=== PATIENT | female | born 1990 | race Caucasian/White ===

== ENCOUNTER 2022-05-26 20:47 | Emergency (ER) | payer BC, SELFPAY ==
[2022-05-26 21:35] VITALS: BP 130/83; PULSE 80; RESP 24; TEMP 36.4; O2SAT 99
[2022-05-26 22:39] LABS: Appearance Urine Clear (Clear); Bilirubin Urine Negative (Negative); Blood Urine Negative (Negative); Color Urine Yellow (Yellow); Glucose Urine Negative (Negative); Ketones Urine 2+ (Negative); Leukocyte Esterase Urine Negative (Negative); Nitrite Urine Negative (Negative); Protein Urine Negative (Negative); Specific Gravity Urine >= 1.030 (1.000-1.030); Urobilinogen Urine 0.2 (0.2-1.0); pH Urine 6.5 (5.0-8.5)
--- OUTSIDE RECORDS SUMMARY | 2022-05-26 22:55 | XMS_ITS | Clinical Summary ---
:1990 Author Organization [facility] [place] [address] Care Team Providers Name Role Phone Darwin Leung DPM Unavailable Arlet Pratt DO Primary Care Provider Allergies Active Allergy Reactions Severity Noted Date Comments Cephalosporins Diarrhea Low 09/29/2020 Bloody diarrh ea Nsaids (Non-Steroidal Pancreatitis 08/21/2012 Anti-Inflammatory Drug) Unlisted Allergen (Include Detail In Pancreatitis High 10/2020 Comments) Medications Medication Sig Dispensed Refills Start End Status Date Date multivitamin (MVI) Take 1 tablet by 0 Active tablet mouth once daily. 1 acetaminophen Take 2 tablets by 0 Active (TYLENOL) 325 mg mouth every 4 4 tablet hours if needed. Max acetaminophen dose: 4000mg in 24 hrs. omeprazole Take 1 capsule by 90 capsule 1 Active (PRILOSEC) 20 mg mouth once daily. 8 Delayed-Release capsuleIndications: Gastroesophageal reflux disease without esophagitis Needle, Disp, 30 G As directed. Use 30 Each 3 Active (HARJINDER DISP NEEDLES as directed with 0 30GX1/2) 30 gauge x Victoza 1/2 ndleIndications: Controlled type 2 diabetes mellitus without complication, without long-term current use of insulin (HC) tolnaftate 1% powder Apply topically 1 Bottle 11 Active (TINACTIN) 1 % to affected 1 powderIndications: area(s) 2 times Tinea pedis of both daily. Shake into feet sock blood-glucose by Not Applicable 1 Device 0 Active meterIndications: route. Dispense 1 Type 2 diabetes, meter, test diet controlled (HC) strips, lancets covered by pt ins. NIDDM type II, controlled - Test 1 time/day norgestimate-ethinyl Take 1 Tablet by 3 Package 3 Active estradiol, 0.25-35 mouth once daily. 1 mg-mcg, (Sprintec) 0.25-35 mg-mcg tabletIndications: PCOS (polycystic ovarian syndrome) diphenhydrAMINE-acet Daily 0 Active aminophen 25-500 mg (TYLENOL PM) 25-500 mg tablet cyclobenzaprine TAKE ONE TO TWO 180 Tablet 0 Active (FLEXERIL) 5 mg TABLETS BY MOUTH 1 tabletIndications: AT BEDTIME Chronic midline low NEEDED FOR MUSCLE back pain with SPASM bilateral sciatica Contour Next Test TEST 1 TIME A DAY 0 Active Strips strip 1 Microlet Lancet TEST ONCE A DAY 0 Active 1 chlorthalidone Take 1 Tablet (25 90 Tablet 3 Active (HYGROTON) 25 mg mg) by mouth once 2 tabletIndications: daily. Hypertension albuterol HFA Inhale 1-2 Puffs 1 Each 1 Active (ProAir HFA) 90 by mouth every 4 2 mcg/actuation hours if needed inhalerIndications: for Shortness of Asthma, unspecified Breath 1st choice asthma severity, or Wheezing 1st unspecified whether choice. complicated, unspecified whether persistent famotidine (PEPCID) Take 1 Tablet (40 90 Tablet 3 Active 40 mg mg) by mouth at 2 tabletIndications: bedtime. Gastric reflux cetirizine (ZYRTEC) Take 1 Tablet (10 90 Tablet 3 Active 10 mg mg) by mouth once 2 tabletIndications: daily. Moderate persistent asthma without complication miconazole nitrate Apply topically 85 g 1 Active powder 2 % to affected 2 powderIndications: area(s) 2 times Tinea pedis, daily. unspecified laterality triamcinolone Apply topically 15 g 0 Active (ARISTOCORT) 0.5 % to affected 2 ointmentIndications: area(s) 2 times Skin lesion of left daily. Not use arm >14 days in a row escitalopram oxalate Take 1 Tablet (20 90 Tablet 3 Active (LEXAPRO) 20 mg mg) by mouth at 2 tabletIndications: bedtime. Depression, recurrent (HC) labetaloL (TRANDATE) Take 1 Tablet 180 Tablet 3 Active 100 mg (100 mg) by mouth 2 tabletIndications: in the morning HTN (hypertension) and 1 Tablet (100 mg) in the evening. montelukast TAKE ONE TABLET 90 Tablet 1 Ac tive (SINGULAIR) 10 mg BY MOUTH AT 2 tabletIndications: BEDTIME Moderate persistent asthma without complication SUMAtriptan TAKE 1/2 TO 1 10 Tablet 2 Acti ve (IMITREX) 50 mg TABLET BY MOUTH 2 tabletIndications: AT ONSET OF Menstrual migraine MIGRAINE. MAY without status REPEAT IN 2 HOURS migrainosus, not IF NEEDED. GIVE intractable AT MINIMUM 2 HOURS APART. MAX DOSE 100MG/24 HOURS acetaminophen-codein Take 1 Tablet by 10 Tablet 0 Active e (TYLENOL #3) mouth every 4 2 300-30 mg per hours if needed tabletIndications: for Pain. Max Cyst of left ovary acetaminophen dose: 4000mg in 24 hrs. potassium chloride TAKE ONE TABLET 30 Tablet 0 Active (KLOR-CON M20) 20 BY MOUTH EVERY 2 mEq Extended-Release DAY WITH A MEAL. tabletIndications: TAKE INSTEAD OF Low blood potassium, POWDER POTASSIUM Hypertension potassium chloride TAKE ONE TABLET 90 Tablet 3 05/03 Discontinued (KLOR-CON M20) 20 BY MOUTH EVERY 1 022 mEq Extended-Release DAY WITH A MEAL. tabletIndications: TAKE INSTEAD OF Low blood potassium, POWDER POTASSIUM Hypertension Active Problems Problem Noted Date Elevated white blood cell count 07/03/2021 Overview: Saw hematology November 2020. Thought due to chronic inflammation related to diabetes and morbid obesity. No further work up recommended per hematology Type 2 diabetes, diet controlled 08/31/2019 Closed fracture of tuft of distal phalanx of finger Hypertension 06/29/2018 Spleen enlarged 06/01/2018 Overview: On CT, Recommend US and labs. Had initia l labs but declined further labs or US. Encouraged to reconsider 06/01/2018 Oligomenorrhea on OCP 01/27/2017 Chronic abdominal pain 01/18/2017 L5-S1 right sided disk herniation 08/02/2014 History of pancreatitis 11/28/2013 Overview: Per Dr. Martinez, GI at [facility] vi sit from April 2012. Consult for recurrent acute pancreatitis and in it potential various etiologies which could include biliary sludge disease or sphincter oddi dysfunction. He was also concerne d about hypertriglyceridemia, especially induced by oral contraceptives He recommended checking a lipid profile and if it did not show hypertriglyceridemia consid ering ERCP. I reviewed those lipid resul ts and her triglycerides were normal. Therefore it sounds as though the control pills were not actually contributing. Records from [facility] [place] in chart, only 1 vi sit 05/08/14. Asked for further records but none available. 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 Lyon. 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 See consult from GI Dr. Martinez at the [place] from May 08, 2012 See details under pancreatitis in proble m list. MRSA (methicillin resistant Staphylococcus aureus) inf ection 07/03/2010 PCOS (polycystic ovarian syndrome) 05/13/2010 Overview: As of 07/2013: Previously on OCPs but the se had to be discontinued because patient was having recurrent pancreatitis after her gallbladder was removed. She saw a food mixer assembler who told her the control was interfering with the sphinc ter of Oddi. No further pancreatitis problems since stopping the control 1.5 years ago. Recommended trial Metformin. 11/2013: Patient stopped metformin after 2 days due to right upper quadrant pain which she contributed to her sphincter of Oddi dysfunction. It is unclear to me if patient was officially diagnosed with s phincter of Oddi dysfunction as the last consult note we have from GI is from Dr. Martinez on May 08, 2012 and he listed it as a possibility but not definitive diagnosis. We'll try to get further re cords if available. Also please see comm ents under pancreatitis as sounds like potential patient misunderstanding regarding control as cause of her symptoms as per Dr. Martinez's note he was concer marko could be causing hypertriglyceridemi a which could then be causing pancreatitis. Triglycerides were checked at that time and were normal so that was ruled out. Recommend trial progesterone only contr aception as if the combination oral cont raception was potentially contributing to her symptoms the progesterone only does not have this potential side effects listed. Other acne 12/14/2007 Overview: Sees Teresa Miranda reactive airway 12/14/2007 Overview: Only with cold air and toxins Morbid obesity 12/14/2007 Resolved Problems Problem Noted Date Resolved Date Morbid obesity 12/26/2011 10/30/2012 Acute pancreatitis 12/25/2011 10/30/2012 Chronic abdominal pain 12/25/2011 10/30/2012 Overview: Unclear etiology. Per clinical care coordinator, at times s eems correlated with menstrual cycle, concerning for endometriosis versus dysmenorrhea. Has seen Dr. Jose Cifuentes, Gastroenterology in the past. No CT findings co nsistent for IBD in the past or currentl y. Per Dr. Cifuentes's note from 03/2011, plan was for possible upper endoscopy if imaging negative. Appears from notes that EGD was scheduled, but never performed an d no subsequent follow-up visits noted. Multiple CT scans and pelvic ultrasound unrevealing other than one episode of pancreatitis following cholecystectomy for cholelithiasis in 2008. Acute abdominal pain 06/14/2009 08/31/2010 Encounters Date Type Specialty Care Team Description 05/13/2022 Travel 05/02/2022 Refill Arlet Pratt, Refi ll Request (Potassium Chloride) from Last 3 Months Immunizations Name Administration Dates Next Due COVID-19 vaccine (Moderna 07/30/2020, 07/03/2020 100mcg/0.5mL) PF, MDV Hepatitis B (Adult) 01/05/2021 Human Papilloma Virus Vaccine 01/06/2012, 10/04/2011, 200702/13/2008 Influenza, IIV3 (Age >=3 years) 04/28/2012, 05/13/2010 Influenza, IIV4 05/06/2020, 05/04/2019, 06/01/2018, 03/17/2017, 05/14/2016, 04/15/2015 Pneumococcal Poly,23-Valent 01/05/2021 (Pneumovax) Tdap 12/27/2020, 04/28/2012 Tuberculin (PPD) 09/23/2017, 09/09/2017 Family History Medical History Relation Name Comments Asthma Brother Cancer-breast Maternal Grandmother diagnosed a t age 36 Asthma Mother Other Other 1 no family histor y of pancreatitis Other Other 2 no family histor y of IBD Cancer-breast Paternal Grandmother post menopa use Asthma Sister Relation Name Status Comments Brother Maternal Grandmother Mother Other 1 Other 2 Paternal Grandmother Sister Social History Tobacco Use Types Packs/Day Years Used Date Never Smoker Smokeless Tobacco: Never Used Tobacco Cessation: Counseling Given: Yes Alcohol Use Standard Drinks/Week Comments Yes 0 (1 standard drink = 0.6 oz pure alcoho l) Alcohol Habits Answer Date Recorded How often do you have a drink containing alcohol? Monthly or less 05/04/2019 How many drinks containing alcohol do you have on a 1 or 2 05/04/2019 typical day when you are drinking? How often do you have six or more drinks on one Never 01/02/2020 occasion? Comment: Not asked Sex Assigned at Date Recorded Not on file COVID-19 Exposure Response Date Recorded In the last 10 days, have you been in contact No / Unsure 05/13/2022 10:28 AM HAZARDOUS MATERIAL TECHNICIAN with someone who was confirmed or suspected to have Coronavirus/COVID-19? Obstetrics History Para Term AB IAB SAB Ectopic Multiple Living Live Births 0 0 0 0 0 0 0 0 0 0 Last Filed Vital Signs Vital Sign Reading Time Taken Comments Blood Pressure 120/61 02/19/2022 9:25 PM CDT Pulse 77 02/19/2022 9:25 PM CDT Temperature 36.5 ??C (97.7 ??F) 02/19/2022 5:49 PM CDT Respiratory Rate 40 02/19/2022 5:49 PM CDT Oxygen Saturation 99% 02/19/2022 9:25 PM CDT Inhaled Oxygen Concentration - - Weight 151 kg (333 lb) 02/19/2022 5:49 PM CDT Height 167.6 cm (5' 6) 02/19/2022 5:49 PM CDT Body Mass Index 53.75 02/19/2022 5:49 PM CDT Plan of Treatment Upcoming Encounters Date Type Specialty Care Team Description 05/31/2022 Office Visit Arlet Pratt, DO [address], [place] [id number] (Wo rk) Health Maintenance Due Date Last Done Comments Hepatitis B series for Diabetes (2 02/02/2021 01/05/2021 of 3 - Risk 3-dose series) COVID-19 vaccine series (4 - 10/01/2021 08/06/2021, 021, Booster for Moderna series) 07/03/2020 Pap test for age 21-65 10/26/2021 10/26/2018, 08/24/2013 Pneumococcal series for age 19-64 01/05/2022 01/05/2021 (2 - PCV) Influenza for age 9-49 02/25/2022 05/06/2020, 05/04/2019, 06/01/2018, Additional history exists BMI (ht and wt on same day) for 07/02/2022 07/02/2021, 01/25, age 18+ 02/04/2020, Additional history exists Depression screening for age 12+ 10/29/2022 10/29/2021, 02/2022, 11/17/2020, Additional history exists Tetanus booster 12/27/2030 12/27/2020, 04/28/2012 HIV for age 15-65 Completed 01/02/2020, 03/07/2018 Hepatitis C screening for age Completed 01/02/2020 18-79 Tdap Completed 12/27/2020, 04/28/2012 Procedures Procedure Name Priority Date/Time Associated Comments Diagnosis HEMOGLOBIN A1C Routine 05/13/2022 10:38 AM Type 2 diabetes, Re sults for this HAZARDOUS MATERIAL TECHNICIAN diet controlled procedure ar e in (HC) the results section. COMP METABOLIC PANEL Routine 05/13/2022 10:38 AM Low blo od potassium Results for this HAZARDOUS MATERIAL TECHNICIAN Elevated liver procedure are in enzymes the results section. from Last 3 Months Results (ABNORMAL) HEMOGLOBIN A1C MONITORING (POCT) (05/13/2022 10:38 AM [facility]) [facility] Signature HEMOGLOBIN A1C 7.3 (H) <=6.4 % 05/13/2022 [place] MONITORING 11:[address] [facility] (POCT) LABORATORY Specimen Anatomical Collection Method / Collection Time Recei baldemar Time (Source) Location / Volume Laterality Blood BLOOD SPECIMEN / Venipuncture / 05/13/2022 10:38 05/13 Unknown Unknown AM HAZARDOUS MATERIAL TECHNICIAN 10:40 AM [facility] Narrative [facility] - 11:10 AM HAZARDOUS MATERIAL TECHNICIAN ? (<=6.9%) ? Indicates good control ? (7.0% to 7.9%) ? Indicates fa ir control ? (>=8.0%) ? Indicates poor control ?? NOTE: ??These thresholds are guideli julia and ?individual targets may va ry. Falsely low levels may be seen with: Recent Transfusion, Recent Significant B lood Loss, Hemolytic Diseases, or Falsely elevated levels may be seen with : Untreated Anemias, Splenectomy ? Arlet Pratt DO CHEMISTRY Performing Organization Address City/State/ZIP Code Phon e Number [facility] [address] [place] [address] (ABNORMAL) COMP METABOLIC PANEL (05/13/2022 10:38 AM [facility]) [facility] gist Method Time Signature SODIUM 138 135 - 145 05/13/2022 [place] mmol/L 11:[address] [facility] POTASSIUM 3.5 3.5 - 5.0 05/13/2022 [place] mmol/L 11:[address] [facility] CHLORIDE 101 98 - 110 05/13/2022 [place] mmol/L 11:[address] [facility] CO2,TOTAL 29 21 - 31 05/13/2022 [place] mmol/L 11:[address] [facility] ANION GAP 8 5 - 18 [facility] [facility] GLUCOSE 177 (H) 65 - 100 05/13/2022 [place] mg/dL 11:[address] [facility] CALCIUM 9.2 8.5 - 10.5 05/13/2022 [place] mg/dL 11:[address] [facility] BUN 11 8 - 25 05/13/2022 [place] mg/dL 11:[address] [facility] CREATININE 0.81 0.57 - 05/13/2022 [place] 1.11 mg/dL 11:[address] [facility] BUN/CREAT RATIO 14 10 - 20 05/13/2022 [place] 11:[address] [facility] ALBUMIN 3.9 3.5 - 5.2 05/13/2022 [place] g/dL 11:[address] [facility] PROTEIN,TOTAL 7.3 6.0 - 8.0 05/13/2022 [place] g/dL 11:[address] [facility] GLOBULIN 3.4 2.0 - 3.7 05/13/2022 [place] g/dL 11:[address] [facility] A/G RATIO 1.1 1.0 - 2.0 05/13/2022 [place] 11:[address] [facility] BILIRUBIN,TOTAL 0.3 0.2 - 1.2 05/13/2022 [place] mg/dL 11:[address] [facility] ALK PHOSPHATASE 55 50 - 136 05/13/2022 [place] IU/L 11:[address] [facility] ALT (SGPT) 43 8 - 45 05/13/2022 [place] IU/L 11:[address] [facility] AST (SGOT) 47 (H) 2 - 40 05/13/2022 [place] IU/L 11:[address] [facility] eGFR >90 >90 05/13/2022 [place] mL/min/1.7 11:[address] [facility] 3m2 LABORATORY Comment: As of 2021, eGFR is calcu lated by the CKD-EPI creatinine equation without race adjustment. eGFR can be inf luenced by muscle mass, exercise, and diet. The reported eGFR is an estimation only and is only applicable if the renal function is stable. Specimen Anatomical Collection Method / Collection Time Recei baldemar Time (Source) Location / Volume Laterality Blood BLOOD SPECIMEN / Venipuncture / 05/13/2022 10:38 05/13 Unknown Unknown AM HAZARDOUS MATERIAL TECHNICIAN 10:40 AM HAZARDOUS MATERIAL TECHNICIAN Arlet Pratt DO CHEMISTRY Performing Organization Address City/State/ZIP Code Phon e Number [facility] [address] [place] [phone] from Last 3 Months Additional Health Concerns Infection Onset Date Last Indicated MRSA 12/27/2011 01/12/2022 Insurance Payer Benefit Plan / Subscriber ID Effective Dates Phone Addre ss Type Group [employer] [place] [employer] [id number] 2018-Present [address] [address] [place] [address] [employer] OF [id number] 2014-Present [address] [place] [address] Yulia Carter Personal/Family Self 1990 [address] (Home) [place] [id number] Advance Directives Latest Code Status on File Code Status Date Activated Date Inactivated Comments Full Code 12/25/2011 9:05 PM 12/28/2011 8:14 PM Full Code 06/14/2009 2:40 PM 06/17/2009 2:07 PM Care Teams Protective Signal Repairer Helper Relationship Specialty Start Date End Date Arlet Pratt DO PCP - General Family Practice 05/06/[address] [place] [address] Darwin Leung DPM PODIATRY Podiatry 08/02/11
[2022-05-26 23:04] LABS: RBC Urine 0-2 (0-2); Squamous Epithelial Cell Urine Few (None-Few); WBC Urine 0-2 (0-5)
[2022-05-26 23:39] VITALS: BP 162/98; PULSE 73; RESP 18; O2SAT 97
[2022-05-26] MEDS: 0.9 % SODIUM CHLORIDE 1000 ml 1,000 ML IV (23:50)
[2022-05-26] MEDS: MORPHINE 4 MG/ML INJ IVP (23:51)
[2022-05-26] MEDS: KETOROLAC 30 MG/ML inj IVP (23:51)
[2022-05-27 00:02] LABS: Basophils Percent Auto 0.3 % (0.0-3.0); Eosinophils Percent Auto 2.7 % (0.0-7.0); Hematocrit 40.9 % (33.0-51.0); Hemoglobin* 13.4 gm/dL (12.0-16.0); Immature Granulocytes Pct Auto 0.5 %; Lymphocytes Percent Auto 28.1 % (20-44); Mean Corpuscular HGB Conc 33 gm/dL (32-36); Mean Corpuscular Hemoglobin 26 pg (26-34); Mean Corpuscular Volume 80 fL (80-100); Monocytes Percent Auto 5.8 % (0.0-11.0); Neutrophils Percent Auto 62.6 % (42.0-72.0); Platelet Count* 279 K/uL (140-440); RDW Coefficient of Variation % 13.7 % (11.5-15.5); Red Blood Count 5.11 m/uL (4.00-5.20); White Blood Count* 15.42 K/uL (4.50-11.00)
[2022-05-27 00:07] LABS: Slide Review Reflex No
[2022-05-27 00:13] LABS: HCG Qualitative* Negative (Negative)
[2022-05-27 00:15] LABS: Albumin* 4.4 g/dL (3.3-5.0)
[2022-05-27 00:16] LABS: Chloride* 99 mmol/L (96-114); Sodium* 138 mmol/L (135-149)
[2022-05-27 00:17] LABS: Potassium* 3.1 mmol/L (3.6-5.1)
[2022-05-27 00:18] LABS: Bilirubin Direct* 0.2 mg/dL (0.0-0.5); Bilirubin Total* 0.6 mg/dL (0.1-1.5)
[2022-05-27 00:19] LABS: Alanine Aminotransferase* 44 U/L (4-35); Alkaline Phosphatase* 62 U/L (40-150); Aspartate Amino Transferase* 52 U/L (12-35); Creatinine* 0.7 mg/dL (0.5-1.5); Estimated Glomerular Filt Rate 119 ml/min; Lipase* 106 U/L (23-300); Total Protein* 7.6 g/dL (6.0-8.3)
[2022-05-27 00:20] LABS: Blood Urea Nitrogen* 15 mg/dL (5-24); Calcium* 9.3 mg/dL (8.4-10.6); Carbon Dioxide* 31 mmol/L (20-32); Glucose* 130 mg/dL (60-115)
[2022-05-27 00:23] LABS: C Reactive Protein* 3.2 mg/dL (0.5-1.0)
--- NOTE | 2022-05-27 00:36 | ED.ABDPAIN ---
HPI - Abdominal Pain General Chief Complaint: Abdominal Pain Stated Complaint: Right Abdominal Pain,Dizzy,Nausea Time Seen by Provider: 05/26/22 21:54 History of Present Illness HPI narrative: 32-year-old woman here with her mom with concern of abdominal pain over the course of the day. Describes the pain like a knife in the right lower abdomen. She has had some nausea but not really vomiting other than once in her mouth. Has now developed a headache. Apparently does have a diagnosis of migraines normally would have taken sumatriptan for it. No dysuria frequency urgency. No hematuria. No personal family history of nephrolithiasis. 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 Extensive evaluations. Status post cholecystectomy with gallstones. No fever. No constipation no diarrhea. Later in questioning she believes she knows with this pain is consistent with prior diagnoses, and last time this occurred was over a year ago. Related Data Home Medications Medication Instructions Recorded Confirmed cetirizine 10 mg tablet 10 mg PO DAILY 05/27/22 05/27/22 chlorthalidone 25 mg tablet 25 mg PO DAILY 05/27/22 05/27/22 escitalopram oxalate 20 mg tablet 20 mg PO HS 05/27/22 05/27/22 famotidine 40 mg tablet 40 mg PO HS 05/27/22 05/27/22 labetalol 100 mg tablet 100 mg PO BID 05/27/22 05/27/22 montelukast 10 mg tablet 10 mg PO HS 05/27/22 05/27/22 potassium chloride 20 mEq 20 meq PO DAILY 05/27/22 05/27/22 tablet,extended release(part/cryst) sumatriptan succinate 50 mg tablet 50 mg PO Q2H 05/27/22 05/27/22 Allergies Allergy/AdvReac Type Severity Reaction Status Date / Time NSAIDS (Non-Steroidal Allergy Severe Pancreatiti Verified 05/26/22 23:35 Anti-Inflamma s Cephalosporins Allergy Intermediate Diarrhea Verified 05/26/22 23:35 Review of Systems Status of ROS Reports: 10 or more systems reviewed and unremarkable except as noted in History and below [facility] Medical History (Updated 05/27/22 @ 01:09 by Wild Capps MD) Chronic abdominal pain Closed fracture of tuft of distal phalanx of finger 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 History of pancreatitis Hypertension Lumbar disc herniation Lumbar radicular pain Morbid obesity MRSA (methicillin resistant Staphylococcus aureus) infection Oligomenorrhea PCOS (polycystic ovarian syndrome) Reactive airway disease Sphincter of Oddi dysfunction Type 2 diabetes, diet controlled Surgical History History of cholecystectomy History of tonsillectomy History of wisdom tooth extraction Social History Smoking Status: Never smoker How often do you have a drink containing alcohol: never AUDIT-C Alcohol total score: 0 Non-prescribed substance use: denies use Exam Narrative: Exam Narrative: Is pleasant. Gently dramatic. Taller stature Is breathing easily. Cranial nerves 2-12 intact. Oropharynx is moist. face is a little flushed. Neck is supple without lymphadenopathy. Lungs with diminished breath sounds do sound to be clear. Cardiovascular with regular rate and rhythm, distant. Abdomen is obese soft. She has been demonstrating pain in the right lower abdomen above the adnexal area. Mildly reproducible to palpation this area. There is no actual flank pain. She has no masses. Abdomen exam is limited by obesity. No peritoneal signs. Does not have pain in Mcgarry's or epigastric. Extremities with mild dependent edema. Generally well perfused. Const: Vital Signs, click to edit/add: Vital Signs - 24 hr 05/26/22 21:35 05/26/22 23:39 Temperature 97.6 F Pulse Rate [Right Pulse Oximeter] 80 73 Respiratory Rate 24 18 Blood Pressure [Le ft Upper Arm] 130/83 162/98 H Pulse Oximetry 99 97 Oxygen Delivery Me thod Room Air Room Air Documenting provider has reviewed patient's vital signs: yes Course Vital Signs Vital signs: Initial Vital Signs Temperature 97.6 F 05/26/22 21:35 Temperature Source Temporal Artery Scan 05/26/22 21:35 Pulse Rate 80 05/26/22 21:35 Pulse Rhythm 05/26/22 21:35 Respiratory Rate 24 05/26/22 21:35 Blood Pressure 130/83 05/26/22 21:35 Blood Pressure Mean 98 05/26/22 21:35 Blood Pressure Position Sitting 05/26/22 21:35 Pulse Oximetry 99 05/26/22 21:35 Oxygen Delivery Method 05/26/22 21:35 Vital Signs Temperature 97.6 F 05/26/22 21:35 Pulse Rate 80 05/26/22 21:35 Respiratory Rate 24 05/26/22 21:35 Blood Pressure 130/83 05/26/22 21:35 Pulse Oximetry 99 05/26/22 21:35 Oxygen Delivery Method 05/26/22 21:35 Temperature 97.6 F 05/26/22 21:35 Pulse Rate 73 05/26/22 23:39 Respiratory Rate 18 05/26/22 23:39 Blood Pressure 162/98 H 05/26/22 23:39 Pulse Oximetry 97 05/26/22 23:39 Oxygen Delivery Method 05/26/22 23:39 MDM - Abdominal Pain MDM Narrative Medical decision making narrative: She would like treatment for her headache. Think IV fluids would be indicated here along with ketorolac. She has been recommended not to have NSAID but I think that would be more of a recommendation to avoid oral NSAIDs. Sounds as though ketorolac may have worked in the past. Will also give low-dose morphine initially. Differential for abdominal pain does include appendicitis, ovarian torsion, ruptured ovarian cyst, cystitis, ectopic , ureteral stone spasm, mesenteric lymphadenopathy, referred gallbladder area pain/spasm, abdominal pain NOS IV placed. Received normal saline morphine ketorolac for headache as well as I presume this will help with her abdominal discomfort. Labs pending and I anticipate re-examination. Overall improved on re-evaluation. Try to clarify again this abdominal pain. She does note that this is indeed similar to prior location and quality of pain consistent with what is suspected to be spasms of sphincter of Oddi though had expressed concern that there was something unusual about this pain on initial evaluation. Reviewed labs from recent lab drawn clinic which shows only a comprehensive metabolic panel but consistent with findings here today. Only remarkable labs today white count elevated at a little over 15k. I would note the lipase is normal. Potassium just a little bit low at 3.1 CRP elevated at 3.2 urinalysis 2+ ketones. Medical Records Attestation: I reviewed the patient's medical records. Lab Data Attestation: I reviewed the patient's lab results. Labs: Lab Results 05/26/22 05/26/22 05/26/22 Range/Units 21:56 23:49 23:49 WBC 15.42 H (4.50-11.00) K/uL RBC 5.11 (4.00-5.20) m/uL Hgb 13.4 (12.0-16.0) gm/dL Hct 40.9 (33.0-51.0) % MCV 80 (80-100) fL MCH 26 (26-34) pg MCHC 33 (32-36) gm/dL RDW Coeff of Rgo[place] 13.7 (11.5-15.5) % Plt Count 279 (140-440) K/uL Neut % (Auto) 62.6 (42.0-72.0) % Lymph % (Auto) 28.1 (20-44) % [place] % (Auto) 5.8 (0.0-11.0) % Eos % (Auto) 2.7 (0.0-7.0) % Baso % (Auto) 0.3 (0.0-3.0) % Neut # (Auto) 9.70 H (1.7-7.0) K/uL Lymph # (Auto) 4.30 H (0.90-2.90) K/uL [place] # (Auto) 0.90 (0.00-0.90) K/UL Eos # (Auto) 0.40 (0.00-0.50) K/uL Baso # (Auto) 0.00 (0.00-0.30) K/uL Abs Immat Gran (auto) 0.10 (0.00-0.30) K/uL Imm/Tot Granulo (auto) 0.5 % Sodium 138 (135-149) mmol/L Potassium 3.1 L (3.6-5.1) mmol/L Chloride 99 (96-114) mmol/L Carbon Dioxide 31 (20-32) mmol/L BUN 15 (5-24) mg/dL Creatinine 0.7 (0.5-1.5) mg/dL Estimated GFR 119 ml/min Glucose 130 H (60-115) mg/dL Calcium 9.3 (8.4-10.6) mg/dL Total Bilirubin (0.1-1.5) mg/dL Direct Bilirubin (0.0-0.5) mg/dL AST (12-35) U/L ALT (4-35) U/L Alkaline Phosphatase (40-150) U/L C-Reactive Protein 3.2 H (0.5-1.0) mg/dL Total Protein (6.0-8.3) g/dL Albumin (3.3-5.0) g/dL Lipase 106 (23-300) U/L HCG, Qual (Negative) Urine Color Yellow (Yellow) Urine Appearance Clear (Clear) Urine pH 6.5 (5.0-8.5) Ur Specific [place] >= 1.030 (1.000-1.030) Urine Protein Negative (Negative) Urine Glucose (UA) Negative (Negative) Urine Ketones 2+ A (Negative) Urine Blood Negative (Negative) Urine Nitrite Negative (Negative) Urine Bilirubin Negative (Negative) Urine Urobilinogen 0.2 (0.2-1.0) Ur Leukocyte Esterase Negative (Negative) Urine RBC 0-2 (0-2) Urine WBC 0-2 (0-5) Ur Squamous Epith Cells Few (None-Few) Urine Bacteria None (None) SARS-CoV-2 (PCR) (Negative) Influenza Type A (PCR) (Negative) Influenza Type B (PCR) (Negative) 05/26/22 05/27/22 05/27/22 Range/Units 23:49 00:07 00:23 WBC (4.50-11.00) K/uL RBC (4.00-5.20) m/uL Hgb (12.0-16.0) gm/dL Hct (33.0-51.0) % MCV (80-100) fL MCH (26-34) pg MCHC (32-36) gm/dL RDW Coeff of Roger (11.5-15.5) % Plt Count (140-440) K/uL Neut % (Auto) (42.0-72.0) % Lymph % (Auto) (20-44) % [place] % (Auto) (0.0-11.0) % Eos % (Auto) (0.0-7.0) % Baso % (Auto) (0.0-3.0) % Neut # (Auto) (1.7-7.0) K/uL Lymph # (Auto) (0.90-2.90) K/uL [place] # (Auto) (0.00-0.90) K/UL Eos # (Auto) (0.00-0.50) K/uL Baso # (Auto) (0.00-0.30) K/uL Abs Immat Gran (auto) (0.00-0.30) K/uL Imm/Tot Granulo (auto) % Sodium (135-149) mmol/L Potassium (3.6-5.1) mmol/L Chloride (96-114) mmol/L Carbon Dioxide (20-32) mmol/L BUN (5-24) mg/dL Creatinine (0.5-1.5) mg/dL Estimated GFR ml/min Glucose (60-115) mg/dL Calcium (8.4-10.6) mg/dL Total Bilirubin 0.6 (0.1-1.5) mg/dL Direct Bilirubin 0.2 (0.0-0.5) mg/dL AST 52 H (12-35) U/L ALT 44 H (4-35) U/L Alkaline Phosphatase 62 (40-150) U/L C-Reactive Protein (0.5-1.0) mg/dL Total Protein 7.6 (6.0-8.3) g/dL Albumin 4.4 (3.3-5.0) g/dL Lipase (23-300) U/L HCG, Qual Negative (Negative) Urine Color (Yellow) Urine Appearance (Clear) Urine pH (5.0-8.5) Ur Specific [place] (1.000-1.030) Urine Protein (Negative) Urine Glucose (UA) (Negative) Urine Ketones (Negative) Urine Blood (Negative) Urine Nitrite (Negative) Urine Bilirubin (Negative) Urine Urobilinogen (0.2-1.0) Ur Leukocyte Esterase (Negative) Urine RBC (0-2) Urine WBC (0-5) Ur Squamous Epith Cells (None-Few) Urine Bacteria (None) SARS-CoV-2 (PCR) Negative SARS-CoV-2 (Negative) Influenza Type A (PCR) Negative PCR FLU A (Negative) Influenza Type B (PCR) Negative PCR FLU B (Negative) Discharge Plan Discharge Clinical Impression: Migraine, Abdominal pain Patient Disposition: Home w/ Parent or Adult Additional Instructions: Hydrate. Return for recurrent and intensifying pain, associated with fever, repeated vomiting. Since you have received Tramadol in the past for this, I can prescribe some here. Prescriptions: No Action cetirizine 10 mg tablet 10 mg PO DAILY Label Comments: TAKE ONE TABLET BY MOUTH EVERY DAY chlorthalidone 25 mg tablet 25 mg PO DAILY Label Comments: TAKE ONE TABLET BY MOUTH EVERY DAY escitalopram oxalate 20 mg tablet 20 mg PO HS Label Comments: TAKE ONE TABLET BY MOUTH AT BEDTIME famotidine 40 mg tablet 40 mg PO HS Label Comments: TAKE ONE TABLET BY MOUTH AT BEDTIME labetalol 100 mg tablet 100 mg PO BID Label Comments: TAKE ONE TABLET BY MOUTH TWICE A DAY (MORNING AND EVENING) montelukast 10 mg tablet 10 mg PO HS Label Comments: TAKE ONE TABLET BY MOUTH AT BEDTIME potassium chloride 20 mEq tablet,ER particles/crystals 20 meq PO DAILY Label Comments: TAKE ONE TABLET BY MOUTH EVERY DAY WITH A MEAL - TAKE INSTEAD OF POWDER POTASSIUM sumatriptan succinate 50 mg tablet 50 mg PO Q2H Label Comments: TAKE ONE HALF TO ONE TABLET BY MOUTH AT ONSET OF MIGRAINE. MAY REPEAT IN 2 HOURS IF NEEDED. GIVE AT MINIMUM 2 HOURS APART. MAX DOSE 100MG / Follow Up/Referrals: Arlet Pratt DO [Primary Care Provider] - Stand Alone [facility]
[2022-05-27 01:02] LABS: PCR FLU A Negative PCR FLU A (Negative); PCR FLU B Negative PCR FLU B (Negative)
[2022-05-27 01:11] LABS: SARS PCR* Negative SARS-CoV-2 (Negative)
== END 2022-05-27 01:33 | disposition home or self-care (01) ==
PROVIDERS: Emergency Provider Family Medicine; PCP Family Medicine
DX: R10.9 Unspecified abdominal pain (principal); G43.909 Migraine, unspecified, not intractable, without status migrainosus
CPT/HCPCS: 36415; 80048; 80076; 81001; 83690; 84703; 85025; 86140; 87631; 96374; 96375; 99284; J1885; J2270; J7030

== ENCOUNTER 2022-11-08 22:31 | Emergency (ER) | payer BC, SELFPAY ==
[2022-11-08 22:39] VITALS: BP 152/81; PULSE 102; RESP 24; TEMP 35.6; O2SAT 97; BMI 54.2
[2022-11-08 22:55] VITALS: O2SAT 96
[2022-11-08 22:59] LABS: Basophils Percent Auto 0.3 % (0.0-3.0); Eosinophils Percent Auto 2.7 % (0.0-7.0); Hematocrit 41.7 % (33.0-51.0); Hemoglobin* 13.8 gm/dL (12.0-16.0); Immature Granulocytes Pct Auto 1.2 %; Mean Corpuscular HGB Conc 33 gm/dL (32-36); Mean Corpuscular Hemoglobin 26 pg (26-34); Mean Corpuscular Volume 79 fL (80-100); Monocytes Percent Auto 5.7 % (0.0-11.0); Neutrophils Percent Auto 60.1 % (42.0-72.0); Platelet Count* 288 K/uL (140-440); Red Blood Count 5.26 m/uL (4.00-5.20); White Blood Count* 14.71 K/uL (4.50-11.00)
[2022-11-08] MEDS: ONDANSETRON 2 MG/ML inj 4 MG IVP (23:04)
[2022-11-08] MEDS: 0.9 % SODIUM CHLORIDE 1000 ml 1,000 ML IV (23:04)
[2022-11-08] MEDS: MORPHINE 4 MG/ML INJ IVP (23:06)
[2022-11-08 23:07] LABS: Slide Review Reflex No
[2022-11-08] MEDS: KETOROLAC 30 MG/ML inj IVP (23:07)
[2022-11-08 23:12] LABS: Albumin* 4.6 g/dL (3.3-5.0); Chloride* 93 mmol/L (96-114); Sodium* 136 mmol/L (135-149)
[2022-11-08 23:14] LABS: Creatinine* 0.8 mg/dL (0.5-1.5); Est. Creatinine Clearance* 95.38; Estimated Glomerular Filt Rate 101 ml/min
[2022-11-08 23:15] LABS: Alkaline Phosphatase* 62 U/L (40-150); Aspartate Amino Transferase* 48 U/L (12-35); Bilirubin Direct* 0.3 mg/dL (0.0-0.5); Bilirubin Total* 0.4 mg/dL (0.1-1.5); Blood Urea Nitrogen* 13 mg/dL (5-24); Carbon Dioxide* 29 mmol/L (20-32); Glucose* 255 mg/dL (60-115); Lipase* 160 U/L (23-300); Total Protein* 8.1 g/dL (6.0-8.3)
[2022-11-08 23:16] VITALS: PULSE 78; O2SAT 95
[2022-11-08 23:16] LABS: Alanine Aminotransferase* 49 U/L (4-35); Calcium* 9.3 mg/dL (8.4-10.6); Potassium* 2.7 mmol/L (3.6-5.1)
[2022-11-08] MEDS: POTASSIUM CHLORIDE 10 MEQ/100 ML PIGGYBACK 100 MEQ IVPB (23:27)
--- NOTE | 2022-11-08 23:30 | ED_ITS ---
HPI - Abdominal Pain General Chief Complaint: Abdominal Pain Stated Complaint: adbominal pain and vomiting Time Seen by Provider: 11/08/22 22:35 History of Present Illness HPI narrative: 32-year-old woman presenting to the emergency department with complaint of sudden simultaneous onset of abdominal pain and repeated vomiting beginning about an hour prior to arrival. Since around 9:30 p.m. accompanied by her father. No known exposures. Underlying history of pancreatitis, spasm of the sphincter of oddi, chronic abdominal pain, diabetes and cholelithiasis now status post cholecystectomy. No fever. No hematemesis. No dysuria frequency urgency. She has started taking magnesium for headaches which has produced diarrhea. Related Data Home Medications Medication Instructions Recorded Confirmed cetirizine 10 mg tablet 10 mg PO DAILY 05/27/22 05/27/22 chlorthalidone 25 mg tablet 25 mg PO DAILY 05/27/22 05/27/22 escitalopram oxalate 20 mg tablet 20 mg PO HS 05/27/22 05/27/22 famotidine 40 mg tablet 40 mg PO HS 05/27/22 05/27/22 labetalol 100 mg tablet 100 mg PO BID 05/27/22 05/27/22 montelukast 10 mg tablet 10 mg PO HS 05/27/22 05/27/22 potassium chloride 20 mEq 20 meq PO DAILY 05/27/22 05/27/22 tablet,extended release(part/cryst) sumatriptan succinate 50 mg tablet 50 mg PO Q2H 05/27/22 05/27/22 Allergies Allergy/AdvReac Type Severity Reaction Status Date / Time NSAIDS (Non-Steroidal Allergy Severe Pancreatiti Verified 05/26/22 23:35 Anti-Inflamma s Cephalosporins Allergy Intermediate Diarrhea Verified 05/26/22 23:35 Review of Systems Status of ROS Reports: 6 or more systems reviewed and unremarkable except as noted in History and below [facility] Medical History Morbid obesity ?E66.01 - Morbid (severe) obesity due to excess calories (ICD-10) Reactive airway disease ?J45.909 - Unspecified asthma, uncomplicated (ICD-10) PCOS (polycystic ovarian syndrome) ?E28.2 - Polycystic ovarian syndrome (ICD-10) MRSA (methicillin resistant Staphylococcus aureus) infection ?A49.02 - Methicillin resistant Staphylococcus aureus infection, unspecified site (ICD-10) 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 - Spasm of sphincter of Oddi (ICD-10) Lumbar radicular pain ?M54.16 - Radiculopathy, lumbar region (ICD-10) Erythema ab igne ?L59.0 - Erythema ab igne [dermatitis ab igne] (ICD-10) Lumbar disc herniation ?M51.26 - Other intervertebral disc displacement, lumbar region (ICD-10) History of pancreatitis ?Z87.19 - Personal history of other diseases of the digestive system (ICD-10) Herniation of intervertebral disc of lumbar region ?M51.26 - Other intervertebral disc displacement, lumbar region (ICD-10) Chronic abdominal pain ?R10.9 - Unspecified abdominal pain (ICD-10) ?G89.29 - Other chronic pain (ICD-10) Oligomenorrhea ?N91.5 - Oligomenorrhea, unspecified (ICD-10) Hypertension ?I10 - Essential (primary) hypertension (ICD-10) Closed fracture of tuft of distal phalanx of finger ?S62.639A - Displaced fracture of distal phalanx of unspecified finger, initial encounter for closed fracture (ICD-10) Type 2 diabetes, diet controlled ?E11.9 - Type 2 diabetes mellitus without complications (ICD-10) Surgical History History of wisdom tooth extraction ?K08.409 - Partial loss of teeth, unspecified cause, unspecified class (ICD- 10) History of tonsillectomy ?Z90.89 - Acquired absence of other organs (ICD-10) History of cholecystectomy ?Z90.49 - Acquired absence of other specified parts of digestive tract (ICD- 10) Social History Smoking Status: Never smoker How often do you have a drink containing alcohol: never AUDIT-C Alcohol total score: 0 Non-prescribed substance use: denies use Exam Narrative: Exam Narrative: Arrives a little breathless in and I believe nausea-related discomfort. pleasan t. A little distracted, flatter affect. Is mildly labored but not tachypneic in her breathing. Head looks to be atraumatic. Oropharynx is a little sticky. Lungs appear to be clear. Heart with elevated rate in a regular rhythm on initial auscultation. Abdomen with present bowel sounds. Morbidly obese. Mildly tender perhaps across the low abdomen. No peritoneal signs. Extremities are well perfused. We all extremities without difficulty Const: Vital Signs, click to edit/add: Vital Signs - 24 hr 11/08/22 22:39 11/08/22 23:16 11/08/22 23:32 Temperature 96.0 F L Pulse Rate [Pulse Oximeter] 102 H 78 82 Respiratory Rate 24 24 Blood Pressure [Ri ght Upper Arm] 152/81 H 131/73 Pulse Oximetry 97 95 96 Oxygen Delivery Me thod Room Air Room Air Room Air 11/09/22 00:17 Temperature Pulse Rate [Pulse Oximeter] 84 Respiratory Rate Blood Pressure [Ri ght Upper Arm] Pulse Oximetry 96 Oxygen Delivery Me thod Room Air Documenting provider has reviewed patient's vital signs: yes Course Vital Signs Vital signs: Initial Vital Signs Temperature 96.0 F L 11/08/22 22:39 Temperature Source Temporal Artery Scan 11/08/22 22:39 Pulse Rate 102 H 11/08/22 22:39 Respiratory Rate 24 11/08/22 22:39 Blood Pressure 152/81 H 11/08/22 22:39 Blood Pressure Mean 104 11/08/22 22:39 Blood Pressure Position Sitting 11/08/22 22:39 Pulse Oximetry 97 11/08/22 22:39 Oxygen Delivery Method Room Air 11/08/22 22:39 Vital Signs Temperature 96.0 F L 11/08/22 22:39 Pulse Rate 102 H 11/08/22 22:39 Respiratory Rate 24 11/08/22 22:39 Blood Pressure 152/81 H 11/08/22 22:39 Pulse Oximetry 97 11/08/22 22:39 Oxygen Delivery Method Room Air 11/08/22 22:39 Temperature 96.0 F L 11/08/22 22:39 Pulse Rate 84 11/09/22 00:17 Respiratory Rate 24 11/08/22 23:32 Blood Pressure 131/73 11/08/22 23:32 Pulse Oximetry 96 11/09/22 00:17 Oxygen Delivery Method Room Air 11/09/22 00:17 MDM - Abdominal Pain MDM Narrative Medical decision making narrative: Numerous possibilities in this history. Certainly could be infectious gastroenteritis, sphincter of Oddi spasm with resultant nausea/vomiting, flare of irritable bowel otherwise, pancreatitis, I doubt urinary tract infection, diverticulitis but less likely with extensive vomiting. Improved with treatments with IV fluids, ketorolac and 4 mg of morphine, Zofran. Listing NSAIDs as a supposed allergy but I believe that this is only if taken orally for her and causing irritation/pancreatitis. This cocktail worked well with last visit to this facility in April of 2022 where I saw Ms. Carter. Mildly elevated white count --I think is maybe more margination and somewhat chronic. Vitals are improving. Normal lipase. Glucose elevated at 255. Most notable perhaps is hypokalemia at 2.7. History of similar and does take potassium supplementation. Pending is magnesium level Replacing a 10 mEq IV and 20 oral potassium. Nausea still present was given Reglan. On reassessment overall improved. Lab Data Attestation: I reviewed the patient's lab results. Labs: Lab Results 11/08/22 11/08/22 Range/Units 22:45 23:31 WBC 14.71 H (4.50-11.00) K/uL RBC 5.26 H (4.00-5.20) m/uL Hgb 13.8 (12.0-16.0) gm/dL Hct 41.7 (33.0-51.0) % MCV 79 L (80-100) fL MCH 26 (26-34) pg MCHC 33 (32-36) gm/dL RDW Coeff of Roger 14.0 (11.5-15.5) % Plt Count 288 (140-440) K/uL Neut % (Auto) 60.1 (42.0-72.0) % Lymph % (Auto) 30.0 (20-44) % [place] % (Auto) 5.7 (0.0-11.0) % Eos % (Auto) 2.7 (0.0-7.0) % Baso % (Auto) 0.3 (0.0-3.0) % Neut # (Auto) 8.80 H (1.7-7.0) K/uL Lymph # (Auto) 4.40 H (0.90-2.90) K/uL [place] # (Auto) 0.80 (0.00-0.90) K/UL Eos # (Auto) 0.40 (0.00-0.50) K/uL Baso # (Auto) 0.00 (0.00-0.30) K/uL Sodium 136 (135-149) mmol/L Potassium 2.7 L* (3.6-5.1) mmol/L Chloride 93 L (96-114) mmol/L Carbon Dioxide 29 (20-32) mmol/L BUN 13 (5-24) mg/dL Creatinine 0.8 (0.5-1.5) mg/dL Estimated Creat Clear 95.38 Estimated GFR 101 ml/min Glucose 255 H (60-115) mg/dL Calcium 9.3 (8.4-10.6) mg/dL Magnesium 1.9 (1.5-2.6) mg/dL Total Bilirubin 0.4 (0.1-1.5) mg/dL Direct Bilirubin 0.3 (0.0-0.5) mg/dL AST 48 H (12-35) U/L ALT 49 H (4-35) U/L Alkaline Phosphatase 62 (40-150) U/L Total Protein 8.1 (6.0-8.3) g/dL Albumin 4.6 (3.3-5.0) g/dL Lipase 160 (23-300) U/L Lab Acknowledgement Test Added Discharge Plan Discharge Clinical Impression: Gastritis, Abdominal pain, Dehydration Patient Disposition: Home w/ Parent or Adult Condition: Improved Additional Instructions: slow advance of diet over the next 36 hours. start with diluted juices, soup broths, rice, crackers, toast. Consider doubling your potassium intake as long as your taking this magnesium though would check levels every 2 weeks in this case. If you discontinue the magnesium, could probably continue with your usual dosing of potassium. I would still recheck in 2 weeks from now potassium levels. Return for intractable vomiting, uncontrolled pain, associated fever. Ronald from [facility]. Prescriptions: No Action cetirizine 10 mg tablet 10 mg PO DAILY Patient Comments: TAKE ONE TABLET BY MOUTH EVERY DAY chlorthalidone 25 mg tablet 25 mg PO DAILY Patient Comments: TAKE ONE TABLET BY MOUTH EVERY DAY escitalopram oxalate 20 mg tablet 20 mg PO HS Patient Comments: TAKE ONE TABLET BY MOUTH AT BEDTIME famotidine 40 mg tablet 40 mg PO HS Patient Comments: TAKE ONE TABLET BY MOUTH AT BEDTIME labetalol 100 mg tablet 100 mg PO BID Patient Comments: TAKE ONE TABLET BY MOUTH TWICE A DAY (MORNING AND EVENING) montelukast 10 mg tablet 10 mg PO HS Patient Comments: TAKE ONE TABLET BY MOUTH AT BEDTIME potassium chloride 20 mEq tablet,ER particles/crystals 20 meq PO DAILY Patient Comments: TAKE ONE TABLET BY MOUTH EVERY DAY WITH A MEAL - TAKE INSTEAD OF POWDER POTASSIUM sumatriptan succinate 50 mg tablet 50 mg PO Q2H Patient Comments: TAKE ONE HALF TO ONE TABLET BY MOUTH AT ONSET OF MIGRAINE. MAY REPEAT IN 2 HOURS IF NEEDED. GIVE AT MINIMUM 2 HOURS APART. MAX DOSE 100MG / Follow Up/Referrals: Arlet Pratt DO [Primary Care Provider] - Stand Alone Forms: [facility] Info Instructions
[2022-11-08 23:32] VITALS: BP 131/73; PULSE 82; RESP 24; O2SAT 96
[2022-11-08] MEDS: METOCLOPRAMIDE HCL 10 MG in 0.9 % SODIUM CHLORIDE 100 ml 100 ML 306 MG IVPB (23:49)
[2022-11-08 23:50] LABS: Magnesium* 1.9 mg/dL (1.5-2.6)
[2022-11-09 00:17] VITALS: PULSE 84; O2SAT 96
[2022-11-09 00:42] VITALS: BP 131/73; PULSE 84; RESP 24; TEMP 35.6
== END 2022-11-09 00:42 | disposition home or self-care (01) ==
PROVIDERS: Emergency Provider Family Medicine; PCP Family Medicine
DX: K29.70 Gastritis, unspecified, without bleeding (principal); R10.9 Unspecified abdominal pain; E86.0 Dehydration
CPT/HCPCS: 36415; 80048; 80076; 83690; 83735; 85025; 94761; 96365; 96375; 99284; J1885; J2270; J2405; J2765; J3480; J7030

== ENCOUNTER 2023-03-09 23:12 | Emergency (ER) | payer BC, SELFPAY ==
[2023-03-09 23:34] VITALS: BP 121/78; PULSE 86; RESP 24; TEMP 36.6; O2SAT 96; BMI 48.1
[2023-03-10] VITALS (8 sets, daily range): BP systolic 113–136; BP diastolic 52–87; PULSE 82–94; RESP 16–18; TEMP 36.6–36.9; O2SAT 96–98
--- NOTE | 2023-03-10 00:15 | ED.GENADULT ---
HPI - General Adult General Chief complaint: Abdominal Pain Stated complaint: right side pain, nausea Time Seen by Provider: 03/10/23 00:31 History of Present Illness HPI narrative: R side abd pain start sat. CT tuesday at [place]. told lft elevated and kcl off, kcl given and sent home. pt denies diarrhea or constip. pt states today is nausea and vomting for last hour. family at bedside states she gets spasms in sphincter of oddi which causes backups and pain/ problems, states usually 4x per year since gallbladder removal. 33-year-old woman presenting to the emergency department with complaint of right upper abdominal pain radiates somewhat to her back. Sharp, burning, cramping. Repeated vomiting without hematemesis. This is similar to prior presentations for which I have also treated her for what is thought to be sphincter of oddi spasms now status post cholecystectomy. Actually was seen at another emergency department about a day and a half ago where she did have CT imaging. Was also noted to be mildly hypokalemic as well. She was better for about a day. This has been ongoing now for a little over an hour. Records reviewed. Related Data Home Medications Medication Instructions Recorded Confirmed cetirizine 10 mg tablet 10 mg PO DAILY 05/27/22 05/27/22 chlorthalidone 25 mg tablet 25 mg PO DAILY 05/27/22 05/27/22 escitalopram oxalate 20 mg tablet 20 mg PO HS 05/27/22 03/09/23 famotidine 40 mg tablet 40 mg PO HS 05/27/22 03/09/23 labetalol 100 mg tablet 100 mg PO BID 05/27/22 03/09/23 montelukast 10 mg tablet 10 mg PO HS 05/27/22 05/27/22 potassium chloride 20 mEq 20 meq PO DAILY 05/27/22 03/09/23 tablet,extended release(part/cryst) sumatriptan succinate 50 mg tablet 50 mg PO Q2H 05/27/22 05/27/22 hydrochlorothiazide PO 03/09/23 omeprazole .ROUTE 03/09/23 Allergies Allergy/AdvReac Type Severity Reaction Status Date / Time NSAIDS (Non-Steroidal Allergy Severe Pancreatiti Verified 05/26/22 23:35 Anti-Inflamma s Cephalosporins Allergy Intermediate Diarrhea Verified 05/26/22 23:35 Review of Systems Status of ROS: Reports: 6 or more systems reviewed and unremarkable except as noted in History and below [facility] Medical History Morbid obesity ?E66.01 - Morbid (severe) obesity due to excess calories (ICD-10) Reactive airway disease ?J45.909 - Unspecified asthma, uncomplicated (ICD-10) PCOS (polycystic ovarian syndrome) ?E28.2 - Polycystic ovarian syndrome (ICD-10) MRSA (methicillin resistant Staphylococcus aureus) infection ?A49.02 - Methicillin resistant Staphylococcus aureus infection, unspecified site (ICD-10) 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 - Spasm of sphincter of Oddi (ICD-10) Lumbar radicular pain ?M54.16 - Radiculopathy, lumbar region (ICD-10) Erythema ab igne ?L59.0 - Erythema ab igne [dermatitis ab igne] (ICD-10) Lumbar disc herniation ?M51.26 - Other intervertebral disc displacement, lumbar region (ICD-10) History of pancreatitis ?Z87.19 - Personal history of other diseases of the digestive system (ICD-10) Herniation of intervertebral disc of lumbar region ?M51.26 - Other intervertebral disc displacement, lumbar region (ICD-10) Chronic abdominal pain ?R10.9 - Unspecified abdominal pain (ICD-10) ?G89.29 - Other chronic pain (ICD-10) Oligomenorrhea ?N91.5 - Oligomenorrhea, unspecified (ICD-10) Hypertension ?I10 - Essential (primary) hypertension (ICD-10) Closed fracture of tuft of distal phalanx of finger ?S62.639A - Displaced fracture of distal phalanx of unspecified finger, initial encounter for closed fracture (ICD-10) Type 2 diabetes, diet controlled ?E11.9 - Type 2 diabetes mellitus without complications (ICD-10) Surgical History History of wisdom tooth extraction ?K08.409 - Partial loss of teeth, unspecified cause, unspecified class (ICD-10) History of tonsillectomy ?Z90.89 - Acquired absence of other organs (ICD-10) History of cholecystectomy ?Z90.49 - Acquired absence of other specified parts of digestive tract (ICD-10) Social History Smoking Status: Never smoker Do you use any of these nicotine containing products: None How often do you have a drink containing alcohol: never AUDIT-C Alcohol total score: 0 Non-prescribed substance use: denies use Exam Narrative: Exam Narrative: Clearly uncomfortable. Mildly labored breathing. Skin is warm and dry. Well-perfused. Abdomen is obese soft and moderately tender to palpation in the epigastrium and right upper quadrant. No flank tenderness. Heart in regular rate and rhythm Const: Vital Signs, click to edit/add: Vital Signs - 24 hr 03/09/23 23:34 03/10/23 00:37 03/10/23 00:51 Temperature 97.8 F 97.8 F Pulse Rate Pulse Rate [Left P ulse Oximeter] 86 Respiratory Rate 24 Blood Pressure Blood Pressure [Ri ght Forearm] 121/78 Pulse Oximetry 96 96 Oxygen Delivery Me thod Room Air 03/10/23 00:52 03/10/23 01:01 03/10/23 01:31 Temperature Pulse Rate 94 83 83 Pulse Rate [Left P ulse Oximeter] Respiratory Rate Blood Pressure 127/87 133/87 136/87 Blood Pressure [Ri ght Forearm] Pulse Oximetry 97 97 96 Oxygen Delivery Me thod 03/10/23 01:50 03/10/23 02:32 03/10/23 03:32 Temperature 97.8 F 98.4 F Pulse Rate 83 82 Pulse Rate [Left P ulse Oximeter] Respiratory Rate 18 16 Blood Pressure 113/66 114/52 L Blood Pressure [Ri ght Forearm] Pulse Oximetry 97 98 Oxygen Delivery Me thod Documenting provider has reviewed patient's vital signs: yes Course Vital Signs Vital signs: Initial Vital Signs Temperature 97.8 F 03/09/23 23:34 Temperature Source Temporal Artery Scan 03/09/23 23:34 Pulse Rate 86 03/09/23 23:34 Respiratory Rate 24 03/09/23 23:34 Blood Pressure 121/78 03/09/23 23:34 Blood Pressure Mean 92 03/09/23 23:34 Blood Pressure Position Sitting 03/09/23 23:34 Pulse Oximetry 96 03/09/23 23:34 Oxygen Delivery Method Room Air 03/09/23 23:34 Vital Signs Temperature 97.8 F 03/09/23 23:34 Pulse Rate 86 03/09/23 23:34 Respiratory Rate 24 03/09/23 23:34 Blood Pressure 121/78 03/09/23 23:34 Pulse Oximetry 96 03/09/23 23:34 Oxygen Delivery Method Room Air 03/09/23 23:34 Temperature 98.4 F 03/10/23 03:32 Pulse Rate 82 03/10/23 03:32 Respiratory Rate 16 03/10/23 03:32 Blood Pressure 114/52 L 03/10/23 03:32 Pulse Oximetry 98 03/10/23 03:32 Oxygen Delivery Method Room Air 03/09/23 23:34 Medical Decision Making MDM Narrative Medical decision making narrative: Just recently seen with brief recurrence of symptoms. I think would still benefit from IV hydration. Will try to break this pain and the suspected spasming. Will check labs for potassium level and just to make sure there isn't a recurrence of pancreatitis Reviewing what was given last time in this department by myself is initiated on normal saline, Zofran, morphine ketorolac. Overall improved but still seems little uncomfortable. Still with some nausea. One dose of Dilaudid another L normal saline and Reglan. This was also to accompany some potassium replacement. See labs below. Overall improved and felt she could return home. Tolerating oral intake Labs are similar to prior encounters here See patient discharge plan Lab Data Lab results reviewed: Yes I reviewed the patient's lab results Labs: Lab Results 03/10/23 Range/Units 00:45 WBC 14.33 H (4.50-11.00) K/uL RBC 5.87 H (4.00-5.20) m/uL Hgb 15.0 (12.0-16.0) gm/dL Hct 47.2 (33.0-51.0) % MCV 80 (80-100) fL MCH 26 (26-34) pg MCHC 32 (32-36) gm/dL RDW Coeff of Roger 14.5 (11.5-15.5) % Plt Count 351 (140-440) K/uL Neut % (Auto) 61.2 (42.0-72.0) % Lymph % (Auto) 28.6 (20-44) % [place] % (Auto) 5.9 (0.0-11.0) % Eos % (Auto) 3.2 (0.0-7.0) % Baso % (Auto) 0.5 (0.0-3.0) % Neut # (Auto) 8.80 H (1.7-7.0) K/uL Lymph # (Auto) 4.10 H (0.90-2.90) K/uL [place] # (Auto) 0.80 (0.00-0.90) K/UL Eos # (Auto) 0.50 (0.00-0.50) K/uL Baso # (Auto) 0.10 (0.00-0.30) K/uL Abs Immat Gran (auto) 0.10 (0.00-0.30) K/uL Imm/Tot Granulo (auto) 0.6 % Diff Slide Review Acceptable Review (Acceptable) Sodium 139 (135-149) mmol/L Potassium 2.8 L* (3.6-5.1) mmol/L Chloride 95 L (96-114) mmol/L Carbon Dioxide 32 (20-32) mmol/L Anion Gap 12 (7-15) mEq/L BUN 14 (5-24) mg/dL Creatinine 0.9 (0.5-1.5) mg/dL Estimated Creat Clear 87.27 Estimated GFR 87 ml/min Glucose 246 H (60-115) mg/dL Calcium 9.9 (8.4-10.6) mg/dL Magnesium 2.4 (1.5-2.6) mg/dL Total Bilirubin 0.3 (0.1-1.5) mg/dL Direct Bilirubin 0.1 (0.0-0.5) mg/dL AST 61 H (12-35) U/L ALT 61 H (4-35) U/L Alkaline Phosphatase 66 (40-150) U/L C-Reactive Protein 3.2 H (0.5-1.0) mg/dL Total Protein 8.5 H (6.0-8.3) g/dL Albumin 4.7 (3.3-5.0) g/dL Lipase 259 (23-300) U/L Discharge Plan Discharge Clinical Impression: Abdominal pain, Spasm of sphincter of Oddi Patient Disposition: Home w/ Parent or Adult Condition: Improved Additional Instructions: Focus on hydration. I am happy you're feeling better Return as needed. Zofran from [facility] if needed Prescriptions: No Action cetirizine 10 mg tablet 10 mg PO DAILY Patient Comments: TAKE ONE TABLET BY MOUTH EVERY DAY chlorthalidone 25 mg tablet 25 mg PO DAILY Patient Comments: TAKE ONE TABLET BY MOUTH EVERY DAY escitalopram oxalate 20 mg tablet 20 mg PO HS Patient Comments: TAKE ONE TABLET BY MOUTH AT BEDTIME famotidine 40 mg tablet 40 mg PO HS Patient Comments: TAKE ONE TABLET BY MOUTH AT BEDTIME labetalol 100 mg tablet 100 mg PO BID Patient Comments: TAKE ONE TABLET BY MOUTH TWICE A DAY (MORNING AND EVENING) montelukast 10 mg tablet 10 mg PO HS Patient Comments: TAKE ONE TABLET BY MOUTH AT BEDTIME potassium chloride 20 mEq tablet,ER particles/crystals 20 meq PO DAILY Patient Comments: TAKE ONE TABLET BY MOUTH EVERY DAY WITH A MEAL - TAKE INSTEAD OF POWDER POTASSIUM sumatriptan succinate 50 mg tablet 50 mg PO Q2H Patient Comments: TAKE ONE HALF TO ONE TABLET BY MOUTH AT ONSET OF MIGRAINE. MAY REPEAT IN 2 HOURS IF NEEDED. GIVE AT MINIMUM 2 HOURS APART. MAX DOSE 100MG / hydrochlorothiazide PO omeprazole .ROUTE Follow Up/Referrals: Arlet Pratt DO [Primary Care Provider] - Stand Alone Forms: [employer] Info Instructions
[2023-03-10] MEDS: 0.9 % SODIUM CHLORIDE 1000 ml 1,000 ML 2000 ML IV ×2 (00:50→02:14)
[2023-03-10] MEDS: ONDANSETRON 2 MG/ML inj 4 MG IVP (00:50)
[2023-03-10] MEDS: KETOROLAC 30 MG/ML inj IVP (00:51)
[2023-03-10 00:53] LABS: Basophils Percent Auto 0.5 % (0.0-3.0); Eosinophils Percent Auto 3.2 % (0.0-7.0); Hematocrit 47.2 % (33.0-51.0); Immature Granulocytes Pct Auto 0.6 %; Lymphocytes Percent Auto 28.6 % (20-44); Mean Corpuscular HGB Conc 32 gm/dL (32-36); Mean Corpuscular Hemoglobin 26 pg (26-34); Mean Corpuscular Volume 80 fL (80-100); Monocytes Percent Auto 5.9 % (0.0-11.0); Neutrophils Percent Auto 61.2 % (42.0-72.0); Platelet Count* 351 K/uL (140-440); RDW Coefficient of Variation % 14.5 % (11.5-15.5); Red Blood Count 5.87 m/uL (4.00-5.20); White Blood Count* 14.33 K/uL (4.50-11.00)
[2023-03-10] MEDS: MORPHINE 4 MG/ML INJ IVP (00:53)
[2023-03-10 00:55] LABS: Slide Review Reflex Yes
--- OUTSIDE RECORDS SUMMARY | 2023-03-10 00:55 | XMS_ITS | Continuity of Care Document ---
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 Routine Serum Collection Bld Ct; Hg/pltlt Ct Auto/compl 15 Sed Rate, Erythrocyte; Auto C-reactive Prot Comp Metabolic Panel Lipase Amylase Offic/outpt E&m [facility] Mod-hi 2 12 Sub[facility]t Hosp-da E&m Minr [...] Diagnoses Date Provider Providers Copied on Encounter [facility], [address] [address], [place], [id number], [place] tel:[phone] No Information 1 No Information Offic/outpt E&m New Mod-[facility], [address] [address], [place], [id number], [place] tel:[phone] [facility] GI Symptoms or Concerns (chief complaint) RUQ abdominal painElevated blood-pressur e reading, w/o diagnosis of htnDietary counseling and surveillance 5 No Information Referring Provider: Arlet Pratt DO, [address] [place] [place] [address], [address]. tel:[phone] Offic/outpt E&m Estab Mod-hi 2 [facility], [address] [address], [facility] [place], [id number], [place] tel:[phone] [facility] No Information 2 Amna Manrique. [address] [facility] [address], [place], [place], [id number], [place]. tel:[phone] Referring Provider: Ellie Rodriguez, [address] [place] [address], [place], [address]. tel:[phone] Subsqt Hosp-da E&m Minr Compl [facility], [address] [address], [place], [id number], [place] tel:[phone] [facility] No Information 2 No Information Referring Provider: Katherin Guerrero MD, [address] [facility] [address], [place], [address]. tel:[phone] [facility], [address] [address], [place], [place], [id number], [place] tel:[phone] [facility] No Information 2 Hernandez Stewart. [address] [facility] [address], [place], [id number], . tel:[phone] Referring Provider: Katherin Guerrero MD, [address], [address]. [phone] Init Hosp-da E&m Mod Severity [facility], [address] [address], [place], [place], [id number], [place] tel:[phone] [facility] No Information 2 Lionel Andersen. [address] [place] [address], [id number], [place]. tel:[phone] Referring Provider: Katherin Guerrero MD, [address], [address]. [phone] Subsqt Hosp-da E&m Minr Compl [facility], [address] [address], [place], [place], [id number], [place] tel:[phone] [facility] No Information 9 Jeromy Nice. [address] [place] [address], [id number], [place]. tel:[phone] Referring Provider: Arlet Angel, [address], [address]. tel:[phone] Subsqt Hosp-da E&m Minr Compl [facility], [address] [address], [place], [place], [id number], [place] tel:[phone] [facility] No Information 9 Onelia Abarca. [address] [place] [address], [id number], [place]. tel:[phone] Referring Provider: Livier Reddy, [address], [place], [address]. tel:[phone] Init Inpt Cons New/est Mod-hi [facility], [address] [address], [place], [place], [id number], [place] tel:[phone] [facility] No Information Bishop Becerril. [address] [facility], [place], [place], [id number], [place]. tel:[phone] Referring Provider: Livier Reddy, [address] [place] [address], [place], [address]. tel:[phone] Family History Family Member Type Diagnosis Age At Onset Brother Problem (finding) GERD Father Problem (finding) Alive and well Mother Problem (finding) GERD Mother Problem (finding) asthma Sister Problem (finding) gallbladder disease Brother Problem (finding) asthma Mother Problem (finding) Colon polyps Immunizations Vaccine Date Status Comments Influenza virus vaccine, inj ectable, quadrivalent, split virus, preservative free, 3 years or older Fluarix Quad [id number] administered Source: Other Pro vider Payers Payer [...] and vomiting on June 03, 2009, in [place], [place]. The surgery apparently went well. Thereafter the vomiting abated, but the patient has continued to have right upper quadrant abdominal pain. Records indicate that she was seen at [facility] on June 14, 2009, by Dr. [...]
[2023-03-10 00:56] LABS: Slide Review Acceptable Review (Acceptable)
[2023-03-10 01:09] LABS: Chloride* 95 mmol/L (96-114)
[2023-03-10 01:10] LABS: Sodium* 139 mmol/L (135-149)
[2023-03-10 01:11] LABS: Albumin* 4.7 g/dL (3.3-5.0)
[2023-03-10 01:12] LABS: Creatinine* 0.9 mg/dL (0.5-1.5); Est. Creatinine Clearance* 87.27; Estimated Glomerular Filt Rate 87 ml/min
[2023-03-10 01:13] LABS: Anion Gap 12 mEq/L (7-15); Blood Urea Nitrogen* 14 mg/dL (5-24); Calcium* 9.9 mg/dL (8.4-10.6); Carbon Dioxide* 32 mmol/L (20-32); Glucose* 246 mg/dL (60-115); Magnesium* 2.4 mg/dL (1.5-2.6)
[2023-03-10 01:14] LABS: Alanine Aminotransferase* 61 U/L (4-35); Alkaline Phosphatase* 66 U/L (40-150); Aspartate Amino Transferase* 61 U/L (12-35); Bilirubin Direct* 0.1 mg/dL (0.0-0.5); Bilirubin Total* 0.3 mg/dL (0.1-1.5); Lipase* 259 U/L (23-300); Total Protein* 8.5 g/dL (6.0-8.3)
[2023-03-10 01:16] LABS: C Reactive Protein* 3.2 mg/dL (0.5-1.0)
[2023-03-10 01:19] LABS: Potassium* 2.8 mmol/L (3.6-5.1)
[2023-03-10] MEDS: POTASSIUM BICARB 25 MEQ EFFERVESCENT TAB 50 MEQ PO (01:30)
[2023-03-10] MEDS: METOCLOPRAMIDE HCL 10 MG in 0.9 % SODIUM CHLORIDE 100 ml 100 ML 306 MG IVPB (02:13)
[2023-03-10] MEDS: HYDROmorphone 0.5 mg/0.5 ml inj IVP (02:13)
== END 2023-03-10 04:38 | disposition home or self-care (01) ==
PROVIDERS: Emergency Provider Family Medicine; PCP Family Medicine
DX: R10.9 Unspecified abdominal pain (principal); M62.838 Other muscle spasm
CPT/HCPCS: 36415; 80048; 80076; 83690; 83735; 85025; 86140; 94761; 96365; 96375; 99284; A9270; J1170; J1885; J2270; J2405; J2765; J7030

== ENCOUNTER 2023-10-16 22:33 | Emergency (ER) | payer BC, SELFPAY ==
[2023-10-16 22:47] VITALS: BP 146/99; PULSE 82; RESP 16; TEMP 36.5; O2SAT 99; BMI 48.4
[2023-10-16] MEDS: 0.9 % SODIUM CHLORIDE 1000 ml 1,000 ML IV (23:35)
[2023-10-16 23:37] LABS: Basophils Percent Auto 0.3 % (0.0-3.0); Eosinophils Percent Auto 3.1 % (0.0-7.0); Hematocrit 47.1 % (33.0-51.0); Lymphocytes Percent Auto 34.6 % (20-44); Mean Corpuscular HGB Conc 32 gm/dL (32-36); Mean Corpuscular Hemoglobin 26 pg (26-34); Mean Corpuscular Volume 80 fL (80-100); Monocytes Percent Auto 7.3 % (0.0-11.0); Neutrophils Percent Auto 53.7 % (42.0-72.0); Platelet Count* 354 K/uL (140-440); RDW Coefficient of Variation % 14.4 % (11.5-15.5); Red Blood Count 5.86 m/uL (4.00-5.20); White Blood Count* 14.47 K/uL (4.50-11.00)
[2023-10-16 23:41] LABS: Appearance Urine Clear (Clear); Bilirubin Urine Negative (Negative); Blood Urine 2+ (Negative); Color Urine Yellow (Yellow); Glucose Urine 3+ (Negative); Ketones Urine Negative (Negative); Leukocyte Esterase Urine Negative (Negative); Nitrite Urine Negative (Negative); Protein Urine Negative (Negative); Urobilinogen Urine 0.2 (0.2-1.0); pH Urine 5.5 (5.0-8.5)
--- NOTE | 2023-10-16 23:42 | ED_ITS ---
HPI - General Adult General Chief complaint: Abdominal Pain Stated complaint: abdominal pain Time Seen by Provider: 10/16/23 23:42 History of Present Illness HPI narrative: starting around 1800 with bilateral lower quad abd. pain with nausea, states she also had 1X bloody stool. patient reports she has hx of gallbladder dysfunction and the pain feels similar to a gallbladder attack. denies fever or sick contacts. denies urinary symptoms 33-year-old woman presenting to the emergency department with concern of another ?gallbladder attack?. This began about 5 hours prior to arrival in the emergency department with abdominal pain in the usual location however seems to have spread across the upper abdomen. She thinks she also has aggravated her underlying GERD. Has had normal bowel movements other than today her bowel movement had some blood staining in the toilet bowl. Does have a history of suspected spasms of sphincter of OD per report. And has been evaluated in this department before with similar. No dysuria. No fever. Has been nauseated and does have an emesis bag but reports that this is primarily just spit. She does reveal later that she has also as of today completed her menses. Last pad she had on was ?white?. Related Data Home Medications Medication Instructions Recorded Confirmed cetirizine 10 mg tablet 10 mg PO DAILY 05/27/22 05/27/22 chlorthalidone 25 mg tablet 25 mg PO DAILY 05/27/22 05/27/22 escitalopram oxalate 20 mg tablet 20 mg PO HS 05/27/22 03/09/23 famotidine 40 mg tablet 40 mg PO HS 05/27/22 03/09/23 labetalol 100 mg tablet 100 mg PO BID 05/27/22 03/09/23 montelukast 10 mg tablet 10 mg PO HS 05/27/22 05/27/22 potassium chloride 20 mEq 20 meq PO DAILY 05/27/22 03/09/23 tablet,extended release(part/cryst) sumatriptan succinate 50 mg tablet 50 mg PO Q2H 05/27/22 05/27/22 hydrochlorothiazide PO 03/09/23 omeprazole .ROUTE 03/09/23 Allergies Allergy/AdvReac Type Severity Reaction Status Date / Time NSAIDS (Non-Steroidal Allergy Severe Pancreatiti Verified 05/26/22 23:35 Anti-Inflamma s Cephalosporins Allergy Intermediate Diarrhea Verified 05/26/22 23:35 Review of Systems Status of ROS: Reports: 6 or more systems reviewed and unremarkable except as noted in History and below [facility] Medical History Morbid obesity ?E66.01 - Morbid (severe) obesity due to excess calories (ICD-10) Reactive airway disease ?J45.909 - Unspecified asthma, uncomplicated (ICD-10) PCOS (polycystic ovarian syndrome) ?E28.2 - Polycystic ovarian syndrome (ICD-10) MRSA (methicillin resistant Staphylococcus aureus) infection ?A49.02 - Methicillin resistant Staphylococcus aureus infection, unspecified site (ICD-10) 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 - Spasm of sphincter of Oddi (ICD-10) Lumbar radicular pain ?M54.16 - Radiculopathy, lumbar region (ICD-10) Erythema ab igne ?L59.0 - Erythema ab igne [dermatitis ab igne] (ICD-10) Lumbar disc herniation ?M51.26 - Other intervertebral disc displacement, lumbar region (ICD-10) History of pancreatitis ?Z87.19 - Personal history of other diseases of the digestive system (ICD-10) Herniation of intervertebral disc of lumbar region ?M51.26 - Other intervertebral disc displacement, lumbar region (ICD-10) Chronic abdominal pain ?R10.9 - Unspecified abdominal pain (ICD-10) ?G89.29 - Other chronic pain (ICD-10) Oligomenorrhea ?N91.5 - Oligomenorrhea, unspecified (ICD-10) Hypertension ?I10 - Essential (primary) hypertension (ICD-10) Closed fracture of tuft of distal phalanx of finger ?S62.639A - Displaced fracture of distal phalanx of unspecified finger, initial encounter for closed fracture (ICD-10) Type 2 diabetes, diet controlled ?E11.9 - Type 2 diabetes mellitus without complications (ICD-10) Surgical History History of wisdom tooth extraction ?K08.409 - Partial loss of teeth, unspecified cause, unspecified class (ICD-10) History of tonsillectomy ?Z90.89 - Acquired absence of other organs (ICD-10) History of cholecystectomy ?Z90.49 - Acquired absence of other specified parts of digestive tract (ICD- 10) Social History Smoking Status: Never smoker Do you use any of these nicotine containing products: None Second hand tobacco smoke exposure: No How often do you have a drink containing alcohol: never AUDIT-C Alcohol total score: 0 Non-prescribed substance use: denies use Exam Narrative: Exam Narrative: Pleasant. NAD. Served to be ambulating normally. Are morbid obesity. Acneiform lesions of her face. Skin is warm dry. She is tender to palpation in the right upper quadrant into the epigastrium. There is no lower abdominal tenderness. Lungs are clear. Heart in regular rate and rhythm; distant. Well- perfused. 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 There at the 12 o'clock position is a small superficial erosion 1 x 2 mm perhaps, midline in about an inch and a half from anus. There is a skin tag in the 6 o'clock position. No significant hemorrhoidal tissue evident. Anoscopy exam is difficult to visualize but appears to be subtle light streak/spots of erythema at is o'clock position be on the dentate/pectinate line. Const: Vital Signs, click to edit/add: Vital Signs - 24 hr 10/16/23 22:47 Temperature 97.7 F Pulse Rate [Pulse Oximeter] 82 Respiratory Rate 16 Blood Pressure [Ri ght Forearm] 146/99 H Pulse Oximetry 99 Oxygen Delivery Me thod Room Air Documenting provider has reviewed patient's vital signs: yes Course Vital Signs Vital signs: Initial Vital Signs Temperature 97.7 F 10/16/23 22:47 Temperature Source Temporal Artery Scan 10/16/23 22:47 Pulse Rate 82 10/16/23 22:47 Respiratory Rate 16 10/16/23 22:47 Blood Pressure 146/99 H 10/16/23 22:47 Blood Pressure Mean 114 H 10/16/23 22:47 Blood Pressure Position Sitting 10/16/23 22:47 Pulse Oximetry 99 10/16/23 22:47 Oxygen Delivery Method Room Air 10/16/23 22:47 Vital Signs Temperature 97.7 F 10/16/23 22:47 Pulse Rate 82 10/16/23 22:47 Respiratory Rate 16 10/16/23 22:47 Blood Pressure 146/99 H 10/16/23 22:47 Pulse Oximetry 99 10/16/23 22:47 Oxygen Delivery Method Room Air 10/16/23 22:47 Temperature 97.7 F 10/16/23 22:47 Pulse Rate 82 10/16/23 22:47 Respiratory Rate 16 10/16/23 22:47 Blood Pressure 146/99 H 10/16/23 22:47 Pulse Oximetry 99 10/16/23 22:47 Oxygen Delivery Method Room Air 10/16/23 22:47 Medications Administered Medications: Generic Name Dose Route Start Last Admin Trade Name Freq PRN Reason Stop Dose Admin Lidocaine/Aluminum/Magnesium/Simeth 30 ml 10/17/23 00:27 10/17/23 00:45 Gi Cocktail (Visc Lido/Antacid) 30 Ml PO 10/17/23 00:28 Not Given ONCE ONE Lidocaine/Aluminum/Magnesium/Simeth 30 ml 10/17/23 00:28 10/17/23 00:40 Gi Cocktail (Visc Lido/Antacid) 30 Ml PO 10/17/23 00:29 30 ml ONCE ONE Administration Discontinued Medications Generic Name Dose Route Start Last Admin Trade Name Freq PRN Reason Stop Dose Admin Sodium Chloride 1,000 mls @ 1,000 mls/hr 10/16/23 23:19 10/17/23 00:45 0.9 % Sodium Chloride 1000 Ml IV 10/17/23 00:18 Infused .Q1H ONE Infusion Ketorolac Tromethamine 15 mg 10/16/23 23:53 10/17/23 00:03 Ketorolac 15 Mg/Ml Inj IVP 10/16/23 23:54 15 mg ONCE ONE Administration Morphine Sulfate 4 mg 10/16/23 23:53 10/17/23 00:03 Morphine 4 Mg/Ml Inj IVP 10/16/23 23:54 4 mg ONCE ONE Administration Ondansetron HCl 4 mg 10/16/23 23:53 10/17/23 00:03 Ondansetron 2 Mg/Ml Inj IVP 10/16/23 23:54 4 mg ONCE ONE Administration Medical Decision Making MDM Narrative Medical decision making narrative: The reported blood in toilet I think would be nonspecific rectal passage bleeding independent of any colitis type symptoms however today being the last day essentially of her menses I wonder if this could be related as well. I do think that the abdominal pain is not inconsistent with prior diagnoses and would treat for pain looking for concerning findings otherwise in the labs. IV was established. Was given initial dosing of morphine ketorolac and Zofran. Also given a GI cocktail following Zofran. Labs show mildly elevated white count at 14,000; consistent with prior episodes. CRP a little bit elevated at 2.5. Transaminases slightly elevated though I think this is consistent with prior as well. Normal lipase. Potassium is a little bit low at 3.1 though this is better than prior. Historically has taken supplementation. On reassessment is initially sleeping. She says the pain seems to be clawing its way back but then with further conversation does admit that it is now melting away. At this time I think we had not seen full effect of ketorolac. Anticipating handoff at change of shift here with improvement in symptoms overall. Will avail a small dose of Dilaudid p.r.n. See patient discharge plan further discussion Medical Records Medical records reviewed: Yes I reviewed the patient's medical records Lab Data Lab results reviewed: Yes I reviewed the patient's lab results Labs: Lab Results 10/16/23 Range/Units 23:30 WBC 14.47 H (4.50-11.00) K/uL RBC 5.86 H (4.00-5.20) m/uL Hgb 15.0 (12.0-16.0) gm/dL Hct 47.1 (33.0-51.0) % MCV 80 (80-100) fL MCH 26 (26-34) pg MCHC 32 (32-36) gm/dL RDW Coeff of Roger 14.4 (11.5-15.5) % Plt Count 354 (140-440) K/uL Neut % (Auto) 53.7 (42.0-72.0) % Lymph % (Auto) 34.6 (20-44) % [place] % (Auto) 7.3 (0.0-11.0) % Eos % (Auto) 3.1 (0.0-7.0) % Baso % (Auto) 0.3 (0.0-3.0) % Neut # (Auto) 7.80 H (1.7-7.0) K/uL Lymph # (Auto) 5.00 H (0.90-2.90) K/uL [place] # (Auto) 1.10 H (0.00-0.90) K/UL Eos # (Auto) 0.40 (0.00-0.50) K/uL Baso # (Auto) 0.00 (0.00-0.30) K/uL Abs Immat Gran (auto) 0.10 (0.00-0.30) K/uL Imm/Tot Granulo (auto) 1.0 % Sodium 140 (135-149) mmol/L Potassium 3.1 L (3.6-5.1) mmol/L Chloride 99 (96-114) mmol/L Carbon Dioxide 34 H (20-32) mmol/L Anion Gap 7 (7-15) mEq/L BUN 18 (5-24) mg/dL Creatinine 0.8 (0.5-1.5) mg/dL Estimated Creat Clear 94.51 Estimated GFR 100 ml/min Glucose 123 H (60-115) mg/dL Calcium 9.9 (8.4-10.6) mg/dL Total Bilirubin 0.3 (0.1-1.5) mg/dL Direct Bilirubin 0.2 (0.0-0.5) mg/dL AST 47 H (12-35) U/L ALT 49 H (4-35) U/L Alkaline Phosphatase 62 (40-150) U/L C-Reactive Protein 2.5 H (0.5-1.0) mg/dL Total Protein 8.9 H (6.0-8.3) g/dL Albumin 4.8 (3.3-5.0) g/dL HCG, Quant < 2.39 mIU/mL Urine Color Yellow (Yellow) Urine Appearance Clear (Clear) Urine pH 5.5 (5.0-8.5) Ur Specific [place] 1.020 (1.000-1.030) Urine Protein Negative (Negative) Urine Glucose (UA) 3+ A (Negative) Urine Ketones Negative (Negative) Urine Blood 2+ A (Negative) Urine Nitrite Negative (Negative) Urine Bilirubin Negative (Negative) Urine Urobilinogen 0.2 (0.2-1.0) Ur Leukocyte Esterase Negative (Negative) Urine RBC 0-2 (0-2) Urine WBC 0-2 (0-5) Ur Squamous Epith Cells Few (None-Few) Amorphous Sediment Few A (None) Urine Bacteria Few A (None) Discharge Plan Discharge Clinical Impression: Gastroesophageal reflux disease, Abdominal pain, Hypokalemia Patient Disposition: Home w/ Parent or Adult Condition: Improved Additional Instructions: Your potassium today was 3.1. This is improved from last time we checked it but still lower than reference lab range. Please discuss further treatment with your primary care provider. Chlorthalidone and hydrochlorothiazide can lower potassium. Continue with current potassium supplementation since it sounds as though you are ready taking a not-nsignificant amount. You could also supplement with higher potassium containing foods -- can locate this on the Internet. Usually is green leafy vegetables, almonds, other legumes, sweet potatoes. I believe even milk, oranges/citrus are reasonably high in potassium. Continue with usual treatment for GERD/heartburn. For breakthrough discomfort in this regard consider liquid antacid/anti gas Maalox equivalent. If you are noticing continue blood in with stooling or having more associated frequent/persistent lower abdominal pain, please follow-up to discuss your doctor. Might need earlier colonoscopy. Stay well-hydrated. Return as needed. Prescriptions: No Action cetirizine 10 mg tablet 10 mg PO DAILY Patient Comments: TAKE ONE TABLET BY MOUTH EVERY DAY chlorthalidone 25 mg tablet 25 mg PO DAILY Patient Comments: TAKE ONE TABLET BY MOUTH EVERY DAY escitalopram oxalate 20 mg tablet 20 mg PO HS Patient Comments: TAKE ONE TABLET BY MOUTH AT BEDTIME famotidine 40 mg tablet 40 mg PO HS Patient Comments: TAKE ONE TABLET BY MOUTH AT BEDTIME labetalol 100 mg tablet 100 mg PO BID Patient Comments: TAKE ONE TABLET BY MOUTH TWICE A DAY (MORNING AND EVENING) montelukast 10 mg tablet 10 mg PO HS Patient Comments: TAKE ONE TABLET BY MOUTH AT BEDTIME potassium chloride 20 mEq tablet,ER particles/crystals 20 meq PO DAILY Patient Comments: TAKE ONE TABLET BY MOUTH EVERY DAY WITH A MEAL - TAKE INSTEAD OF POWDER POTASSIUM sumatriptan succinate 50 mg tablet 50 mg PO Q2H Patient Comments: TAKE ONE HALF TO ONE TABLET BY MOUTH AT ONSET OF MIGRAINE. MAY REPEAT IN 2 HOURS IF NEEDED. GIVE AT MINIMUM 2 HOURS APART. MAX DOSE 100MG / hydrochlorothiazide PO omeprazole .ROUTE Follow Up/Referrals: Arlet Pratt DO [Primary Care Provider] - Stand Alone Forms: [facility] Info Instructions
[2023-10-16 23:45] LABS: Slide Review Reflex No
[2023-10-16 23:50] LABS: Amorphous Sediment Urine Few; Bacteria Urine Few; Chloride* 99 mmol/L (96-114); Potassium* 3.1 mmol/L (3.6-5.1); RBC Urine 0-2 (0-2); Sodium* 140 mmol/L (135-149); Squamous Epithelial Cell Urine Few (None-Few); WBC Urine 0-2 (0-5)
[2023-10-16 23:51] LABS: Albumin* 4.8 g/dL (3.3-5.0)
[2023-10-16 23:53] LABS: Anion Gap 7 mEq/L (7-15); Blood Urea Nitrogen* 18 mg/dL (5-24); Carbon Dioxide* 34 mmol/L (20-32); Creatinine* 0.8 mg/dL (0.5-1.5); Est. Creatinine Clearance* 94.51; Estimated Glomerular Filt Rate 100 ml/min; Glucose* 123 mg/dL (60-115)
[2023-10-16 23:54] LABS: Alanine Aminotransferase* 49 U/L (4-35); Alkaline Phosphatase* 62 U/L (40-150); Aspartate Amino Transferase* 47 U/L (12-35); Bilirubin Direct* 0.2 mg/dL (0.0-0.5); Bilirubin Total* 0.3 mg/dL (0.1-1.5); Calcium* 9.9 mg/dL (8.4-10.6); Total Protein* 8.9 g/dL (6.0-8.3)
[2023-10-16 23:57] LABS: C Reactive Protein* 2.5 mg/dL (0.5-1.0)
--- OUTSIDE RECORDS SUMMARY | 2023-10-16 23:57 | XMS_ITS | Continuity of Care Document ---
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 Name Role Phone No Information Unavailable Unavailable [...] Active Procedures Procedure Date Offic/outpt E&m [facility] Routine Serum Collection Bld Ct; Hg/pltlt Ct Auto/compl 15 Sed Rate, Erythrocyte; Auto C-reactive Prot Comp Metabolic Panel Lipase Amylase Offic/outpt E&m [facility] Mod-hi 2 12 Subsqt Hosp-da E&m [...] Provider Providers Copied on Encounter [facility], [address] [address], [place], [id number], [place] tel:[phone] No Information 1 No Information Offic/outpt E&m New Mod-hi [facility], [address] [address], [place], [id number], [place] tel:[phone] [facility] Symptoms or Concerns (chief complaint) RUQ abdominal painElevated blood-pressur e reading, w/o diagnosis of htnDietary counseling and surveillance 5 No Information Referring Provider: Arlet Pratt DO, [address] [place] [address], [address]. tel:[phone] Offic/outpt E&m Estab Mod-hi 2 [facility], [address] [address], [place], [place], [id number], [place] tel:[phone] [facility] No Information 2 Amna Manrique. [address] [facility] [address], [place], [place], [id number], [place]. tel:[phone] Referring Provider: Ellie Rodriguez, [address] [place] [address], [place], [address]. tel:[phone] Subsqt Hosp-da E&m Minr Compl [facility], [address] [address], [place], [place], [id number], [place] tel:[phone] [facility] No Information 2 No Information Referring Provider: Katherin Guerrero MD, [address] [facility] [address], [place], [address]. tel:[phone] [facility], [address] [address], [place], [id number], [place] tel:[phone] [facility] No Information 2 Hernandez Stewart. [address] [facility] [address], [place], [id number], . tel:[phone] Referring Provider: Katherin Guerrero MD, [address], [address]. [phone] Init Hosp-da E&m Mod [facility], [address] [address], [place], [place], [id number], [place] tel:[phone] [facility] No Information 2 Lionel Andersen. [address] [place] [address], [id number], [place]. tel:[phone] Referring Provider: Katherin Guerrero MD, [address], [address]. [phone] Subsqt Hosp-da E&m Minr Compl [facility], [address] [address], [place], [place], [id number], [place] tel:[phone] [facility] No Information 9 Jeromy Niec. [address] [place] [address], [id number], [place]. tel:[phone] Referring Provider: Arlet Angel, [address] [place] [address], [address]. tel:[phone] Subsqt Hosp-da E&m Minr Compl [facility], [address] [address], [place], [place], [id number], [place] tel:[phone] [facility] No Information 9 Onelia Abarca. [address] [place] [address], [id number], [place]. tel:[phone] Referring Provider: Livier Reddy, [address], [place], [address]. tel:[phone] Init Inpt Cons New/est Mod-hi [facility], [address] [address], [place], [place], [id number], [place] tel:[phone] [facility] No Information Bishop Becerril. [address] [facility], [place], [place], [id number], [place]. tel:[phone] Referring Provider: Livier Reddy, [address] [place] [address], [place], [address]. tel:[phone] Family History Family Member Type Diagnosis Age At Onset Brother Problem (finding) GERD Father Problem (finding) Alive and well Mother Problem (finding) GERD Mother Problem (finding) asthma Sister Problem (finding) gallbladder disease Brother Problem (finding) asthma Mother Problem (finding) Colon polyps Immunizations Vaccine Date Status Comments Influenza virus vaccine, inj ectable, quadrivalent, split virus, preservative free, 3 years or older Fluarix Quad [id number] administered Source: Other Pro vider Payers Payer name Insurance type Covered democrat ID Authoriza tion(s) No Information Social History [...] and vomiting on June 03, 2009, in [place], [place]. The surgery apparently went well. Thereafter [...]
--- OUTSIDE RECORDS SUMMARY | 2023-10-16 23:57 | XMS_ITS | Clinical Summary ---
Author Name Unknown Organization [employer] Address [place], [place] [address] Care Team Providers Care Ux Designer Name Role Phone Darwin Leung DPM Unavailable Arlet Pratt DO Primary Care Provider [phone] Allergies Active Allergy Reactions Criticality Noted Date Comments Cephalosporins Diarrhea Low 09/29/2020 Bloody diarrhea Nsaids (Non-Steroidal Anti-Inflammatory Drug) Pancreatitis 08/21/2012 Unlisted Allergen (Include Detail In Comments) Pancreatitis High 09/29/2020 Medications Medication Sig Dispensed Refills Start Date End Date Status multivitamin (MVI) tablet Take 1 tablet by mouth once daily. 0 03/03/2011 Active acetaminophen (TYLENOL) 325 mg tablet Take 2 tablets by mouth every 4 hours if needed. Max acetaminophen dose: 4000mg in 24 hrs. 0 11/27/2013 Active omeprazole (PRILOSEC) 20 mg Delayed-Release capsuleIndications: Gastroesophageal reflux disease without esophagitis Take 1 capsule by mouth once daily. 90 capsule 1 11/06/2017 Active Needle, Disp, 30 G ([place] DISP NEEDLES 30GX1/2) 30 gauge x 1/2 ndleIndications:Con trolled type 2 diabetes mellitus without complication, without long-term current use of insulin (HC) As directed. Use as directed with Victoza 30 Each 3 08/02/2019 Active tolnaftate 1% powder (TINACTIN) 1 % powderIndications:T inea pedis of both feet Apply topically to affected area(s) 2 times daily. Shake into sock 1 Bottle 11 01/05/2021 Active blood-glucose meterIndications:Ty pe 2 diabetes, diet controlled (HC) by Not Applicable route. Dispense meter, test strips, lancets covered by pt ins. 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 MAX 10mg dose 30 Tablet 05/31/2022 Active albuterol HFA (PRO-AIR; VENTOLIN; PROVENTIL) 90 mcg/actuation inhalerIndications: Shortness of breath Inhale 2 Puffs by mouth 4 times daily if needed for Shortness Of Breath. 1 Each 07/05/2022 Active SUMAtriptan (IMITREX) 50 mg tabletIndications:M enstrual migraine without status migrainosus, not intractable TAKE ONE-HALF TO ONE TABLET BY MOUTH AT ONSET OF MIGRAINE. MAY REPEAT IN 2 HOURS IF NEEDED. MAX DOSE 100MG/24 HOURS. 10 Tablet 07/13/2022 Active cetirizine (Allergy Relief, cetirizine,) 10 mg tabletIndications:M oderate persistent asthma without complication Take 1 Tablet (10 mg) by mouth once daily. 90 Tablet 3 11/01/2022 Active chlorthalidone (HYGROTON) 25 mg tabletIndications:H ypertension Take 1 Tablet (25 mg) by mouth once daily. 90 Tablet 3 11/01/2022 Active famotidine (PEPCID) 40 mg tabletIndications:G astric reflux Take 1 Tablet (40 mg) by mouth at bedtime. 90 Tablet 3 11/01/2022 Active miconazole nitrate powder 2 % powderIndications:T inea pedis, unspecified laterality Apply topically to affected area(s) two times daily. 85 g 1 11/01/2022 Active montelukast (SINGULAIR) 10 mg tabletIndications:M oderate persistent asthma without complication Take 1 Tablet (10 mg) by mouth at bedtime. 90 Tablet 3 11/01/2022 Active labetaloL (TRANDATE) 100 mg tabletIndications:H TN (hypertension) TAKE ONE TABLET BY MOUTH TWICE A DAY (MORNING AND EVENING) 180 Tablet 2 01/24/2023 Active topiramate (TOPAMAX) 25 mg tablet Take 100 mg by mouth once daily. Weaning off 03/11/2023 Active empagliflozin (JARDIANCE) 25 mg tabletIndications:U ncontrolled type 2 diabetes mellitus with hyperglycemia (HC) Take 1 Tablet (25 mg) by mouth once daily. 90 Tablet 3 03/15/2023 Active ketoconazole 2% topical (NIZORAL) creamIndications:Ye ast dermatitis Apply twice daily until resolved then may use weekly for prevention 120 g 3 03/15/2023 Active escitalopram oxalate (LEXAPRO) 20 mg tabletIndications:D epression, recurrent (HC) TAKE ONE TABLET BY MOUTH AT BEDTIME 90 Tablet 1 04/18/2023 Active potassium chloride (KLOR-CON M20) 20 mEq extended-release tablet (part/cryst)Indicat ions:Low blood potassium,Hypertens ion Take 2 Tablets (40 mEq) by mouth two times daily with meals. 180 Tablet 06/09/2023 Active glipiZIDE extended-release (GLUCOTROL XL) 2.5 mg Extended-Release tabletIndications:U ncontrolled type 2 diabetes mellitus with hyperglycemia (HC) Take 1 Tablet (2.5 mg) by mouth once daily before a meal. 90 Tablet 3 06/16/2023 Active Ajovy Autoinjector 225 mg/1.5 mL atIn INJECT 1 PEN INJECTOR SUBCUTANEOUSLY ONCE A MONTH 07/14/2023 Active fexofenadine (MATTEO) 180 mg tabletIndications:A llergy, initial encounter Take 180 mg by mouth once daily. Do not crush or chew. 30 Tablet 3 08/10/2023 Active Active Problems Problem Noted Date Diagnosed Date Uncontrolled type 2 diabetes mellitus with hyper glycemia 03/15/2023 Pap smear for cervical cancer screening 02/26/20 Overview: 02/2023 NIL/HPV negative. Plan: Pap/HPV due 02/2028. Elevated white blood cell count 07/03/2021 Overview: Saw hematology November 2020. Thought due to chronic inflammation related to diabetes and morbid obesity. No further work up recommended per hematology Closed fracture of tuft of distal phalanx of fin theresa 05/18/2019 Hypertension 06/29/2018 Spleen enlarged 06/01/2018 Overview: On CT, Recommend US and labs. Had initial labs but declined further labs or US. Encouraged to reconsider 06/01/2018 Oligomenorrhea on OCP 01/27/2017 Chronic abdominal pain 01/18/2017 L5-S1 right sided disk herniation 08/02/2014 History of pancreatitis 11/28/2013 Overview: Per Dr. Martinez, GI at the [facility] visit from April 2012. Consult for recurrent acute pancreatitis and in it potential various etiologies which could include biliary sludge disease or sphincter oddi dysfunction. He was also concerned about hypertriglyceridemia, especially induced by oral contraceptives He recommended checking a lipid profile and if it did not show hypertriglyceridemia considering ERCP. I reviewed those lipid results and her triglycerides were normal. Therefore it sounds as though the control pills were not actually contributing. Records from [facility] [place] in chart, only 1 visit 05/08/14. Asked for further records but none available. 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 Lyon. 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 See consult from GI Dr. Martinez at the [facility] from May 08, 2012 See details under pancreatitis in problem list. MRSA (methicillin resistant Staphylococcus aureus) infection 07/03/2010 PCOS (polycystic ovarian syndrome) 05/13/2010 Overview: As of 07/2013: Previously on OCPs but these had to be discontinued because patient was having recurrent pancreatitis after her gallbladder was removed. She saw a real estate assistant who told her the control was interfering with the sphincter of Oddi. No further pancreatitis problems since stopping the control 1.5 years ago. Recommended trial Metformin. 11/2013: Patient stopped metformin after 2 days due to right upper quadrant pain which she contributed to her sphincter of Oddi dysfunction. It is unclear to me if patient was officially diagnosed with sphincter of Oddi dysfunction as the last consult note we have from GI is from Dr. Martinez on May 08, 2012 and he listed it as a possibility but not definitive diagnosis. We'll try to get further records if available. Also please see comments under pancreatitis as sounds like potential patient misunderstanding regarding control as cause of her symptoms as per Dr. Martinez's note he was concerned could be causing hypertriglyceridemia which could then be causing pancreatitis. Triglycerides were checked at that time and were normal so that was ruled out. Recommend trial progesterone only contraception as if the combination oral contraception was potentially contributing to her symptoms the progesterone only does not have this potential side effects listed. Other acne 12/14/2007 Overview: Sees Teresa Miranda reactive airway 12/14/2007 Overview: Only with cold air and toxins Morbid obesity 12/14/2007 Resolved Problems Problem Noted Date Diagnosed Date Resolved Date Morbid obesity 12/26/2011 10/30/2012 Acute pancreatitis 12/25/2011 3 Chronic abdominal pain 12/25/201110/30 Overview: Unclear etiology. Per spring upholsterer, at times seems correlated with menstrual cycle, concerning for endometriosis versus dysmenorrhea. Has seen Dr. Jose Cifuentes, Gastroenterology in the past. No CT findings consistent for IBD in the past or currently. Per Dr. Cifuentes's note from 03/2011, plan was for possible upper endoscopy if imaging negative. Appears from notes that EGD was scheduled, but never performed and no subsequent follow-up visits noted. Multiple CT scans and pelvic ultrasound unrevealing other than one episode of pancreatitis following cholecystectomy for cholelithiasis in 2008. Acute abdominal pain 06/14/2009 011 Encounters Date Type Department Care Team Description 09/28/2023 2:45 PM CDT Orders Only [facility] [address] [facility] [address] [place], [place] [facility] 09/28/2023 Travel 08/10/2023 2:45 PM [place] Office Visit [facility] [address] [place] [address] Arlet Pratt, Allergies (Itching in ears, eyes, roof of mouth); Derm Problem (Red spot where ajovy was given) 08/10/2023 Travel from Last 3 Months Immunizations Name Administration Dates Next Due COVID-19 vaccine (Moderna 100mcg/0.5mL) PF, MDV 08/06/2021,07/30/2020,07/03/2020 Hepatitis B (Adult) 01/05/2021 Human Papilloma Virus Vaccine 01/06/2012, 012,12/14/2007 02/13/2008 Influenza, IIV3 (Age >=3 years) 04/28/2012,05/13 Influenza, IIV4 05/16/2023,,05/06/2020,05/04,06/01/2018,03/17/2017,05/14/2016 ,04/15/2015 Pneumococcal Poly,23-Valent (Pneumovax) 01/05/2021 Tdap 12/27/2020,04/28/2012 Tuberculin (PPD) 09/23/2017,09/09/2017 Family History Medical History Relation Name Comments Asthma Brother Cancer-breast Maternal Grandmother diagno sed at age 36 Asthma Mother Other Other 1 no family histo ry of pancreatitis Other Other 2 no family histo ry of IBD Cancer-breast Paternal Grandmother post m enopause Asthma Sister Relation Name Status Comments Brother Maternal Grandmother Mother Other 1 Other 2 Paternal Grandmother Sister Social History Tobacco Use Types Packs/Day Years Used Date Smoking Tobacco: Never Passive Smoke Exposure: Never Smokeless Tobacco: Never Tobacco Cessation:Counseling Given: Not Answered Alcohol Use Standard Drinks/Week Comments Yes 0 (1 standard drink = 0.6 oz pur e alcohol) PHQ-2 Answer Date Recorded PHQ-2 TOTAL SCORE 0 03/15/2023 Social Connections Answer Date Recorded Frequency of Communication with Friends and Fami ly 0 04/03/2023 Alcohol Use Answer Date Recorded How often do you have a drink containing alcohol ? 1 03/15/2023 How many drinks containing a lcohol do you have on a typical day when you are drinking? 0 03/15/2023 How often do you have five or more drinks on one occasion? 0 03/15/2023 Financial Resource Strain Answer Date R ecorded Difficulty of Paying Living Expenses 3 04/03/2023 Difficulty of Paying Living Expenses Not on file 04/03/2023 Food Insecurity Answer Date Recorded Worried About Running Out of Food in the Last Ye ar 1 04/03/2023 Transportation Needs Answer Date Record ed Lack of Transportation (Medical) 1 04/03/2023 Housing Stability Answer Date Recorded Unable to Pay for Housing in the Last Year 1 04/03/2023 Sex and Gender Information Value Date Recorded Sex Assigned at Not on file Gender Identity Not on file Sexual Orientation Not on file Obstetrics History Para Term AB IAB SAB Ectopic Multiple Livin g Live Births 0 0 0 0 0 0 0 0 0 0 Last Filed Vital Signs Vital Sign Reading Time Taken Comments Blood Pressure 127/83 08/10/2023 3:07 PM [place] Pulse 85 08/10/2023 3:07 PM [place] Temperature 36.2 ??C (97.2 ??F) 04/03/2023 1:40 PM CD T Respiratory Rate 18 04/03/2023 1:40 PM CDT Oxygen Saturation 98% 08/10/2023 3:07 PM [place] Inhaled Oxygen Concentration - - Weight 135.2 kg (298 lb) 08/10/2023 3:07 PM [place] Height 170.2 cm (5' 7.01) 03/15/2023 2:40 PM CD T Body Mass Index 46.66 03/15/2023 2:40 PM CDT Plan of Treatment Health Maintenance Due Date Last Done Comments Hepatitis B series for Diabe tripp (2 of 3 - 19+ 3-dose series) 02/02/2021 01/05/2021 Pneumococcal series for age 6-64 (2 of 2 - PCV) 01/05/2022 01/05/2021 COVID-19 vaccine series (2022-24 season) 2023 08/06/2021, 07/30/2020, 07/03/2020 Influenza for age 9-49 02/26/2024 , 04/29/2022, 05/06/2020, Additional history exists BMI (ht and wt on same day) for age 18+ 03/15/2024 03/15/2023, 07/02/2021, 02/11/2021, Additional history exists Depression screening for age 12+ 03/15/2024 03/15/2023, 10/29/2021, 08/05/2021, Additional history exists Pap test for age 21-65 03/15/2028 , 03/15/2023, 10/26/2018, Additional history exists Tetanus booster 12/27/2030 12/27/2020, 04/28/2012 HIV for age 15-65 Completed 01/02/2020, 03/07/2018 Hepatitis C screening for ag e 18-79 Completed 01/02/2020 Tdap Completed 12/27/2020, 04/28/2012 Procedures Procedure Name Priority Date/Time Associated Diagnosis Comments URINE ALBUMIN TO CREATININE RATIO, RANDOM Routine 09/28/2023 2:50 PM CDT Uncontrolled type 2 diabetes mellitus with hyperglycemia (HC) HEPATIC FUNCTION PANEL Routine 09/28/2023 2:45 PM CDT Elevated LFTs LDL CHOLESTEROL,DIRECT Routine 09/28/2023 2:45 PM CDT Uncontrolled type 2 diabetes mellitus with hyperglycemia (HC) POTASSIUM Routine 09/28/2023 2:45 PM CDT Hypokalemia HEMOGLOBIN A1C Routine 09/28/2023 2:45 PM CDT Uncontrolled type 2 diabetes mellitus with hyperglycemia (HC) HPV THIN PREP Routine 03/15/2023 3:37 PM CDT Cervical cancer screening ANTI HIV 1/2 Routine 01/02/2020 9:06 AM CDT Unprotected sexual intercourse ACUTE HEPATITIS PANEL Routine 01/02/2020 9:06 AM CDT Unprotected sexual intercourse from Last 3 Months or Most Recently Relevant to Health Maintenance Results * URINE ALBUMIN TO CREATININE RATIO, RANDOM (09/28/2023 2:50 PM CDT) ALB RAND URINE <12.0 mg/L 09/28/2023 10:53 PM CDT [facility] CREATININE,URINE 0.61 g/L 09/28/19 10:53 PM CDT [facility] ALBUMIN TO CREATININE RATIO,RAND UR 09/28/2023 10:53 PM CDT [facility] Comment:Urine Albumin below measurement range, unable to calculate. Urine URINE SPECIMEN / Unknown Non-Blood / Unknown 09/28/2023 2:50 PM CDT 09/28/2023 2:50 PM CDT Narrative [facility] - 09/28/2023 10:53 PM CDT If Albumin to Creatinine Ratio is elevated, consider the following: ? Elevations seen with incipient nephropathy associated ?? with diabetes mellitus or hypertension. Stress, exercise,hematuria, ?? and urinary tract infection may also produce elevated results. If clinically indicated, confirm with ?24 Hour Albumin to Creatinine Ratio. ?? Arlet Pratt DO URINE Performing Organization Address City/[facility]/ZIP Co de Phone Number [facility] [address] [place] [address], [place] * POTASSIUM (09/28/2023 2:45 PM CDT) POTASSIUM 3.8 3.5 - 5.1 mmol/L 09/28/2023 9:07 PM CDT [facility] Blood BLOOD SPECIMEN / Unknown Venipuncture / Unknown 09/28/2023 2:45 PM CDT 09/28/2023 2:48 PM CDT Arlet Pratt DO CHEMISTRY [facility] [address] [place] [address], [place] * LDL CHOLESTEROL,DIRECT (09/28/2023 2:45 PM CDT) LDL CHOLESTEROL,DI RECT 143 mg/dL 09/28/2023 9:07 PM CDT [facility] PROVIDER ORDERED STATUS RANDOM 09/28/2023 9:07 PM CDT [facility] Blood BLOOD SPECIMEN / Unknown Venipuncture / Unknown 09/28/2023 2:45 PM CDT 09/28/2023 2:48 PM CDT Narrative [facility] - 09/28/2023 9:07 PM CDT Optimal ?<100 mg/dl Near Optimal ?100-129 mg/dl Borderline High ?? 130-159 mg/dl High ?160-189 mg/dl Very High ? >=190 mg/dl Arlet Pratt DO CHEMISTRY Performing Organization Address City/State/[facility] Phone Number [facility] [address] [place] [address], * (ABNORMAL) HEMOGLOBIN A1C MONITORING (POCT) (09/28/2023 2:45 PM CDT) HEMOGLOBIN A1C MONITORING (POCT) 6.5(H) <=6.4 % 09/28/2023 2:57 PM CDT [facility] Blood BLOOD SPECIMEN / Unknown Venipuncture / Unknown 09/28/2023 2:45 PM CDT 09/28/2023 2:48 PM CDT Narrative [facility] - 09/28/2023 2:57 PM CDT ? (<=6.9%) ? Indicates good control ? (7.0% to 7.9%) ? Indicates fair control ? (>=8.0%) ? Indicates poor control ?? NOTE: ??These thresholds are guidelines and ?individual targets may vary. Falsely low levels may be seen with: Recent Transfusion, Recent Significant Blood Loss, Hemolytic Diseases, or Falsely elevated levels may be seen with: Untreated Anemias, Splenectomy ? Arlet Jillian Stortz DO CHEMISTRY [facility] [address] [place] [address], [place] [phone] * (ABNORMAL) LIVER PANEL (HEPATIC FUNCTION PANEL) (09/28/2023 2:45 PM CDT) ALBUMIN 4.5 4.0 - 4.9 g/dL 09/28/2023 9:07 PM CDT [facility] PROTEIN,TOTAL 7.6 6.0 - 8.0 g/dL 09/28/2023 9:07 PM CDT [facility] BILIRUBIN,TOTAL 0.2 0.0 - 1.2 mg/dL 09/28/2023 9:07 PM CDT [facility] BILIRUBIN,DIRECT <0.2 0.0 - 0.3 mg/dL 09/28/2023 9:07 PM CDT [facility] BILIRUBIN,INDIRE CT 09/28/2023 9:07 PM CDT [facility] Comment:Unable to calculate, Direct Bili <0.2 ALK PHOSPHATASE 73 35 - 104 IU/L 09/28/2023 9:07 PM CDT [facility] ALT (SGPT) 37(H) 10 - 35 IU/L 09/28/2023 9:07 PM CDT [facility] AST (SGOT) 33 10 - 35 IU/L 09/28/2023 9:07 PM CDT [facility] Blood BLOOD SPECIMEN / Unknown Venipuncture / Unknown 09/28/2023 2:45 PM CDT 09/28/2023 2:48 PM CDT Arlet Pratt DO CHEMISTRY [facility] [address] [place] [address], [place] * HPV HIGH RISK (03/15/2023 3:37 PM CDT) TYPE 16 Negative Negative 03/18/2023 6:29 PM CDT [facility] TYPE 18 Negative Negative 03/18/2023 6:29 PM CDT [facility] OTHER HIGH RISK TYPES Negative Negative 03/18/2023 6:29 PM CDT [facility] Other (Cervical) Non-Blood / Unknown 03/15/2023 3:37 PM CDT 03/16/2023 12:00 PM CDT Narrative [facility] - 03/18/2023 6:29 PM CDT HPV types 16, 18, 31, 33, 35, 39, 45, 51, 52, 56, 58, 59, 66 and 68 DNA were undetectable or below the pre-set threshold. Methodology: Cecily Avtar 4800 HPV Test Arlet Pratt DO MICROBIOLOGY [facility] [address] [place] [address], [place] * ANTI HIV 1/2 (01/02/2020 9:06 AM CDT) HIV-1/HIV-2 ANTIBODY Non-Reacti ve Non-Reacti ve 01/02/2020 6:16 PM CDT [facility] Comment:HIV-1 p24 and HIV-1/ HIV-2 Ab not detected. Blood BLOOD SPECIMEN / Unknown Venipuncture / Unknown 01/02/2020 9:06 AM CDT 01/02/2020 9:08 AM CDT Arlet Pratt DO SEND OUTS [facility] [address] [place] [address], [place] * ACUTE HEPATITIS PANEL (01/02/2020 9:06 AM CDT) HEPATITIS C ANTIBODY Non-Reactive Non-Reactive 01/02/2020 6:16 PM CDT [facility] Comment:Antibodies to HCV no t detected; does not exclude the possibility of exposure to HCV. IGM ANTI HAV Non-Reactive Non-Reactive 07/08/20 20 6:16 PM CDT [facility] HBSAG Nonreactive Nonreactive 01/02/2020 6:16 PM CDT [facility] IGM ANTI HBC Non-Reactive Non-Reactive 01/02/20 20 6:16 PM CDT [facility] Blood BLOOD SPECIMEN / Unknown Venipuncture / Unknown 01/02/2020 9:06 AM CDT 01/02/2020 9:08 AM CDT [facility]ative [facility] - 01/02/2020 6:16 PM CDT Anti-HBc IgM not detected. Does not exclude the possibility of exposure to or infection with HBV. Arlet Pratt DO SEND OUTS [facility] [address] [place] [address], from Last 3 Months or Most Recently Relevant to Health Maintenance Additional Health Concerns Infection Onset Date Last Indicated MRSA Clearance Comment:Infection Control Note: Hx of MRSA 12/27/2011, surveillance criteria met, no need for further testing or isolation precautions. Do not delete or resolve the Infection Flag. 03/07/2023 03/07/2023 Advance Directives * Full Code (Latest Code Status on File) Date Activated Date Inactivated Comments 12/25/2011 9:05 PM 12/28/2011 8:14 PM * Full Code Date Activated Date Inactivated Comments 06/14/2009 2:40 PM 06/17/2009 2:07 PM Care Teams Ux Designer Relationship Specialty Start Date End Date Arlet Pratt DO [address] [place] [address] PCP - General Family Practice 05/06/15 Darwin Leung DPM PODIATRY Podiatry 08/02/11
[2023-10-17] VITALS: BP 128/80; PULSE 93; RESP 18; O2SAT 97
[2023-10-17] MEDS: KETOROLAC 15 MG/ML inj IVP (00:03)
[2023-10-17] MEDS: ONDANSETRON 2 MG/ML inj 4 MG IVP (00:03)
[2023-10-17] MEDS: MORPHINE 4 MG/ML INJ IVP (00:03)
[2023-10-17 00:11] LABS: HCG Quantitative* < 2.39 mIU/mL
[2023-10-17] MEDS: GI COCKTAIL (VISC LIDO/ANTACID) 30 ML PO (00:40)
[2023-10-17] MEDS: HYDROmorphone 0.5 mg/0.5 ml inj 0.25 MG IVP (01:25)
== END 2023-10-17 01:40 | disposition home or self-care (01) ==
PROVIDERS: Emergency Provider Family Medicine; PCP Family Medicine
DX: K21.9 Gastro-esophageal reflux disease without esophagitis (principal); R10.9 Unspecified abdominal pain; E87.6 Hypokalemia
CPT/HCPCS: 36415; 80048; 80076; 81001; 84702; 85025; 86140; 87086; 96361; 96374; 96375; 99284; A9270; J1170; J1885; J2270; J2405; J7030

== ENCOUNTER 2023-11-28 19:58 | Emergency (ER) | payer BC, SELFPAY ==
[2023-11-28] VITALS (9 sets, daily range): BP systolic 132; BP diastolic 83; PULSE 79–97; RESP 24; TEMP 36.6; O2SAT 96–98
--- NOTE | 2023-11-28 20:16 | ED_ITS ---
HPI - General Adult General Date Seen: 11/28/23 Chief complaint: Shortness of Breath/Dyspnea Stated complaint: Shortness of breath Time Seen by Provider: 11/28/23 20:12 History of Present Illness HPI narrative: 4-year-old female with a past medical history of polycystic ovarian syndrome, obesity hypertension, type 2 diabetes,, sphincter of Oddi dysfunction, history pancreatitis, chronic abdominal pain, She presents the ER tonight for shortness of breath. It has been going on for a couple of weeks. She had gone to another clinic twice and was given 2 rounds of steroids and told that she has asthma. She has been using her nebulizer approximately rib 4 hours. She feels like her chest is feeling heavy and her lungs are burning. She says that she recalls about 2 weeks ago she was driving around with the windows down in her car and she was probably exposed to lot of dust from the feels and pollen. Since then she has had tightness in her chest and trouble breathing with some coughing. She has been to an urgent care in [place] twice and has been on to burst of prednisone. She was also given albuterol inhaler (she has had an inhaler that she has used off and on for years but it sounds like she did not really have a diagnosis is of asthma when she was younger. She feels like being on the prednisone send using the inhaler have not really been helping. She was given a nebulizer a few days ago and she has been using that every 4 hours. She is a bit equivocal about whether it helps. Perhaps a does for short time, but she is not finding herself needing to use it every 4 hours. No swelling in her legs. No recent travel. No fever chills. No production of speeding. No abdominal pain. No back pain. She is feeling heaviness in her chest and tightness and trouble breathing. Her chest feels like it is burning. No sore throat. No known sick exposures. No history of DVT or PE. She has a history of type 2 diabetes. She is on Jardiance and some other medication (she can not remember). She says her recent hemoglobin A1cs have been good. She does not check her blood sugars and she knows that her sugar has probably been running high this week while she is on prednisone. Related Data Home Medications ?Medication ?Instructions ?Recorded ?Confirmed cetirizine 10 mg tablet 10 mg PO DAILY 05/27/22 05/27/22 chlorthalidone 25 mg tablet 25 mg PO DAILY 05/27/22 05/27/22 escitalopram oxalate 20 mg tablet 20 mg PO HS 05/27/22 03/09/23 famotidine 40 mg tablet 40 mg PO HS 05/27/22 03/09/23 labetalol 100 mg tablet 100 mg PO BID 05/27/22 03/09/23 montelukast 10 mg tablet 10 mg PO HS 05/27/22 05/27/22 potassium chloride 20 mEq 20 meq PO DAILY 05/27/22 03/09/23 tablet,extended release(part/cryst) sumatriptan succinate 50 mg tablet 50 mg PO Q2H 05/27/22 05/27/22 hydrochlorothiazide PO 03/09/23 omeprazole .ROUTE 03/09/23 Allergies Allergy/AdvReac Type Severity Reaction Status Date / Time NSAIDS (Non-Steroidal Allergy Severe Pancreatiti Verified 05/26/22 23:35 Anti-Inflamma s Cephalosporins Allergy Intermediate Diarrhea Verified 05/26/22 23:35 [facility] Medical History Morbid obesity ?E66.01 - Morbid (severe) obesity due to excess calories (ICD-10) Reactive airway disease ?J45.909 - Unspecified asthma, uncomplicated (ICD-10) PCOS (polycystic ovarian syndrome) ?E28.2 - Polycystic ovarian syndrome (ICD-10) MRSA (methicillin resistant Staphylococcus aureus) infection ?A49.02 - Methicillin resistant Staphylococcus aureus infection, unspecified site (ICD-10) 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 - Spasm of sphincter of Oddi (ICD-10) Lumbar radicular pain ?M54.16 - Radiculopathy, lumbar region (ICD-10) Erythema ab igne ?L59.0 - Erythema ab igne [dermatitis ab igne] (ICD-10) Lumbar disc herniation ?M51.26 - Other intervertebral disc displacement, lumbar region (ICD-10) History of pancreatitis ?Z87.19 - Personal history of other diseases of the digestive system (ICD-10) Herniation of intervertebral disc of lumbar region ?M51.26 - Other intervertebral disc displacement, lumbar region (ICD-10) Chronic abdominal pain ?R10.9 - Unspecified abdominal pain (ICD-10) ?G89.29 - Other chronic pain (ICD-10) Oligomenorrhea ?N91.5 - Oligomenorrhea, unspecified (ICD-10) Hypertension ?I10 - Essential (primary) hypertension (ICD-10) Closed fracture of tuft of distal phalanx of finger ?S62.639A - Displaced fracture of distal phalanx of unspecified finger, initial encounter for closed fracture (ICD-10) Type 2 diabetes, diet controlled ?E11.9 - Type 2 diabetes mellitus without complications (ICD-10) Surgical History History of wisdom tooth extraction ?K08.409 - Partial loss of teeth, unspecified cause, unspecified class (ICD- 10) History of tonsillectomy ?Z90.89 - Acquired absence of other organs (ICD-10) History of cholecystectomy ?Z90.49 - Acquired absence of other specified parts of digestive tract (ICD- 10) Social History Smoking Status: Never smoker Do you use any of these nicotine containing products: None Second hand tobacco smoke exposure: Yes How often do you have a drink containing alcohol: never AUDIT-C Alcohol total score: 0 Non-prescribed substance use: denies use Exam Narrative: Exam Narrative: Constitutional: Appears well-developed and heavyset. Overall robust. Mother at her bedside. Mother is supportive.Alert. Conversant. But tachypneic and speaking short sentences.. HENT: Head: Atraumatic. Nose: Nose normal. Mouth/Throat: Oral mucosa is clear and moist. no trismus. Pharynx normal. Tonsils symmetric. No tonsillar enlargement, erythema, or exudate. Eyes: Conjunctivae normal. EOM normal. Pupils equal, round, and reactive to light. No scleral icterus. Neck: Normal range of motion. Neck supple. No tracheal deviation present. No JVD Cardiovascular: Normal rate, regular rhythm. No gallop. No friction rub. No murmur heard. Symmetric radial artery pulses Pulmonary/Chest: Tachypneic and breathing deeply. No stridor. No respiratory distress. No tripoding. Difficult to do good lung exam because she coughs when she tries to breathe deeply. To the best my ability, lungs are clear No wheez es. No rales. No rhonchi . No tenderness. Abdominal: Soft. Bowel sounds normal. No distension. No mass. No tenderness. No rebound. No guarding. Musculoskeletal: RUE: Normal range of motion. No tenderness. No deformity LUE: Normal range of motion. No tenderness. No deformity RLE: Normal range of motion. No edema. No tenderness. No deformity LLE: Normal range of motion. No edema. No tenderness. No deformity Neurological: Alert and oriented to person, place, and time. Normal strength. CN II-VII intact. No sensory deficit. GCS eye subscore is 4. GCS verbal subscore is 5. GCS motor subscore is 6. Normal coordination Skin: Skin is warm and dry. No rash noted. No pallor. Normal capillary refill. Multiple excoriations on her upper and lower arms, shins, and upper back. Psychiatric: Normal mood. Normal affect. Const: Vital Signs, click to edit/add: Vital Signs - 24 hr 11/28/23 20:06 11/28/23 21:03 11/28/23 21:15 Temperature 97.8 F Pulse Rate 86 79 Pulse Rate [Pulse Oximeter] 97 Respiratory Rate 24 Blood Pressure [Ri ght Upper Arm] 132/83 Pulse Oximetry 97 96 97 Oxygen Delivery Me thod Room Air 11/28/23 21:30 11/28/23 21:45 11/28/23 22:00 Temperature Pulse Rate 82 88 84 Pulse Rate [Pulse Oximeter] Respiratory Rate Blood Pressure [Ri ght Upper Arm] Pulse Oximetry 96 98 98 Oxygen Delivery Me thod 11/28/23 22:15 11/28/23 22:30 11/28/23 23:00 Temperature Pulse Rate 82 84 83 Pulse Rate [Pulse Oximeter] Respiratory Rate Blood Pressure [Ri ght Upper Arm] Pulse Oximetry 98 97 98 Oxygen Delivery Me thod Course Course ED Course: Recheck-after neb. patient says that she has marginal improvement. Still tachypneic. Lung sounds still clear. Of note she is able to breathe more deeply for lung exam without coughing. However with no wheezing before or after nebs, I am not convinced that bronchospasm is the cause of her symptoms. Will pursue further workup for cardiac causes, PE, among others. Vital Signs Vital signs: Initial Vital Signs Temperature 97.8 F 06/03/24 20:06 Temperature Source Temporal Artery Scan 11/28/23 20:06 Pulse Rate 97 11/28/23 20:06 Respiratory Rate 24 11/28/23 20:06 Blood Pressure 132/83 11/28/23 20:06 Blood Pressure Mean 99 11/28/23 20:06 Blood Pressure Position Sitting 11/28/23 20:06 Pulse Oximetry 97 11/28/23 20:06 Oxygen Delivery Method Room Air 11/28/23 20:06 Vital Signs Temperature 97.8 F 11/28/23 20:06 Pulse Rate 97 11/28/23 20:06 Respiratory Rate 24 11/28/23 20:06 Blood Pressure 132/83 11/28/23 20:06 Pulse Oximetry 97 11/28/23 20:06 Oxygen Delivery Method Room Air 11/28/23 20:06 Temperature 97.8 F 11/28/23 20:06 Pulse Rate 83 11/28/23 23:00 Respiratory Rate 24 11/28/23 20:06 Blood Pressure 132/83 11/28/23 20:06 Pulse Oximetry 98 11/28/23 23:00 Oxygen Delivery Method Room Air 11/28/23 20:06 Medications Administered Medications: Discontinued Medications Generic Name Dose Route Start Last Admin Trade Name Freq PRN Reason Stop Dose Admin Albuterol/Ipratropium 1 neb 11/28/23 20:41 11/28/23 20:44 Iprat-Albut 0.5-2.5 Mg/3 Ml Neb IH 11/28/23 20:42 1 neb ONCE ONE Administration Medical Decision Making [facility] Narrative Medical decision making narrative: This is a pleasant 33-year-old female presenting to the ER today with history of cough and shortness of breath ongoing for the past 2 weeks. She says she thinks her cough is probably related to asthma and was triggered by after she was dri jackg around in her car with the windows down a couple of weeks ago. She has already seen the urgent care twice for this and has been on 2 courses of prednisone back to back and has been using albuterol inhalers and nebulizers with marginal, if any benefit. On my exam here in the ER she is really not wheezing. Initially she was not able to breathe out well for lung exam possibly due to a bronchospastic cough. We administered DuoNeb. On repeat lung exam still not wheezing. Broader differential is considered. We did check EKG to look for possible ischemia, tachycardia or signs of pericarditis or myocarditis. EKG is normal. Screening troponin is negative. BNP level is normal. We did consider possible PE. Overall would be low risk since she is not tachycardic or hypoxic. However she is not completely 0 risk either because of medical history, elevated BMI. We did check screening D-dimer which is normal. At this point likelihood of PE is low. Risk of radiation and contrast exposure from CT PA would outweigh the benefit She already has had negative coronavirus and influenza PCR is done through the clinic so will not repeat that today. Chest x-ray today shows a subtle right lower lobe infiltrate by my read. Will start the patient on doxycycline. She has already been on amoxicillin but I would recommend she discontinue that and switch doxy instead. Ultimately, radiology read indicates no acute pneumonia. However I do think based on my read this truly is a pneumonia. Return precautions discussed with patient her mother. They are in agreement. Lab Data Labs: Lab Results 11/28/23 11/28/23 Range/Units 21:05 21:27 WBC 21.12 H (4.50-11.00) K/uL RBC 5.70 H (4.00-5.20) m/uL Hgb 14.6 (12.0-16.0) gm/dL Hct 45.5 (33.0-51.0) % MCV 80 (80-100) fL MCH 26 (26-34) pg MCHC 32 (32-36) gm/dL RDW Coeff of Roger 15.3 (11.5-15.5) % Plt Count 324 (140-440) K/uL Neut % (Auto) 71.6 (42.0-72.0) % Lymph % (Auto) 20.8 (20-44) % Harlan % (Auto) 6.2 (0.0-11.0) % Eos % (Auto) 0.4 (0.0-7.0) % Baso % (Auto) 0.1 (0.0-3.0) % Neut # (Auto) 15.10 H (1.7-7.0) K/uL Lymph # (Auto) 4.40 H (0.90-2.90) K/uL Harlan # (Auto) 1.30 H (0.00-0.90) K/UL Eos # (Auto) 0.10 (0.00-0.50) K/uL Baso # (Auto) 0.00 (0.00-0.30) K/uL Abs Immat Gran (auto) 0.20 (0.00-0.30) K/uL Imm/Tot Granulo (auto) 0.9 % D-Dimer Quant (PE/DVT) 0.45 (0.00-0.50) ug/ml VBG pH 7.465 H (7.32-7.43) VBG pCO2 41 (40-50) mmHG VBG pO2 50.4 H (25-47) mmHG VBG HCO3 29 H (21-28) mmol/L Sodium 137 (135-149) mmol/L Potassium 3.4 L (3.6-5.1) mmol/L Chloride 99 (96-114) mmol/L Carbon Dioxide 30 (20-32) mmol/L Anion Gap 8 (7-15) mEq/L BUN 20 (5-24) mg/dL Creatinine 0.7 (0.5-1.5) mg/dL Estimated GFR 118 ml/min Glucose 134 H (60-115) mg/dL Calcium 9.1 (8.4-10.6) mg/dL Troponin I < 0.01 L (0.01-0.04) ng/mL NT-Pro-B Natriuret Pep 55 pg/mL HCG, Qual Negative (Negative) SARS-CoV-2 (PCR) Negative SARS-CoV-2 (Negative) Influenza Type A (PCR) Negative PCR FLU A (Negative) Influenza Type B (PCR) Negative PCR FLU B (Negative) RSV (PCR) Negative PCR RSV (Negative) Imaging Data Chest x-ray: Attestation: I have reviewed the pertinent imaging results. My impression: Right lower lobe infiltrate blurring out with a small section of the right diaphragm Radiologist's impression: IMPRESSION: No evidence of an acute pulmonary process. ECG Data Attestation: I personally reviewed and interpreted this ECG as follows: Interpretation: Normal sinus rhythm Rate: Your jaw 74 ND: 132 QRS axis: Normal axis. ST segment/T wave: No ST segment elevation or depression. QTc: 437 Discharge Plan Discharge Clinical Impression: RLL pneumonia Patient Disposition: Home, Self-Care Condition: Stable Instructions: Community Acquired Pneumonia (DC) Additional Instructions: As we discussed, please come back to the ER right away if you have worsening trouble breathing, chest pain, fever, or any concerns. Please stop taking the amoxicillin. Switch to the new antibiotic-doxycycline. Avoid sun exposure while your taking the doxycycline. It usually takes 1-2 days for an antibiotic to help in infection start to get better. However if you get worse, come back to the ER right away. If you are not improving dramatically within 3 days, please recheck with her doctor or come back to the ER. You can finish her course of prednisone. Use your albuterol inhaler and nebulizer if needed. Prescriptions: No Action cetirizine 10 mg tablet 10 mg PO DAILY Patient Comments: TAKE ONE TABLET BY MOUTH EVERY DAY chlorthalidone 25 mg tablet 25 mg PO DAILY Patient Comments: TAKE ONE TABLET BY MOUTH EVERY DAY escitalopram oxalate 20 mg tablet 20 mg PO HS Patient Comments: TAKE ONE TABLET BY MOUTH AT BEDTIME famotidine 40 mg tablet 40 mg PO HS Patient Comments: TAKE ONE TABLET BY MOUTH AT BEDTIME labetalol 100 mg tablet 100 mg PO BID Patient Comments: TAKE ONE TABLET BY MOUTH TWICE A DAY (MORNING AND EVENING) montelukast 10 mg tablet 10 mg PO HS Patient Comments: TAKE ONE TABLET BY MOUTH AT BEDTIME potassium chloride 20 mEq tablet,ER particles/crystals 20 meq PO DAILY Patient Comments: TAKE ONE TABLET BY MOUTH EVERY DAY WITH A MEAL - TAKE INSTEAD OF POWDER POTASSIUM sumatriptan succinate 50 mg tablet 50 mg PO Q2H Patient Comments: TAKE ONE HALF TO ONE TABLET BY MOUTH AT ONSET OF MIGRAINE. MAY REPEAT IN 2 HOURS IF NEEDED. GIVE AT MINIMUM 2 HOURS APART. MAX DOSE 100MG / hydrochlorothiazide PO omeprazole .ROUTE Follow Up/Referrals: Arlet Pratt DO [Primary Care Provider] - Stand Alone Forms: [facility] Info Instructions
[2023-11-28] MEDS: IPRAT-ALBUT 0.5-2.5 MG/3 ML NEB 1 NEB IH (20:44)
--- OUTSIDE RECORDS SUMMARY | 2023-11-28 20:51 | XMS_ITS | Clinical Summary ---
Author Organization [facility] Address [place], [place] [address] Care Team Providers Care Marketing Producer Name Role Phone Darwin Leung DPM Unavailable [phone] Arlet Pratt DO Primary Care Provider [phone] Allergies Active Allergy Reactions Criticality Noted Date Comments Cephalosporins Diarrhea Low 09/29/2020 Bloody diarrhea Nsaids (Non-Steroidal Anti-Inflammatory Drug) Pancreatitis 08/21/2012 Unlisted Allergen (Include Detail In Comments) Pancreatitis High 09/29/2020 Medications Medication Sig Dispensed Refills Start Date End Date Status multivitamin (MVI) tablet Take 1 tablet by mouth once daily. 0 1 Active acetaminophen (TYLENOL) 325 mg tablet Take 2 tablets by mouth every 4 hours if needed. Max acetaminophen dose: 4000mg in 24 hrs. 0 4 Active omeprazole (PRILOSEC) 20 mg Delayed-Release capsuleIndication s:Gastroesophagea l reflux disease without esophagitis Take 1 capsule by mouth once daily. 90 capsule 1 8 Active Needle, Disp, 30 G ([place] DISP NEEDLES 30GX1/2) 30 gauge x 1/2 ndleIndications:C ontrolled type 2 diabetes mellitus without complication, without long-term current use of insulin (HC) As directed. Use as directed with Victoza 30 Each 3 0 Active tolnaftate 1% powder (TINACTIN) 1 % powderIndications :Tinea pedis of both feet Apply topically to affected area(s) 2 times daily. Shake into sock 1 Bottle 11 1 Active blood-glucose meterIndications: Type 2 diabetes, diet controlled (HC) by Not Applicable route. Dispense meter, test strips, lancets covered by pt ins. NIDDM type II, controlled - Test 1 time/day 1 Device 1 Active diphenhydrAMINE-a cetaminophen 25-500 mg (TYLENOL PM) 25-500 mg tablet Daily Active Contour Next Test Strips strip TEST 1 TIME A DAY 1 Active Microlet Lancet TEST ONCE A DAY 1 Active cyclobenzaprine (FLEXERIL) 10 mg tabletIndications :Chronic midline low back pain with bilateral sciatica Take 1 Tablet (10 mg) by mouth at bedtime if needed for Muscle Spasm. MAX 10mg dose 30 Tablet 2 Active albuterol HFA (PRO-AIR; VENTOLIN; PROVENTIL) 90 mcg/actuation inhalerIndication s:Shortness of breath Inhale 2 Puffs by mouth 4 times daily if needed for Shortness Of Breath. 1 Each 3 Active SUMAtriptan (IMITREX) 50 mg tabletIndications :Menstrual migraine without status migrainosus, not intractable TAKE ONE-HALF TO ONE TABLET BY MOUTH AT ONSET OF MIGRAINE. MAY REPEAT IN 2 HOURS IF NEEDED. MAX DOSE 100MG/24 HOURS. 10 Tablet 3 Active cetirizine (Allergy Relief, cetirizine,) 10 mg tabletIndications :Moderate persistent asthma without complication Take 1 Tablet (10 mg) by mouth once daily. 90 Tablet 3 3 Active chlorthalidone (HYGROTON) 25 mg tabletIndications :Hypertension Take 1 Tablet (25 mg) by mouth once daily. 90 Tablet 3 3 Active miconazole nitrate powder 2 % powderIndications :Tinea pedis, unspecified laterality Apply topically to affected area(s) two times daily. 85 g 1 3 Active montelukast (SINGULAIR) 10 mg tabletIndications :Moderate persistent asthma without complication Take 1 Tablet (10 mg) by mouth at bedtime. 90 Tablet 3 3 Active topiramate (TOPAMAX) 25 mg tablet Take 100 mg by mouth once daily. Weaning off 3 Active empagliflozin (JARDIANCE) 25 mg tabletIndications :Uncontrolled type 2 diabetes mellitus with hyperglycemia (HC) Take 1 Tablet (25 mg) by mouth once daily. 90 Tablet 3 3 Active ketoconazole 2% topical (NIZORAL) creamIndications: Yeast dermatitis Apply twice daily until resolved then may use weekly for prevention 120 g 3 3 Active potassium chloride (KLOR-CON M20) 20 mEq extended-release tablet (part/cryst)Indic ations:Low blood potassium,Hyperte nsion Take 2 Tablets (40 mEq) by mouth two times daily with meals. 180 Tablet 3 Active glipiZIDE extended-release (GLUCOTROL XL) 2.5 mg Extended-Release tabletIndications :Uncontrolled type 2 diabetes mellitus with hyperglycemia (HC) Take 1 Tablet (2.5 mg) by mouth once daily before a meal. 90 Tablet 3 3 Active Ajovy Autoinjector 225 mg/1.5 mL atIn INJECT 1 PEN INJECTOR SUBCUTANEOUSLY ONCE A MONTH 4 Active fexofenadine (MATTEO) 180 mg tabletIndications :Allergy, initial encounter Take 180 mg by mouth once daily. Do not crush or chew. 30 Tablet 3 4 Active escitalopram oxalate (LEXAPRO) 20 mg tabletIndications :Depression, recurrent (HC) TAKE ONE TABLET BY MOUTH AT BEDTIME 90 Tablet 4 Active labetaloL (TRANDATE) 100 mg tabletIndications :HTN (hypertension) TAKE ONE TABLET BY MOUTH TWICE A DAY (MORNING AND EVENING) 60 Tablet 4 Active famotidine (PEPCID) 40 mg tabletIndications :Gastric reflux TAKE ONE TABLET BY MOUTH AT BEDTIME 90 Tablet 1 4 Active famotidine (PEPCID) 40 mg tabletIndications :Gastric reflux Take 1 Tablet (40 mg) by mouth at bedtime. 90 Tablet 3 3 024 Discontinued labetaloL (TRANDATE) 100 mg tabletIndications :HTN (hypertension) TAKE ONE TABLET BY MOUTH TWICE A DAY (MORNING AND EVENING) 180 Tablet 2 3 024 Discontinued Active Problems Problem Noted Date Diagnosed Date Uncontrolled type 2 diabetes mellitus with hyper glycemia 03/15/2023 Pap smear for cervical cancer screening 02/26/20 23 Overview: 02/2023 NIL/HPV negative. Plan: Pap/HPV due [...] 08/02/2014 History of pancreatitis 11/28/2013 Overview: Per MAKEDA Thomas at the [facility] visit from April 2012. Consult for recurrent [...] pills were not actually contributing. Records from [facility] [place] in chart, only 1 visit 05/08/14. Asked for further records but none available. 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 Lyon. 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 See consult from GI Dr. Martinez at the [facility] from May 08, 2012 See details under pancreatitis in problem list. MRSA (methicillin resistant Staphylococcus aureus) infection 07/03/2010 PCOS (polycystic ovarian syndrome) 05/13/2010 Overview: As of 07/2013: Previously on OCPs but these had to be discontinued because patient was having recurrent pancreatitis after her gallbladder was removed. She saw a pega developer who told her the control was interfering [...] abdominal pain 12/25/201110/30 Overview: Unclear etiology. Per press assistant, at times seems correlated with menstrual cycle, [...] Encounters Date Type Department Care Team Description 11/25/2023 Refill [facility] [address] [place] [place] [id number] Arlet Pratt, Refill Request (Famotidine) 11/02/2023 Refill [facility] [address] [place] [id number] Arlet Pratt DO Refill Request (Labetalol) 10/24/2023 Refill [facility] [address] [place] [id number] Arlet Pratt DO Refill Request (Escitalopram Oxalate) 09/28/2023 2:45 PM CDT Orders Only [facility] [address] [place] [id number] Lab, [facility] 09/28/2023 Travel from Last 3 Months Immunizations Name [...] Comments Blood Pressure 127/83 08/10/2023 3:07 PM VIBRATION TECHNICIAN Pulse 85 08/10/2023 3:07 PM VIBRATION TECHNICIAN Temperature 36.2 ??C (97.2 ??F) 04/03/2023 1:40 PM CD T Respiratory Rate 18 04/03/2023 1:40 PM CDT Oxygen Saturation 98% 08/10/2023 3:07 PM VIBRATION TECHNICIAN Inhaled Oxygen Concentration - - Weight 135.2 kg (298 lb) 08/10/2023 3:07 PM VIBRATION TECHNICIAN Height 170.2 cm (5' 7.01) 03/15/2023 2:40 PM CD T Body Mass Index 46.66 03/15/2023 2:40 PM CDT Plan of Treatment Health Maintenance Due Date Last Done Comments Hepatitis B series for Diabe tripp (2 of 3 - 19+ 3-dose series) 02/02/2021 01/05/2021 Pneumococcal series for age 6-64 (2 of 2 - PCV) 01/05/2022 01/05/2021 COVID-19 vaccine series (4 - 2022-24 season) 2023 08/06/2021, 07/30/2020, 07/03/2020 Influenza for [...] URINE <12.0 mg/L 09/28/2023 10:53 PM CDT [facility] CREATININE,URINE 0.61 g/L 09/28/19 10:53 PM CDT [facility] ALBUMIN TO CREATININE RATIO,RAND UR 09/28/2023 10:53 PM CDT [facility] Comment:Urine Albumin below measurement range, unable to calculate. Urine URINE SPECIMEN / Unknown Non-Blood / Unknown 09/28/2023 2:50 PM CDT 09/28/2023 2:50 PM CDT Narrative [facility] - 09/28/2023 10:53 PM CDT If Albumin to Creatinine Ratio is elevated, consider the following: ? Elevations seen with incipient nephropathy associated ?? with diabetes mellitus or hypertension. Stress, exercise,hematuria, ?? and urinary tract infection may also produce elevated results. If clinically indicated, confirm with ?24 Hour Albumin to Creatinine Ratio. ?? Arlet Pratt DO URINE [facility] [address] [place] [address], * POTASSIUM (09/28/2023 2:45 PM CDT) POTASSIUM 3.8 3.5 - 5.1 mmol/L 09/28/2023 9:07 PM CDT [facility] Blood BLOOD SPECIMEN / Unknown Venipuncture / Unknown 09/28/2023 2:45 PM CDT 09/28/2023 2:48 PM CDT Arlet Pratt DO CHEMISTRY Performing Organization Address [facility] Co de Phone Number [facility] [address] * LDL CHOLESTEROL,DIRECT (09/28/2023 2:45 PM CDT) LDL CHOLESTEROL,DI RECT 143 mg/dL 09/28/2023 9:07 PM CDT [facility] PROVIDER ORDERED STATUS RANDOM 09/28/2023 9:07 PM CDT [facility] Blood BLOOD SPECIMEN / Unknown Venipuncture / Unknown 09/28/2023 2:45 PM CDT 09/28/2023 2:48 PM CDT Narrative [facility] - 09/28/2023 9:07 PM CDT Optimal ?<100 mg/dl Near Optimal ?100-129 mg/dl Borderline High ?? 130-159 mg/dl High ?160-189 mg/dl Very High ? >=190 mg/dl Arlet Pratt DO CHEMISTRY Performing Organization Address [facility] de Phone Number [facility] [address] * (ABNORMAL) HEMOGLOBIN A1C MONITORING (POCT) (09/28/2023 2:45 PM CDT) HEMOGLOBIN A1C MONITORING (POCT) 6.5(H) <=6.4 % 09/28/2023 2:57 PM CDT [facility] Blood BLOOD SPECIMEN / Unknown Venipuncture / Unknown 09/28/2023 2:45 PM CDT 09/28/2023 2:48 PM CDT Narrative [facility] - 09/28/2023 2:57 PM CDT ? (<=6.9%) [...] seen with: Untreated Anemias, Splenectomy ? Arlet Pratt DO CHEMISTRY [facility] [address] [place] [address], [place] [phone] * (ABNORMAL) LIVER PANEL (HEPATIC FUNCTION PANEL) (09/28/2023 2:45 PM CDT) Pathologist [facility] ALBUMIN 4.5 4.0 - 4.9 g/dL 09/28/2023 9:07 PM CDT [facility] PROTEIN,TOTAL 7.6 6.0 - 8.0 g/dL 09/28/2023 9:07 PM CDT [facility] BILIRUBIN,TOTAL 0.2 0.0 - 1.2 mg/dL 09/28/2023 9:07 PM CDT [facility] BILIRUBIN,DIRECT <0.2 0.0 - 0.3 mg/dL 09/28/2023 9:07 PM CDT [facility] BILIRUBIN,INDIRE CT 09/28/2023 9:07 PM CDT [facility] Comment:Unable to calculate, Direct Bili <0.2 ALK PHOSPHATASE 73 35 - 104 IU/L 09/28/2023 9:07 PM CDT [facility] ALT (SGPT) 37(H) 10 - 35 IU/L 09/28/2023 9:07 PM CDT [facility] AST (SGOT) 33 10 - 35 IU/L 09/28/2023 9:07 PM CDT [facility] Blood BLOOD SPECIMEN / Unknown Venipuncture / Unknown 09/28/2023 2:45 PM CDT 09/28/2023 2:48 PM CDT Arlet Pratt DO CHEMISTRY Performing Organization Address [facility] Co de Phone Number [facility] [address] [place] [address], * HPV HIGH RISK (03/15/2023 3:37 PM CDT) TYPE 16 Negative Negative 03/18/2023 6:29 PM CDT [facility] TYPE 18 Negative Negative 03/18/2023 6:29 PM CDT [facility] OTHER HIGH RISK TYPES Negative Negative 03/18/2023 6:29 PM CDT [facility] Other (Cervical) Non-Blood / Unknown 03/15/2023 3:37 PM CDT 03/16/2023 12:00 PM CDT Narrative [facility] - 03/18/2023 6:29 PM CDT HPV types 16, 18, 31, 33, 35, 39, 45, 51, 52, 56, 58, 59, 66 and 68 DNA were undetectable or below the pre-set threshold. Methodology: Cecily Avtar 4800 HPV Test Arlet Pratt DO MICROBIOLOGY Performing Organization Address [facility] de Phone Number [facility] [address] [place] [address], * ANTI HIV 1/2 (01/02/2020 9:06 AM CDT) HIV-1/HIV-2 ANTIBODY Non-Reacti ve Non-Reacti ve 01/02/2020 6:16 PM CDT [facility] Comment:HIV-1 p24 and HIV-1/ HIV-2 Ab not detected. Blood BLOOD SPECIMEN / Unknown Venipuncture / Unknown 01/02/2020 9:06 AM CDT 01/02/2020 9:08 AM CDT Arlet Pratt DO SEND OUTS Performing Organization Address [facility]/ZIP Co de Phone Number [facility] [address] [place] [address], * ACUTE HEPATITIS PANEL (01/02/2020 9:06 AM CDT) HEPATITIS C ANTIBODY Non-Reactive Non-Reactive 01/02/2020 6:[address] [facility] Comment:Antibodies to HCV no t detected; does not exclude the possibility of exposure to HCV. IGM ANTI HAV Non-Reactive Non-Reactive 01/02/20 20 6:16 PM CDT [facility] HBSAG Nonreactive Nonreactive 01/02/2020 6:16 PM CDT [facility] IGM ANTI HBC Non-Reactive Non-Reactive 01/02/20 20 6:16 PM CDT [facility] Blood BLOOD SPECIMEN / Unknown Venipuncture / Unknown 01/02/2020 9:06 AM CDT 01/02/2020 9:[address] [facility] - 01/02/2020 6:16 PM CDT Anti-HBc IgM not detected. Does not exclude the possibility of exposure to or infection with HBV. Arlet Pratt DO SEND OUTS Performing Organization Address [facility] Co de Phone Number [facility] [address] [place] [address], from Last 3 Months or Most Recently [...] 2:40 PM 06/17/2009 2:07 PM Care Teams Marketing Producer Relationship Specialty Start Date End Date Arlet Pratt DO [address] [place] [address] PCP - General Family Practice 05/06/15 Darwin Leung DPM PODIATRY Podiatry 08/02/11
--- OUTSIDE RECORDS SUMMARY | 2023-11-28 20:51 | XMS_ITS | Continuity of Care Document ---
Author Organization [facility] Address [address] [address] [place] [address] Phone Care Team Providers Care Sales Service Executive Name Role Phone No Information Unavailable Unavailable [...] Active Procedures Procedure Date Offic/outpt E&m New [facility] Routine Serum Collection Bld Ct; Hg/pltlt Ct [...] Diagnoses Date Provider Providers Copied on Encounter [facility], [address] [address], [place], [id number], [place] tel:[phone] No Information No Information Offic/outpt E&m New Mod-hi [facility], [address] [address], [place], [id number], [place] tel:[phone] [facility] Symptoms or Concerns (chief complaint) RUQ abdominal painElevated blood-pressur e reading, w/o diagnosis of htnDietary counseling and surveillance 5 No Information Referring Provider: Arlet Pratt DO, [address] [place] [address], [address]. tel:[phone] Offic/outpt E&m Estab Mod-hi 2 [facility], [address] [address], [place], [id number], [place] tel:[phone] [facility] No Information 2 Amna Manrique. [address] [facility] [address], [place], [place], [id number], [place]. tel:[phone] Referring Provider: Ellie Rodriguez, [address] [place] [address], [place], [address]. tel:[phone] [facility] Minr Compl [facility], [address] [address], [place], [id number], [place] tel:[phone] [facility] No Information 2 No Information Referring Provider: Katherin Guerrero MD, [address] [facility] [address], [place], [address]. tel:[phone] [facility], [address] [address], [place], [id number], [place] tel:[phone] [facility] No Information 201 2 Hernandez Stewart. [address], [id number], [place]. tel:[phone] Referring Provider: Katherin Guerrero MD, [address], [address]. [phone] Init Hosp-da E&m Mod Severity [facility], [address] [address], [place], [place], [id number], [place] tel:[phone] [facility] No Information 2 Lionel Andersen. [address], [id number], [place]. tel:[phone] Referring Provider: Katherin Guerrero MD, [address], [address]. [phone] [facility]m Minr Compl [facility], [address] [address], [place], [place], [id number], [place] tel:[phone] [facility] No Information 9 Jeromy Nice. [address], [id number], [place]. tel:[phone] Referring Provider: Arlet Angel, [address], [address]. tel:[phone] [facility]&m Minr Compl [facility], [address] [address], [place], [place], [id number], [place] tel:[phone] [facility] No Information 9 Onelia Abarca. [address], [id number], [place]. tel:[phone] Referring Provider: Livier Reddy, [address], [place], [address]. tel:[phone] Init Inpt Cons New/est Mod-hi [facility], [address] [address], [place], [place], [id number], [place] tel:[phone] [facility] No Information Bishop Becerril. [address] [facility], [place], [place], [id number], [place]. tel:[phone] Referring Provider: Livier Reddy, [address] [place] [address], [place], [address]. tel:[phone] Family History Family Member Type Diagnosis Age At Onset Brother Problem (finding) GERD Father Problem (finding) Alive and well Mother Problem (finding) GERD Mother Problem (finding) asthma Sister Problem (finding) gallbladder disease Brother Problem (finding) asthma Mother Problem (finding) Colon polyps Immunizations Vaccine Date Status Comments Influenza virus vaccine, inj ectable, quadrivalent, split virus, preservative free, 3 years or older Fluarix Quad [id number] administered Source: Other Pro vider Payers Payer name Insurance type Covered alliance party ID Authoriza tion(s) No Information Social [...] and vomiting on June 03, 2009, in [place], [place]. The surgery apparently went well. Thereafter the vomiting abated, but the patient has continued to have right upper quadrant abdominal pain. Records indicate that she was seen at [facility] on June 14, 2009, by Dr. [...]
[2023-11-28 21:30] LABS: HCO3 VBG 29 mmol/L (21-28); PCO2 VBG 41 mmHG (40-50); PO2 VBG 50.4 mmHG (25-47); pH VBG 7.465 (7.32-7.43)
[2023-11-28 21:31] LABS: Basophils Percent Auto 0.1 % (0.0-3.0); Eosinophils Percent Auto 0.4 % (0.0-7.0); Hematocrit 45.5 % (33.0-51.0); Hemoglobin* 14.6 gm/dL (12.0-16.0); Immature Granulocytes Pct Auto 0.9 %; Lymphocytes Percent Auto 20.8 % (20-44); Mean Corpuscular HGB Conc 32 gm/dL (32-36); Mean Corpuscular Hemoglobin 26 pg (26-34); Mean Corpuscular Volume 80 fL (80-100); Monocytes Percent Auto 6.2 % (0.0-11.0); Neutrophils Percent Auto 71.6 % (42.0-72.0); Platelet Count* 324 K/uL (140-440); RDW Coefficient of Variation % 15.3 % (11.5-15.5); White Blood Count* 21.12 K/uL (4.50-11.00)
[2023-11-28 21:35] LABS: Slide Review Reflex No
[2023-11-28 21:47] LABS: Chloride* 99 mmol/L (96-114); Potassium* 3.4 mmol/L (3.6-5.1); Sodium* 137 mmol/L (135-149)
[2023-11-28 21:50] LABS: Anion Gap 8 mEq/L (7-15); Blood Urea Nitrogen* 20 mg/dL (5-24); Carbon Dioxide* 30 mmol/L (20-32); Creatinine* 0.7 mg/dL (0.5-1.5); Estimated Glomerular Filt Rate 118 ml/min
[2023-11-28 21:51] LABS: Calcium* 9.1 mg/dL (8.4-10.6); Glucose* 134 mg/dL (60-115)
[2023-11-28 21:57] LABS: D Dimer Quantitative* 0.45 ug/ml (0.00-0.50)
[2023-11-28 22:01] LABS: HCG Qualitative Serum* Negative (Negative)
[2023-11-28 22:02] LABS: NT Pro B Type NatriureticPept* 55 pg/mL; Troponin I* < 0.01 ng/mL (0.01-0.04)
[2023-11-28 22:10] LABS: PCR FLU A Negative PCR FLU A (Negative); PCR FLU B Negative PCR FLU B (Negative); PCR RSV Negative PCR RSV (Negative); SARS PCR* Negative SARS-CoV-2 (Negative)
--- NOTE | 2023-11-28 22:16 | CRLHL7_ITS ---
For Patients: As a result of the Century Cures Act, medical imaging exams and procedure reports are released immediately into your electronic medical record. You may view this report before your referring provider. If you have questions, please contact your health care provider. INDICATION: Dyspnea, cough, leukocytosis. TECHNIQUE: Chest 2 views. COMPARISON: None. FINDINGS: Cardiovascular and mediastinum: Heart size and vasculature are normal in caliber and appearance. Lungs and pleural spaces: Lungs are clear. No sign of infiltrate or mass. No sign of pleural effusion. No pneumothorax. Bones and soft tissues: Accentuated thoracic kyphosis. Otherwise, unremarkable for age. IMPRESSION: No evidence of an acute pulmonary process. Dictated by Jonny Davison MD @ 11/28/2023 11:57:21 PM (Electronically Signed)
== END 2023-11-29 00:01 | disposition home or self-care (01) ==
PROVIDERS: Emergency Provider Emergency Medicine; PCP Family Medicine
DX: J18.8 Other pneumonia, unspecified organism (principal)
CPT/HCPCS: 36415; 71046; 80048; 82803; 83880; 84484; 84703; 85025; 85379; 87631; 93005; 94640; 94761; 99283; 99284; 99285

== ENCOUNTER 2023-12-11 23:10 | Emergency (ER) | payer BC, SELFPAY ==
[2023-12-11 23:16] VITALS: BP 143/85; PULSE 97; RESP 18; TEMP 36.5; O2SAT 98; BMI 47.6
--- NOTE | 2023-12-11 23:31 | ED_ITS ---
HPI - General Adult General Chief complaint: Shortness of Breath/Dyspnea Stated complaint: shortness of breath Time Seen by Provider: 12/11/23 23:13 History of Present Illness HPI narrative: pt reporting difficulty in breathing, short of breath . Pt was diagnosed with pneumonia two weeks ago. Pt not feeling any better 33-year-old woman presenting to the emergency department with concern of shortness of breath Two weeks ago diagnosed with a right lower lung pneumonia by clinician; radiology called normal. Switch from amoxicillin at that point doxycycline. She was also to finish out a course of steroids. Sounds like she has had a couple courses of steroids for this lingering cough. D-dimer at that time was negative. Continue plain of burning in her chest with breathing. Admittedly she does cough more when she is lying flat in bed. Apparently Tessalon Perles were prescribed in she did much better with those. Cough got worse once she ran out and had no more refills. No fever. Review of vitals shows them to be normal. Chronically using albuterol nebulizations Related Data Home Medications ?Medication ?Instructions ?Recorded ?Confirmed cetirizine 10 mg tablet 10 mg PO DAILY 05/27/22 05/27/22 chlorthalidone 25 mg tablet 25 mg PO DAILY 05/27/22 05/27/22 escitalopram oxalate 20 mg tablet 20 mg PO HS 05/27/22 03/09/23 famotidine 40 mg tablet 40 mg PO HS 05/27/22 03/09/23 labetalol 100 mg tablet 100 mg PO BID 05/27/22 03/09/23 montelukast 10 mg tablet 10 mg PO HS 05/27/22 05/27/22 potassium chloride 20 mEq 20 meq PO DAILY 05/27/22 03/09/23 tablet,extended release(part/cryst) sumatriptan succinate 50 mg tablet 50 mg PO Q2H 05/27/22 05/27/22 hydrochlorothiazide PO 03/09/23 omeprazole .ROUTE 03/09/23 Previous Rx's ?Medication ?Instructions ?Recorded benzonatate 100 mg capsule 100 - 200 mg (1 - 2 x 100 mg) PO 12/12/23 QID PRN cough #30 caps Allergies Allergy/AdvReac Type Severity Reaction Status Date / Time NSAIDS (Non-Steroidal Allergy Severe Pancreatiti Verified 05/26/22 23:35 Anti-Inflamma s Cephalosporins Allergy Intermediate Diarrhea Verified 05/26/22 23:35 Review of Systems Status of ROS: Reports: 6 or more systems reviewed and unremarkable except as noted in History and below [facility] Medical History Morbid obesity ?E66.01 - Morbid (severe) obesity due to excess calories (ICD-10) Reactive airway disease ?J45.909 - Unspecified asthma, uncomplicated (ICD-10) PCOS (polycystic ovarian syndrome) ?E28.2 - Polycystic ovarian syndrome (ICD-10) MRSA (methicillin resistant Staphylococcus aureus) infection ?A49.02 - Methicillin resistant Staphylococcus aureus infection, unspecified site (ICD-10) 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 - Spasm of sphincter of Oddi (ICD-10) Lumbar radicular pain ?M54.16 - Radiculopathy, lumbar region (ICD-10) Erythema ab igne ?L59.0 - Erythema ab igne [dermatitis ab igne] (ICD-10) Lumbar disc herniation ?M51.26 - Other intervertebral disc displacement, lumbar region (ICD-10) History of pancreatitis ?Z87.19 - Personal history of other diseases of the digestive system (ICD-10) Herniation of intervertebral disc of lumbar region ?M51.26 - Other intervertebral disc displacement, lumbar region (ICD-10) Chronic abdominal pain ?R10.9 - Unspecified abdominal pain (ICD-10) ?G89.29 - Other chronic pain (ICD-10) Oligomenorrhea ?N91.5 - Oligomenorrhea, unspecified (ICD-10) Hypertension ?I10 - Essential (primary) hypertension (ICD-10) Closed fracture of tuft of distal phalanx of finger ?S62.639A - Displaced fracture of distal phalanx of unspecified finger, initial encounter for closed fracture (ICD-10) Type 2 diabetes, diet controlled ?E11.9 - Type 2 diabetes mellitus without complications (ICD-10) Surgical History History of wisdom tooth extraction ?K08.409 - Partial loss of teeth, unspecified cause, unspecified class (ICD- 10) History of tonsillectomy ?Z90.89 - Acquired absence of other organs (ICD-10) History of cholecystectomy ?Z90.49 - Acquired absence of other specified parts of digestive tract (ICD- 10) Social History Smoking Status: Never smoker Do you use any of these nicotine containing products: None Second hand tobacco smoke exposure: Yes How often do you have a drink containing alcohol: never AUDIT-C Alcohol total score: 0 Non-prescribed substance use: denies use service: No Exam Narrative: Exam Narrative: Pleasant. Appears little uncomfortable. Converses easily. Intermittently labored breathing and cough seems to be triggered or with forceful inhalation of air. obese. Lungs appear to be clear. Lower extremities with dependent edema otherwise all extremities are well perfused. TMs are unremarkable. Heart in elevated rate but regular rhythm. Oropharynx trace erythema but I do not appreciate significant cobblestoning. Does sound a little congested in the nasopharynx. Const: Vital Signs, click to edit/add: Vital Signs - 24 hr 12/11/23 23:16 Temperature 97.7 F Pulse Rate [Left P ulse Oximeter] 97 Respiratory Rate 18 Blood Pressure [Ri ght Upper Arm] 143/85 H Pulse Oximetry 98 Oxygen Delivery Me thod Room Air Documenting provider has reviewed patient's vital signs: yes Course Vital Signs Vital signs: Initial Vital Signs Temperature 97.7 F 12/11/23 23:16 Temperature Source Temporal Artery Scan 12/11/23 23:16 Pulse Rate 97 12/11/23 23:16 Pulse Rhythm Regular 12/11/23 23:16 Respiratory Rate 18 12/11/23 23:16 Respiratory Effort Normal, Non-Labored 12/11/23 23:16 Respiratory Depth Normal 12/11/23 23:16 Respiratory Pattern Normal 12/11/23 23:16 Blood Pressure 143/85 H 12/11/23 23:16 Blood Pressure Mean 104 12/11/23 23:16 Blood Pressure Position Sitting 12/11/23 23:16 Pulse Oximetry 98 12/11/23 23:16 Oxygen Delivery Method Room Air 12/11/23 23:16 Vital Signs Temperature 97.7 F 12/11/23 23:16 Pulse Rate 97 12/11/23 23:16 Respiratory Rate 18 12/11/23 23:16 Blood Pressure 143/85 H 12/11/23 23:16 Pulse Oximetry 98 12/11/23 23:16 Oxygen Delivery Method Room Air 12/11/23 23:16 Temperature 97.7 F 12/11/23 23:16 Pulse Rate 97 12/11/23 23:16 Respiratory Rate 18 12/11/23 23:16 Blood Pressure 143/85 H 12/11/23 23:16 Pulse Oximetry 98 12/11/23 23:16 Oxygen Delivery Method Room Air 12/11/23 23:16 Medications Administered Medications: Discontinued Medications Generic Name Dose Route Start Last Admin Trade Name Freq PRN Reason Stop Dose Admin Benzonatate 200 mg 12/11/23 23:45 12/11/23 23:58 Benzonatate 100 Mg Capsule PO 12/11/23 23:46 200 mg ONCE ONE Administration Medical Decision Making MDM Narrative Medical decision making narrative: I think there is some allergic component or postnasal drip contributing to cough. Is not unreasonable to check for pneumonia or pneumothorax. Doubt pulmonary embolus. Does not appear to be in arrhythmia. Chest x-ray reviewed by me looks to be WNL without infiltrate and no concerning chronic findings. Sucking on ice chips seems to be helpful here. See patient discharge plan for further discussion Medical Records Medical records reviewed: Yes I reviewed the patient's medical records Discharge Plan Discharge Clinical Impression: Cough Patient Disposition: Home w/ Parent or Adult Condition: Improved Additional Instructions: I do not see a pneumonia here. It seems that sucking on ice chips might be helpful. Menthol vapors might be also helpful. I am not convinced that the albuterol is beneficial, but using distilled water in you nebulizer as needed might be helpful. I would also sleep under the mist of a cool mist humidifier. We can also refill your Tessalon Perles. Your cough may be somewhat worsened by some postnasal drip and reflux as you wondered. I guess I would continue to take your typical/usual heartburn medication. I wonder if pseudoephedrine might be beneficial in decongesting and therefore controlling your cough through less postnasal drip. If this goes on for yet another week, would follow up in primary care and discuss treatments for chronic cough. Prescriptions: New benzonatate 100 mg capsule 100 - 200 mg PO QID PRN (Reason: cough) Qty: 30 1RF No Action cetirizine 10 mg tablet 10 mg PO DAILY Patient Comments: TAKE ONE TABLET BY MOUTH EVERY DAY chlorthalidone 25 mg tablet 25 mg PO DAILY Patient Comments: TAKE ONE TABLET BY MOUTH EVERY DAY escitalopram oxalate 20 mg tablet 20 mg PO HS Patient Comments: TAKE ONE TABLET BY MOUTH AT BEDTIME famotidine 40 mg tablet 40 mg PO HS Patient Comments: TAKE ONE TABLET BY MOUTH AT BEDTIME labetalol 100 mg tablet 100 mg PO BID Patient Comments: TAKE ONE TABLET BY MOUTH TWICE A DAY (MORNING AND EVENING) montelukast 10 mg tablet 10 mg PO HS Patient Comments: TAKE ONE TABLET BY MOUTH AT BEDTIME potassium chloride 20 mEq tablet,ER particles/crystals 20 meq PO DAILY Patient Comments: TAKE ONE TABLET BY MOUTH EVERY DAY WITH A MEAL - TAKE INSTEAD OF POWDER POTASSIUM sumatriptan succinate 50 mg tablet 50 mg PO Q2H Patient Comments: TAKE ONE HALF TO ONE TABLET BY MOUTH AT ONSET OF MIGRAINE. MAY REPEAT IN 2 HOURS IF NEEDED. GIVE AT MINIMUM 2 HOURS APART. MAX DOSE 100MG / hydrochlorothiazide PO omeprazole .ROUTE Follow Up/Referrals: Arlet Pratt DO [Primary Care Provider] - Stand Alone Forms: [facility] Info Instructions
--- NOTE | 2023-12-11 23:40 | CRLHL7_ITS ---
For Patients: As a result of the Century Cures Act, medical imaging exams and procedure reports are released immediately into your electronic medical record. You may view this report before your referring provider. If you have questions, please contact your health care provider. INDICATION: Continuing shortness of breath, Repeat as still with cough and shortness of breath TECHNIQUE: Chest radiograph 2 views COMPARISON: 11/28/2023 FINDINGS: The sensitivity and specificity of the exam are moderately limited by the patient`s body habitus. Mediastinum: The mediastinum is normal in appearance. The heart silhouette is normal in size and morphology. Lung: Both lungs are unremarkable in appearance with small lung volumes. No sign of pleural effusion seen. No pneumothorax is identified. Bone and Soft tissue: Unremarkable for age. IMPRESSION: 1. No acute cardiopulmonary disease is seen. Dictated by: Ramon Luna MD @ 12/12/2023 00:08:39 (Electronically Signed)
[2023-12-11] MEDS: BENZONATATE 100 MG CAPSULE 200 MG PO (23:58)
== END 2023-12-12 00:42 | disposition home or self-care (01) ==
LOC: ED 12-12 00:32
PROVIDERS: Emergency Provider Family Medicine; PCP Family Medicine
DX: R05.9 Cough, unspecified (principal)
CPT/HCPCS: 71046; 99283; 99284; A9270

== ENCOUNTER 2024-03-26 18:10 | Emergency (ER) | payer BC, SELFPAY ==
[2024-03-26 18:19] VITALS: BP 129/83; PULSE 81; RESP 18; TEMP 36.3; O2SAT 96; BMI 48.4
--- NOTE | 2024-03-26 19:26 | CRLHL7_ITS ---
For Patients: As a result of the Century Cures Act, medical imaging exams and procedure reports are released immediately into your electronic medical record. You may view this report before your referring provider. If you have questions, please contact your health care provider. Indication: Right lower quadrant pain Technique: Volumetric multidetector CT images of the abdomen and pelvis were obtained after the administration of intravenous contrast. 147 cc Isovue 370 low osmolar intravenous contrast Comparison: CT abdomen and pelvis September 29, 2020 Findings: The lung bases are clear. The liver is enlarged with mild hepatomegaly and hepatic steatosis. There is no focal abnormality. The portal vein is patent. There is prior cholecystectomy. There is no significant common biliary ductal dilatation or abrupt cut off. The spleen is normal in enhancement and size. The stomach and duodenum are grossly unremarkable. The pancreas is normal in enhancement without significant atrophy. The adrenal glands are unremarkable. The kidneys demonstrate preserved corticomedullary differentiation without evidence of obstructive uropathy. Moderate stool seen throughout the colon with minimal colonic diverticulosis without evidence of diverticulitis. The appendix is unremarkable. There is no significant mesenteric, retroperitoneal, or pelvic sidewall lymph nodes. The aorta is nonaneurysmal. There is no significant atherosclerotic disease appreciated. The solid pelvic viscera are grossly unremarkable. There is no free fluid or free air. The anterior abdominal wall is intact without significant hernias. The lumbar vertebral body heights are grossly B2 with mild multilevel degenerative disc height loss and marginal osteophyte formation. Impression: Moderate hepatomegaly and hepatic steatosis without evidence of focal abnormality. Normal appendix. No other acute intra-abdominal abnormalities. Please note that all CT scans at this facility use dose modulation, iterative reconstruction, and/or weight-based dosing when appropriate to reduce radiation dose to as low as reasonably achievable. Dictated by Yuval Salinas MD @ 03/26/2024 8:39:52 PM (Electronically Signed)
[2024-03-26 19:27] LABS: Appearance Urine Cloudy (Clear); Bilirubin Urine Negative (Negative); Blood Urine Negative (Negative); Color Urine Yellow (Yellow); Glucose Urine 2+ (Negative); Ketones Urine Negative (Negative); Leukocyte Esterase Urine Negative (Negative); Nitrite Urine Negative (Negative); Protein Urine Negative (Negative); Urobilinogen Urine 0.2 (0.2-1.0)
[2024-03-26 19:35] LABS: Ur HCG Qualitative* Negative (Negative)
[2024-03-26] MEDS: LACTATED RINGERS 1000 ML 1,000 ML IV (19:38)
[2024-03-26] MEDS: MORPHINE 4 MG/ML INJ IVP (19:39)
[2024-03-26] MEDS: ONDANSETRON 2 MG/ML inj 4 MG IVP (19:39)
[2024-03-26 19:40] LABS: Basophils Percent Auto 0.3 % (0.0-3.0); Eosinophils Percent Auto 3.6 % (0.0-7.0); Hematocrit 45.6 % (33.0-51.0); Hemoglobin* 14.7 gm/dL (12.0-16.0); Immature Granulocytes Pct Auto 0.3 %; Lymphocytes Percent Auto 25.2 % (20-44); Mean Corpuscular HGB Conc 32 gm/dL (32-36); Mean Corpuscular Hemoglobin 26 pg (26-34); Mean Corpuscular Volume 80 fL (80-100); Neutrophils Percent Auto 65.6 % (42.0-72.0); Platelet Count* 277 K/uL (140-440); RDW Coefficient of Variation % 14.4 % (11.5-15.5); Red Blood Count 5.73 m/uL (4.00-5.20); White Blood Count* 14.19 K/uL (4.50-11.00)
[2024-03-26 19:41] LABS: Slide Review Reflex No
[2024-03-26 19:42] LABS: Bacteria Urine Few; Squamous Epithelial Cell Urine Few (None-Few)
--- OUTSIDE RECORDS SUMMARY | 2024-03-26 19:47 | XMS_ITS | Clinical Summary ---
Author Organization [employer] [facility] [facility] Address [place], [place] [address] Care Team Providers Care Radiation Oncology Manager Name Role Phone Darwin Leung DPM Unavailable [phone] Arlet Pratt DO Primary Care Provider [phone] Allergies Active Allergy Reactions Criticality Noted Date [...] 1 8 Active Needle, Disp, 30 G (ELMER DISP NEEDLES 30GX1/2) 30 gauge x 1/2 [...] DOSE 100MG/24 HOURS. 10 Tablet 3 Active miconazole nitrate powder 2 % powderIndications :Tinea pedis, unspecified laterality Apply topically to affected area(s) two times daily. 85 g 1 3 Active topiramate (TOPAMAX) 25 mg tablet [...] INJECTOR SUBCUTANEOUSLY ONCE A MONTH 4 Active famotidine (PEPCID) 40 mg tabletIndications :Gastric reflux TAKE ONE TABLET BY MOUTH AT BEDTIME 90 Tablet 1 4 Active Additional Information Patient taking differently:40 mg OralDAILY, Reported on 01/19/2024 fexofenadine (MATTEO) 180 mg tabletIndications :Allergy, initial encounter TAKE ONE TABLET BY MOUTH ONCE DAILY. DO NOT CRUSH OR CHEW 90 Tablet 3 4 Active montelukast (SINGULAIR) 10 mg tabletIndications :Moderate persistent asthma without complication TAKE ONE TABLET BY MOUTH AT BEDTIME 90 Tablet 4 Active triamcinolone (ARISTOCORT; KENALOG) 0.1 % creamIndications: Acute eczema Apply to patch on spencer twice daily until resolved. 80 g 4 Active escitalopram oxalate (LEXAPRO) 20 mg tabletIndications :Depression, recurrent (HC) TAKE ONE TABLET BY MOUTH AT BEDTIME 90 Tablet 4 Active chlorthalidone (HYGROTON) 25 mg tabletIndications :Hypertension TAKE ONE TABLET BY MOUTH EVERY DAY 60 Tablet 4 Active labetaloL (TRANDATE) 100 mg tabletIndications :HTN (hypertension) TAKE ONE TABLET BY MOUTH TWICE A DAY 120 Tablet 4 Active chlorthalidone (HYGROTON) 25 mg tabletIndications :Hypertension TAKE ONE TABLET BY MOUTH EVERY DAY 90 Tablet 4 024 Discontinued labetaloL (TRANDATE) 100 mg tabletIndications :HTN (hypertension) TAKE ONE TABLET BY MOUTH TWICE A DAY 180 Tablet 4 024 Discontinued Active Problems Problem Noted Date Diagnosed Date Uncontrolled type 2 diabetes mellitus with hyper glycemia 03/15/2023 Pap smear for cervical cancer screening 02/26/20 23 Overview (03/23/2023): 02/2023 NIL/HPV negative. Plan: Pap/HPV due 02/2028. Elevated white blood cell count 07/03/2021 Overview (07/03/2021): Saw hematology November 2020. Thought due to chronic inflammation related to diabetes and morbid obesity. No further work up recommended per hematology Closed fracture of tuft of distal phalanx of fin theresa 05/18/2019 Hypertension 06/29/2018 Spleen enlarged 06/01/2018 Overview (06/01/2018): On CT, Recommend US and labs. Had initial labs but declined further labs or US. Encouraged to reconsider 06/01/2018 Oligomenorrhea on OCP 01/27/2017 Chronic abdominal pain 01/18/2017 L5-S1 right sided disk herniation 08/02/2014 History of pancreatitis 11/28/2013 Overview (12/05/2013): Per MAKEDA Thomas at the [facility] visit from April 2012. Consult for recurrent [...] pills were not actually contributing. Records from [facility] [place] in chart, only 1 visit 05/08/14. Asked for further records but none available. 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 Lyno. 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 See consult from GI Dr. Martinez at the [facility] from May 08, 2012 See details under pancreatitis in problem list. MRSA (methicillin resistant Staphylococcus aureus) infection 07/03/2010 PCOS (polycystic ovarian syndrome) 05/13/2010 Overview (11/28/2013): As of 07/2013: Previously on OCPs but these had to be discontinued because patient was having recurrent pancreatitis after her gallbladder was removed. She saw a power wheelchair mechanic who told her the control was interfering [...] potential side effects listed. Other acne 12/14/2007 Overview (12/14/2007): Sees Teresa Miranda reactive airway 12/14/2007 Overview (12/14/2007): Only with cold air and toxins Morbid obesity 12/14/2007 Resolved Problems Problem Noted Date Diagnosed Date Resolved Date Morbid obesity 12/26/2011 10/30/2012 Acute pancreatitis 12/25/2011 3 Chronic abdominal pain 12/25/201110/30 Overview (12/25/2011): Unclear etiology. Per cardroom hand, at times seems correlated with menstrual cycle, concerning for endometriosis versus dysmenorrhea. Has seen Dr. Jose Cifunetes, Gastroenterology in the past. No CT findings [...] Encounters Date Type Department Care Team Description 03/25/2024 Refill [facility] [address] [place] [address] Arlet Pratt DO Refill Request (Jardiance) 03/02/2024 Refill [facility] [address] [place] [address] Arlet Pratt DO Refill Request (Labetalol, Chlorthalidone) 02/23/2024 Refill [facility] [address] [place] [address] Arlet Pratt DO Refill Request (Chlorthalidone) 01/25/2024 Refill [facility] [address] [place] [address] Arlet Pratt DO Refill Request (Escitalopram Oxalate) 01/19/2024 10:25 AM CDT Office Visit [facility] [address] [place] [address] Arlet Pratt DO Diabetes 01/19/2024 Travel 01/02/2024 Orders Only [facility] [address] [place] [address] Arlet Pratt DO 1 scan: (1-Ord) [facility], MR CHEST W/O and W/ CONTRAST, 12/30/2023 from Last 3 Months Immunizations Name Administration [...] you have a drink containing alcohol ? 2 12/20/2023 How many drinks containing a lcohol do you have on a typical day when you are drinking? 0 12/20/2023 How often do you have five or more drinks on one occasion? 0 12/20/2023 Financial Resource Strain Answer Date R ecorded [...] Sign Reading Time Taken Comments Blood Pressure 117/80 01/19/2024 10:34 AM CDT Pulse 72 01/19/2024 10:34 AM CDT Temperature 36.2 ??C (97.2 ??F) 04/03/2023 1:40 PM CD T Respiratory Rate 18 04/03/2023 1:40 PM CDT Oxygen Saturation 99% 01/19/2024 10:34 AM CDT Inhaled Oxygen Concentration - - Weight 134.7 kg (297 lb) 01/19/2024 10:34 AM CDT Height 170.2 cm (5' 7.01) 03/15/2023 2:40 PM CD T Body Mass Index 46.51 03/15/2023 2:40 PM CDT Plan of Treatment Upcoming Encounters Date Type Department Care Team (Late st Contact Info) Description 04/23/2024 11:40 AM CDT Office Visit [facility] [address] [place] [address] Arlet Pratt DO [address] [place] [address] Health Maintenance Due Date Last Done Comments Hepatitis B series for Diabe tripp (2 of 3 - 19+ 3-dose series) 02/02/2021 01/05/2021 Pneumococcal series for age 6-64 (2 of 2 - PCV) 01/05/2022 01/05/2021 COVID-19 vaccine series ( season) 2024 08/06/2021, 07/30/2020, 07/03/2020 Influenza for age 9-49 02/26/2024 3, 04/29/2022, 05/06/2020, Additional history exists BMI (ht and wt on same day) for age 18+ 03/15/2024 03/15/2023, 07/02/2021, 02/11/2021, Additional history exists Depression screening for age 12+ 03/15/2024 03/15/2023, 10/29/2021, 08/05/2021, Additional history exists Pap test for age 21-65 03/15/2028 3, 03/15/2023, 10/26/2018, Additional history exists Tetanus booster 12/27/2030 12/27/2020, 04/28/2012 HIV for age 15-65 Completed 01/02/2020, 03/07/2018 Hepatitis C screening for ag e 18-79 Completed 01/02/2020 Tdap Completed 12/27/2020, 04/28/2012 Procedures Procedure Name Priority Date/Time Associated Diagnosis Comments HEMOGLOBIN A1C MONITORING (POCT) Routine 01/19/2024 10:25 AM CDT Uncontrolled type 2 diabetes mellitus with hyperglycemia (HC) MR CHEST WWO Routine 12/30/2023 12:00 AM CDT Mediastinal mass HPV HIGH RISK Routine 03/15/2023 3:37 PM CDT Cervical cancer screening ANTI HIV 1/2 Routine 01/02/2020 9:06 AM CDT Unprotected sexual intercourse ACUTE HEPATITIS PANEL Routine 01/02/2020 9:06 AM CDT Unprotected sexual intercourse from Last 3 Months or Most Recently Relevant to Health Maintenance Results * (ABNORMAL) HEMOGLOBIN A1C MONITORING (POCT) (01/19/2024 10:25 AM CDT) HEMOGLOBIN A1C MONITORING (POCT) 6.7(H) <=6.4 % 01/19/2024 10:34 AM CDT [facility] Blood BLOOD SPECIMEN / Unknown Venipuncture / Unknown 01/19/2024 10:25 AM CDT 01/19/2024 10:25 AM CDT Narrative [facility] - 01/19/2024 10:34 AM CDT ? (<=6.9%) ? Indicates good control ? (7.0% to 7.9%) ? Indicates fair control ? (>=8.0%) ? Indicates poor control ?? NOTE: ??These thresholds are guidelines and ?individual targets may vary. Falsely low levels may be seen with: Recent Transfusion, Recent Significant Blood Loss, Hemolytic Diseases, or Falsely elevated levels may be seen with: Untreated Anemias, Splenectomy ? Arlet Walsh Santa OLSEN CHEMISTRY [facility] [address] [place] [address], * CHEST WWO (12/30/2023 12:00 AM CDT) Anatomical Region Laterality Modality HEART, CHEST, THORAX Magnetic Re sonance Arlet Pratt DO MR * HPV HIGH RISK (03/15/2023 3:37 PM CDT) TYPE 16 Negative Negative 03/18/2023 6:29 PM CDT [facility] TYPE 18 Negative Negative 03/18/2023 6:29 PM CDT [facility] OTHER HIGH RISK TYPES Negative Negative 03/18/2023 6:29 PM CDT [facility] Other (Cervical) Non-Blood / Unknown 03/15/2023 3:37 PM CDT 03/16/2023 12:00 PM CDT Narrative [facility] - 03/18/2023 6:29 PM CDT HPV types 16, 18, 31, 33, 35, 39, 45, 51, 52, 56, 58, 59, 66 and 68 DNA were undetectable or below the pre-set threshold. Methodology: Cecily Avtar 4800 HPV Test Arlet Ann Santa OLSEN MICROBIOLOGY Performing Organization Address City/[facility]/ZIP Co de Phone Number [facility] [address] [place] [address], * ANTI HIV 1/2 (01/02/2020 9:06 AM CDT) HIV-1/HIV-2 ANTIBODY Non-Reacti ve Non-Reacti ve 01/02/2020 6:16 PM CDT [facility] Comment:HIV-1 p24 and HIV-1/ HIV-2 Ab not detected. Blood BLOOD SPECIMEN / Unknown Venipuncture / Unknown 01/02/2020 9:06 AM CDT 01/02/2020 9:08 AM CDT Arlet Pratt DO SEND OUTS [facility] [address] [place] [address], * ACUTE HEPATITIS PANEL (01/02/2020 9:06 AM CDT) HEPATITIS C ANTIBODY Non-Reactive Non-Reactive 01/02/2020 6:16 PM CDT [facility] Comment:Antibodies to HCV no t detected; does not exclude the possibility of exposure to HCV. IGM ANTI HAV Non-Reactive Non-Reactive 01/02/20 6:16 PM CDT [facility] HBSAG Nonreactive Nonreactive 01/02/2020 6:16 PM CDT [facility] IGM ANTI HBC Non-Reactive Non-Reactive 01/02/20 6:16 PM CDT [facility] Blood BLOOD SPECIMEN / Unknown Venipuncture / Unknown 01/02/2020 9:06 AM CDT 01/02/2020 9:08 AM CDT Narrative [facility] - 01/02/2020 6:16 PM CDT Anti-HBc IgM not detected. Does not exclude the possibility of exposure to or infection with HBV. Arlet Ann Santa OLSEN SEND OUTS Performing Organization Address City/[facility]/ZIP Co de Phone Number [facility] [address] [place] [address], from Last 3 Months or Most Recently [...] 2:40 PM 06/17/2009 2:07 PM Care Teams Radiation Oncology Manager Relationship Specialty Start Date End Date Arlet Pratt DO [address] [place] [address] PCP - General Family Practice 05/06/15 Darwin Leung DPM PODIATRY Podiatry 08/02/11
--- OUTSIDE RECORDS SUMMARY | 2024-03-26 19:47 | XMS_ITS | Continuity of Care Document ---
Author Organization [facility] Address [address] [address] [place] [address] Phone Care Team Providers Care Elevator Erector Name Role Phone No Information Unavailable Unavailable [...] Active Procedures Procedure Date Offic/outpt E&m [facility] Routine Serum Collection Bld Ct; Hg/pltlt Ct [...] Diagnoses Date Provider Providers Copied on Encounter [facility], [address] [address], [place], [id number], [place] tel:[phone] No Information No Information Offic/outpt E&m [place] [facility], [address] [address], [place], [id number], [place] tel:[phone] [facility] GI Symptoms or Concerns (chief complaint) RUQ abdominal painElevated blood-pressur e reading, w/o diagnosis of htnDietary counseling and surveillance 5 No Information Referring Provider: Arlet Pratt DO, [address] [place] [address], [address]. tel:[phone] Offic/outpt E&m Estab [place] 2 [facility], [address] [address], [place], [id number], [place] tel:[phone] [facility] No Information 2 Amna Manrique. [address] [facility] [address], [place], [place], [id number], [place]. tel:[phone] Referring Provider: Ellie Rodriguez, [address] [place] [address], [place], [address]. tel:[phone] Sub[facility] Hosp-[facility]&m Minr Compl [facility], [address] [address], [place], [id number], [place] tel:[phone] [facility] No Information 2 No Information Referring Provider: Katherin Guerrero MD, [address] [facility] [address], [place], [address]. tel:[phone] [facility], [address] [address], [place], [id number], [place] tel:[phone] [facility] No Information 201 2 Hernandez Stewart. [address], [id number], [place]. tel:[phone] Referring Provider: Katherin Guerrero MD, [address], [address]. [phone] Init Hosp-da E&m Mod Severity [facility], [address] [address], [place], [place], [id number], [place] tel:[phone] [facility] No Information 2 Lionel Andersen. [address], [id number], [place]. tel:[phone] Referring Provider: Katherin Guerrero MD, [address], [address]. [phone] Subsqt Hosp-da E&m Minr Compl [facility], [address] [address], [place], [place], [id number], [place] tel:[phone] [facility] No Information 9 Jeromy Nice. [address], [id number], [place]. tel:[phone] Referring Provider: Arlet Angel, [address], [address]. tel:[phone] Sub[facility]t Hosp-da E&m Minr Compl [facility], [address] [address], [place], [place], [id number], [place] tel:[phone] [facility] No Information 9 Onelia Abarca. [address], [id number], [place]. tel:[phone] Referring Provider: Livier Reddy, [address], [place], [address]. tel:[phone] Init Inpt Cons New/est [facility], [address] [address], [place], [place], [id number], [place] tel:[phone] [facility] No Information Bishop Becerril. [address] [facility], [place], [place], [id number], [place]. tel:[phone] Referring Provider: Livier Reddy, [address] [place] [address], [place], [address]. tel:[phone] Family History Family Member Type Diagnosis Age At Onset Brother Problem (finding) GERD Father Problem (finding) Alive and well Mother Problem (finding) GERD Mother Problem (finding) asthma Sister Problem (finding) gallbladder disease Brother Problem (finding) asthma Mother Problem (finding) Colon polyps Immunizations Vaccine Date Status Comments Influenza virus vaccine, inj ectable, quadrivalent, split virus, preservative free, 3 years or older Fluarix Quad [id number] administered Source: Other Pro vider Payers Payer [...] and vomiting on June 03, 2009, in [place], [place]. The surgery apparently went well. Thereafter the vomiting abated, but the patient has continued to have right upper quadrant abdominal pain. Records indicate that she was seen at [facility] on June 14, 2009, by [...]
[2024-03-26 19:59] LABS: Albumin* 4.6 g/dL (3.3-5.0)
[2024-03-26 20:00] LABS: Chloride* 98 mmol/L (96-114); Sodium* 136 mmol/L (135-149)
[2024-03-26 20:02] LABS: Alkaline Phosphatase* 62 U/L (40-150); Anion Gap 10 mEq/L (7-15); Aspartate Amino Transferase* 26 U/L (12-35); Bilirubin Total* 0.3 mg/dL (0.1-1.5); Carbon Dioxide* 28 mmol/L (20-32); Creatinine* 0.6 mg/dL (0.5-1.5); Est. Creatinine Clearance* 124.85; Estimated Glomerular Filt Rate 121 ml/min; Total Protein* 7.9 g/dL (6.0-8.3)
[2024-03-26 20:03] LABS: Alanine Aminotransferase* 26 U/L (4-35); Blood Urea Nitrogen* 13 mg/dL (5-24); Calcium* 9.2 mg/dL (8.4-10.6); Glucose* 142 mg/dL (60-115); Lipase* 122 U/L (23-300)
[2024-03-26 20:20] VITALS: BP 120/75; PULSE 77; RESP 18; O2SAT 95
[2024-03-26 20:32] VITALS: BP 116/73; PULSE 77; O2SAT 95
--- NOTE | 2024-03-26 20:32 | ED.ABDPAIN ---
HPI - Abdominal Pain General Date Seen: 03/26/24 Chief Complaint: Abdominal Pain Stated Complaint: Abdominal pain Time Seen by Provider: 03/26/24 18:22 Source: patient Mode of arrival: ambulatory Limitations: no limitations History of Present Illness HPI narrative: Patient is a 34-year-old female presenting for abdominal pain. States for the last week she has been having left-sided mid abdominal pain over the past few days this started having right lower quadrant abdominal pain. She states it is a sharp sensation. Has been able to eat and drink without issues but has been having some diarrhea. Has had associated nausea but no vomiting. The nausea started today. Has not had any fevers but is currently having chills. Has had previous cholecystectomy but no other abdominal surgery. Nothing seems to make the pain better or worse. Pain is not radiating and anywhere. Does not noticed any vaginal discharge or bleeding. Denies lightheadedness, dizziness, chest pain, shortness of breath. No other concerns noted. Not aware of any sick contacts. Related Data Home Medications ?Medication ?Instructions ?Recorded ?Confirmed chlorthalidone 25 mg tablet 25 mg PO DAILY 05/27/22 03/26/24 escitalopram oxalate 20 mg tablet 20 mg PO HS 05/27/22 03/26/24 famotidine 40 mg tablet 40 mg PO HS 05/27/22 03/26/24 labetalol 100 mg tablet 100 mg PO BID 05/27/22 03/26/24 montelukast 10 mg tablet 10 mg PO HS 05/27/22 03/26/24 potassium chloride 20 mEq 20 meq PO DAILY 05/27/22 03/26/24 tablet,extended release(part/cryst) sumatriptan succinate 50 mg tablet 50 mg PO Q2H 05/27/22 03/26/24 hydrochlorothiazide PO 03/09/23 omeprazole .Route 03/09/23 Wegovy 03/26/24 albuterol sulfate 2.5 mg/3 mL 2.5 mg Q4-6H PRN wheezing 03/26/24 (0.083 %) solution for nebulization empagliflozin 25 mg tablet 25 mg PO DAILY 03/26/24 03/26/24 (Jardiance) fexofenadine 180 mg tablet 180 mg PO DAILY 03/26/24 03/26/24 fremanezumab-vfrm 225 mg/1.5 mL mg subcut 03/26/24 subcutaneous auto-injector (Matthew Kenney [employer]) glipizide 2.5 mg tablet, extended 2.5 mg PO DAILY 03/26/24 03/26/24 release 24 hr topiramate 100 mg tablet 100 mg PO DAILY 03/26/24 03/26/24 Allergies Allergy/AdvReac Type Severity Reaction Status Date / Time NSAIDS (Non-Steroidal Allergy Severe Pancreatiti Verified 05/26/22 23:35 Anti-Inflamma s Cephalosporins Allergy Intermediate Diarrhea Verified 05/26/22 23:35 Review of Systems Status of ROS Reports: 10 or more systems reviewed and unremarkable except as noted in History and below [facility] Medical History Morbid obesity ?E66.01 - Morbid (severe) obesity due to excess calories (ICD-10) Reactive airway disease ?J45.909 - Unspecified asthma, uncomplicated (ICD-10) PCOS (polycystic ovarian syndrome) ?E28.2 - Polycystic ovarian syndrome (ICD-10) MRSA (methicillin resistant Staphylococcus aureus) infection ?A49.02 - Methicillin resistant Staphylococcus aureus infection, unspecified site (ICD-10) 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 - Spasm of sphincter of Oddi (ICD-10) Lumbar radicular pain ?M54.16 - Radiculopathy, lumbar region (ICD-10) Erythema ab igne ?L59.0 - Erythema ab igne [dermatitis ab igne] (ICD-10) Lumbar disc herniation ?M51.26 - Other intervertebral disc displacement, lumbar region (ICD-10) History of pancreatitis ?Z87.19 - Personal history of other diseases of the digestive system (ICD-10) Herniation of intervertebral disc of lumbar region ?M51.26 - Other intervertebral disc displacement, lumbar region (ICD-10) Chronic abdominal pain ?R10.9 - Unspecified abdominal pain (ICD-10) ?G89.29 - Other chronic pain (ICD-10) Oligomenorrhea ?N91.5 - Oligomenorrhea, unspecified (ICD-10) Hypertension ?I10 - Essential (primary) hypertension (ICD-10) Closed fracture of tuft of distal phalanx of finger ?S62.639A - Displaced fracture of distal phalanx of unspecified finger, initial encounter for closed fracture (ICD-10) Type 2 diabetes, diet controlled ?E11.9 - Type 2 diabetes mellitus without complications (ICD-10) Surgical History History of wisdom tooth extraction ?K08.409 - Partial loss of teeth, unspecified cause, unspecified class (ICD-10) History of tonsillectomy ?Z90.89 - Acquired absence of other organs (ICD-10) History of cholecystectomy ?Z90.49 - Acquired absence of other specified parts of digestive tract (ICD-10) Social History Smoking Status: Never smoker Do you use any of these nicotine containing products: None Second hand tobacco smoke exposure: No How often do you have a drink containing alcohol: 2-4 times a month AUDIT-C Alcohol total score: 2 Non-prescribed substance use: denies use service: No Exam Narrative: Exam Narrative: Const: Well-nourished, Well-developed, in mild distress Eyes: PERRL, no conjunctival injection, and symmetrical lids HENT: Atraumatic external nose and ears. Moist mucous membranes. Neck: Symmetric, trachea midline, No thyromegaly. CVS: RRR, No murmurs or gallops. Peripheral pulses 2+ and equal in all extremities RESP: Unlabored respiratory effort. Clear to auscultation bilaterally. GI: Right lower quadrant tenderness, Nondistended, No rebound or guarding. MSK:Extremities w/o deformity, Normal Active ROM Skin: Warm, Dry. No rashes or lesions. Neuro: Normal Muscle tone, No focal neurological deficits. Psych: Awake, Alert, & Oriented x3. Appropriate mood and affect. Const: Vital Signs, click to edit/add: Vital Signs - 24 hr 03/26/24 18:19 Temperature 97.4 F L Pulse Rate [Pulse Oximeter] 81 Respiratory Rate 18 Blood Pressure [Ri ght Upper Arm] 129/83 Pulse Oximetry 96 Oxygen Delivery Me thod Room Air Course Vital Signs Vital signs: Initial Vital Signs Temperature 97.4 F L 03/26/24 18:19 Temperature Source Temporal Artery Scan 03/26/24 18:19 Pulse Rate 81 03/26/24 18:19 Respiratory Rate 18 03/26/24 18:19 Blood Pressure 129/83 03/26/24 18:19 Blood Pressure Mean 98 03/26/24 18:19 Blood Pressure Position Sitting 03/26/24 18:19 Pulse Oximetry 96 03/26/24 18:19 Oxygen Delivery Method Room Air 03/26/24 18:19 Vital Signs Temperature 97.4 F L 03/26/24 18:19 Pulse Rate 81 03/26/24 18:19 Respiratory Rate 18 03/26/24 18:19 Blood Pressure 129/83 03/26/24 18:19 Pulse Oximetry 96 03/26/24 18:19 Oxygen Delivery Method Room Air 03/26/24 18:19 Temperature 97.4 F L 03/26/24 18:19 Pulse Rate 81 03/26/24 18:19 Respiratory Rate 18 03/26/24 18:19 Blood Pressure 129/83 03/26/24 18:19 Pulse Oximetry 96 03/26/24 18:19 Oxygen Delivery Method Room Air 03/26/24 18:19 Medications Administered Medications: Discontinued Medications Generic Name Dose Route Start Last Admin Trade Name Majo PRN Reason Stop Dose Admin Lactated Ringer's 1,000 mls @ 1,000 mls/hr 03/26/24 19:25 03/26/24 19:38 Lactated Ringers 1000 Ml IV 03/26/24 20:24 1,000 mls/hr .Q1H ONE Administration Morphine Sulfate 4 mg 03/26/24 19:26 03/26/24 19:39 Morphine 4 Mg/Ml Inj IVP 03/26/24 19:27 4 mg ONCE ONE Administration Ondansetron HCl 4 mg 03/26/24 19:25 03/26/24 19:39 Ondansetron 2 Mg/Ml Inj IVP 03/26/24 19:26 4 mg ONCE ONE Administration MDM - Abdominal Pain MDM Narrative Medical decision making narrative: Patient is a 34 female presenting for abdominal pain. Pain is mostly in the right lower quadrant. My main concern at this time is appendicitis. Will do CT scan for better evaluation. Differential also includes SBO,, colitis. Seems unlikely to be ovarian torsion as the pain is at McBurney's point and she denies pelvic pain. Will also order CBC, CMP, urinalysis, urine test, lipase. Morphine given for pain and Zofran for nausea. Also given 1 L of normal saline. Patient's lab work returned showing elevated white blood cell count at 14. This appears to be her baseline. Shows a low potassium at 3.0 which also seems to be baseline. I will replenish this though. Urinalysis shows no concerning abnormalities. Was having some movement and pain with the morphine. CT scan reviewed by myself and the radiologist shows no acute concerning abnormalities. I spoke to her about the results. She is agreeable to discharge at this time. Will give her a couple pills of oxycodone for pain management and some Zofran for nausea. These were prescribed through [employer]. Informed to follow-up the primary care provider for possible GI referral symptoms persist. She is agreeable to this plan. Lab Data Labs: Lab Results 03/26/24 03/26/24 03/26/24 Range/Units 18:55 19:25 19:30 WBC 14.19 H (4.50-11.00) K/uL RBC 5.73 H (4.00-5.20) m/uL Hgb 14.7 (12.0-16.0) gm/dL Hct 45.6 (33.0-51.0) % MCV 80 (80-100) fL MCH 26 (26-34) pg MCHC 32 (32-36) gm/dL RDW Coeff of Roger 14.4 (11.5-15.5) % Plt Count 277 (140-440) K/uL Neut % (Auto) 65.6 (42.0-72.0) % Lymph % (Auto) 25.2 (20-44) % Greer % (Auto) 5.0 (0.0-11.0) % Eos % (Auto) 3.6 (0.0-7.0) % Baso % (Auto) 0.3 (0.0-3.0) % Neut # (Auto) 9.30 H (1.7-7.0) K/uL Lymph # (Auto) 3.60 H (0.90-2.90) K/uL Greer # (Auto) 0.70 (0.00-0.90) K/UL Eos # (Auto) 0.50 (0.00-0.50) K/uL Baso # (Auto) 0.00 (0.00-0.30) K/uL Abs Immat Gran (auto) 0.00 (0.00-0.30) K/uL Imm/Tot Granulo (auto) 0.3 % Sodium 136 (135-149) mmol/L Potassium 3.0 L (3.6-5.1) mmol/L Chloride 98 (96-114) mmol/L Carbon Dioxide 28 (20-32) mmol/L Anion Gap 10 (7-15) mEq/L BUN 13 (5-24) mg/dL Creatinine 0.6 (0.5-1.5) mg/dL Estimated Creat Clear 124.85 Estimated GFR 121 ml/min Glucose 142 H (60-115) mg/dL Calcium 9.2 (8.4-10.6) mg/dL Total Bilirubin 0.3 (0.1-1.5) mg/dL AST 26 (12-35) U/L ALT 26 (4-35) U/L Alkaline Phosphatase 62 (40-150) U/L Total Protein 7.9 (6.0-8.3) g/dL Albumin 4.6 (3.3-5.0) g/dL Lipase 122 (23-300) U/L Urine Color Yellow (Yellow) Urine Appearance Cloudy A (Clear) Urine pH 7.0 (5.0-8.5) Ur Specific Webster 1.020 (1.000-1.030) Urine Protein Negative (Negative) Urine Glucose (UA) 2+ A (Negative) Urine Ketones Negative (Negative) Urine Blood Negative (Negative) Urine Nitrite Negative (Negative) Urine Bilirubin Negative (Negative) Urine Urobilinogen 0.2 (0.2-1.0) Ur Leukocyte Esterase Negative (Negative) Urine RBC 2-5 A (0-2) Urine WBC 2-5 (0-5) Ur Squamous Epith Cells Few (None-Few) Urine Bacteria Few A (None) Urine Yeast Few A (None) Urine HCG, Qual Negative (Negative) Imaging Data CT scan abdomen and pelvis: Attestation: I have reviewed the pertinent imaging results. Radiologist's impression: Moderate hepatomegaly and hepatic steatosis without evidence of focal abnormality. Normal appendix. No other acute intra-abdominal abnormalities. Please note that all CT scans at this facility use dose modulation, iterative reconstruction, and/or weight-based dosing when appropriate to reduce radiation dose to as low as reasonably achievable. Dictated by Yuval Salinas MD @ 03/26/2024 8:39:52 PM Discharge Plan Discharge Clinical Impression: Abdominal pain Qualifiers: Abdominal location: right lower quadrant Qualified Code(s): R10.31 - Right lower quadrant pain Patient Disposition: Home, Self-Care Condition: Stable Instructions: Abdominal Pain (ED) Additional Instructions: Take the oxycodone as needed for pain. Can also use Tylenol. Use Zofran as needed for nausea. Return for new or worsening symptoms. If the symptoms continue follow-up with the primary care provider for possible GI referral. Prescriptions: No Action chlorthalidone 25 mg tablet 25 mg PO DAILY Patient Comments: TAKE ONE TABLET BY MOUTH EVERY DAY escitalopram oxalate 20 mg tablet 20 mg PO HS Patient Comments: TAKE ONE TABLET BY MOUTH AT BEDTIME famotidine 40 mg tablet 40 mg PO HS Patient Comments: TAKE ONE TABLET BY MOUTH AT BEDTIME labetalol 100 mg tablet 100 mg PO BID Patient Comments: TAKE ONE TABLET BY MOUTH TWICE A DAY (MORNING AND EVENING) montelukast 10 mg tablet 10 mg PO HS Patient Comments: TAKE ONE TABLET BY MOUTH AT BEDTIME potassium chloride 20 mEq tablet,ER particles/crystals 20 meq PO DAILY Patient Comments: TAKE ONE TABLET BY MOUTH EVERY DAY WITH A MEAL - TAKE INSTEAD OF POWDER POTASSIUM sumatriptan succinate 50 mg tablet 50 mg PO Q2H Patient Comments: TAKE ONE HALF TO ONE TABLET BY MOUTH AT ONSET OF MIGRAINE. MAY REPEAT IN 2 HOURS IF NEEDED. GIVE AT MINIMUM 2 HOURS APART. MAX DOSE 100MG / hydrochlorothiazide PO omeprazole .Route Wegovy albuterol sulfate 2.5 mg /3 mL (0.083 %) solution for nebulization 2.5 mg Q4-6H PRN (Reason: wheezing) fexofenadine 180 mg tablet 180 mg PO DAILY glipizide 2.5 mg tablet extended release 24hr 2.5 mg PO DAILY topiramate 100 mg tablet 100 mg PO DAILY Jardiance 25 mg tablet 25 mg PO DAILY Ajovy Autoinjector 225 mg/1.5 mL auto-injector subcut Follow Up/Referrals: Arlet Pratt DO [Primary Care Provider] - Stand Alone Forms: [facility] Info Instructions
[2024-03-26 21:01] VITALS: BP 120/61; PULSE 68; RESP 18; O2SAT 97
[2024-03-26] MEDS: POTASSIUM CHLORIDE 10 MEQ CAPSULE ER 40 MEQ PO (21:15)
[2024-03-26 21:17] VITALS: PULSE 75; O2SAT 99
== END 2024-03-26 21:31 | disposition home or self-care (01) ==
PROVIDERS: Emergency Provider Student in an Organized Health Care Education/Training Program; PCP Family Medicine
DX: R10.31 Right lower quadrant pain (principal)
CPT/HCPCS: 36415; 74177; 80053; 81001; 81025; 83690; 85025; 87086; 96374; 96375; 99283; 99284; A9270; J2270; J2405; J7120; Q9967

== ENCOUNTER 2024-07-10 08:47 | Emergency (ER) | payer BC, SELFPAY ==
--- OUTSIDE RECORDS SUMMARY | 2024-07-10 08:49 | XMS_ITS | Clinical Summary ---
Author Organization [facility] Address [place], [place] [address] Care Team Providers Care Infectious Diseases Physician Name Role Phone Darwin Leung DPM Unavailable [phone] Arlet Pratt DO Primary Care Provider [phone] Allergies Active Allergy Reactions Criticality Noted Date Comments Cephalosporins Diarrhea Low 09/29/2020 Bloody diarrhea Nsaids (Non-Steroidal Anti-Inflammatory Drug) Pancreatitis 08/21/2012 Unlisted Allergen (Include Detail In Comments) Pancreatitis High 09/29/2020 Medications multivitamin (MVI) tablet Take 1 tablet by mouth once daily. 0 03/03/20 11 Active acetaminophen (TYLENOL) 325 mg tablet Take 2 tablets by mouth every 4 hours if needed. Max acetaminophen dose: 4000mg in 24 hrs. 0 11/28/19 14 Active omeprazole (PRILOSEC) 20 mg Delayed-Release capsuleIndicatio ns:Gastroesophag eal reflux disease without esophagitis Take 1 capsule by mouth once daily. 90 capsule 1 11/07/19 18 Active Needle, Disp, 30 G ([place] DISP NEEDLES 30GX1/2) 30 gauge x 1/2 ndleIndications: Controlled type 2 diabetes mellitus without complication, without long-term current use of insulin (HC) As directed. Use as directed with Victoza 30 Each 3 08/02/19 20 Active tolnaftate 1% powder (TINACTIN) 1 % powderIndication s:Tinea pedis of both feet Apply topically to affected area(s) 2 times daily. Shake into sock 1 Bottle 11 01/06/20 21 Active blood-glucose meterIndications :Type 2 diabetes, diet controlled (HC) by Not Applicable route. Dispense meter, test strips, lancets covered by pt ins. NIDDM type II, controlled - Test 1 time/day 1 Device 01/06/20 21 Active diphenhydrAMINE- acetaminophen 25-500 mg (TYLENOL PM) 25-500 mg tablet Daily Act vitaly Contour Next Test Strips strip TEST 1 TIME A DAY 01/06/20 21 Active Microlet Lancet TEST ONCE A DAY 01/06/20 21 Active cyclobenzaprine (FLEXERIL) 10 mg tabletIndication s:Chronic midline low back pain with bilateral sciatica Take 1 Tablet (10 mg) by mouth at bedtime if needed for Muscle Spasm. MAX 10mg dose 30 Tablet 05/31/20 22 Active albuterol HFA (PRO-AIR; VENTOLIN; PROVENTIL) 90 mcg/actuation inhalerIndicatio ns:Shortness of breath Inhale 2 Puffs by mouth 4 times daily if needed for Shortness Of Breath. 1 Each 07/05/19 23 Active SUMAtriptan (IMITREX) 50 mg tabletIndication s:Menstrual migraine without status migrainosus, not intractable TAKE ONE-HALF TO ONE TABLET BY MOUTH AT ONSET OF MIGRAINE. MAY REPEAT IN 2 HOURS IF NEEDED. MAX DOSE 100MG/24 HOURS. 10 Tablet 07/13/19 23 Active miconazole nitrate powder 2 % powderIndication s:Tinea pedis, unspecified laterality Apply topically to affected area(s) two times daily. 85 g 1 11/02/19 23 Active topiramate (TOPAMAX) 25 mg tablet Take 100 mg by mouth once daily. Weaning off 03/11/20 23 Active ketoconazole 2% topical (NIZORAL) creamIndications :Yeast dermatitis Apply twice daily until resolved then may use weekly for prevention 120 g 3 03/15/20 23 Active Ajovy Autoinjector 225 mg/1.5 mL atIn INJECT 1 PEN INJECTOR SUBCUTANEOUSLY ONCE A MONTH 07/14/19 24 Active fexofenadine (MATTEO) 180 mg tabletIndication s:Allergy, initial encounter TAKE ONE TABLET BY MOUTH ONCE DAILY. DO NOT CRUSH OR CHEW 90 Tablet 3 12/11/19 24 Active triamcinolone (ARISTOCORT; KENALOG) 0.1 % creamIndications :Acute eczema Apply to patch on spencer twice daily until resolved. 80 g 01/19/20 24 Active escitalopram oxalate (LEXAPRO) 20 mg tabletIndication s:Depression, recurrent (HC) TAKE ONE TABLET BY MOUTH AT BEDTIME 90 Tablet 01/28/20 24 Active clindamycin phosphate 1% topical 1 % external solutionIndicati ons:Hidradenitis suppurativa Apply topically to affected area(s) two times daily. 60 mL 1 04/23/20 24 Active chlorthalidone (HYGROTON) 25 mg tabletIndication s:Hypertension Take 1 Tablet (25 mg) by mouth once daily. 90 Tablet 3 04/23/20 24 Active empagliflozin (Jardiance) 25 mg tabletIndication s:Uncontrolled type 2 diabetes mellitus with hyperglycemia (HC) Take 1 Tablet (25 mg) by mouth once daily. 90 Tablet 3 04/23/20 24 Active famotidine (PEPCID) 40 mg tabletIndication s:Gastric reflux Take 1 Tablet (40 mg) by mouth once daily. 90 Tablet 3 04/23/20 24 Active glipiZIDE extended-release (GLUCOTROL XL) 2.5 mg Extended-Release tabletIndication s:Uncontrolled type 2 diabetes mellitus with hyperglycemia (HC) Take 1 Tablet (2.5 mg) by mouth once daily before a meal. 90 Tablet 3 04/23/20 24 Active labetaloL (TRANDATE) 100 mg tabletIndication s:HTN (hypertension) Take 1 Tablet (100 mg) by mouth two times daily. 180 Tablet 3 04/23/20 24 Active montelukast (SINGULAIR) 10 mg tabletIndication s:Moderate persistent asthma without complication Take 1 Tablet (10 mg) by mouth at bedtime. 90 Tablet 3 04/23/20 24 Active FLUoxetine (PROZAC) 40 mg capsuleIndicatio ns:AMARIS (generalized anxiety disorder) Take 1 Capsule (40 mg) by mouth once daily in the morning. 90 Capsule 3 05/11/20 24 Active potassium chloride (KLOR-CON M20) 20 mEq extended-release tablet (part/cryst)Khushi cations:Hyperten mila,Low blood potassium Take 2 Tablets (40 mEq) by mouth two times daily with meals. 360 Tablet 2 07/08/19 25 Active potassium chloride (KLOR-CON M20) 20 mEq extended-release tablet (part/cryst)Khushi cations:Hyperten mila,Low blood potassium Take 2 Tablets (40 mEq) by mouth two times daily with meals. 180 Tablet 3 04/23/20 24 025 Discontin ued(*Avai lability/ Formulary change/Co st of medicatio n) Active Problems Problem Noted Date Diagnosed Date [...] History of pancreatitis 11/28/2013 Overview (12/05/2013): Per Dr. Martinez GI at the [place] visit from April 2012. Consult for recurrent [...] pills were not actually contributing. Records from [facility] [place] in chart, only 1 visit 05/08/14. Asked for further records but none available. 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 Lyon. 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 See consult from GI Dr. Martinez at the [place] from May 08, 2012 See details under pancreatitis in problem list. MRSA (methicillin resistant Staphylococcus aureus) infection 07/03/2010 PCOS (polycystic ovarian syndrome) 05/13/2010 Overview (11/28/2013): As of 07/2013: Previously on OCPs but these had to be discontinued because patient was having recurrent pancreatitis after her gallbladder was removed. She saw a assembler gold frame who told her the control was interfering [...] pain 12/25/201110/30 Overview (12/25/2011): Unclear etiology. Per unleavened dough mixer, at times seems correlated with menstrual cycle, [...] Encounters Date Type Department Care Team Description 07/04/2024 Refill [facility] [address] [place] [address] Arlet Pratt DO Refill Request (Potassium Chloride) 05/11/2024 Telephone [facility] [address] [place] [address] Arlet Pratt DO Medication Management 04/23/2024 11:40 AM CDT Office Visit [facility] [address] [place] [address] Arlet Pratt DO Diabetes; Immunization/Injectio n 04/23/2024 Travel from Last 3 Months Immunizations Name Administration Dates Next Due COVID-19 VACCINE SPIKEVAX (M ODERNA 50MCG/0.5ML) 12YO+ PFS 04/23/2024 COVID-19 vaccine (Moderna 100mcg/0.5mL) PF, MDV 08/06/2021,07/30/2020,07/03/2020 Hepatitis B (Adult) 01/05/2021 Human Papilloma Virus Vaccine 01/06/2012, 012,12/14/2007 02/13/2008 INFLUENZA, IIV3 PF (AGE >= 6 MO) 04/23/2024 Influenza, IIV3 (Age >=3 years) 04/28/2012,05/13 Influenza, [...] (1 standard drink = 0.6 oz pure alcohol) 1-2 drinks a couple times a month [facility] Utilities Answer Date Recorded Do you have trouble paying f or utilities (for example, heat, electricity, water, phone)? Yes 04/23/2024 PHQ-2 Answer Date Recorded PHQ-2 TOTAL SCORE 0 03/15/2023 Social Connections Answer Date Recorded Do you often feel lonely or isolated from those around you? 0 04/23/2024 Alcohol Use Answer Date Recorded How often do you have a drink containing alcohol ? 2 12/20/2023 How many drinks containing a lcohol do you have on a typical day when you are drinking? 0 12/20/2023 How often do you have five or more drinks on one occasion? 0 12/20/2023 Financial Resource Strain Answer Date R ecorded Difficulty of Paying Living Expenses 3 04/23/2024 Difficulty of Paying Living Expenses Not on file 04/23/2024 Food Insecurity Answer Date Recorded Do you worry your food will run out before you are able to buy more? 1 04/23/2024 Transportation Needs Answer Date Record ed Does lack of transportation keep you from medica l appointments? 1 04/23/2024 Does lack of transportation keep you from work, meetings or getting things that you need? 1 04/23/2024 Housing Stability Answer Date Recorded What is your housing situation today? 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 Gender Identity Not on file Sexual Orientation Not on file Obstetrics History Para Term AB IAB SAB Ectopic Multiple Livin g Live Births 0 0 0 0 0 0 0 0 0 0 Last Filed Vital Signs Vital Sign Reading Time Taken Comments Blood Pressure 120/82 04/23/2024 12:16 PM CDT Pulse 80 04/23/2024 12:16 PM CDT Temperature 36.2 C (97.2 F) 04/03/2023 1:40 PM CDT Respiratory Rate 18 04/03/2023 1:40 PM CDT Oxygen Saturation 99% 04/23/2024 12:16 PM CDT Inhaled Oxygen Concentration - - Weight 136.1 kg (300 lb) 04/23/2024 12:16 PM CDT Height 170.2 cm (5' 7.01) 03/15/2023 2:40 PM CD T Body Mass Index 46.98 03/15/2023 2:40 PM CDT Plan of Treatment Upcoming Encounters Date Type Department Care Team (Late st Contact Info) Description 08/02/2024 1:05 PM JIGGER MACHINE OPERATOR Office Visit [facility] [address] [place] [address] Arlet Pratt DO [address] [place] [address] Health Maintenance Due Date Last Done Comments Hepatitis B series for Diabe tripp (2 of 3 - 19+ 3-dose series) 02/02/2021 01/05/2021 Pneumococcal series for age 6-49 (2 of 2 - PCV) 01/05/2022 01/05/2021 BMI (ht and wt on same day) [...] 18-79 Completed 01/02/2020 Tdap Completed 12/27/2020, 04/28/2012 COVID-19 vaccine series Completed 04/23/20 24, 08/06/2021, 07/30/2020, Additional history exists Influenza for age 9-49 Completed 4, 05/16/2023, 04/29/2022, Additional history exists Procedures Procedure Name Priority Date/Time Associated Diagnosis Comments COMP METABOLIC PANEL Routine 04/23/2024 11:42 AM CDT Hypertension HEMOGLOBIN A1C MONITORING (POCT) Routine 04/23/2024 11:41 AM CDT Uncontrolled type 2 diabetes mellitus with hyperglycemia (HC) HPV HIGH RISK Routine 03/15/2023 3:37 PM CDT Cervical cancer screening ANTI HIV 1/2 Routine 01/02/2020 9:06 AM CDT Unprotected sexual intercourse ACUTE HEPATITIS PANEL Routine 01/02/2020 9:06 AM CDT Unprotected sexual intercourse from Last 3 Months or Most Recently Relevant to Health Maintenance Results * (ABNORMAL) COMP METABOLIC PANEL (04/23/2024 11:42 AM CDT) GLUCOSE 128(H) 65 - 99 mg/dL [facility] Comment: Fasting reference interval For someone without known diabetes, a glucose value >125 mg/dL indicates that they may have diabetes and this should be confirmed with a follow-up test. UREA NITROGEN (BUN) 15 7 - 25 mg/dL [facility] CREATININE 0.76 0.50 - 0.97 mg/dL [facility] EGFR 106 > OR = 60 mL/min/1. 73m2 [facility] BUN/CREATININE RATIO SEE NOTE: 6 (calc) [facility] Comment: Not Reported: BUN and Creatinine are within reference range. SODIUM 141 135 - 146 mmol/L [facility] POTASSIUM 3.7 3.5 - 5.3 mmol/L [facility] CHLORIDE 101 98 - 110 mmol/L [facility] CARBON DIOXIDE 28 20 - 32 mmol/L [facility] CALCIUM 9.5 8.6 - 10.2 mg/dL [facility] PROTEIN, TOTAL 6.8 6.1 - 8.1 g/dL [facility] ALBUMIN 3.9 3.6 - 5.1 g/dL [facility] GLOBULIN 2.9 1.9 - 3.7 g/dL (calc) [facility] ALBUMIN/GLOBULIN RATIO 1.3 1.0 - 2.5 (calc) [facility] BILIRUBIN, TOTAL 0.2 0.2 - 1.2 mg/dL [facility] ALKALINE PHOSPHATASE 59 31 - 125 U/L [facility] AST 20 10 - 30 U/L [facility] ALT 26 6 - 29 U/L [facility] Blood BLOOD SPECIMEN / Unknown 04/23/2024 11:42 AM CDT 04/23/2024 11:42 AM CDT us Arlet Pratt DO CHEMISTRY Final Resu lt [facility] [address] [place] [address], [facility] [address] [place] [address] * (ABNORMAL) POCT Hemoglobin A1C Monitoring (04/23/2024 11:41 AM CDT) POC HEMOGLOBIN A1C 6.7(H) <6.0 % OF TOTAL HGB [facility] Comment: Any point of care results exhibiting inconsistency with the patient's clinical status should be repeated using a different testing method. Blood BLOOD SPECIMEN / Unknown 04/23/2024 11:41 AM CDT 04/23/2024 11:[address] AM [address]T [facility] CHEMISTRY Final Resu lt [facility] [address] [place] [address], [facility] [address] [place] [address] * HPV HIGH RISK (03/15/2023 3:37 PM CDT) TYPE 16 Negative Negative 03/18/2023 6:29 PM CDT [facility] TYPE 18 Negative Negative 03/18/2023 6:29 PM CDT [facility] OTHER HIGH RISK TYPES Negative Negative 03/18/2023 6:29 PM CDT [facility] Other (Cervical) Non-Blood / Unknown 03/15/2023 3:37 PM CDT 03/16/2023 12:00 PM CDT Narrative [facility] - 03/18/2023 6:29 PM CDT HPV types 16, 18, 31, 33, 35, 39, 45, 51, 52, 56, 58, 59, 66 and 68 DNA were undetectable or below the pre-set threshold. Methodology: Cecily Avtar 4800 HPV Test [facility] Jillian Pratt MICROBIOLOGY Final Resu lt [facility] [address] [place] [address], * ANTI HIV 1/2 (01/02/2020 9:06 AM CDT) HIV-1/HIV-2 ANTIBODY Non-Reacti ve Non-Reacti ve 01/02/2020 6:16 PM CDT [facility] Comment:HIV-1 p24 and HIV-1/ HIV-2 Ab not detected. Blood BLOOD SPECIMEN / Unknown Venipuncture / Unknown 01/02/2020 9:06 AM CDT 01/02/2020 9:08 AM CDT Arlet Walsh Santa DO SEND OUTS Final Resu lt Performing Organization Address [facility]/ZIP Co de Phone Number [facility] [address] [place] [address], [place] * ACUTE HEPATITIS PANEL (01/02/2020 9:06 AM CDT) HEPATITIS C ANTIBODY Non-Reactive Non-Reactive 01/02/2020 6:16 PM CDT [facility] Comment:Antibodies to HCV no t detected; does not exclude the possibility of exposure to HCV. IGM ANTI HAV Non-Reactive Non-Reactive 01/02/20 6:16 PM CDT [facility] HBSAG Nonreactive Nonreactive 01/02/2020 6:16 PM CDT [facility] IGM ANTI HBC Non-Reactive Non-Reactive 01/02/20 6:16 PM CDT [facility] Blood BLOOD SPECIMEN / Unknown Venipuncture / Unknown 01/02/2020 9:06 AM CDT 01/02/2020 9:08 AM CDT Narrative [facility] - 01/02/2020 6:16 PM CDT Anti-HBc IgM not detected. Does not exclude the possibility of exposure to or infection with HBV. Arlet Pratt DO SEND OUTS Final Resu lt Performing Organization Address City/[facility]/ZIP Co de Phone Number [facility] [address] [place] [address], from Last 3 Months or Most Recently Relevant to Health Maintenance Additional Health Concerns Infection Onset Date Last Indicated MRSA Clearance Comment:Infection Control Note: Hx of MRSA 12/27/2011, surveillance criteria met, no need for further testing or isolation precautions. Do not delete or resolve the Infection Flag. 03/07/2023 03/07/2023 Insurance [facility] [place] [address] Advance Directives * Full Code (Latest Code Status on File) Date Activated Date Inactivated Comments 12/25/2011 9:05 PM 12/28/2011 8:14 PM * Full Code Date Activated Date Inactivated Comments 06/14/2009 2:40 PM 06/17/2009 2:07 PM Care Teams Infectious Diseases Physician Relationship Specialty Start Date End Date Arlet Pratt DO [address] [place] [address] PCP - General Family Practice 05/06/15 Darwin Leung DPM PODIATRY Podiatry 08/02/11
[2024-07-10 08:58] VITALS: BP 130/74; PULSE 77; RESP 24; TEMP 36; O2SAT 98; BMI 48.4
--- NOTE | 2024-07-10 09:26 | CRLHL7_ITS ---
For Patients: As a result of the Century Cures Act, medical imaging exams and procedure reports are released immediately into your electronic medical record. You may view this report before your referring provider. If you have questions, please contact your health care provider. INDICATION: Left lower quadrant pain COMPARISON: CT 03/26/2024 TECHNIQUE: Transvaginal: Claros-scale and color Doppler ultrasound of the uterus and ovaries from a transvaginal approach. Transvaginal ultrasound of the pelvis was performed to better visualize the genitourinary organs, such as the ovaries and/or endometrium. Color-flow and spectral Doppler imaging of both ovaries is performed. FINDINGS: Reported last menstrual period: Not provided. The uterus is retroverted and measures 5.8 x 3.4 x 3.4 cm. No uterine masses. The endometrial stripe measures 0.5 cm in double thickness. No endometrial masses. The cervix is normal. The right ovary measures 3.5 x 2.0 x 3.0 cm. Physiologic appearance without a dominant cystic lesion or solid ovarian / adnexal mass. There is normal arterial and venous color Doppler flow and normal arterial and venous waveforms on duplex Doppler. The left ovary measures 3.0 x 2.6 x 2.9 cm. Physiologic appearance without a dominant cystic lesion or solid ovarian / adnexal mass. There is normal arterial and venous color Doppler flow and normal arterial and venous waveforms on duplex Doppler. No free fluid. IMPRESSION: Normal pelvic ultrasound. Dictated by Evangelina Garg MD @ 07/10/2024 10:16:13 AM (Electronically Signed)
[2024-07-10 09:38] LABS: Appearance Urine Clear (Clear); Bilirubin Urine Negative (Negative); Blood Urine Negative (Negative); Color Urine Yellow (Yellow); Glucose Urine 2+ (Negative); Ketones Urine Negative (Negative); Leukocyte Esterase Urine Negative (Negative); Nitrite Urine Negative (Negative); Protein Urine Negative (Negative); Specific Gravity Urine 1.025 (1.000-1.030); Urobilinogen Urine 0.2 (0.2-1.0); pH Urine 5.5 (5.0-8.5)
[2024-07-10 09:41] LABS: Ur HCG Qualitative* Negative (Negative)
[2024-07-10 09:44] LABS: Lactate Sepsis w/Reflex* 1.4 mmol/L (0.5-1.9)
[2024-07-10 09:45] LABS: Basophils Percent Auto 0.4 % (0.0-3.0); Eosinophils Percent Auto 3.1 % (0.0-7.0); Hematocrit 43.9 % (33.0-51.0); Hemoglobin* 14.1 gm/dL (12.0-16.0); Immature Granulocytes Pct Auto 0.4 %; Mean Corpuscular HGB Conc 32 gm/dL (32-36); Mean Corpuscular Hemoglobin 26 pg (26-34); Mean Corpuscular Volume 79 fL (80-100); Monocytes Percent Auto 6.4 % (0.0-11.0); Neutrophils Percent Auto 58.7 % (42.0-72.0); Platelet Count* 278 K/uL (140-440); RDW Coefficient of Variation % 14.4 % (11.5-15.5); Red Blood Count 5.54 m/uL (4.00-5.20)
[2024-07-10 09:52] LABS: Slide Review Reflex Yes
[2024-07-10 09:54] LABS: Bacteria Urine Few; RBC Urine 0-2 (0-2); Squamous Epithelial Cell Urine Few (None-Few); WBC Urine 0-2 (0-5)
[2024-07-10 09:55] LABS: Other Sediment Urine FEW YEAST
[2024-07-10 10:01] LABS: Chloride* 99 mmol/L (96-114)
[2024-07-10 10:02] LABS: Sodium* 136 mmol/L (135-149)
[2024-07-10 10:04] LABS: Creatinine* 0.7 mg/dL (0.5-1.5); Est. Creatinine Clearance* 107.01; Estimated Glomerular Filt Rate 117 ml/min
[2024-07-10 10:05] LABS: Anion Gap 10 mEq/L (7-15); Blood Urea Nitrogen* 13 mg/dL (5-24); Calcium* 9.3 mg/dL (8.4-10.6); Carbon Dioxide* 27 mmol/L (20-32); Glucose* 136 mg/dL (60-115)
[2024-07-10 10:08] LABS: C Reactive Protein* 2.8 mg/dL (0.5-1.0)
--- NOTE | 2024-07-10 10:09 | ED.GENADULT ---
HPI - General Adult General Date Seen: 07/10/24 Chief complaint: Abdominal Pain Stated complaint: lower abdominal pain Time Seen by Provider: 07/10/24 09:15 History of Present Illness HPI narrative: Patient is a 34-year-old woman who presents with left mid to lower abdominal pain which started overnight. She says it is sharp and intermittent. No exacerbating factors. She has not tried any medications as she says she worked overnight. She does have a history of polycystic ovarian disease, says that a co-worker suggested maybe this could be an ovarian cyst rupture. She does not have a history of kidney stones. She does have a history of cholecystectomy and sphincter of OD uses function, this is not her typical pain related to that however. She has had a normal appetite, no nausea or vomiting, no bowel or bladder changes. No fevers. Denies prior abdominal surgeries aside from cholecystectomy. Related Data Home Medications ?Medication ?Instructions ?Recorded ?Confirmed chlorthalidone 25 mg tablet 25 mg PO DAILY 05/27/22 07/10/24 escitalopram oxalate 20 mg tablet 20 mg PO HS 05/27/22 03/26/24 famotidine 40 mg tablet 40 mg PO HS 05/27/22 07/10/24 labetalol 100 mg tablet 100 mg PO BID 05/27/22 07/10/24 montelukast 10 mg tablet 10 mg PO HS 05/27/22 03/26/24 potassium chloride 20 mEq 20 meq PO DAILY 05/27/22 07/10/24 tablet,extended release(part/cryst) sumatriptan succinate 50 mg tablet 50 mg PO Q2H 05/27/22 03/26/24 hydrochlorothiazide PO 03/09/23 omeprazole .Route 03/09/23 Wegovy 03/26/24 albuterol sulfate 2.5 mg/3 mL 2.5 mg Q4-6H PRN wheezing 03/26/24 (0.083 %) solution for nebulization empagliflozin 25 mg tablet 25 mg PO DAILY 03/26/24 07/10/24 (Jardiance) fexofenadine 180 mg tablet 180 mg PO DAILY 03/26/24 07/10/24 fremanezumab-vfrm 225 mg/1.5 mL mg subcut 03/26/24 subcutaneous auto-injector (Ajovy) glipizide 2.5 mg tablet, extended 2.5 mg PO DAILY 03/26/24 07/10/24 release 24 hr topiramate 100 mg tablet 100 mg PO DAILY 03/26/24 07/10/24 albuterol sulfate 90 mcg/actuation 1 - 2 puff inhalation Q4H PRN 07/10/24 07/10/24 aerosol inhaler (Ventolin HFA) wheezing fluoxetine 40 mg capsule 40 mg PO QAM 07/10/24 07/10/24 sumatriptan succinate 100 mg tablet mg PO 07/10/24 Previous Rx's ?Medication ?Instructions ?Recorded potassium chloride 20 mEq 20 meq PO DAILY #10 tabs 07/10/24 tablet,extended release(part/cryst) (Klor-Con M) Allergies Allergy/AdvReac Type Severity Reaction Status Date / Time NSAIDS (Non-Steroidal Allergy Severe Pancreatiti Verified 05/26/22 23:35 Anti-Inflamma s Cephalosporins Allergy Intermediate Diarrhea Verified 05/26/22 23:35 Review of Systems Status of ROS: Reports: 10 or more systems reviewed and unremarkable except as noted in History and below [facility] Medical History Morbid obesity ?E66.01 - Morbid (severe) obesity due to excess calories (ICD-10) Reactive airway disease ?J45.909 - Unspecified asthma, uncomplicated (ICD-10) PCOS (polycystic ovarian syndrome) ?E28.2 - Polycystic ovarian syndrome (ICD-10) MRSA (methicillin resistant Staphylococcus aureus) infection ?A49.02 - Methicillin resistant Staphylococcus aureus infection, unspecified site (ICD-10) 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 - Spasm of sphincter of Oddi (ICD-10) Lumbar radicular pain ?M54.16 - Radiculopathy, lumbar region (ICD-10) Erythema ab igne ?L59.0 - Erythema ab igne [dermatitis ab igne] (ICD-10) Lumbar disc herniation ?M51.26 - Other intervertebral disc displacement, lumbar region (ICD-10) History of pancreatitis ?Z87.19 - Personal history of other diseases of the digestive system (ICD-10) Herniation of intervertebral disc of lumbar region ?M51.26 - Other intervertebral disc displacement, lumbar region (ICD-10) Chronic abdominal pain ?R10.9 - Unspecified abdominal pain (ICD-10) ?G89.29 - Other chronic pain (ICD-10) Oligomenorrhea ?N91.5 - Oligomenorrhea, unspecified (ICD-10) Hypertension ?I10 - Essential (primary) hypertension (ICD-10) Closed fracture of tuft of distal phalanx of finger ?S62.639A - Displaced fracture of distal phalanx of unspecified finger, initial encounter for closed fracture (ICD-10) Type 2 diabetes, diet controlled ?E11.9 - Type 2 diabetes mellitus without complications (ICD-10) Surgical History History of wisdom tooth extraction ?K08.409 - Partial loss of teeth, unspecified cause, unspecified class (ICD-10) History of tonsillectomy ?Z90.89 - Acquired absence of other organs (ICD-10) History of cholecystectomy ?Z90.49 - Acquired absence of other specified parts of digestive tract (ICD-10) Social History Smoking Status: Never smoker Do you use any of these nicotine containing products: None Second hand tobacco smoke exposure: No How often do you have a drink containing alcohol: 2-4 times a month AUDIT-C Alcohol total score: 2 Non-prescribed substance use: denies use service: No Exam Narrative: Exam Narrative: Vital signs reviewed In general, alert, nontoxic woman. She looks comfortable. Significantly overweight. Head: Normocephalic, atraumatic. Eyes: Sclera clear. Pupils equal and reactive. ENT: Mucous membranes moist. Neck: Supple without adenopathy. Heart: Regular rate and rhythm without murmur. Lungs: Clear. No increased work of breathing, crackles or wheezes. Abdomen: Abdomen actually is nontender to palpation throughout. No rebound guarding or rigidity. Extremities: Well perfused, pulses intact. No significant edema. Neurologic: Alert, conversant. Speech fluent, face symmetric. Moves all extremities equally. Skin: Warm, dry well perfused. Affect: Normal. Const: Vital Signs, click to edit/add: Vital Signs - 24 hr 07/10/24 08:58 Temperature 96.8 F L Pulse Rate [Pulse Oximeter] 77 Respiratory Rate 24 Blood Pressure [Ri ght Upper Arm] 130/74 Pulse Oximetry 98 Oxygen Delivery Me thod Room Air Course Course ED Course: Diagnostic considerations would include ovarian cyst rupture, torsion felt unlikely given degree of symptoms, ectopic , kidney stone, urinary tract infection, pyelonephritis, diverticulitis, among others. Exam is benign. Will obtain urine, labs, pelvic ultrasound. Rule out . She had Toradol IM here. She lists this as an allergy, but it sounds as if she has tolerated it well in the past. Her white blood cell count is elevated at 14, looking through her records this is her normal white blood cell count. Her hemoglobin is 14. Metabolic panel notable for potassium of 2.9, her potassium also always runs low typically is 3. Will go ahead and replace that, unclear why this tends to run low. Magnesium pending at this time. Lactate is normal at 1.4. Urinalysis does show 2+ glucose, waiting on the rest of the metabolic panel. She does not have white cells or red cells in her urine. test is negative. She does not have signs of DKA, her blood sugar is 136, her metabolic panel is otherwise unremarkable, CO2 is 27. She does not have ketones in her urine. CRP is mildly elevated at 2.8, I did check a magnesium and this was normal at 2.1. Etiology of her chronically low potassium is unclear. She says this has been checked at her primary doctor's as well and she says it has been ?borderline. I gave her oral potassium here, will put her on some replacement short-term at home. She seems to feel well at this time. She is eating crackers and drinking juice. Etiology of her abdominal pain is not clear at this time, but given benign exam and stable labs I think it is reasonable to see how she does over the next day or 2. Reviewed reasons to return such as severe uncontrolled pain, vomiting, fever chills etcetera. Otherwise, primary care follow-up in a week or so if she is having continued pain, discuss potassium and would recommend a recheck at that time. Vital Signs Vital signs: Initial Vital Signs Temperature 96.8 F L 07/10/24 08:58 Temperature Source Temporal Artery Scan 07/10/24 08:58 Pulse Rate 77 07/10/24 08:58 Respiratory Rate 24 07/10/24 08:58 Blood Pressure 130/74 07/10/24 08:58 Blood Pressure Mean 92 07/10/24 08:58 Blood Pressure Position Sitting 07/10/24 08:58 Pulse Oximetry 98 07/10/24 08:58 Oxygen Delivery Method Room Air 07/10/24 08:58 Vital Signs Temperature 96.8 F L 07/10/24 08:58 Pulse Rate 77 07/10/24 08:58 Respiratory Rate 24 07/10/24 08:58 Blood Pressure 130/74 07/10/24 08:58 Pulse Oximetry 98 07/10/24 08:58 Oxygen Delivery Method Room Air 07/10/24 08:58 Temperature 96.8 F L 07/10/24 08:58 Pulse Rate 77 07/10/24 08:58 Respiratory Rate 24 07/10/24 08:58 Blood Pressure 130/74 07/10/24 08:58 Pulse Oximetry 98 07/10/24 08:58 Oxygen Delivery Method Room Air 07/10/24 08:58 Medications Administered Medications: Discontinued Medications Generic Name Dose Route Start Last Admin Trade Name Freq PRN Reason Stop Dose Admin Ketorolac Tromethamine 30 mg 07/10/24 10:31 07/10/24 10:38 Ketorolac 30 Mg/Ml Inj IM 07/10/24 10:32 30 mg ONCE ONE Administration Oxycodone HCl 5 mg 07/10/24 09:46 07/10/24 10:17 Oxycodone 5 Mg Tablet PO 07/10/24 09:47 Not Given ONCE ONE Potassium Chloride 40 meq 07/10/24 10:52 07/10/24 10:57 Potassium Chloride 10 Meq Capsule Er PO 07/10/24 10:53 40 meq ONCE ONE Administration Medical Decision Making Lab Data Labs: Lab Results 07/10/24 07/10/24 Range/Units 09:27 09:37 WBC 14.00 H (4.50-11.00) K/uL RBC 5.54 H (4.00-5.20) m/uL Hgb 14.1 (12.0-16.0) gm/dL Hct 43.9 (33.0-51.0) % MCV 79 L (80-100) fL MCH 26 (26-34) pg MCHC 32 (32-36) gm/dL RDW Coeff of Roger 14.4 (11.5-15.5) % Plt Count 278 (140-440) K/uL Neut % (Auto) 58.7 (42.0-72.0) % Lymph % (Auto) 31.0 (20-44) % [place] % (Auto) 6.4 (0.0-11.0) % Eos % (Auto) 3.1 (0.0-7.0) % Baso % (Auto) 0.4 (0.0-3.0) % Neut # (Auto) 8.20 H (1.7-7.0) K/uL Lymph # (Auto) 4.30 H (0.90-2.90) K/uL Chester # (Auto) 0.90 (0.00-0.90) K/UL Eos # (Auto) 0.40 (0.00-0.50) K/uL Baso # (Auto) 0.10 (0.00-0.30) K/uL Abs Immat Gran (auto) 0.10 (0.00-0.30) K/uL Imm/Tot Granulo (auto) 0.4 % Diff Slide Review Acceptable Review (Acceptable) Sodium 136 (135-149) mmol/L Potassium 2.9 L* (3.6-5.1) mmol/L Chloride 99 (96-114) mmol/L Carbon Dioxide 27 (20-32) mmol/L Anion Gap 10 (7-15) mEq/L BUN 13 (5-24) mg/dL Creatinine 0.7 (0.5-1.5) mg/dL Estimated Creat Clear 107.01 Estimated GFR 117 ml/min Glucose 136 H (60-115) mg/dL Hemoglobin A1c 6.9 H (0-5.6) % Lactate 1.4 (0.5-1.9) mmol/L Calcium 9.3 (8.4-10.6) mg/dL Magnesium 2.1 (1.5-2.6) mg/dL C-Reactive Protein 2.8 H (0.5-1.0) mg/dL Urine Color Yellow (Yellow) Urine Appearance Clear (Clear) Urine pH 5.5 (5.0-8.5) Ur Specific [place] 1.025 (1.000-1.030) Urine Protein Negative (Negative) Urine Glucose (UA) 2+ A (Negative) Urine Ketones Negative (Negative) Urine Blood Negative (Negative) Urine Nitrite Negative (Negative) Urine Bilirubin Negative (Negative) Urine Urobilinogen 0.2 (0.2-1.0) Ur Leukocyte Esterase Negative (Negative) Urine RBC 0-2 (0-2) Urine WBC 0-2 (0-5) Ur Squamous Epith Cells Few (None-Few) Other Sediment FEW YEAST (None) Urine Bacteria Few A (None) Urine HCG, Qual Negative (Negative) Imaging Data Pelvic ultrasound: Attestation: I have reviewed the pertinent imaging results. Radiologist's impression: Patient: Yulia Caretr MR#: [id number] : 1990 Acct:[id number] Loc: ED Service Date: 07/10/[address]: Ordering Physician: Ailyn Prasad M.D. Date of Service: 07/10/24 Procedure(s): US pelvic transvaginal Accession Number(s): [id number] cc: Ailyn Prasad M.D.; Arlet Pratt D.O.~ For Patients: As a result of the Cures Act, medical imaging exams and procedure reports are released immediately into your electronic medical record. You may view this report before your referring provider. If you have questions, please contact your health care provider. INDICATION: Left lower quadrant pain COMPARISON: CT 03/26/2024 TECHNIQUE: Transvaginal: Claros-scale and color Doppler ultrasound of the uterus and ovaries from a transvaginal approach. Transvaginal ultrasound of the pelvis was performed to better visualize the genitourinary organs, such as the ovaries and/or endometrium. Color-flow and spectral Doppler imaging of both ovaries is performed. FINDINGS: Reported last menstrual period: Not provided. The uterus is retroverted and measures 5.8 x 3.4 x 3.4 cm. No uterine masses. The endometrial stripe measures 0.5 cm in double thickness. No endometrial masses. The cervix is normal. The right ovary measures 3.5 x 2.0 x 3.0 cm. Physiologic appearance without a dominant cystic lesion or solid ovarian / adnexal mass. There is normal arterial and venous color Doppler flow and normal arterial and venous waveforms on duplex Doppler. The left ovary measures 3.0 x 2.6 x 2.9 cm. Physiologic appearance without a dominant cystic lesion or solid ovarian / adnexal mass. There is normal arterial and venous color Doppler flow and normal arterial and venous waveforms on duplex Doppler. No free fluid. IMPRESSION: Normal pelvic ultrasound. Dictated by Evangelina Garg MD @ 07/10/2024 10:16:13 AM Discharge Plan Discharge Clinical Impression: Abdominal pain, Hypokalemia Patient Disposition: Home, Self-Care Condition: Improved Instructions: Hypokalemia (ED), Abdominal Pain (ED) Additional Instructions: I am putting you on potassium replacement for few days, please follow-up with your primary care doctor in the next week or so for recheck of your potassium. It seems as if you chronically run a little low, maybe discuss this further with your primary doctor. Follow-up with primary care for persistent abdominal pain. Return to the ER at any time for severe uncontrolled pain, vomiting, fevers or other worsening. Prescriptions: New potassium chloride [Klor-Con M20] 20 mEq tablet,ER particles/crystals 20 meq PO DAILY Qty: 10 2RF No Action chlorthalidone 25 mg tablet 25 mg PO DAILY Patient Comments: TAKE ONE TABLET BY MOUTH EVERY DAY escitalopram oxalate 20 mg tablet 20 mg PO HS Patient Comments: TAKE ONE TABLET BY MOUTH AT BEDTIME famotidine 40 mg tablet 40 mg PO HS Patient Comments: TAKE ONE TABLET BY MOUTH AT BEDTIME labetalol 100 mg tablet 100 mg PO BID Patient Comments: TAKE ONE TABLET BY MOUTH TWICE A DAY (MORNING AND EVENING) montelukast 10 mg tablet 10 mg PO HS Patient Comments: TAKE ONE TABLET BY MOUTH AT BEDTIME potassium chloride 20 mEq tablet,ER particles/crystals 20 meq PO DAILY Patient Comments: TAKE ONE TABLET BY MOUTH EVERY DAY WITH A MEAL - TAKE INSTEAD OF POWDER POTASSIUM sumatriptan succinate 50 mg tablet 50 mg PO Q2H Patient Comments: TAKE ONE HALF TO ONE TABLET BY MOUTH AT ONSET OF MIGRAINE. MAY REPEAT IN 2 HOURS IF NEEDED. GIVE AT MINIMUM 2 HOURS APART. MAX DOSE 100MG / hydrochlorothiazide PO omeprazole .Route Wegovy albuterol sulfate 2.5 mg /3 mL (0.083 %) solution for nebulization 2.5 mg Q4-6H PRN (Reason: wheezing) fexofenadine 180 mg tablet 180 mg PO DAILY glipizide 2.5 mg tablet extended release 24hr 2.5 mg PO DAILY topiramate 100 mg tablet 100 mg PO DAILY Jardiance 25 mg tablet 25 mg PO DAILY Ajovy Autoinjector 225 mg/1.5 mL auto-injector subcut fluoxetine 40 mg capsule 40 mg PO QAM sumatriptan succinate 100 mg tablet PO albuterol sulfate [Ventolin HFA] 90 mcg/actuation HFA aerosol inhaler 1 - 2 puff INHALATION Q4H PRN (Reason: wheezing) Follow Up/Referrals: Arlet Pratt DO [Primary Care Provider] - Stand Alone Forms: [email or web address] Info Instructions
[2024-07-10 10:12] LABS: Potassium* 2.9 mmol/L (3.6-5.1)
[2024-07-10 10:33] LABS: Magnesium* 2.1 mg/dL (1.5-2.6)
[2024-07-10 10:38] LABS: Hemoglobin A1C* 6.9 % (0-5.6)
[2024-07-10] MEDS: KETOROLAC 30 MG/ML inj IM (10:38)
[2024-07-10] MEDS: POTASSIUM CHLORIDE 10 MEQ CAPSULE ER 40 MEQ PO (10:57)
[2024-07-10 11:03] LABS: Slide Review Acceptable Review (Acceptable)
== END 2024-07-10 11:33 | disposition home or self-care (01) ==
PROVIDERS: Emergency Provider Emergency Medicine; PCP Family Medicine
DX: E87.1 Hypo-osmolality and hyponatremia (principal); R10.9 Unspecified abdominal pain
CPT/HCPCS: 36415; 76830; 80048; 81001; 81025; 83036; 83605; 83735; 85025; 86140; 87086; 93976; 96372; 99284; A9270; J1885

== ENCOUNTER 2024-09-04 20:09 | Emergency (ER) | payer MEDICAID, SELFPAY ==
[2024-09-04] VITALS (11 sets, daily range): BP systolic 121–130; BP diastolic 81–85; PULSE 68–88; RESP 7–21; TEMP 36.6; O2SAT 95–97; BMI 48.5
--- OUTSIDE RECORDS SUMMARY | 2024-09-04 20:11 | XMS_ITS | Clinical Summary ---
Author Organization [employer] [facility] Address [address] [place] [id number] Care Team Providers Care Ruby Developer Name Role Phone Darwni Leung DPM Unavailable [phone] Arlet Pratt DO Primary Care Provider [phone] Allergies Active Allergy Reactions Criticality Noted Date [...] 14 Active omeprazole (PRILOSEC) 20 mg Delayed-Release capsuleIndication s:Gastroesophagea l reflux disease without esophagitis Take 1 capsule by mouth once daily. 90 capsule 1 11/07/19 18 Active Needle, Disp, 30 G (ROSINE DISP NEEDLES 30GX1/2) 30 gauge x 1/2 [...] 1 Bottle 11 01/06/20 21 Active blood-glucose meterIndications: Type 2 diabetes, diet controlled (HC) by Not Applicable route. Dispense meter, test strips, lancets covered by pt ins. NIDDM type II, controlled - Test 1 time/day 1 Device 01/06/20 21 Active diphenhydrAMINE-a cetaminophen 25-500 mg (TYLENOL PM) 25-500 mg tablet Daily Act vitaly Contour Next Test Strips strip TEST 1 TIME A DAY 01/06/20 21 Active Microlet Lancet TEST ONCE A DAY 01/06/20 21 Active cyclobenzaprine (FLEXERIL) 10 mg tabletIndications :Chronic [...] 07/05/19 23 Active SUMAtriptan (IMITREX) 50 mg tabletIndications :Menstrual migraine without status migrainosus, not intractable TAKE ONE-HALF TO ONE TABLET BY MOUTH AT ONSET OF MIGRAINE. MAY REPEAT IN 2 HOURS IF NEEDED. MAX DOSE 100MG/24 HOURS. 10 Tablet 07/13/19 23 Active miconazole nitrate powder 2 % powderIndications :Tinea pedis, unspecified laterality Apply topically to affected area(s) two times daily. 85 g 1 11/02/19 23 Active topiramate (TOPAMAX) 25 mg tablet Take 100 mg by mouth once daily. Weaning off 03/11/20 23 Active ketoconazole 2% topical (NIZORAL) creamIndications: Yeast dermatitis Apply twice daily until resolved then may use weekly for prevention 120 g 3 03/15/20 23 Active Ajovy Autoinjector 225 mg/1.5 mL atIn INJECT 1 PEN INJECTOR SUBCUTANEOUSLY ONCE A MONTH 07/14/19 24 Active fexofenadine (MATTEO) 180 mg tabletIndications :Allergy, initial encounter TAKE ONE TABLET BY MOUTH ONCE DAILY. DO NOT CRUSH OR CHEW 90 Tablet 3 12/11/19 24 Active triamcinolone (ARISTOCORT; KENALOG) 0.1 % creamIndications: Acute eczema Apply to patch on spencer twice daily until resolved. 80 g 01/19/20 24 Active clindamycin phosphate 1% topical 1 % external solutionIndicatio ns:Hidradenitis suppurativa Apply topically to affected area(s) two times daily. 60 mL 1 04/23/20 24 Active chlorthalidone (HYGROTON) 25 mg tabletIndications :Hypertension Take 1 Tablet (25 mg) by mouth once daily. 90 Tablet 3 04/23/20 24 Active empagliflozin (Jardiance) 25 mg tabletIndications :Uncontrolled type 2 diabetes mellitus with hyperglycemia (HC) Take 1 Tablet (25 mg) by mouth once daily. 90 Tablet 3 04/23/20 24 Active famotidine (PEPCID) 40 mg tabletIndications :Gastric reflux Take 1 Tablet (40 mg) by mouth once daily. 90 Tablet 3 04/23/20 24 Active glipiZIDE extended-release (GLUCOTROL XL) 2.5 mg Extended-Release tabletIndications :Uncontrolled type 2 diabetes mellitus with hyperglycemia (HC) Take 1 Tablet (2.5 mg) by mouth once daily before a meal. 90 Tablet 3 04/23/20 24 Active labetaloL (TRANDATE) 100 mg tabletIndications :HTN (hypertension) Take 1 Tablet (100 mg) by mouth two times daily. 180 Tablet 3 04/23/20 24 Active montelukast (SINGULAIR) 10 mg tabletIndications :Moderate persistent asthma without complication Take 1 Tablet (10 mg) by mouth at bedtime. 90 Tablet 3 04/23/20 24 Active FLUoxetine (PROZAC) 40 mg capsuleIndication s:AMARIS (generalized anxiety disorder) Take 1 Capsule (40 mg) by mouth once daily in the morning. 90 Capsule 3 05/11/20 24 Active potassium chloride (KLOR-CON M20) 20 mEq extended-release tablet (part/cryst)Indic ations:Hypertensi on,Low blood potassium Take 2 Tablets (40 mEq) by mouth two times daily with meals. 360 Tablet 2 07/08/19 25 Active Active Problems Problem Noted Date Diagnosed [...] Overview (12/05/2013): Per MAKEDA Thomas at the [facility] visit from April 2012. Consult for recurrent [...] pills were not actually contributing. Records from [facility] [place] in chart, only 1 visit 05/08/14. Asked for further records but none available. 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 Lyon. 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 See consult from GI Dr. Martinez at the [facility] from May 08, 2012 See details under pancreatitis in problem list. MRSA (methicillin resistant Staphylococcus aureus) infection 07/03/2010 PCOS (polycystic ovarian syndrome) 05/13/2010 Overview (11/28/2013): As of 07/2013: Previously on OCPs but these had to be discontinued because patient was having recurrent pancreatitis after her gallbladder was removed. She saw a biology professor who told her the control was interfering [...] pain 12/25/201110/30 Overview (12/25/2011): Unclear etiology. Per tree worker, at times seems correlated with menstrual cycle, [...] Encounters Date Type Department Care Team Description 08/02/2024 1:05 PM PLUG MAKING OPERATOR Office Visit [facility] [address] [place] [address] Arlet Pratt DO Diabetes (3 month visit) 08/02/2024 Travel 07/10/2024 Orders Only [facility] Scanner 1 scan: (1-Ord) [facility], 07/10/2024 07/04/2024 Refill [facility] [address] [place] [address] [address] Arlet Pratt DO Refill Request (Potassium Chloride) from Last 3 Months Immunizations Immunization Administration Dates Next Due COVID-19 VACCINE SPIKEVAX [...] 1-2 drinks a couple times a month PHQ-2 Answer Date Recorded PHQ-2 TOTAL SCORE 0 08/02/2024 Social Connections Answer Date Recorded Do you [...] is your housing situation today? 1 04/23/2024 Utilities Answer Date Recorded Do you have trouble paying f or utilities (for example, heat, electricity, water, phone)? 1 04/23/2024 Comments No Sex and Gender Information Value Date Recorded Sex Assigned at Not on file Legal Sex Female 5:23 AM PLUG MAKING OPERATOR Gender Identity Not on file Sexual Orientation Not on file Obstetrics History Para Term AB IAB SAB Ectopic Multiple Livin g Live Births 0 0 0 0 0 0 0 0 0 0 Last Filed Vital Signs Vital Sign Reading Time Taken Comments Blood Pressure 121/80 08/02/2024 1:23 PM PLUG MAKING OPERATOR Pulse 82 08/02/2024 1:23 PM PLUG MAKING OPERATOR Temperature 36.2 C (97.2 F) 04/03/2023 1:40 PM CDT Respiratory Rate 18 04/03/2023 1:40 PM CDT Oxygen Saturation 99% 08/02/2024 1:23 PM PLUG MAKING OPERATOR Inhaled Oxygen Concentration - - Weight 136.4 kg (300 lb 9.6 oz) 08/02/2024 1:23 PM PLUG MAKING OPERATOR Height 170.2 cm (5' 7.01) 03/15/2023 2:40 PM CD T Body Mass Index 47.07 03/15/2023 2:40 PM CDT Plan of Treatment Upcoming Encounters Date Type Department Care Team (Late st Contact Info) Description 10/17/2024 3:10 PM CDT Office Visit [facility] [address] [place] [address] Arlet Pratt DO [address] [place] [address] Health Maintenance Due Date Last Done Comments Hepatitis B series for Diabe tripp (2 of 3 - 19+ 3-dose series) 02/02/2021 01/05/2021 Pneumococcal series for age 6-49 (2 of 2 - PCV) 01/05/2022 01/05/2021 BMI (ht and wt on same day) for age 18+ 03/15/2024 03/15/2023, 07/02/2021, 02/11/2021, Additional history exists Depression screening for age 12+ 08/02/2025 08/02/2024, 03/15/2023, 10/29/2021, Additional history exists Pap test for age 21-65 03/15/2028 , 03/15/2023, 10/26/2018, Additional history exists Tetanus booster 12/27/2030 12/27/2020, 04/28/2012 HIV for age 15-65 Completed 01/02/2020, 03/07/2018 Hepatitis C screening for ag e 18-79 Completed 01/02/2020 Tdap Completed 12/27/2020, 04/28/2012 COVID-19 vaccine series Completed 04/23/20 24, 08/06/2021, 07/30/2020, Additional history exists Influenza Vaccine Completed 04/23/2024, , 04/29/2022, Additional history exists Procedures Procedure Name Priority Date/Time Associated Diagnosis Comments HEMOGLOBIN A1C MONITORING (POCT) Routine 08/02/2024 1:12 PM PLUG MAKING OPERATOR Uncontrolled type 2 diabetes mellitus with hyperglycemia (HC) SCAN-ULTRASOUND REPORT 07/10/2024 12:00 AM PLUG MAKING OPERATOR HPV HIGH RISK Routine 03/15/2023 3:37 PM CDT Cervical cancer screening ANTI HIV 1/2 Routine 01/02/2020 9:06 AM CDT Unprotected sexual intercourse ACUTE HEPATITIS PANEL Routine 01/02/2020 9:06 AM CDT Unprotected sexual intercourse from Last 3 Months or Most Recently Relevant to Health Maintenance Results * (ABNORMAL) POCT Hemoglobin A1C Monitoring (08/02/2024 1:12 PM PLUG MAKING OPERATOR) POC HEMOGLOBIN A1C 6.8(H) <6.0 % OF TOTAL HGB [facility] Comment: Any point of care results exhibiting inconsistency with the patient's clinical status should be repeated using a different testing method. Blood BLOOD SPECIMEN / Unknown 08/02/2024 1:12 PM PLUG MAKING OPERATOR 08/02/2024 1:12 PM PLUG MAKING OPERATOR us Arlet Pratt DO CHEMISTRY Final Resu lt [facility] [address] [place] [address], [facility] [address] [place] [address] * SCAN-ULTRASOUND REPORT (07/10/2024 12:00 AM PLUG MAKING OPERATOR) Anatomical Region Laterality Modality Other us Scanner OTHER Final Result * HPV HIGH RISK (03/15/2023 3:37 PM CDT) TYPE 16 Negative Negative 03/18/2023 6:29 PM CDT [facility] TYPE 18 Negative Negative 03/18/2023 6:29 PM CDT [facility] OTHER HIGH RISK TYPES Negative Negative 03/18/2023 6:29 PM CDT [facility] Other (Cervical) Non-Blood / Unknown 03/15/2023 3:37 PM CDT 03/16/2023 12:00 PM CDT Narrative [facility] - 03/18/2023 6:29 PM CDT HPV types 16, 18, 31, 33, 35, 39, 45, 51, 52, 56, 58, 59, 66 and 68 DNA were undetectable or below the pre-set threshold. Methodology: Cecily Avtar 4800 HPV Test Arlet Pratt DO MICROBIOLOGY Final Resu lt [facility] [address] [place] [address], [place] * ANTI HIV 1/2 (01/02/2020 9:06 AM CDT) HIV-1/HIV-2 ANTIBODY Non-Reacti ve Non-Reacti ve 01/02/2020 6:16 PM CDT [facility] Comment:HIV-1 p24 and HIV-1/ HIV-2 Ab not detected. Blood BLOOD SPECIMEN / Unknown Venipuncture / Unknown 01/02/2020 9:06 AM CDT 01/02/2020 9:08 AM CDT Arlet Pratt DO SEND OUTS Final Resu lt [facility] [address] [place] [address], [place] * ACUTE HEPATITIS PANEL (01/02/2020 9:06 AM CDT) HEPATITIS C ANTIBODY Non-Reactive Non-Reactive 01/02/2020 6:16 PM CDT [facility] Comment:Antibodies to HCV no t detected; does not exclude the possibility of exposure to HCV. IGM ANTI HAV Non-Reactive Non-Reactive 01/02/20 6:16 PM CDT [facility] HBSAG Nonreactive Nonreactive 01/02/2020 6:16 PM CDT [facility] IGM ANTI HBC Non-Reactive Non-Reactive 01/02/20 6:16 PM CDT [facility] Blood BLOOD SPECIMEN / Unknown Venipuncture / Unknown 01/02/2020 9:06 AM CDT 01/02/2020 9:08 AM CDT Narrative [facility] - 01/02/2020 6:16 PM CDT Anti-HBc IgM not detected. Does not exclude the possibility of exposure to or infection with HBV. us Arlet Pratt DO SEND OUTS Final Resu lt [facility] [address] [place] [address], [place] from Last 3 Months or Most Recently Relevant to Health Maintenance Additional Health Concerns Infection Onset Date Last Indicated MRSA Clearance Comment:Infection Control Note: Hx of MRSA 12/27/2011, surveillance criteria met, no need for further testing or isolation precautions. Do not delete or resolve the Infection Flag. 03/07/2023 03/07/2023 Insurance [facility] Advance Directives * Full Code (Latest Code Status on File) Date Activated Date Inactivated Comments 12/25/2011 9:05 PM 12/28/2011 8:14 PM * Full Code Date Activated Date Inactivated Comments 06/14/2009 2:40 PM 06/17/2009 2:07 PM Care Teams Ruby Developer Relationship Specialty Start Date End Date Arlet Pratt DO [address] [place] [address] PCP - General Family Practice 05/06/15 Darwin Leung DPM PODIATRY Podiatry 08/02/11
--- OUTSIDE RECORDS SUMMARY | 2024-09-04 20:11 | XMS_ITS | Clinical Summary ---
Author Organization [facility] Address [address] , [address] [place] [address] Phone Care Team Providers Care Edger Technician Name Role Phone System Maintenance Unavailable [phone] Conditions or Problems Problem Name Problem Code Onset Date Status Entry Date Provider Comment Standard Description Annotate Risk of sleep apnea 057930593 (SNOMED CT) 07/05 Active 07/05 Sara MULLINS-Jeannine At increased risk of disease Snoring [id number] (SNOMED CT) 07/05 Active 07/05 Sara MULLINS-C Snoring Obesity 945239317 (SNOMED CT) 08/17 Active 08/17 Arik Alexander MD Obesity Papilledema 053397376 (SNOMED CT) 08/17 Active 08/17 Arik Alexander MD Optic disc edema New daily persistent headache [id number] 05 (SNOMED CT) 08/17 Active 08/17 Arik Alexander MD New daily persistent headache Migraine, common 00123526 (SNOMED CT) 08/17 Active 08/17 Arik Alexander MD Migraine without aura Medications Medication Instructions Start Date Stop Date Generic Name ND Provider SUMATRIPTAN SUCCINATE 100 MG TABS TAKE ONE-HALF TO ONE TABLET BY MOUTH AT ONSET OF MIGRAINE. MAY REPEAT IN 2 HOURS IF NEEDED. MAX DOSE 100MG/24 HOURS. No to take more than 9 to 10 days per month 03/02 sumatriptan succinate [id number] Sara Huizar PA-C SUMATRIPTAN SUCCINATE 100 MG TABS TAKE ONE-HALF TO ONE TABLET BY MOUTH AT ONSET OF MIGRAINE, MAY REPEAT IN 2 HOURS NEEDED MAX DOSE ONE TABLET IN 24HRS DO NOT TAKE MORE THAN 9 TO 10 DAYS PER MONTH sumatriptan succinate 85186069745 Sara MULLINS-C TOPAMAX 25 MG TABS week 1: take 1 tab q am and 4 tab q pm. week 2: take 2 tab q am and 4 tab q pm. week 3: take 3 tab q am and 4 tab q pm. week 4 onward: take 4 tab twice a day. 12/26 topiramate 85620959026 Sara MULLINS-C TOPAMAX 100 MG TABS Take 1 tablet by mouth every night at bedtime topiramate 30629814329 Sara MULLINS-C CETIRIZINE HCL 10 MG TABS Take 1 tablet by mouth once a day 09/04 cetirizine 72462115840 Sara Huizar PA-C FEXOFENADINE HCL 180 MG TABS fexofenadine 70207634278 Sara VAZQUEZC GLIPIZIDE ER 2.5 MG [id number] TAKE ONE TABLET BY MOUTH EVERY DAY BEFORE A MEAL glipizide 00270233591 Sara VAZQUEZC AJOVY 225 MG/1.5ML SOAJ Inject 1 pen injector subcutaneously once a month fremanunique-r [id number] Sara VAZQUEZC JARDIANCE 10 MG TABS empagliflozin 97089213655 Sara MULLINS-C TOPAMAX 25 MG TABS 1 tablet by mouth as directed : 25 mg per night for 1 weeks; then increase by 25 mg per night every 1 weeks until maximum 100 mg per night or until pain controlled 03/14 topiramate 39829492899 Sara MULLINS-C TOPAMAX 25 MG TABS week 1: take 1 tab q am and 4 tab q pm. week 2: take 2 tab q am and 4 tab q pm. week 3: take 3 tab q am and 4 tab q pm. week 4 onward: take 4 tab twice a day. 12/26 topiramate 30971954525 Sara Huizar PA-C ATIVAN 1 MG TABS 1 tablet by mouth as directed : 1 mg 2 hour before MRI. May repeat as needed with 1 mg up to maximum of 3 mg before MRI. No driving or operate heavy machinery for 24 hour after taking this med lorazepam 92858482115 Arik Alexander MD SUMATRIPTAN SUCCINATE 50 MG TABS TAKE ONE-HALF TO ONE TABLET BY MOUTH AT ONSET OF MIGRAINE. MAY REPEAT IN 2 HOURS IF NEEDED. MAX DOSE 100MG/24 HOURS. 9 to 10 days use per month 08/17 sumatriptan succinate 08948581387 Arik Alexander MD SUMATRIPTAN SUCCINATE 100 MG TABS TAKE ONE-HALF TO ONE TABLET BY MOUTH AT ONSET OF MIGRAINE. MAY REPEAT IN 2 HOURS IF NEEDED. MAX DOSE 100MG/24 HOURS. No to take more than 9 to 10 days per month 03/02 sumatriptan succinate 92887661940 Arik Alexander MD SUMATRIPTAN SUCCINATE 50 MG TABS TAKE ONE-HALF TO ONE TABLET BY MOUTH AT ONSET OF MIGRAINE. MAY REPEAT IN 2 HOURS IF NEEDED. MAX DOSE 100MG/24 HOURS. 08/17 sumatriptan succinate 76004201825 Arik Alexander MD TOPAMAX 25 MG TABS 1 tablet by mouth as directed : 25 mg per night for 1 weeks; then increase by 25 mg per night every 1 weeks until maximum 100 mg per night or until pain controlled 03/14 topiramate 11563853981 Arik Alexander MD SUMATRIPTAN SUCCINATE 50 MG TABS TAKE ONE-HALF TO ONE TABLET BY MOUTH AT ONSET OF MIGRAINE. MAY REPEAT IN 2 HOURS IF NEEDED. MAX DOSE 100MG/24 HOURS. 9 to 10 days use per month 08/17 sumatriptan succinate 69320005348 Arik Alexander MD multivitamin Take 1 tablet by mouth once a day MVI Arik Alexander MD TRIAMCINOLONE ACETONIDE 0.5 % OINT Apply to skin twice a day triamcinolone acetonide 85734960598 Arik Alexander MD NORGESTIMATE-ETH ESTRADIOL 0.25-35 MG-MCG TABS Take 1 tablet by mouth once a day 08/17 norgestimate-eth inyl estradiol 27300210400 Arik Alexander MD POTASSIUM CHLORIDE SUKHDEV ER 20 MEQ CR-TABS Take 1 tablet by mouth once a day potassium chloride 88442290336 Arik Alexander MD OMEPRAZOLE 20 MG CPDR Take 1 capsule by mouth once a day omeprazole 15044614142 Arik Alexander MD ALBUTEROL SULFATE HFA 108 (90 Base) MCG/ACT AERS Inhale 1-2 puff by mouth every four hours as needed 08/17 albuterol sulfate 07455687633 Arik Alexander MD ALBUTEROL SULFATE HFA 108 (90 Base) MCG/ACT AERS Inhale 2 puff by mouth four times a day as needed albuterol sulfate 45743930023 Arik Alexander MD FAMOTIDINE 40 MG TABS Take 1 tablet by mouth every night famotidine 04711758992 Arik Alexander MD CYCLOBENZAPRINE HCL 10 MG TABS Take 1 tablet by mouth every night as needed cyclobenzaprine 75016349396 Arik Alexander MD diphenhydrAMINE-a cetaminophen 25-500 mg once a day TYLENOL PM Arik Alexander MD Contour Next Test Strips strip Use once a day Contour Next Test Strips strip Arik Alexander MD ACETAMINOPHEN 325 MG TABS Take 2 tablet by mouth every four hours as needed acetaminophen 14951136797 Arik Alexander MD CETIRIZINE HCL 10 MG TABS Take 1 tablet by mouth once a day 09/04 cetirizine 21559002477 Arik Alexander MD blood-glucose meter by Not Applicable route. Dispense meter, test strips, lancets covered by pt ins. NIDDM type II, controlled - Test 1 time/day blood-glucose meter Arik Alexander MD LABETALOL HCL 100 MG TABS Take 1 tablet by mouth twice a day labetalol 57775795504 Arik Alexander MD Microlet Lancet Use once a day Microlet Lancet Arik Alexander MD miconazole nitrate powder 2 % powder Apply to skin twice a day miconazole nitrate powder 2 % powder Arik Alexander MD SUMATRIPTAN SUCCINATE 50 MG TABS TAKE ONE-HALF TO ONE TABLET BY MOUTH AT ONSET OF MIGRAINE. MAY REPEAT IN 2 HOURS IF NEEDED. MAX DOSE 100MG/24 HOURS. 08/17 sumatriptan succinate 41733244961 Arik Alexander MD MONTELUKAST SODIUM 10 MG TABS Take 1 tablet by mouth every night montelukast 67370241722 Arik Alexander MD CHLORTHALIDONE 25 MG TABS Take 1 tablet by mouth once a day chlorthalidone 31922768743 Arik Alexander MD TOLNAFTATE 1 % POWD Apply to skin twice a day tolnaftate 43982443182 Arik Alexander MD ESCITALOPRAM OXALATE 20 MG TABS Take 1 tablet by mouth every night escitalopram oxalate 84446330305 Arik Alexander MD TRIAMCINOLONE ACETONIDE 0.5 % OINT Apply topically to affected area(s) 2 times daily. Not use >14 days in a row 08/17 triamcinolone acetonide 55977080214 QIEUSER QIEUSER TOLNAFTATE 1 % POWD Apply topically to affected area(s) 2 times daily. Shake into sock 08/17 tolnaftate 89613611302 QIEUSER QIEUSER SUMATRIPTAN SUCCINATE 50 MG TABS TAKE ONE-HALF TO ONE TABLET BY MOUTH AT ONSET OF MIGRAINE. MAY REPEAT IN 2 HOURS IF NEEDED. MAX DOSE 100MG/24 HOURS. 08/17 sumatriptan succinate 51284415517 QIEUSER QIEUSER POTASSIUM CHLORIDE SUKHDEV ER 20 MEQ CR-TABS TAKE ONE TABLET BY MOUTH EVERY DAY WITH A MEAL. TAKE INSTEAD OF POWDER POTASSIUM 08/17 potassium chloride 75636468264 QIEUSER QIEUSER OMEPRAZOLE 20 MG CPDR Take 1 capsule by mouth once daily. 08/17 omeprazole 74716497662 QIEUSER QIEUSER NORGESTIMATE-ETH ESTRADIOL 0.25-35 MG-MCG TABS Take 1 Tablet by mouth once daily. 08/17 norgestimate-eth inyl estradiol 53887774904 QIEUSER QIEUSER multivitamin Take 1 tablet by mouth once daily. 08/17 MVI QIEUSER QIEUSER MONTELUKAST SODIUM 10 MG TABS Take 1 Tablet (10 mg) by mouth at bedtime. 08/17 montelukast 31122001450 QIEUSER QIEUSER Microlet Lancet TEST ONCE A DAY 08/17 Microlet Lancet QIEUSER QIEUSER miconazole nitrate powder 2 % powder Apply topically to affected area(s) 2 times daily. 08/17 miconazole nitrate powder 2 % powder QIEUSER QIEUSER LABETALOL HCL 100 MG TABS Take 1 Tablet (100 mg) by mouth in the morning and 1 Tablet (100 mg) in the evening. 08/17 labetalol 61633278871 QIEUSER QIEUSER FAMOTIDINE 40 MG TABS Take 1 Tablet (40 mg) by mouth at bedtime. 08/17 famotidine 89349812467 QIEUSER QIEUSER ESCITALOPRAM OXALATE 20 MG TABS Take 1 Tablet (20 mg) by mouth at bedtime. 08/17 escitalopram oxalate 41908823552 QIEUSER QIEUSER diphenhydrAMINE-a cetaminophen 25-500 mg Daily 08/17 TYLENOL PM QIEUSER QIEUSER CYCLOBENZAPRINE HCL 10 MG TABS Take 1 Tablet (10 mg) by mouth at bedtime if needed for Muscle Spasm. MAX 10mg dose 08/17 cyclobenzaprine 54010137550 QIEUSER QIEUSER Contour Next Test Strips strip TEST 1 TIME A DAY 08/17 Contour Next Test Strips strip QIEUSER QIEUSER CHLORTHALIDONE 25 MG TABS Take 1 Tablet (25 mg) by mouth once daily. 08/17 chlorthalidone 19732624703 QIEUSER QIEUSER CETIRIZINE HCL 10 MG TABS Take 1 Tablet (10 mg) by mouth once daily. 08/17 cetirizine 50470217648 QIEUSER QIEUSER blood-glucose meter by Not Applicable route. Dispense meter, test strips, lancets covered by pt ins. NIDDM type II, controlled - Test 1 time/day 08/17 blood-glucose meter QIEUSER QIEUSER ALBUTEROL SULFATE HFA 108 (90 Base) MCG/ACT AERS Inhale 1-2 Puffs by mouth every 4 hours if needed for Shortness of Breath 1st choice or Wheezing 1st choice. 08/17 albuterol sulfate 05233509898 QIEUSER QIEUSER ALBUTEROL SULFATE HFA 108 (90 Base) MCG/ACT AERS Inhale 2 Puffs by mouth 4 times daily if needed for Shortness Of Breath. 08/17 albuterol sulfate 88125635527 QIEUSER QIEUSER ACETAMINOPHEN 325 MG TABS Take 2 tablets by mouth every 4 hours if needed. Max acetaminophen dose: 4000mg in 24 hrs. 08/17 acetaminophen 53395974230 QIEUSER QIEUSER Medications Administered No information available. Allergies, Adverse Reactions, Alerts Allergy Name Reaction Description Start Date Severity Statu s Provider UNLISTED ALLERGEN (INCLUDE DETAIL IN COMMENTS) Pancreatitis Severe Active Augusto Jarecki NSAIDS (NON-STEROIDAL ANTI-INFLAMMATORY DRUG) Pancreatitis Mild Active Augusto Jarecki CEPHALOSPORINS Diarrhea Mild Active Augusto Jarecki Results Date Name Value Unit Range Flag Description Internal Other: Authorizatio n - OBS [email or web address] Yes Authoriza tion: Release of Information - Authorize [facility] - Payment and Healthcare Operations ROIAUTHOTHER Yes Authoriz ation: Release of Information - Authorize Others/Insurance - Payment and Healthcare Operations HIECONSENT Yes Consent To Release information to the Health Information Exchange (HIE) [email or web address] Yes Authorizat ion: Authorization for [facility] to leave messages, voicemail, send text messages, send emails [email or web address] Yes Authoriz ation: Release/Retrieval of Information to/from Healthcare Facilities, Pharmacy Benefit Payers and Providers [email or web address] Yes Authoriz ation: Notice of privacy practices AUTHBENEFIT Yes Authoriza tion: Assignment of Benefits and Payment Agreement Internal Other: Verbal Autho rization/Emergency Contact - OBS VERBAL_EMER DONE Verbal au thorization and emergency contact Office Visit: Office Visit f ax MEDS REVIEW Done Documenta tion of current medications (procedure) Plan of Care Type Date Detail Pending order Other Order Pending order Follow up EZEQUIEL Pending order Follow up Pending order Follow up EZEQUIEL Pending order Follow up Pending order Other Order Pending order Patient Instruct ions Pending order Patient Instruct ions Pending order Patient Instruct ions Pending order Patient Instruct ions Pending order Patient Instruct ions Pending order Patient Instruct ions Pending order Follow up EZEQUIEL Pending order Home Sleep Study - HST Pending order Home Sleep Study - HST Pending order Patient Instruct ions Pending order Follow up with N eurologist or EZEQUIEL Pending order Patient Instruct ions Pending order Follow up in [facility] or telemedicine Pending order Other Order Pending order Follow up EZEQUIEL af ter testing Pending order Other Order Pending order Patient Instruct ions Pending order MRI-Brain W/O Pending order MRV Pending order Patient Instruct ions Pending order Patient Instruct ions Procedures Code Procedure Name Date Entry Date ORDERS Follow up EZEQUIEL ORDERS Patient Instructions ORDERS Follow up with Neurologist or EZEQUIEL ORDERS Patient Instructions ORDERS Other Order ORDERS Follow up EZEQUIEL after testing ORDERS Patient Instructions ORDERS Other Order ORDERS Follow up in clinic or telemedicine 09/28 ORDERS MRV [id number] MRI-Brain W/O CPT-84995 MRI Brain W/O [id number] ProHance Gadolinium- based MR Contrast - 20 ml vial CPT-86423 MRV Head W/WO ORDERS Patient Instructions ORDERS Patient Instructions [facility]-[id number] Documentation of current medicatio ns Vital Signs Date Name Value Unit Description Weight Measured 330 [lb_av] weight E& M Heart Rate 68 /min pulse rate Immunizations No information available. Advance Directives No information available.
--- NOTE | 2024-09-04 22:05 | ED.GENADULT ---
HPI - General Adult General Chief complaint: Chest Pain Stated complaint: Chest pain Time Seen by Provider: 09/04/24 22:05 History of Present Illness HPI narrative: Pt complains of chest pain that started in the beginning of June. States that it was a dull achy pain she rates a 6. Thought it was anxiety due to her dad' s heart surgery . Pt noticed today the pain got worse and rates it a 9/10 sharp pain. Pt complains of some SOB. Pt does not feel the pain radiate. 34-year-old woman presenting to the emergency department within in sharp pain at the left upper chest. Has been present actually for a couple of months and she thought that probably it was related to stress or anxiety about dad's upcoming surgery. She has had stress-induced chest pain before I believe. But surgery has come and gone and it is still present. Escalated today. Maybe a little short of breath. She can not affect the pain in any way with movements/position. Not actually pleuritic. No radiating. No new leg pain or swelling. No unusual rashes. Does not take oral NSAIDs due to history of induced pancreatitis Related Data Home Medications ?Medication ?Instructions ?Recorded ?Confirmed chlorthalidone 25 mg tablet 25 mg PO DAILY 05/27/22 09/04/24 escitalopram oxalate 20 mg tablet 20 mg PO HS 05/27/22 09/04/24 famotidine 40 mg tablet 40 mg PO HS 05/27/22 09/04/24 labetalol 100 mg tablet 100 mg PO BID 05/27/22 09/04/24 montelukast 10 mg tablet 10 mg PO HS 05/27/22 09/04/24 potassium chloride 20 mEq 20 meq PO DAILY 05/27/22 09/04/24 tablet,extended release(part/cryst) sumatriptan succinate 50 mg tablet 50 mg PO Q2H 05/27/22 09/04/24 hydrochlorothiazide PO 03/09/23 omeprazole .Route 03/09/23 Wegovy 03/26/24 albuterol sulfate 2.5 mg/3 mL 2.5 mg Q4-6H PRN wheezing 03/26/24 (0.083 %) solution for nebulization empagliflozin 25 mg tablet 25 mg PO DAILY 03/26/24 09/04/24 (Jardiance) fexofenadine 180 mg tablet 180 mg PO DAILY 03/26/24 09/04/24 fremanezumab-vfrm 225 mg/1.5 mL mg subcut 03/26/24 subcutaneous auto-injector (Ajovy) glipizide 2.5 mg tablet, extended 2.5 mg PO DAILY 03/26/24 09/04/24 release 24 hr topiramate 100 mg tablet 100 mg PO DAILY 03/26/24 09/04/24 albuterol sulfate 90 mcg/actuation 1 - 2 puff inhalation Q4H PRN 07/10/24 09/04/24 aerosol inhaler (Ventolin HFA) wheezing fluoxetine 40 mg capsule 40 mg PO QAM 07/10/24 09/04/24 sumatriptan succinate 100 mg tablet mg PO 07/10/24 Previous Rx's ?Medication ?Instructions ?Recorded potassium chloride 20 mEq 20 meq PO DAILY #10 tabs 07/10/24 tablet,extended release(part/cryst) (Klor-Con M) Allergies Allergy/AdvReac Type Severity Reaction Status Date / Time NSAIDS (Non-Steroidal Allergy Severe Pancreatiti Verified 09/04/24 20:38 Anti-Inflamma s Cephalosporins Allergy Intermediate Diarrhea Verified 09/04/24 20:38 Review of Systems Status of ROS: Reports: 6 or more systems reviewed and unremarkable except as noted in History and below [facility] Medical History Morbid obesity ?E66.01 - Morbid (severe) obesity due to excess calories (ICD-10) Reactive airway disease ?J45.909 - Unspecified asthma, uncomplicated (ICD-10) PCOS (polycystic ovarian syndrome) ?E28.2 - Polycystic ovarian syndrome (ICD-10) MRSA (methicillin resistant Staphylococcus aureus) infection ?A49.02 - Methicillin resistant Staphylococcus aureus infection, unspecified site (ICD-10) 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 - Spasm of sphincter of Oddi (ICD-10) Lumbar radicular pain ?M54.16 - Radiculopathy, lumbar region (ICD-10) Erythema ab igne ?L59.0 - Erythema ab igne [dermatitis ab igne] (ICD-10) Lumbar disc herniation ?M51.26 - Other intervertebral disc displacement, lumbar region (ICD-10) History of pancreatitis ?Z87.19 - Personal history of other diseases of the digestive system (ICD-10) Herniation of intervertebral disc of lumbar region ?M51.26 - Other intervertebral disc displacement, lumbar region (ICD-10) Chronic abdominal pain ?R10.9 - Unspecified abdominal pain (ICD-10) ?G89.29 - Other chronic pain (ICD-10) Oligomenorrhea ?N91.5 - Oligomenorrhea, unspecified (ICD-10) Hypertension ?I10 - Essential (primary) hypertension (ICD-10) Closed fracture of tuft of distal phalanx of finger ?S62.639A - Displaced fracture of distal phalanx of unspecified finger, initial encounter for closed fracture (ICD-10) Type 2 diabetes, diet controlled ?E11.9 - Type 2 diabetes mellitus without complications (ICD-10) Surgical History History of wisdom tooth extraction ?K08.409 - Partial loss of teeth, unspecified cause, unspecified class (ICD-10) History of tonsillectomy ?Z90.89 - Acquired absence of other organs (ICD-10) History of cholecystectomy ?Z90.49 - Acquired absence of other specified parts of digestive tract (ICD-10) Social History Smoking Status: Never smoker Do you use any of these nicotine containing products: None Second hand tobacco smoke exposure: No How often do you have a drink containing alcohol: 2-4 times a month AUDIT-C Alcohol total score: 2 Non-prescribed substance use: denies use service: No Exam Narrative: Exam Narrative: Pleasant. Appears worried. Breathing easily. Demonstrated area of pain is not reproducible to palpation. Some discomfort to palpation of the upper back. Lungs are clear with breath sounds throughout other than there is trace crepitus in the left lower lung field. Heart in regular rate and rhythm. Somewhat distant. Abdomen is obese, soft and nontender. Moving all extremities without difficulty. She is well-perfused. Mild dependent edema in the lower extremities. Negative Homans. No pain to palpation here either. Neck is supple without lymphadenopathy. No supraclavicular crepitus. Skin is warm and dry without rash other than some acneiform lesions/picking over face. Const: Vital Signs, click to edit/add: Vital Signs - 24 hr 09/04/24 20:31 09/04/24 22:05 09/04/24 22:06 Temperature 97.8 F Pulse Rate 83 80 Pulse Rate [Left P ulse Oximeter] 88 Respiratory Rate 18 7 L 7 L Blood Pressure 130/85 Blood Pressure [Ri ght Upper Arm] 121/81 Pulse Oximetry 97 97 97 Oxygen Delivery Me thod Room Air Room Air 09/04/24 22:15 09/04/24 22:24 09/04/24 22:30 Temperature Pulse Rate 83 83 Pulse Rate [Left P ulse Oximeter] Respiratory Rate 18 21 Blood Pressure Blood Pressure [Ri ght Upper Arm] Pulse Oximetry 96 97 96 Oxygen Delivery Me thod 09/04/24 22:45 09/04/24 23:00 09/04/24 23:15 Temperature Pulse Rate 84 85 68 Pulse Rate [Left P ulse Oximeter] Respiratory Rate 8 L 21 12 Blood Pressure Blood Pressure [Ri ght Upper Arm] Pulse Oximetry 95 97 97 Oxygen Delivery Me thod 09/04/24 23:30 09/04/24 23:45 09/05/24 00:00 Temperature Pulse Rate 80 82 79 Pulse Rate [Left P ulse Oximeter] Respiratory Rate 19 19 10 L Blood Pressure Blood Pressure [Ri ght Upper Arm] Pulse Oximetry 97 96 98 Oxygen Delivery Me thod Room Air 09/05/24 00:21 09/05/24 00:54 Temperature Pulse Rate 82 Pulse Rate [Left P ulse Oximeter] 76 Respiratory Rate 26 H 18 Blood Pressure Blood Pressure [Ri ght Upper Arm] 131/87 Pulse Oximetry 98 Oxygen Delivery Me thod Documenting provider has reviewed patient's vital signs: yes Course Vital Signs Vital signs: Initial Vital Signs Temperature 97.8 F 09/04/24 20:31 Temperature Source Temporal Artery Scan 09/04/24 20:31 Pulse Rate 88 09/04/24 20:31 Respiratory Rate 18 09/04/24 20:31 Blood Pressure 121/81 09/04/24 20:31 Blood Pressure Mean 94 09/04/24 20:31 Blood Pressure Position Sitting 09/04/24 20:31 Pulse Oximetry 97 09/04/24 20:31 Oxygen Delivery Method Room Air 09/04/24 20:31 Vital Signs Temperature 97.8 F 09/04/24 20:31 Pulse Rate 88 09/04/24 20:31 Respiratory Rate 18 09/04/24 20:31 Blood Pressure 121/81 09/04/24 20:31 Pulse Oximetry 97 09/04/24 20:31 Oxygen Delivery Method Room Air 09/04/24 20:31 Temperature 97.8 F 09/04/24 20:31 Pulse Rate 76 09/05/24 00:54 Respiratory Rate 18 09/05/24 00:54 Blood Pressure 131/87 09/05/24 00:54 Pulse Oximetry 98 09/05/24 00:21 Oxygen Delivery Method Room Air 09/05/24 00:00 Medications Administered Medications: Discontinued Medications Generic Name Dose Route Start Last Admin Trade Name Howieq PRN Reason Stop Dose Admin Ketorolac Tromethamine 30 mg 09/04/24 23:00 09/04/24 23:10 Ketorolac 30 Mg/Ml Inj IVP 09/04/24 23:01 30 mg ONCE ONE Administration Medical Decision Making MDM Narrative Medical decision making narrative: Rather unusual chest pain. Differential includes pneumothorax, pneumonia, pulmonary embolus, vascular disruption, doubtful cardiovascular origin, anxiety, costochondritis though not reproducible, PVCs? Will watch on teletypesetter monitor here. Check labs. She would appreciate some pain management. Settled on ketorolac IV which apparently has worked well before. Labs are generally reassuring. White count is mildly elevated though this is chronically elevated for her on review of records. D-dimer is mildly elevated. Unlikely dissection and pain is not pleuritic suggestive of pulmonary embolus. Evidence as above on skin might be contributing to his elevated D-dimer? Maybe some costochondritis? No events on monitor. Noted asymptomatic PVC during conversation on monitor. Two-view chest x-ray independently reviewed by me looks to be WNL. On reassessment is essentially without pain. Appears relieved. Improved. Did discuss potentially imaging chest for possible pulmonary embolus. In process of shared decision making decided to defer this at this time. See patient discharge plan for further discussion I am happy you are feeling better. Ibuprofen-like medications really help don't they. Hopefully this is the end of it but if this pain returns and escalates and is accompanied with increasing shortness of breath or lightheadedness, nausea, I would be seen. Medical Records Medical records reviewed: Yes I reviewed the patient's medical records Lab Data Lab results reviewed: Yes I reviewed the patient's lab results Labs: Lab Results 09/04/24 09/04/24 Range/Units 22:20 22:24 WBC 13.41 H (4.50-11.00) K/uL RBC 5.90 H (4.00-5.20) m/uL Hgb 15.1 (12.0-16.0) gm/dL Hct 47.4 (33.0-51.0) % MCV 80 (80-100) fL MCH 26 (26-34) pg MCHC 32 (32-36) gm/dL RDW Coeff of Roger 14.5 (11.5-15.5) % Plt Count 307 (140-440) K/uL Neut % (Auto) 59.3 (42.0-72.0) % Lymph % (Auto) 30.1 (20-44) % [place] % (Auto) 6.0 (0.0-11.0) % Eos % (Auto) 2.9 (0.0-7.0) % Baso % (Auto) 0.6 (0.0-3.0) % Neut # (Auto) 8.00 H (1.7-7.0) K/uL Lymph # (Auto) 4.00 H (0.90-2.90) K/uL [place] # (Auto) 0.80 (0.00-0.90) K/UL Eos # (Auto) 0.40 (0.00-0.50) K/uL Baso # (Auto) 0.10 (0.00-0.30) K/uL Abs Immat Gran (auto) 0.10 (0.00-0.30) K/uL Imm/Tot Granulo (auto) 1.1 % D-Dimer Quant (PE/DVT) 0.81 H (0.00-0.50) ug/ml Troponin I < 0.01 L (0.01-0.04) ng/mL NT-Pro-B Natriuret Pep 71 pg/mL POC Troponin I 0.00 L (0.01-0.04) ng/ml ECG Data Attestation: I personally reviewed and interpreted this ECG as follows: (Normal sinus rhythm without give ischemic changes. Rate of 83) Discharge Plan Discharge Clinical Impression: Atypical chest pain Patient Disposition: Home w/ Parent or Adult Condition: Improved Additional Instructions: I am happy you are feeling better. Ibuprofen-like medications really help don't they. Hopefully this is the end of it but if this pain returns and escalates and is accompanied with increasing shortness of breath or lightheadedness, nausea, I would be seen. Prescriptions: No Action chlorthalidone 25 mg tablet 25 mg PO DAILY Patient Comments: TAKE ONE TABLET BY MOUTH EVERY DAY escitalopram oxalate 20 mg tablet 20 mg PO HS Patient Comments: TAKE ONE TABLET BY MOUTH AT BEDTIME famotidine 40 mg tablet 40 mg PO HS Patient Comments: TAKE ONE TABLET BY MOUTH AT BEDTIME labetalol 100 mg tablet 100 mg PO BID Patient Comments: TAKE ONE TABLET BY MOUTH TWICE A DAY (MORNING AND EVENING) montelukast 10 mg tablet 10 mg PO HS Patient Comments: TAKE ONE TABLET BY MOUTH AT BEDTIME potassium chloride 20 mEq tablet,ER particles/crystals 20 meq PO DAILY Patient Comments: TAKE ONE TABLET BY MOUTH EVERY DAY WITH A MEAL - TAKE INSTEAD OF POWDER POTASSIUM sumatriptan succinate 50 mg tablet 50 mg PO Q2H Patient Comments: TAKE ONE HALF TO ONE TABLET BY MOUTH AT ONSET OF MIGRAINE. MAY REPEAT IN 2 HOURS IF NEEDED. GIVE AT MINIMUM 2 HOURS APART. MAX DOSE 100MG / hydrochlorothiazide PO omeprazole .Route Wegovy albuterol sulfate 2.5 mg /3 mL (0.083 %) solution for nebulization 2.5 mg Q4-6H PRN (Reason: wheezing) fexofenadine 180 mg tablet 180 mg PO DAILY glipizide 2.5 mg tablet extended release 24hr 2.5 mg PO DAILY topiramate 100 mg tablet 100 mg PO DAILY Jardiance 25 mg tablet 25 mg PO DAILY Ajovy Autoinjector 225 mg/1.5 mL auto-injector subcut fluoxetine 40 mg capsule 40 mg PO QAM sumatriptan succinate 100 mg tablet PO albuterol sulfate [Ventolin HFA] 90 mcg/actuation HFA aerosol inhaler 1 - 2 puff INHALATION Q4H PRN (Reason: wheezing) potassium chloride [Klor-Con M20] 20 mEq tablet,ER particles/crystals 20 meq PO DAILY Qty: 10 2RF Follow Up/Referrals: Arlet Pratt DO [Primary Care Provider] - Stand Alone Forms: MyHealth Info Instructions
--- OUTSIDE RECORDS SUMMARY | 2024-09-04 22:31 | XMS_ITS | Clinical Summary ---
Author Organization [facility] Address [address] , [address] [place] [address] Phone Care Team Providers Care Communications Administrator Name Role Phone System Maintenance Unavailable [phone] Conditions or Problems Problem Name Problem Code Onset Date Status Entry Date Provider Comment Standard Description Annotate Risk of sleep apnea 329452974 (SNOMED CT) 07/05 Active 07/05 Sara MULLINS-Jeannine At increased risk of disease Snoring 30707036 (SNOMED CT) 07/05 Active 07/05 Sara MULLINS-C Snoring Obesity 976852230 (SNOMED CT) 08/17 Active 08/17 Arik Alexander MD Obesity Papilledema 574054234 (SNOMED CT) 08/17 Active 08/17 rAik Alexander MD Optic disc edema New daily persistent headache [id number] 05 (SNOMED CT) 08/17 Active 08/17 Arik Alexander MD New daily persistent headache Migraine, common 16400673 (SNOMED CT) 08/17 Active 08/17 Arik Alexander MD Migraine without aura Medications Medication Instructions Start Date Stop Date Generic Name ND Provider SUMATRIPTAN SUCCINATE 100 MG TABS TAKE ONE-HALF TO ONE TABLET BY MOUTH AT ONSET OF MIGRAINE. MAY REPEAT IN 2 HOURS IF NEEDED. MAX DOSE 100MG/24 HOURS. No to take more than 9 to 10 days per month 03/02 sumatriptan succinate 82891024543 Sara Huizar PA-C SUMATRIPTAN SUCCINATE 100 MG TABS TAKE ONE-HALF TO ONE TABLET BY MOUTH AT ONSET OF MIGRAINE, MAY REPEAT IN 2 HOURS NEEDED MAX DOSE ONE TABLET IN 24HRS DO NOT TAKE MORE THAN 9 TO 10 DAYS PER MONTH sumatriptan succinate 82004008712 Sara MULLINS-C TOPAMAX 25 MG TABS week 1: take 1 tab q am and 4 tab q pm. week 2: take 2 tab q am and 4 tab q pm. week 3: take 3 tab q am and 4 tab q pm. week 4 onward: take 4 tab twice a day. 12/26 topiramate 47958578292 Sara MULLINS-C TOPAMAX 100 MG TABS Take 1 tablet by mouth every night at bedtime topiramate 87787115263 Sara MULLINS-C CETIRIZINE HCL 10 MG TABS Take 1 tablet by mouth once a day 09/04 cetirizine 17679473374 Sara Huizar PA-C FEXOFENADINE HCL 180 MG TABS fexofenadine 28618457140 Sara VAZQUEZC GLIPIZIDE ER 2.5 MG [id number] TAKE ONE TABLET BY MOUTH EVERY DAY BEFORE A MEAL glipizide 10871546722 Sara VAZQUEZC AJOVY 225 MG/1.5ML SOAJ Inject 1 pen injector subcutaneously once a month fremanunique-r 21351793615 Sara VAZQUEZC JARDIANCE 10 MG TABS empagliflozin 05640235533 Sara MULLINS-C TOPAMAX 25 MG TABS 1 tablet by mouth as directed : 25 mg per night for 1 weeks; then increase by 25 mg per night every 1 weeks until maximum 100 mg per night or until pain controlled 03/14 topiramate 39445522080 Sara MULLINS-C TOPAMAX 25 MG TABS week 1: take 1 tab q am and 4 tab q pm. week 2: take 2 tab q am and 4 tab q pm. week 3: take 3 tab q am and 4 tab q pm. week 4 onward: take 4 tab twice a day. 12/26 topiramate 42794432184 Sara Huizar PA-C ATIVAN 1 MG TABS 1 tablet by mouth as directed : 1 mg 2 hour before MRI. May repeat as needed with 1 mg up to maximum of 3 mg before MRI. No driving or operate heavy machinery for 24 hour after taking this med lorazepam 98530323932 Arik Alexander MD SUMATRIPTAN SUCCINATE 50 MG TABS TAKE ONE-HALF TO ONE TABLET BY MOUTH AT ONSET OF MIGRAINE. MAY REPEAT IN 2 HOURS IF NEEDED. MAX DOSE 100MG/24 HOURS. 9 to 10 days use per month 08/17 sumatriptan succinate 01913536906 Arik Alexander MD SUMATRIPTAN SUCCINATE 100 MG TABS TAKE ONE-HALF TO ONE TABLET BY MOUTH AT ONSET OF MIGRAINE. MAY REPEAT IN 2 HOURS IF NEEDED. MAX DOSE 100MG/24 HOURS. No to take more than 9 to 10 days per month 03/02 sumatriptan succinate 32960174649 Arik Alexander MD SUMATRIPTAN SUCCINATE 50 MG TABS TAKE ONE-HALF TO ONE TABLET BY MOUTH AT ONSET OF MIGRAINE. MAY REPEAT IN 2 HOURS IF NEEDED. MAX DOSE 100MG/24 HOURS. 08/17 sumatriptan succinate 74053600052 Arik Alexander MD TOPAMAX 25 MG TABS 1 tablet by mouth as directed : 25 mg per night for 1 weeks; then increase by 25 mg per night every 1 weeks until maximum 100 mg per night or until pain controlled 03/14 topiramate 52196272136 Arik Alexander MD SUMATRIPTAN SUCCINATE 50 MG TABS TAKE ONE-HALF TO ONE TABLET BY MOUTH AT ONSET OF MIGRAINE. MAY REPEAT IN 2 HOURS IF NEEDED. MAX DOSE 100MG/24 HOURS. 9 to 10 days use per month 08/17 sumatriptan succinate 84603374048 Arik Alexander MD multivitamin Take 1 tablet by mouth once a day MVI Arik Alexander MD TRIAMCINOLONE ACETONIDE 0.5 % OINT Apply to skin twice a day triamcinolone acetonide 95411480871 Arik Alexander MD NORGESTIMATE-ETH ESTRADIOL 0.25-35 MG-MCG TABS Take 1 tablet by mouth once a day 08/17 norgestimate-eth inyl estradiol 77975055212 Arik Alexander MD POTASSIUM CHLORIDE SUKHDEV ER 20 MEQ CR-TABS Take 1 tablet by mouth once a day potassium chloride 94979696494 Arik Alexander MD OMEPRAZOLE 20 MG CPDR Take 1 capsule by mouth once a day omeprazole 94910761942 Arik Alexander MD ALBUTEROL SULFATE HFA 108 (90 Base) MCG/ACT AERS Inhale 1-2 puff by mouth every four hours as needed 08/17 albuterol sulfate 09592897279 Arik Alexander MD ALBUTEROL SULFATE HFA 108 (90 Base) MCG/ACT AERS Inhale 2 puff by mouth four times a day as needed albuterol sulfate 67137283155 Arik Alexander MD FAMOTIDINE 40 MG TABS Take 1 tablet by mouth every night famotidine 82864218747 Arik Alexander MD CYCLOBENZAPRINE HCL 10 MG TABS Take 1 tablet by mouth every night as needed cyclobenzaprine 03863095511 Arik Alexander MD diphenhydrAMINE-a cetaminophen 25-500 mg once a day TYLENOL PM Arik Alexander MD Contour Next Test Strips strip Use once a day Contour Next Test Strips strip Arik Alexander MD ACETAMINOPHEN 325 MG TABS Take 2 tablet by mouth every four hours as needed acetaminophen 77932991550 Arik Alexander MD CETIRIZINE HCL 10 MG TABS Take 1 tablet by mouth once a day 09/04 cetirizine 63232243700 Arik Alexander MD blood-glucose meter by Not Applicable route. Dispense meter, test strips, lancets covered by pt ins. NIDDM type II, controlled - Test 1 time/day blood-glucose meter Arik Alexander MD LABETALOL HCL 100 MG TABS Take 1 tablet by mouth twice a day labetalol 95115670885 Arik Alexander MD Microlet Lancet Use once [...] MAX DOSE 100MG/24 HOURS. 08/17 sumatriptan succinate 94771504847 Arik Alexander MD MONTELUKAST SODIUM 10 MG TABS Take 1 tablet by mouth every night montelukast 91993589648 Arik Alexander MD CHLORTHALIDONE 25 MG TABS Take 1 tablet by mouth once a day chlorthalidone 52165093258 Arik Alexander MD TOLNAFTATE 1 % POWD Apply to skin twice a day tolnaftate 05398991276 Arik Alexander MD ESCITALOPRAM OXALATE 20 MG TABS Take 1 tablet by mouth every night escitalopram oxalate 80463691677 Arik Alexander MD TRIAMCINOLONE ACETONIDE 0.5 % OINT Apply topically to affected area(s) 2 times daily. Not use >14 days in a row 08/17 triamcinolone acetonide 92026612149 QIEUSER QIEUSER TOLNAFTATE 1 % POWD Apply topically to affected area(s) 2 times daily. Shake into sock 08/17 tolnaftate 60256544711 QIEUSER QIEUSER SUMATRIPTAN SUCCINATE 50 MG TABS TAKE ONE-HALF TO ONE TABLET BY MOUTH AT ONSET OF MIGRAINE. MAY REPEAT IN 2 HOURS IF NEEDED. MAX DOSE 100MG/24 HOURS. 08/17 sumatriptan succinate 93893321598 QIEUSER QIEUSER POTASSIUM CHLORIDE SUKHDEV ER 20 MEQ CR-TABS TAKE ONE TABLET BY MOUTH EVERY DAY WITH A MEAL. TAKE INSTEAD OF POWDER POTASSIUM 08/17 potassium chloride 89927040665 QIEUSER QIEUSER OMEPRAZOLE 20 MG CPDR Take 1 capsule by mouth once daily. 08/17 omeprazole 81487360586 QIEUSER QIEUSER NORGESTIMATE-ETH ESTRADIOL 0.25-35 MG-MCG TABS Take 1 Tablet by mouth once daily. 08/17 norgestimate-eth inyl estradiol 60507557698 QIEUSER QIEUSER multivitamin Take 1 tablet by mouth once daily. 08/17 MVI QIEUSER QIEUSER MONTELUKAST SODIUM 10 MG TABS Take 1 Tablet (10 mg) by mouth at bedtime. 08/17 montelukast 57276932912 QIEUSER QIEUSER Microlet Lancet TEST ONCE A DAY 08/17 Microlet Lancet QIEUSER QIEUSER miconazole nitrate powder 2 % powder Apply topically to affected area(s) 2 times daily. 08/17 miconazole nitrate powder 2 % powder QIEUSER QIEUSER LABETALOL HCL 100 MG TABS Take 1 Tablet (100 mg) by mouth in the morning and 1 Tablet (100 mg) in the evening. 08/17 labetalol 58918015511 QIEUSER QIEUSER FAMOTIDINE 40 MG TABS Take 1 Tablet (40 mg) by mouth at bedtime. 08/17 famotidine 85987021944 QIEUSER QIEUSER ESCITALOPRAM OXALATE 20 MG TABS Take 1 Tablet (20 mg) by mouth at bedtime. 08/17 escitalopram oxalate 34581111950 QIEUSER QIEUSER diphenhydrAMINE-a cetaminophen 25-500 mg Daily 08/17 TYLENOL PM QIEUSER QIEUSER CYCLOBENZAPRINE HCL 10 MG TABS Take 1 Tablet (10 mg) by mouth at bedtime if needed for Muscle Spasm. MAX 10mg dose 08/17 cyclobenzaprine 43450282208 QIEUSER QIEUSER Contour Next Test Strips strip TEST 1 TIME A DAY 08/17 Contour Next Test Strips strip QIEUSER QIEUSER CHLORTHALIDONE 25 MG TABS Take 1 Tablet (25 mg) by mouth once daily. 08/17 chlorthalidone 47196590136 QIEUSER QIEUSER CETIRIZINE HCL 10 MG TABS Take 1 Tablet (10 mg) by mouth once daily. 08/17 cetirizine 95259219602 QIEUSER QIEUSER blood-glucose meter by Not Applicable route. Dispense meter, test strips, lancets covered by pt ins. NIDDM type II, controlled - Test 1 time/day 08/17 blood-glucose meter QIEUSER QIEUSER ALBUTEROL SULFATE HFA 108 (90 Base) MCG/ACT AERS Inhale 1-2 Puffs by mouth every 4 hours if needed for Shortness of Breath 1st choice or Wheezing 1st choice. 08/17 albuterol sulfate 17293535508 QIEUSER QIEUSER ALBUTEROL SULFATE HFA 108 (90 Base) MCG/ACT AERS Inhale 2 Puffs by mouth 4 times daily if needed for Shortness Of Breath. 08/17 albuterol sulfate 61167039576 QIEUSER QIEUSER ACETAMINOPHEN 325 MG TABS Take 2 tablets by mouth every 4 hours if needed. Max acetaminophen dose: 4000mg in 24 hrs. 08/17 acetaminophen 22427752229 QIEUSER QIEUSER Medications Administered No information available. [...] in clinic or telemedicine 09/28 ORDERS MRV [id number] MRI-Brain W/O CPT-89366 MRI Brain W/O CPT-Q3394C ProHance Gadolinium- based MR Contrast - 20 ml vial CPT-27739 MRV Head W/WO ORDERS Patient Instructions ORDERS Patient Instructions [facility]-[id number] Documentation of current medicatio ns Vital Signs Date Name Value Unit Description Weight Measured 330 [lb_av] weight E& M Heart Rate 68 /min pulse rate Immunizations No information available. Advance Directives No information available.
--- OUTSIDE RECORDS SUMMARY | 2024-09-04 22:31 | XMS_ITS | Clinical Summary ---
Author Organization [facility] Address [address] [place] [id number] Care Team Providers Care Piano Mover Name Role Phone Darwin Leung DPM Unavailable [phone] Arlet Pratt DO Primary Care Provider [phone] Allergies Active Allergy Reactions Criticality Noted Date [...] 11/07/19 18 Active Needle, Disp, 30 G (DIXON DISP NEEDLES 30GX1/2) 30 gauge x 1/2 [...] Overview (12/05/2013): Per MAKEDA Thomas at the [facility] visit from April 2012. Consult for recurrent [...] pills were not actually contributing. Records from [facility] [place] in chart, only 1 visit 05/08/14. Asked for further records but none available. 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 Lyon. 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 See consult from GI Dr. Martinez at the [facility] from May 08, 2012 See details under pancreatitis in problem list. MRSA (methicillin resistant Staphylococcus aureus) infection 07/03/2010 PCOS (polycystic ovarian syndrome) 05/13/2010 Overview (11/28/2013): As of 07/2013: Previously on OCPs but these had to be discontinued because patient was having recurrent pancreatitis after her gallbladder was removed. She saw a preparation operator who told her the control was interfering [...] pain 12/25/201110/30 Overview (12/25/2011): Unclear etiology. Per foundry worker, at times seems correlated with menstrual [...] Department Care Team Description 08/02/2024 1:05 PM LIQUOR ESTABLISHMENT MANAGER Office Visit [facility] [address] [place] [address] Arlet Pratt DO Diabetes (3 month visit) 08/02/2024 Travel 07/10/2024 Orders Only [facility] Scanner 1 scan: (1-Ord) [facility], PELVIC TRANSVAGINAL, 07/10/2024 07/04/2024 Refill [facility] [address] [place] [address] [address] Arlet Pratt DO Refill Request (Potassium Chloride) [...] on file Legal Sex Female 5:23 AM LIQUOR ESTABLISHMENT MANAGER Gender Identity Not on file Sexual Orientation Not on file Obstetrics History Para Term AB IAB SAB Ectopic Multiple Livin g Live Births 0 0 0 0 0 0 0 0 0 0 Last Filed Vital Signs Vital Sign Reading Time Taken Comments Blood Pressure 121/80 08/02/2024 1:23 PM LIQUOR ESTABLISHMENT MANAGER Pulse 82 08/02/2024 1:23 PM LIQUOR ESTABLISHMENT MANAGER Temperature 36.2 C (97.2 F) 04/03/2023 1:40 PM CDT Respiratory Rate 18 04/03/2023 1:40 PM CDT Oxygen Saturation 99% 08/02/2024 1:23 PM LIQUOR ESTABLISHMENT MANAGER Inhaled Oxygen Concentration - - Weight 136.4 kg (300 lb 9.6 oz) 08/02/2024 1:23 PM LIQUOR ESTABLISHMENT MANAGER Height 170.2 cm (5' 7.01) 03/15/2023 2:40 PM CD T Body Mass Index 47.07 03/15/2023 2:40 PM CDT Plan of Treatment Upcoming Encounters Date Type Department Care Team (Late st Contact Info) Description 10/17/2024 3:10 PM CDT Office Visit [facility] [address] [place] [address] Arlet Pratt DO [address] [place] [address] Health Maintenance Due Date Last Done Comments [...] A1C MONITORING (POCT) Routine 08/02/2024 1:12 PM LIQUOR ESTABLISHMENT MANAGER Uncontrolled type 2 diabetes mellitus with hyperglycemia (HC) SCAN-ULTRASOUND REPORT 07/10/2024 12:00 AM LIQUOR ESTABLISHMENT MANAGER HPV HIGH RISK Routine 03/15/2023 3:37 PM CDT Cervical cancer screening ANTI HIV 1/2 Routine 01/02/2020 9:06 AM CDT Unprotected sexual intercourse ACUTE HEPATITIS PANEL Routine 01/02/2020 9:06 AM CDT Unprotected sexual intercourse from Last 3 Months or Most Recently Relevant to Health Maintenance Results * (ABNORMAL) POCT Hemoglobin A1C Monitoring (08/02/2024 1:12 PM LIQUOR ESTABLISHMENT MANAGER) POC HEMOGLOBIN A1C 6.8(H) <6.0 % OF TOTAL HGB [facility] Comment: Any point of care results exhibiting inconsistency with the patient's clinical status should be repeated using a different testing method. Blood BLOOD SPECIMEN / Unknown 08/02/2024 1:12 PM LIQUOR ESTABLISHMENT MANAGER 08/02/2024 1:12 PM LIQUOR ESTABLISHMENT MANAGER us Arlet Pratt DO CHEMISTRY Final Resu lt [facility] [address] [place] [address], [facility] [address] [place] [address] * SCAN-ULTRASOUND REPORT (07/10/2024 12:00 AM LIQUOR ESTABLISHMENT MANAGER) Anatomical Region Laterality Modality Other us Scanner OTHER Final Result * HPV HIGH RISK (03/15/2023 3:37 PM CDT) TYPE 16 Negative Negative 03/18/2023 6:29 PM CDT [facility] TYPE 18 Negative Negative 03/18/2023 6:29 PM CDT [facility] OTHER HIGH RISK TYPES Negative Negative 03/18/2023 6:29 PM CDT [facility] Other (Cervical) Non-Blood / Unknown 03/15/2023 3:37 PM CDT 03/16/2023 12:00 PM CDT Narrative [facility] - 03/18/2023 6:29 PM CDT HPV types 16, 18, 31, 33, 35, 39, 45, 51, 52, 56, 58, 59, 66 and 68 DNA were undetectable or below the pre-set threshold. Methodology: Cecily Avtar 4800 HPV Test Arlet Pratt DO MICROBIOLOGY Final Resu lt [facility] [address] [place] [address], [place] * ANTI HIV 1/2 (01/02/2020 9:06 AM CDT) HIV-1/HIV-2 ANTIBODY Non-Reacti ve Non-Reacti ve 01/02/2020 6:16 PM CDT [facility] Comment:HIV-1 p24 and HIV-1/ HIV-2 Ab not detected. Blood BLOOD SPECIMEN / Unknown Venipuncture / Unknown 01/02/2020 9:06 AM CDT 01/02/2020 9:08 AM CDT Arlet Pratt DO SEND OUTS Final Resu lt [facility] [address] [place] [address], [place] * ACUTE HEPATITIS PANEL (01/02/2020 9:06 AM CDT) HEPATITIS C ANTIBODY Non-Reactive Non-Reactive 01/02/2020 6:16 PM CDT [facility] Comment:Antibodies to HCV no t detected; does not exclude the possibility of exposure to HCV. IGM ANTI HAV Non-Reactive Non-Reactive 01/02/20 6:16 PM CDT [facility] HBSAG Nonreactive Nonreactive 01/02/2020 6:16 PM CDT [facility] IGM ANTI HBC Non-Reactive Non-Reactive 01/02/20 6:16 PM CDT [facility] Blood BLOOD SPECIMEN / Unknown Venipuncture / Unknown 01/02/2020 9:06 AM CDT 01/02/2020 9:08 AM CDT Narrative [facility] - 01/02/2020 6:16 PM CDT Anti-HBc IgM not detected. Does not exclude the possibility of exposure to or infection with HBV. us Arlet Pratt DO SEND OUTS Final Resu lt [facility] [address] [place] [address], [place] from Last 3 Months or Most Recently Relevant to Health Maintenance Additional Health Concerns Infection Onset Date Last Indicated MRSA Clearance Comment:Infection Control Note: Hx of MRSA 12/27/2011, surveillance criteria met, no need for further testing or isolation precautions. Do not delete or resolve the Infection Flag. 03/07/2023 03/07/[address] [facility] BLUE [facility] Advance Directives * Full Code (Latest Code Status on File) Date Activated Date Inactivated Comments 12/25/2011 9:05 PM 12/28/2011 8:14 PM * Full Code Date Activated Date Inactivated Comments 06/14/2009 2:40 PM 06/17/2009 2:07 PM Care Teams Piano Mover Relationship Specialty Start Date End Date Arlet Pratt DO [address] [place] [address] [address] PCP - General Family Practice 05/06/15 Darwin Leung DPM PODIATRY Podiatry 08/02/11
[2024-09-04] MEDS: KETOROLAC 30 MG/ML inj IVP (23:10)
[2024-09-04 23:36] LABS: NT Pro B Type NatriureticPept* 71 pg/mL; Troponin I* < 0.01 ng/mL (0.01-0.04)
[2024-09-04 23:40] LABS: Basophils Percent Auto 0.6 % (0.0-3.0); Eosinophils Percent Auto 2.9 % (0.0-7.0); Hematocrit* 47.4 % (33.0-51.0); Hemoglobin* 15.1 gm/dL (12.0-16.0); Immature Granulocytes Pct Auto 1.1 %; Lymphocytes Percent Auto 30.1 % (20-44); Mean Corpuscular HGB Conc 32 gm/dL (32-36); Mean Corpuscular Hemoglobin 26 pg (26-34); Mean Corpuscular Volume 80 fL (80-100); Neutrophils Percent Auto 59.3 % (42.0-72.0); Platelet Count* 307 K/uL (140-440); RDW Coefficient of Variation % 14.5 % (11.5-15.5); White Blood Count* 13.41 K/uL (4.50-11.00)
[2024-09-04 23:44] LABS: Slide Review Reflex No
[2024-09-04 23:59] LABS: D Dimer Quantitative* 0.81 ug/ml (0.00-0.50)
[2024-09-05] VITALS: PULSE 79; RESP 10; O2SAT 98
[2024-09-05 00:21] VITALS: PULSE 82; RESP 26; O2SAT 98
[2024-09-05 00:54] VITALS: BP 131/87; PULSE 76; RESP 18
== END 2024-09-05 00:55 | disposition home or self-care (01) ==
PROVIDERS: Emergency Provider Family Medicine; PCP Family Medicine
DX: R07.89 Other chest pain (principal)
CPT/HCPCS: 36415; 71046; 83880; 84484; 85025; 85379; 94761; 96374; 99284; J1885

== ENCOUNTER 2024-10-05 20:04 | Emergency (ER) | payer OTHER, SELFPAY ==
--- OUTSIDE RECORDS SUMMARY | 2024-10-05 20:06 | XMS_ITS | Clinical Summary ---
Author Organization [facility] Address [address] [place] [address] Care Team Providers Care Mathematics Faculty Member Name Role Phone Darwin Leung DPM Unavailable [phone] Arlet Pratt DO Primary Care Provider [phone] Allergies Active Allergy Reactions Criticality Noted Date [...] 11/07/19 18 Active Needle, Disp, 30 G ([place] DISP NEEDLES 30GX1/2) 30 gauge x 1/2 [...] mg tabletIndications :Moderate persistent asthma without complication (HC) Take 1 Tablet (10 mg) by mouth [...] of pancreatitis 11/28/2013 Overview (12/05/2013): Per Dr. Martinez, GI at the [facility] visit from April 2012. Consult for recurrent [...] pills were not actually contributing. Records from [facility] [place] in chart, only 1 visit 05/08/14. Asked for further records but none available. 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 Lyon. 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 See consult from GI Dr. Martinez at the [facility] from May 08, 2012 See details under pancreatitis in problem list. MRSA (methicillin resistant Staphylococcus aureus) infection 07/03/2010 PCOS (polycystic ovarian syndrome) 05/13/2010 Overview (11/28/2013): As of 07/2013: Previously on OCPs but these had to be discontinued because patient was having recurrent pancreatitis after her gallbladder was removed. She saw a office support clerk who told her the control was interfering [...] pain 12/25/201110/30 Overview (12/25/2011): Unclear etiology. Per chief nurse, at times seems correlated with menstrual cycle, [...] Encounters Date Type Department Care Team Description 09/04/2024 Orders Only [facility] Scanner 1 scan: (1-Ord) [facility], XR CHEST 2V, 09/04/2024 08/02/2024 1:05 PM ASSISTANT MANAGER TRAINEE Office Visit [facility] [address] [place] [address] Arlet Pratt DO Diabetes (3 month visit) 08/02/2024 Travel 07/10/2024 Orders Only [facility] Scanner 1 scan: (1-Ord) [facility], PELVIC TRANSVAGINAL, 07/10/2024 from Last 3 Months Immunizations Immunization Administration [...] on file Legal Sex Female 5:23 AM ASSISTANT MANAGER TRAINEE Gender Identity Not on file Sexual Orientation Not on file Obstetrics History Para Term AB IAB SAB Ectopic Multiple Livin g Live Births 0 0 0 0 0 0 0 0 0 0 Last Filed Vital Signs Vital Sign Reading Time Taken Comments Blood Pressure 121/80 08/02/2024 1:23 PM ASSISTANT MANAGER TRAINEE Pulse 82 08/02/2024 1:23 PM ASSISTANT MANAGER TRAINEE Temperature 36.2 C (97.2 F) 04/03/2023 1:40 PM CDT Respiratory Rate 18 04/03/2023 1:40 PM CDT Oxygen Saturation 99% 08/02/2024 1:23 PM ASSISTANT MANAGER TRAINEE Inhaled Oxygen Concentration - - Weight 136.4 kg (300 lb 9.6 oz) 08/02/2024 1:23 PM ASSISTANT MANAGER TRAINEE Height 170.2 cm (5' 7.01) 03/15/2023 2:40 PM CD T Body Mass Index 47.07 03/15/2023 2:40 PM CDT Plan of Treatment Upcoming Encounters Date Type Department Care Team (Late st Contact Info) Description 10/17/2024 3:10 PM CDT Office Visit [facility] [address] [place] [address] Arlet Pratt DO [address] [place] [address] Health Maintenance Due Date Last Done Comments [...] Procedure Name Priority Date/Time Associated Diagnosis Comments SCAN-RADIOLOGY REPORT 09/04/2024 12:00 AM CDT HEMOGLOBIN A1C MONITORING (POCT) Routine 08/02/2024 1:12 PM ASSISTANT MANAGER TRAINEE Uncontrolled type 2 diabetes mellitus with hyperglycemia (HC) SCAN-ULTRASOUND REPORT 07/10/2024 12:00 AM ASSISTANT MANAGER TRAINEE HPV HIGH RISK Routine 03/15/2023 3:37 PM CDT Cervical cancer screening ANTI HIV 1/2 Routine 01/02/2020 9:06 AM CDT Unprotected sexual intercourse ACUTE HEPATITIS PANEL Routine 01/02/2020 9:06 AM CDT Unprotected sexual intercourse from Last 3 Months or Most Recently Relevant to Health Maintenance Results * SCAN-RADIOLOGY REPORT (09/04/2024 12:00 AM CDT) Anatomical Region Laterality Modality Other us Scanner OTHER Final Result * (ABNORMAL) POCT Hemoglobin A1C Monitoring (08/02/2024 1:12 PM ASSISTANT MANAGER TRAINEE) POC HEMOGLOBIN A1C 6.8(H) <6.0 % OF TOTAL HGB [facility] Comment: Any point of care results exhibiting inconsistency with the patient's clinical status should be repeated using a different testing method. Blood BLOOD SPECIMEN / Unknown 08/02/2024 1:12 PM ASSISTANT MANAGER TRAINEE 08/02/2024 1:12 PM ASSISTANT MANAGER TRAINEE us Arlet Pratt DO CHEMISTRY Final Resu lt [facility] [address] [place] [address], [facility] [address] [place] [address] * SCAN-ULTRASOUND REPORT (07/10/2024 12:00 AM ASSISTANT MANAGER TRAINEE) Anatomical Region Laterality Modality Other us Scanner OTHER Final Result * HPV HIGH RISK (03/15/2023 3:37 PM CDT) TYPE 16 Negative Negative 03/18/2023 6:29 PM CDT [facility] TYPE 18 Negative Negative 03/18/2023 6:29 PM CDT [facility] OTHER HIGH RISK TYPES Negative Negative 03/18/2023 6:29 PM CDT [facility] Other (Cervical) Non-Blood / Unknown 03/15/2023 3:37 PM CDT 03/16/2023 12:00 PM CDT Narrative [facility] - 03/18/2023 6:29 PM CDT HPV types 16, 18, 31, 33, 35, 39, 45, 51, 52, 56, 58, 59, 66 and 68 DNA were undetectable or below the pre-set threshold. Methodology: Cecily Avtar 4800 HPV Test Arlet Pratt DO MICROBIOLOGY Final Resu lt [facility] [address] [place] [address], * ANTI HIV 1/2 (01/02/2020 9:06 AM CDT) Pathologist [facility] HIV-1/HIV-2 ANTIBODY Non-Reacti ve Non-Reacti ve 01/02/2020 6:16 PM CDT [facility] Comment:HIV-1 p24 and HIV-1/ HIV-2 Ab not detected. Blood BLOOD SPECIMEN / Unknown Venipuncture / Unknown 01/02/2020 9:06 AM CDT 01/02/2020 9:08 AM CDT Arlet Pratt DO SEND OUTS Final Resu lt [facility] [address] [place] [address], * ACUTE HEPATITIS PANEL (01/02/2020 9:06 AM CDT) Pathologist [facility] HEPATITIS C ANTIBODY Non-Reactive Non-Reactive 01/02/2020 6:16 PM CDT [facility] Comment:Antibodies to HCV no t detected; does not exclude the possibility of exposure to HCV. IGM ANTI HAV Non-Reactive Non-Reactive 01/02/20 20 6:16 PM CDT [facility] HBSAG Nonreactive Nonreactive 01/02/2020 6:16 PM CDT [facility] IGM ANTI HBC Non-Reactive Non-Reactive 01/02/20 20 6:16 PM CDT [facility] Blood BLOOD SPECIMEN / Unknown Venipuncture / Unknown 01/02/2020 9:06 AM CDT 01/02/2020 9:08 AM CDT Narrative [facility] - 01/02/2020 6:16 PM CDT Anti-HBc IgM not detected. Does not exclude the possibility of exposure to or infection with HBV. Arlet Pratt DO SEND OUTS Final Resu lt [facility] [address] [place] [address], [place] from Last 3 Months or Most Recently Relevant to Health Maintenance Additional Health Concerns Infection Onset Date Last Indicated MRSA Clearance Comment:Infection Control Note: Hx of MRSA 12/27/2011, surveillance criteria met, no need for further testing or isolation precautions. Do not delete or resolve the Infection Flag. 03/07/2023 03/07/2023 Insurance [facility] BLUE [facility] [place] Advance Directives * Full Code (Latest Code Status on File) Date Activated Date Inactivated Comments 12/25/2011 9:05 PM 12/28/2011 8:14 PM * Full Code Date Activated Date Inactivated Comments 06/14/2009 2:40 PM 06/17/2009 2:07 PM Care Teams Mathematics Faculty Member Relationship Specialty Start Date End Date Arlet Pratt [facility] [address] PCP - General Family Practice 05/06/15 Darwin Leung DPM PODIATRY Podiatry 08/02/11
--- OUTSIDE RECORDS SUMMARY | 2024-10-05 20:06 | XMS_ITS | Clinical Summary ---
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 Phone System Maintenance Unavailable [phone] Conditions or Problems Problem Name Problem Code Onset Date Status Entry Date Provider Comment Standard Description Annotate Risk of sleep apnea 729458652 (SNOMED CT) 07/05 Active 07/05 Sara MULLINS-Jeannine At increased risk of disease Snoring [id number] (SNOMED CT) 07/05 Active 07/05 Sara MULLINS-C Snoring Obesity [id number] (SNOMED CT) 08/17 Active 08/17 Arik Alexander MD Obesity Papilledema 523261251 (SNOMED CT) 08/17 Active 08/17 Arik Alexander MD Optic disc edema New daily persistent headache [id number] 05 (SNOMED CT) 08/17 Active 08/17 Arik lAexander MD New daily persistent headache Migraine, common 74907110 (SNOMED CT) 08/17 Active 08/17 Arik Alexander MD Migraine without aura Medications Medication Instructions Start Date Stop Date Generic Name ND Provider SUMATRIPTAN SUCCINATE 100 MG TABS TAKE ONE-HALF TO ONE TABLET BY MOUTH AT ONSET OF MIGRAINE. MAY REPEAT IN 2 HOURS IF NEEDED. MAX DOSE 100MG/24 HOURS. No to take more than 9 to 10 days per month 03/02 sumatriptan succinate [id number] Sara Huizar PA-C SUMATRIPTAN SUCCINATE 100 MG TABS TAKE ONE-HALF TO ONE TABLET BY MOUTH AT ONSET OF MIGRAINE, MAY REPEAT IN 2 HOURS NEEDED MAX DOSE ONE TABLET IN 24HRS DO NOT TAKE MORE THAN 9 TO 10 DAYS PER MONTH sumatriptan succinate 10267405482 Sara MULLINS-C TOPAMAX 25 MG TABS week 1: take 1 tab q am and 4 tab q pm. week 2: take 2 tab q am and 4 tab q pm. week 3: take 3 tab q am and 4 tab q pm. week 4 onward: take 4 tab twice a day. 12/26 topiramate [id number] Sara MULLINS-C TOPAMAX 100 MG TABS Take 1 tablet by mouth every night at bedtime topiramate 80026312775 Sara MULLINS-C CETIRIZINE HCL 10 MG TABS Take 1 tablet by mouth once a day 09/04 cetirizine 07385384049 Sara Huizar PA-C FEXOFENADINE HCL 180 MG TABS fexofenadine 82010923373 Sara VAZQUEZC GLIPIZIDE ER 2.5 MG [id number] TAKE ONE TABLET BY MOUTH EVERY DAY BEFORE A MEAL glipizide 51553240320 Sara VAZQUEZC AJOVY 225 MG/1.5ML SOAJ Inject 1 pen injector subcutaneously once a month fremanunique-r [id number] Sara VAZQUEZC JARDIANCE 10 MG TABS empagliflozin 87886550165 Sara MULLINS-C TOPAMAX 25 MG TABS 1 tablet by mouth as directed : 25 mg per night for 1 weeks; then increase by 25 mg per night every 1 weeks until maximum 100 mg per night or until pain controlled 03/14 topiramate 10533150242 Sara MULLINS-C TOPAMAX 25 MG TABS week 1: take 1 tab q am and 4 tab q pm. week 2: take 2 tab q am and 4 tab q pm. week 3: take 3 tab q am and 4 tab q pm. week 4 onward: take 4 tab twice a day. 12/26 topiramate 53562400689 Sara Huizar PA-C ATIVAN 1 MG TABS 1 tablet by mouth as directed : 1 mg 2 hour before MRI. May repeat as needed with 1 mg up to maximum of 3 mg before MRI. No driving or operate heavy machinery for 24 hour after taking this med lorazepam 43334732032 Arki Alexander MD SUMATRIPTAN SUCCINATE 50 MG TABS TAKE ONE-HALF TO ONE TABLET BY MOUTH AT ONSET OF MIGRAINE. MAY REPEAT IN 2 HOURS IF NEEDED. MAX DOSE 100MG/24 HOURS. 9 to 10 days use per month 08/17 sumatriptan succinate 62623152770 Arik Alexander MD SUMATRIPTAN SUCCINATE 100 MG TABS TAKE ONE-HALF TO ONE TABLET BY MOUTH AT ONSET OF MIGRAINE. MAY REPEAT IN 2 HOURS IF NEEDED. MAX DOSE 100MG/24 HOURS. No to take more than 9 to 10 days per month 03/02 sumatriptan succinate 26242388322 Arik Alexander MD SUMATRIPTAN SUCCINATE 50 MG TABS TAKE ONE-HALF TO ONE TABLET BY MOUTH AT ONSET OF MIGRAINE. MAY REPEAT IN 2 HOURS IF NEEDED. MAX DOSE 100MG/24 HOURS. 08/17 sumatriptan succinate 25202890201 Arik Alexander MD TOPAMAX 25 MG TABS 1 tablet by mouth as directed : 25 mg per night for 1 weeks; then increase by 25 mg per night every 1 weeks until maximum 100 mg per night or until pain controlled 03/14 topiramate [id number] Arik Alexander MD SUMATRIPTAN SUCCINATE 50 MG TABS TAKE ONE-HALF TO ONE TABLET BY MOUTH AT ONSET OF MIGRAINE. MAY REPEAT IN 2 HOURS IF NEEDED. MAX DOSE 100MG/24 HOURS. 9 to 10 days use per month 08/17 sumatriptan succinate 72399670821 Arik Alexander MD multivitamin Take 1 tablet by mouth once a day MVI Arik Alexander MD TRIAMCINOLONE ACETONIDE 0.5 % OINT Apply to skin twice a day triamcinolone acetonide 64648998523 Arik Alexander MD NORGESTIMATE-ETH ESTRADIOL 0.25-35 MG-MCG TABS Take 1 tablet by mouth once a day 08/17 norgestimate-eth inyl estradiol 10024835738 Arik Alexander MD POTASSIUM CHLORIDE SUKHDEV ER 20 MEQ CR-TABS Take 1 tablet by mouth once a day potassium chloride 93914366084 Arik Alexander MD OMEPRAZOLE 20 MG CPDR Take 1 capsule by mouth once a day omeprazole 83851133365 Arik Alexander MD ALBUTEROL SULFATE HFA 108 (90 Base) MCG/ACT AERS Inhale 1-2 puff by mouth every four hours as needed 08/17 albuterol sulfate 09683409840 Arik Alexander MD ALBUTEROL SULFATE HFA 108 (90 Base) MCG/ACT AERS Inhale 2 puff by mouth four times a day as needed albuterol sulfate 53872685901 Arik Alexander MD FAMOTIDINE 40 MG TABS Take 1 tablet by mouth every night famotidine 89170573163 Arik Alexander MD CYCLOBENZAPRINE HCL 10 MG TABS Take 1 tablet by mouth every night as needed cyclobenzaprine 26517183582 Arik Alexander MD diphenhydrAMINE-a cetaminophen 25-500 mg once a day TYLENOL PM Arik Alexander MD Contour Next Test Strips strip Use once a day Contour Next Test Strips strip Arik Alexander MD ACETAMINOPHEN 325 MG TABS Take 2 tablet by mouth every four hours as needed acetaminophen 37956567315 Arik Alexander MD CETIRIZINE HCL 10 MG TABS Take 1 tablet by mouth once a day 09/04 cetirizine 41698941889 Arik Alexander MD blood-glucose meter by Not Applicable route. Dispense meter, test strips, lancets covered by pt ins. NIDDM type II, controlled - Test 1 time/day blood-glucose meter Arik Alexander MD LABETALOL HCL 100 MG TABS Take 1 tablet by mouth twice a day labetalol 80529478136 Arik Alexander MD Microlet Lancet Use once [...] MAX DOSE 100MG/24 HOURS. 08/17 sumatriptan succinate 16995928975 Arik Alexander MD MONTELUKAST SODIUM 10 MG TABS Take 1 tablet by mouth every night montelukast 68972754178 Arik Alexander MD CHLORTHALIDONE 25 MG TABS Take 1 tablet by mouth once a day chlorthalidone 49331188506 Arik Alexander MD TOLNAFTATE 1 % POWD Apply to skin twice a day tolnaftate 66405891601 Arik Alexander MD ESCITALOPRAM OXALATE 20 MG TABS Take 1 tablet by mouth every night escitalopram oxalate 02357098096 Arik Alexander MD TRIAMCINOLONE ACETONIDE 0.5 % OINT Apply topically to affected area(s) 2 times daily. Not use >14 days in a row 08/17 triamcinolone acetonide 10278390621 QIEUSER QIEUSER TOLNAFTATE 1 % POWD Apply topically to affected area(s) 2 times daily. Shake into sock 08/17 tolnaftate 37866112076 QIEUSER QIEUSER SUMATRIPTAN SUCCINATE 50 MG TABS TAKE ONE-HALF TO ONE TABLET BY MOUTH AT ONSET OF MIGRAINE. MAY REPEAT IN 2 HOURS IF NEEDED. MAX DOSE 100MG/24 HOURS. 08/17 sumatriptan succinate 53378934983 QIEUSER QIEUSER POTASSIUM CHLORIDE SUKHDEV ER 20 MEQ CR-TABS TAKE ONE TABLET BY MOUTH EVERY DAY WITH A MEAL. TAKE INSTEAD OF POWDER POTASSIUM 08/17 potassium chloride 89868087190 QIEUSER QIEUSER OMEPRAZOLE 20 MG CPDR Take 1 capsule by mouth once daily. 08/17 omeprazole 23744179894 QIEUSER QIEUSER NORGESTIMATE-ETH ESTRADIOL 0.25-35 MG-MCG TABS Take 1 Tablet by mouth once daily. 08/17 norgestimate-eth inyl estradiol 44223095633 QIEUSER QIEUSER multivitamin Take 1 tablet by mouth once daily. 08/17 MVI QIEUSER QIEUSER MONTELUKAST SODIUM 10 MG TABS Take 1 Tablet (10 mg) by mouth at bedtime. 08/17 montelukast 06742764592 QIEUSER QIEUSER Microlet Lancet TEST ONCE A DAY 08/17 Microlet Lancet QIEUSER QIEUSER miconazole nitrate powder 2 % powder Apply topically to affected area(s) 2 times daily. 08/17 miconazole nitrate powder 2 % powder QIEUSER QIEUSER LABETALOL HCL 100 MG TABS Take 1 Tablet (100 mg) by mouth in the morning and 1 Tablet (100 mg) in the evening. 08/17 labetalol 75918236508 QIEUSER QIEUSER FAMOTIDINE 40 MG TABS Take 1 Tablet (40 mg) by mouth at bedtime. 08/17 famotidine 90049119001 QIEUSER QIEUSER ESCITALOPRAM OXALATE 20 MG TABS Take 1 Tablet (20 mg) by mouth at bedtime. 08/17 escitalopram oxalate 62045376377 QIEUSER QIEUSER diphenhydrAMINE-a cetaminophen 25-500 mg Daily 08/17 TYLENOL PM QIEUSER QIEUSER CYCLOBENZAPRINE HCL 10 MG TABS Take 1 Tablet (10 mg) by mouth at bedtime if needed for Muscle Spasm. MAX 10mg dose 08/17 cyclobenzaprine 95150948252 QIEUSER QIEUSER Contour Next Test Strips strip TEST 1 TIME A DAY 08/17 Contour Next Test Strips strip QIEUSER QIEUSER CHLORTHALIDONE 25 MG TABS Take 1 Tablet (25 mg) by mouth once daily. 08/17 chlorthalidone 10537432565 QIEUSER QIEUSER CETIRIZINE HCL 10 MG TABS Take 1 Tablet (10 mg) by mouth once daily. 08/17 cetirizine 42850114007 QIEUSER QIEUSER blood-glucose meter by Not Applicable route. Dispense meter, test strips, lancets covered by pt ins. NIDDM type II, controlled - Test 1 time/day 08/17 blood-glucose meter QIEUSER QIEUSER ALBUTEROL SULFATE HFA 108 (90 Base) MCG/ACT AERS Inhale 1-2 Puffs by mouth every 4 hours if needed for Shortness of Breath 1st choice or Wheezing 1st choice. 08/17 albuterol sulfate 07877491653 QIEUSER QIEUSER ALBUTEROL SULFATE HFA 108 (90 Base) MCG/ACT AERS Inhale 2 Puffs by mouth 4 times daily if needed for Shortness Of Breath. 08/17 albuterol sulfate 23000714331 QIEUSER QIEUSER ACETAMINOPHEN 325 MG TABS Take 2 tablets by mouth every 4 hours if needed. Max acetaminophen dose: 4000mg in 24 hrs. 08/17 acetaminophen 81107356056 QIEUSER QIEUSER Medications Administered No information available. [...] in clinic or telemedicine 09/28 ORDERS MRV [id number] MRI-Brain W/O CPT-13896 MRI Brain W/O CPT-Q1726P ProHance Gadolinium- based MR Contrast - 20 ml vial CPT-00468 MRV Head W/WO ORDERS Patient Instructions ORDERS Patient Instructions [facility]-[id number] Documentation of current medicatio ns Vital Signs Date Name Value Unit Description Weight Measured 330 [lb_av] weight E& M Weight Measured 330 [lb_av] weight E& M Heart Rate 68 /min pulse rate Immunizations No information available. Advance Directives No information available.
[2024-10-05 20:11] VITALS: BP 132/89; PULSE 126; RESP 20; TEMP 37.1; O2SAT 97; BMI 47.8
--- NOTE | 2024-10-05 20:33 | ED_ITS ---
HPI - General Adult General Chief complaint: Abdominal Pain Stated complaint: R flank pain Time Seen by Provider: 10/05/24 20:34 History of Present Illness HPI narrative: Pt c/o right side abdominal pain, dizziness , lightheadedness , diarrhea, and vomiting that started today. Pt denies any symptoms with urinating. Pt states she had gallbladder removed 2008 and this feels similar to previous episodes of gallbladder acting up, per pt. 34-year-old woman presenting to the emergency department with concern of right- sided abdominal pain. Has also been experiencing some diarrhea and some vomiting today. No melena, hematochezia or hematemesis noted. She is to have spasms of sphincter of OD in this feels similar though not really in the same location. Has been feeling somewhat lightheaded as well. No chest pain or sense of palpitations. No fever. Related Data Home Medications ?Medication ?Instructions ?Recorded ?Confirmed chlorthalidone 25 mg tablet 25 mg PO DAILY 05/27/22 10/05/24 escitalopram oxalate 20 mg tablet 20 mg PO HS 05/27/22 10/05/24 famotidine 40 mg tablet 40 mg PO HS 05/27/22 10/05/24 labetalol 100 mg tablet 100 mg PO BID 05/27/22 10/05/24 montelukast 10 mg tablet 10 mg PO HS 05/27/22 10/05/24 potassium chloride 20 mEq 20 meq PO DAILY 05/27/22 10/05/24 tablet,extended release(part/cryst) sumatriptan succinate 50 mg tablet 50 mg PO Q2H 05/27/22 10/05/24 hydrochlorothiazide PO 03/09/23 omeprazole PO 03/09/23 Wegovy 03/26/24 albuterol sulfate 2.5 mg/3 mL 2.5 mg Q4-6H PRN wheezing 03/26/24 (0.083 %) solution for nebulization empagliflozin 25 mg tablet 25 mg PO DAILY 03/26/24 10/05/24 (Jardiance) fexofenadine 180 mg tablet 180 mg PO DAILY 03/26/24 10/05/24 fremanezumab-vfrm 225 mg/1.5 mL mg subcut 03/26/24 subcutaneous auto-injector (Ajovy) glipizide 2.5 mg tablet, extended 2.5 mg PO DAILY 03/26/24 10/05/24 release 24 hr topiramate 100 mg tablet 100 mg PO DAILY 03/26/24 10/05/24 albuterol sulfate 90 mcg/actuation 1 - 2 puff inhalation Q4H PRN 07/10/24 10/05/24 aerosol inhaler (Ventolin HFA) wheezing fluoxetine 40 mg capsule 40 mg PO QAM 07/10/24 10/05/24 sumatriptan succinate 100 mg tablet mg PO PRN 07/10/24 Previous Rx's ?Medication ?Instructions ?Recorded potassium chloride 20 mEq 20 meq PO DAILY #10 tabs 07/10/24 tablet,extended release(part/cryst) (Klor-Con M) Allergies Allergy/AdvReac Type Severity Reaction Status Date / Time NSAIDS (Non-Steroidal Allergy Severe Pancreatiti Verified 10/05/24 20:18 Anti-Inflamma s Cephalosporins Allergy Intermediate Diarrhea Verified 10/05/24 20:18 Review of Systems Status of ROS: Reports: 6 or more systems reviewed and unremarkable except as noted in History and below [facility] Medical History Morbid obesity ?E66.01 - Morbid (severe) obesity due to excess calories (ICD-10) Reactive airway disease ?J45.909 - Unspecified asthma, uncomplicated (ICD-10) PCOS (polycystic ovarian syndrome) ?E28.2 - Polycystic ovarian syndrome (ICD-10) MRSA (methicillin resistant Staphylococcus aureus) infection ?A49.02 - Methicillin resistant Staphylococcus aureus infection, unspecified site (ICD-10) 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 - Spasm of sphincter of Oddi (ICD-10) Lumbar radicular pain ?M54.16 - Radiculopathy, lumbar region (ICD-10) Erythema ab igne ?L59.0 - Erythema ab igne [dermatitis ab igne] (ICD-10) Lumbar disc herniation ?M51.26 - Other intervertebral disc displacement, lumbar region (ICD-10) History of pancreatitis ?Z87.19 - Personal history of other diseases of the digestive system (ICD-10) Herniation of intervertebral disc of lumbar region ?M51.26 - Other intervertebral disc displacement, lumbar region (ICD-10) Chronic abdominal pain ?R10.9 - Unspecified abdominal pain (ICD-10) ?G89.29 - Other chronic pain (ICD-10) Oligomenorrhea ?N91.5 - Oligomenorrhea, unspecified (ICD-10) Hypertension ?I10 - Essential (primary) hypertension (ICD-10) Closed fracture of tuft of distal phalanx of finger ?S62.639A - Displaced fracture of distal phalanx of unspecified finger, initial encounter for closed fracture (ICD-10) Type 2 diabetes, diet controlled ?E11.9 - Type 2 diabetes mellitus without complications (ICD-10) Surgical History History of wisdom tooth extraction ?K08.409 - Partial loss of teeth, unspecified cause, unspecified class (ICD- 10) History of tonsillectomy ?Z90.89 - Acquired absence of other organs (ICD-10) History of cholecystectomy ?Z90.49 - Acquired absence of other specified parts of digestive tract (ICD- 10) Social History Smoking Status: Never smoker Do you use any of these nicotine containing products: None Second hand tobacco smoke exposure: No How often do you have a drink containing alcohol: 2-4 times a month AUDIT-C Alcohol total score: 2 Non-prescribed substance use: denies use service: No Exam Narrative: Exam Narrative: Pleasant. NAD. Lungs are clear. Heart with elevated rate and regular rhythm. Skin is warm and dry. Right greater than left mid abdominal pain. No peritoneal signs. Calm and during conversation than begins breathing heavily. Well-perfused peripherally. Const: Vital Signs, click to edit/add: Vital Signs - 24 hr 10/05/24 20:11 Temperature 98.7 F Pulse Rate [Pulse Oximeter] 126 H Respiratory Rate 20 Blood Pressure [Ri ght Upper Arm] 132/89 Pulse Oximetry 97 Oxygen Delivery Me thod Room Air Documenting provider has reviewed patient's vital signs: yes Course Vital Signs Vital signs: Initial Vital Signs Temperature 98.7 F 10/05/24 20:11 Temperature Source Temporal Artery Scan 10/05/24 20:11 Pulse Rate 126 H 10/05/24 20:11 Respiratory Rate 20 10/05/24 20:11 Blood Pressure 132/89 10/05/24 20:11 Blood Pressure Mean 103 10/05/24 20:11 Blood Pressure Position Sitting 04/11/25 20:11 Pulse Oximetry 97 10/05/24 20:11 Oxygen Delivery Method Room Air 10/05/24 20:11 Vital Signs Temperature 98.7 F 10/05/24 20:11 Pulse Rate 126 H 10/05/24 20:11 Respiratory Rate 20 10/05/24 20:11 Blood Pressure 132/89 10/05/24 20:11 Pulse Oximetry 97 10/05/24 20:11 Oxygen Delivery Method Room Air 10/05/24 20:11 Temperature 98.7 F 10/05/24 20:11 Pulse Rate 85 10/05/24 23:15 Respiratory Rate 18 10/05/24 23:15 Blood Pressure 120/78 10/05/24 23:15 Pulse Oximetry 98 10/05/24 23:15 Oxygen Delivery Method Room Air 10/05/24 23:15 Medications Administered Medications: Discontinued Medications Generic Name Dose Route Start Last Admin Trade Name Freq PRN Reason Stop Dose Admin Sodium Chloride 1,000 mls @ 1,000 mls/hr 10/05/24 20:42 10/05/24 22:48 0.9 % Sodium Chloride 1000 Ml IV 10/05/24 21:41 Infused .Q1H ONE Infusion Ketorolac Tromethamine 30 mg 10/05/24 20:42 10/05/24 21:07 Ketorolac 15 Mg/Ml Inj IVP 10/05/24 20:43 30 mg ONCE ONE Administration Morphine Sulfate 4 mg 10/05/24 20:42 10/05/24 21:07 Morphine 4 Mg/Ml Inj IVP 10/05/24 20:43 4 mg ONCE ONE Administration Ondansetron HCl 4 mg 10/05/24 20:42 10/05/24 21:04 Ondansetron 2 Mg/Ml Inj IVP 10/05/24 20:43 4 mg ONCE ONE Administration Medical Decision Making MDM Narrative Medical decision making narrative: Does have Zofran at home however says she could not make it out of the bathroom vomiting and having diarrhea at the same time. She says she does not she is going to work this weekend. Would appreciate some IV hydration. Will check labs to warrant further evaluation; imaging. She would appreciate something also for pain. Ketorolac has been helpful. More immediate relief of discomfort will be provided with a little morphine. Also Zofran. White count is chronically mildly elevated. Abdomen is improved on reexamination. Labs generally reassuring. She would like something more for the pain have at home. Tylenol is just not helping. History of pancreatitis with NSAIDs. Mom offers some options. Sphincter of OD spasms apparently with tramadol. Tolerated [place]. See patient discharge plan for further discussion Focus on small frequent amounts of fluid intake. Considered taking your Zofran twice a day scheduled over the next day or 2. As discussed prescribing some [place] from [employer]. Remember that each tablet of [place] contains 325 mg of acetaminophen. Work note written Medical Records Medical records reviewed: Yes I reviewed the patient's medical records Lab Data Lab results reviewed: Yes I reviewed the patient's lab results Labs: Lab Results 10/05/24 10/05/24 10/05/24 Range/Units 21:05 21:15 21:20 WBC 13.90 H (4.50-11.00) K/uL RBC 5.99 H (4.00-5.20) m/uL Hgb 15.3 (12.0-16.0) gm/dL Hct 47.7 (33.0-51.0) % MCV 80 (80-100) fL MCH 26 (26-34) pg MCHC 32 (32-36) gm/dL RDW Coeff of Roger 14.5 (11.5-15.5) % Plt Count 283 (140-440) K/uL Neut % (Auto) 79.3 H (42.0-72.0) % Lymph % (Auto) 12.9 L (20-44) % Kinney % (Auto) 4.3 (0.0-11.0) % Eos % (Auto) 2.7 (0.0-7.0) % Baso % (Auto) 0.4 (0.0-3.0) % Neut # (Auto) 11.00 H (1.7-7.0) K/uL Lymph # (Auto) 1.80 (0.90-2.90) K/uL Kinney # (Auto) 0.60 (0.00-0.90) K/UL Eos # (Auto) 0.40 (0.00-0.50) K/uL Baso # (Auto) 0.10 (0.00-0.30) K/uL Abs Immat Gran (auto) 0.10 (0.00-0.30) K/uL Imm/Tot Granulo (auto) 0.4 % Sodium 136 (135-149) mmol/L Potassium 3.0 L (3.6-5.1) mmol/L Chloride 99 (96-114) mmol/L Carbon Dioxide 27 (20-32) mmol/L Anion Gap 10 (7-15) mEq/L BUN 12 (5-24) mg/dL Creatinine 0.7 (0.5-1.5) mg/dL Estimated Creat Clear 107.01 Estimated GFR 117 ml/min Glucose 151 H (60-115) mg/dL Calcium 9.3 (8.4-10.6) mg/dL Total Bilirubin 0.6 (0.1-1.5) mg/dL Direct Bilirubin 0.3 (0.0-0.5) mg/dL AST 43 H (12-35) U/L ALT 41 H (4-35) U/L Alkaline Phosphatase 51 (40-150) U/L Total Protein 7.9 (6.0-8.3) g/dL Albumin 4.5 (3.3-5.0) g/dL Urine Color Yellow (Yellow) Urine Appearance Clear (Clear) Urine pH 5.5 (5.0-8.5) Ur Specific Dale 1.015 (1.000-1.030) Urine Protein Negative (Negative) Urine Glucose (UA) 2+ A (Negative) Urine Ketones Negative (Negative) Urine Blood Negative (Negative) Urine Nitrite Negative (Negative) Urine Bilirubin Negative (Negative) Urine Urobilinogen 0.2 (0.2-1.0) Ur Leukocyte Esterase Negative (Negative) Urine RBC 0-2 (0-2) Urine WBC 0-2 (0-5) Ur Squamous Epith Cells None (None-Few) Urine Bacteria None (None) SARS-CoV-2 (PCR) Negative SARS-CoV-2 (Negative) Influenza Type A (PCR) Negative PCR FLU A (Negative) Influenza Type B (PCR) Negative PCR FLU B (Negative) Discharge Plan Discharge Clinical Impression: Vomiting, Abdominal pain, Diarrhea Patient Disposition: Home w/ Parent or Adult Condition: Improved Additional Instructions: Focus on small frequent amounts of fluid intake. Considered taking your Zofran twice a day scheduled over the next day or 2. As discussed prescribing some [place] from [employer]. Remember that each tablet of [place] contains 325 mg of acetaminophen. Work note written Prescriptions: No Action chlorthalidone 25 mg tablet 25 mg PO DAILY Patient Comments: TAKE ONE TABLET BY MOUTH EVERY DAY escitalopram oxalate 20 mg tablet 20 mg PO HS Patient Comments: TAKE ONE TABLET BY MOUTH AT BEDTIME famotidine 40 mg tablet 40 mg PO HS Patient Comments: TAKE ONE TABLET BY MOUTH AT BEDTIME labetalol 100 mg tablet 100 mg PO BID Patient Comments: TAKE ONE TABLET BY MOUTH TWICE A DAY (MORNING AND EVENING) montelukast 10 mg tablet 10 mg PO HS Patient Comments: TAKE ONE TABLET BY MOUTH AT BEDTIME potassium chloride 20 mEq tablet,ER particles/crystals 20 meq PO DAILY Patient Comments: TAKE ONE TABLET BY MOUTH EVERY DAY WITH A MEAL - TAKE INSTEAD OF POWDER P OTASSIUM sumatriptan succinate 50 mg tablet 50 mg PO Q2H Patient Comments: TAKE ONE HALF TO ONE TABLET BY MOUTH AT ONSET OF MIGRAINE. MAY REPEAT IN 2 HOURS IF NEEDED. GIVE AT MINIMUM 2 HOURS APART. MAX DOSE 100MG / hydrochlorothiazide PO omeprazole PO Wegovy albuterol sulfate 2.5 mg /3 mL (0.083 %) solution for nebulization 2.5 mg Q4-6H PRN (Reason: wheezing) fexofenadine 180 mg tablet 180 mg PO DAILY glipizide 2.5 mg tablet extended release 24hr 2.5 mg PO DAILY topiramate 100 mg tablet 100 mg PO DAILY Jardiance 25 mg tablet 25 mg PO DAILY Ajovy Autoinjector 225 mg/1.5 mL auto-injector subcut fluoxetine 40 mg capsule 40 mg PO QAM sumatriptan succinate 100 mg tablet PO PRN albuterol sulfate [Ventolin HFA] 90 mcg/actuation HFA aerosol inhaler 1 - 2 puff INHALATION Q4H PRN (Reason: wheezing) potassium chloride [Klor-Con M20] 20 mEq tablet,ER particles/crystals 20 meq PO DAILY Qty: 10 2RF Follow Up/Referrals: Arlet Pratt DO [Primary Care Provider] - Stand Alone Forms: [facility] Info Instructions
--- OUTSIDE RECORDS SUMMARY | 2024-10-05 20:55 | XMS_ITS | Clinical Summary ---
Author Organization [facility] Address [address] , [address] [place] [address] Phone Care Team Providers Care Filenet Developer Name Role Phone System Maintenance Unavailable [phone] Conditions or Problems Problem Name Problem Code Onset Date Status Entry Date Provider Comment Standard Description Annotate Risk of sleep apnea 220560643 (SNOMED CT) 07/05 Active 07/05 Sara MULLINS-Jeannine At increased risk of disease Snoring [id number] (SNOMED CT) 07/05 Active 07/05 Sara MULLINS-C Snoring Obesity 395478144 (SNOMED CT) 08/17 Active 08/17 Arik Alexander MD Obesity Papilledema 897303894 (SNOMED CT) 08/17 Active 08/17 Arik Alexander MD Optic disc edema New daily persistent headache [id number] 05 (SNOMED CT) 08/17 Active 08/17 Arik Alexander MD New daily persistent headache Migraine, common 37499074 (SNOMED CT) 08/17 Active 08/17 Arik Alexander MD Migraine without aura Medications Medication Instructions Start Date Stop Date Generic Name ND Provider SUMATRIPTAN SUCCINATE 100 MG TABS TAKE ONE-HALF TO ONE TABLET BY MOUTH AT ONSET OF MIGRAINE. MAY REPEAT IN 2 HOURS IF NEEDED. MAX DOSE 100MG/24 HOURS. No to take more than 9 to 10 days per month 03/02 sumatriptan succinate [id number] Sara Huizar PA-C SUMATRIPTAN SUCCINATE 100 MG TABS TAKE ONE-HALF TO ONE TABLET BY MOUTH AT ONSET OF MIGRAINE, MAY REPEAT IN 2 HOURS NEEDED MAX DOSE ONE TABLET IN 24HRS DO NOT TAKE MORE THAN 9 TO 10 DAYS PER MONTH sumatriptan succinate 03421366297 Sara MULLINS-C TOPAMAX 25 MG TABS week 1: take 1 tab q am and 4 tab q pm. week 2: take 2 tab q am and 4 tab q pm. week 3: take 3 tab q am and 4 tab q pm. week 4 onward: take 4 tab twice a day. 12/26 topiramate 80900142940 Sara MULLINS-C TOPAMAX 100 MG TABS Take 1 tablet by mouth every night at bedtime topiramate 57898403848 Sara MULLINS-C CETIRIZINE HCL 10 MG TABS Take 1 tablet by mouth once a day 09/04 cetirizine 69237725226 Sara Huizar PA-C FEXOFENADINE HCL 180 MG TABS fexofenadine 10087404779 Sara VAZQUEZC GLIPIZIDE ER 2.5 MG [id number] TAKE ONE TABLET BY MOUTH EVERY DAY BEFORE A MEAL glipizide 52130834133 Sara VAZQUEZC AJOVY 225 MG/1.5ML SOAJ Inject 1 pen injector subcutaneously once a month fremanunique-r 33625164283 Sara VAZQUEZC JARDIANCE 10 MG TABS empagliflozin 90243257205 Sara MULLINS-C TOPAMAX 25 MG TABS 1 tablet by mouth as directed : 25 mg per night for 1 weeks; then increase by 25 mg per night every 1 weeks until maximum 100 mg per night or until pain controlled 03/14 topiramate 94749373124 Sraa MULLINS-C TOPAMAX 25 MG TABS week 1: take 1 tab q am and 4 tab q pm. week 2: take 2 tab q am and 4 tab q pm. week 3: take 3 tab q am and 4 tab q pm. week 4 onward: take 4 tab twice a day. 12/26 topiramate 80413827839 Sara Huizar PA-C ATIVAN 1 MG TABS 1 tablet by mouth as directed : 1 mg 2 hour before MRI. May repeat as needed with 1 mg up to maximum of 3 mg before MRI. No driving or operate heavy machinery for 24 hour after taking this med lorazepam 79865189510 Arik Alexander MD SUMATRIPTAN SUCCINATE 50 MG TABS TAKE ONE-HALF TO ONE TABLET BY MOUTH AT ONSET OF MIGRAINE. MAY REPEAT IN 2 HOURS IF NEEDED. MAX DOSE 100MG/24 HOURS. 9 to 10 days use per month 08/17 sumatriptan succinate 80044254673 Arik Alexander MD SUMATRIPTAN SUCCINATE 100 MG TABS TAKE ONE-HALF TO ONE TABLET BY MOUTH AT ONSET OF MIGRAINE. MAY REPEAT IN 2 HOURS IF NEEDED. MAX DOSE 100MG/24 HOURS. No to take more than 9 to 10 days per month 03/02 sumatriptan succinate 30921042504 Arik Alexander MD SUMATRIPTAN SUCCINATE 50 MG TABS TAKE ONE-HALF TO ONE TABLET BY MOUTH AT ONSET OF MIGRAINE. MAY REPEAT IN 2 HOURS IF NEEDED. MAX DOSE 100MG/24 HOURS. 08/17 sumatriptan succinate 03403048690 Arik Alexander MD TOPAMAX 25 MG TABS 1 tablet by mouth as directed : 25 mg per night for 1 weeks; then increase by 25 mg per night every 1 weeks until maximum 100 mg per night or until pain controlled 03/14 topiramate 62279206525 Arik Alexander MD SUMATRIPTAN SUCCINATE 50 MG TABS TAKE ONE-HALF TO ONE TABLET BY MOUTH AT ONSET OF MIGRAINE. MAY REPEAT IN 2 HOURS IF NEEDED. MAX DOSE 100MG/24 HOURS. 9 to 10 days use per month 08/17 sumatriptan succinate 23486612847 Arik Alexander MD multivitamin Take 1 tablet by mouth once a day MVI Arik Alexander MD TRIAMCINOLONE ACETONIDE 0.5 % OINT Apply to skin twice a day triamcinolone acetonide 80338792878 Arik Alexander MD NORGESTIMATE-ETH ESTRADIOL 0.25-35 MG-MCG TABS Take 1 tablet by mouth once a day 08/17 norgestimate-eth inyl estradiol 81973244175 Arik Alexander MD POTASSIUM CHLORIDE SUKHDEV ER 20 MEQ CR-TABS Take 1 tablet by mouth once a day potassium chloride 64379970663 Arik Alexander MD OMEPRAZOLE 20 MG CPDR Take 1 capsule by mouth once a day omeprazole 48079506619 Arik Alexander MD ALBUTEROL SULFATE HFA 108 (90 Base) MCG/ACT AERS Inhale 1-2 puff by mouth every four hours as needed 08/17 albuterol sulfate 70278776922 Arik Alexander MD ALBUTEROL SULFATE HFA 108 (90 Base) MCG/ACT AERS Inhale 2 puff by mouth four times a day as needed albuterol sulfate 74694404431 Arik Alexander MD FAMOTIDINE 40 MG TABS Take 1 tablet by mouth every night famotidine 33006842435 Arik Alexander MD CYCLOBENZAPRINE HCL 10 MG TABS Take 1 tablet by mouth every night as needed cyclobenzaprine 36511773433 Arik Alexander MD diphenhydrAMINE-a cetaminophen 25-500 mg once a day TYLENOL PM Arik Alexander MD Contour Next Test Strips strip Use once a day Contour Next Test Strips strip Arik Alexander MD ACETAMINOPHEN 325 MG TABS Take 2 tablet by mouth every four hours as needed acetaminophen 27907886554 Arik Alexander MD CETIRIZINE HCL 10 MG TABS Take 1 tablet by mouth once a day 09/04 cetirizine 51466473905 Arik Alexander MD blood-glucose meter by Not Applicable route. Dispense meter, test strips, lancets covered by pt ins. NIDDM type II, controlled - Test 1 time/day blood-glucose meter Arik Alexander MD LABETALOL HCL 100 MG TABS Take 1 tablet by mouth twice a day labetalol 77085489827 Arik Alexander MD Microlet Lancet Use once [...] MAX DOSE 100MG/24 HOURS. 08/17 sumatriptan succinate 13350808644 Arik Alexander MD MONTELUKAST SODIUM 10 MG TABS Take 1 tablet by mouth every night montelukast 89189982196 Arik Alexander MD CHLORTHALIDONE 25 MG TABS Take 1 tablet by mouth once a day chlorthalidone 14825407222 Arik Alexander MD TOLNAFTATE 1 % POWD Apply to skin twice a day tolnaftate 60564145537 Arik Alexander MD ESCITALOPRAM OXALATE 20 MG TABS Take 1 tablet by mouth every night escitalopram oxalate 56052136236 Arik Alexander MD TRIAMCINOLONE ACETONIDE 0.5 % OINT Apply topically to affected area(s) 2 times daily. Not use >14 days in a row 08/17 triamcinolone acetonide 74230064772 QIEUSER QIEUSER TOLNAFTATE 1 % POWD Apply topically to affected area(s) 2 times daily. Shake into sock 08/17 tolnaftate 81817284189 QIEUSER QIEUSER SUMATRIPTAN SUCCINATE 50 MG TABS TAKE ONE-HALF TO ONE TABLET BY MOUTH AT ONSET OF MIGRAINE. MAY REPEAT IN 2 HOURS IF NEEDED. MAX DOSE 100MG/24 HOURS. 08/17 sumatriptan succinate 50904095930 QIEUSER QIEUSER POTASSIUM CHLORIDE SUKHDEV ER 20 MEQ CR-TABS TAKE ONE TABLET BY MOUTH EVERY DAY WITH A MEAL. TAKE INSTEAD OF POWDER POTASSIUM 08/17 potassium chloride 44706505788 QIEUSER QIEUSER OMEPRAZOLE 20 MG CPDR Take 1 capsule by mouth once daily. 08/17 omeprazole 36429687290 QIEUSER QIEUSER NORGESTIMATE-ETH ESTRADIOL 0.25-35 MG-MCG TABS Take 1 Tablet by mouth once daily. 08/17 norgestimate-eth inyl estradiol 35432870029 QIEUSER QIEUSER multivitamin Take 1 tablet by mouth once daily. 08/17 MVI QIEUSER QIEUSER MONTELUKAST SODIUM 10 MG TABS Take 1 Tablet (10 mg) by mouth at bedtime. 08/17 montelukast 26894477156 QIEUSER QIEUSER Microlet Lancet TEST ONCE A DAY 08/17 Microlet Lancet QIEUSER QIEUSER miconazole nitrate powder 2 % powder Apply topically to affected area(s) 2 times daily. 08/17 miconazole nitrate powder 2 % powder QIEUSER QIEUSER LABETALOL HCL 100 MG TABS Take 1 Tablet (100 mg) by mouth in the morning and 1 Tablet (100 mg) in the evening. 08/17 labetalol 65056527986 QIEUSER QIEUSER FAMOTIDINE 40 MG TABS Take 1 Tablet (40 mg) by mouth at bedtime. 08/17 famotidine 73756565999 QIEUSER QIEUSER ESCITALOPRAM OXALATE 20 MG TABS Take 1 Tablet (20 mg) by mouth at bedtime. 08/17 escitalopram oxalate 02286205220 QIEUSER QIEUSER diphenhydrAMINE-a cetaminophen 25-500 mg Daily 08/17 TYLENOL PM QIEUSER QIEUSER CYCLOBENZAPRINE HCL 10 MG TABS Take 1 Tablet (10 mg) by mouth at bedtime if needed for Muscle Spasm. MAX 10mg dose 08/17 cyclobenzaprine 60311652512 QIEUSER QIEUSER Contour Next Test Strips strip TEST 1 TIME A DAY 08/17 Contour Next Test Strips strip QIEUSER QIEUSER CHLORTHALIDONE 25 MG TABS Take 1 Tablet (25 mg) by mouth once daily. 08/17 chlorthalidone 66868415079 QIEUSER QIEUSER CETIRIZINE HCL 10 MG TABS Take 1 Tablet (10 mg) by mouth once daily. 08/17 cetirizine 83261907635 QIEUSER QIEUSER blood-glucose meter by Not Applicable route. Dispense meter, test strips, lancets covered by pt ins. NIDDM type II, controlled - Test 1 time/day 08/17 blood-glucose meter QIEUSER QIEUSER ALBUTEROL SULFATE HFA 108 (90 Base) MCG/ACT AERS Inhale 1-2 Puffs by mouth every 4 hours if needed for Shortness of Breath 1st choice or Wheezing 1st choice. 08/17 albuterol sulfate 83044713449 QIEUSER QIEUSER ALBUTEROL SULFATE HFA 108 (90 Base) MCG/ACT AERS Inhale 2 Puffs by mouth 4 times daily if needed for Shortness Of Breath. 08/17 albuterol sulfate 43759078817 QIEUSER QIEUSER ACETAMINOPHEN 325 MG TABS Take 2 tablets by mouth every 4 hours if needed. Max acetaminophen dose: 4000mg in 24 hrs. 08/17 acetaminophen 07453785010 QIEUSER QIEUSER Medications Administered No information available. [...] in clinic or telemedicine 09/28 ORDERS MRV [id number] MRI-Brain W/O CPT-28238 MRI Brain W/O CPT-E4972Y ProHance Gadolinium- based MR Contrast - 20 ml vial CPT-01513 MRV Head W/WO ORDERS Patient Instructions ORDERS Patient Instructions [facility]-[id number] Documentation of current medicatio ns Vital Signs Date Name Value Unit Description Weight Measured 330 [lb_av] weight E& M Weight Measured 330 [lb_av] weight E& M Heart Rate 68 /min pulse rate Immunizations No information available. Advance Directives No information available.
--- OUTSIDE RECORDS SUMMARY | 2024-10-05 20:55 | XMS_ITS | Clinical Summary ---
Author Organization [facility] Address [address] [place] [address] Care Team Providers Care Manager Transportation Name Role Phone Darwin Leung DPM Unavailable Arlet Pratt DO Primary Care Provider [phone] Allergies Active Allergy Reactions Criticality Noted Date [...] 11/07/19 18 Active Needle, Disp, 30 G ([place]AM DISP NEEDLES 30GX1/2) 30 gauge x 1/2 [...] (12/05/2013): Per Dr. Martinez, GI at the [facility] visit from April 2012. Consult for recurrent [...] pills were not actually contributing. Records from [facility] [place] in chart, only 1 visit 05/08/14. Asked for further records but none available. 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 Lyon. 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 See consult from GI Dr. Martinez at the [facility] from May 08, 2012 See details under pancreatitis in problem list. MRSA (methicillin resistant Staphylococcus aureus) infection 07/03/2010 PCOS (polycystic ovarian syndrome) 05/13/2010 Overview (11/28/2013): As of 07/2013: Previously on OCPs but these had to be discontinued because patient was having recurrent pancreatitis after her gallbladder was removed. She saw a alcoholic counselor who told her the control was interfering [...] pain 12/25/201110/30 Overview (12/25/2011): Unclear etiology. Per capacity planning engineer, at times seems correlated with menstrual cycle, [...] Department Care Team Description 09/04/2024 Orders Only [facility] Scanner 1 scan: (1-Ord) [facility], XR CHEST 2V, 09/04/2024 08/02/2024 1:05 PM SUPERVISOR EDUCATION Office Visit [facility] [address] [place] [address] Arlet Pratt DO Diabetes (3 month visit) 08/02/2024 Travel 07/10/2024 Orders Only [facility] Scanner 1 scan: (1-Ord) [facility], PELVIC TRANSVAGINAL, 07/10/2024 from Last [...] on file Legal Sex Female 5:23 AM SUPERVISOR EDUCATION Gender Identity Not on file Sexual Orientation Not on file Obstetrics History Para Term AB IAB SAB Ectopic Multiple Livin g Live Births 0 0 0 0 0 0 0 0 0 0 Last Filed Vital Signs Vital Sign Reading Time Taken Comments Blood Pressure 121/80 08/02/2024 1:23 PM SUPERVISOR EDUCATION Pulse 82 08/02/2024 1:23 PM SUPERVISOR [employer]UCATION Temperature 36.2 C (97.2 F) 04/03/2023 1:40 PM CDT Respiratory Rate 18 04/03/2023 1:40 PM CDT Oxygen Saturation 99% 08/02/2024 1:23 PM SUPERVISOR [employer]UCATION Inhaled Oxygen Concentration - - Weight 136.4 kg (300 lb 9.6 oz) 08/02/2024 1:23 PM SUPERVISOR EDUCATION Height 170.2 cm (5' 7.01) 03/15/2023 2:40 PM CD T Body Mass Index 47.07 03/15/2023 2:40 PM CDT Plan of Treatment Upcoming Encounters Date Type Department Care Team (Late st Contact Info) Description 10/17/2024 3:10 PM CDT Office Visit [facility] [address] [place] [address] Arlet Pratt DO [address] [place] [address] Health Maintenance Due Date Last Done Comments [...] A1C MONITORING (POCT) Routine 08/02/2024 1:12 PM SUPERVISOR EDUCATION Uncontrolled type 2 diabetes mellitus with hyperglycemia (HC) SCAN-ULTRASOUND REPORT 07/10/2024 12:00 AM SUPERVISOR EDUCATION HPV HIGH RISK Routine 03/15/2023 3:37 PM [...] POCT Hemoglobin A1C Monitoring (08/02/2024 1:12 PM SUPERVISOR EDUCATION) POC HEMOGLOBIN A1C 6.8(H) <6.0 % OF TOTAL HGB [facility] Comment: Any point of care results exhibiting inconsistency with the patient's clinical status should be repeated using a different testing method. Blood BLOOD SPECIMEN / Unknown 08/02/2024 1:12 PM SUPERVISOR EDUCATION 08/02/2024 1:12 PM SUPERVISOR EDUCATION us Arlet Pratt DO CHEMISTRY Final Resu lt [facility] [address] [place] [address], [facility] [address] [place] [address] * SCAN-ULTRASOUND REPORT (07/10/2024 12:00 AM SUPERVISOR EDUCATION) Anatomical Region Laterality Modality Other us Scanner OTHER Final Result * HPV HIGH RISK (03/15/2023 3:37 PM CDT) TYPE 16 Negative Negative 03/18/2023 6:29 PM CDT [facility] TYPE 18 Negative Negative 03/18/2023 6:29 PM CDT [facility] OTHER HIGH RISK TYPES Negative Negative 03/18/2023 6:29 PM CDT [facility] Other (Cervical) Non-Blood / Unknown 03/15/2023 3:37 PM CDT 03/16/2023 12:00 PM CDT Narrative [facility] - 03/18/2023 6:29 PM CDT HPV types 16, 18, 31, 33, 35, 39, 45, 51, 52, 56, 58, 59, 66 and 68 DNA were undetectable or below the pre-set threshold. Methodology: Cecily Avtar 4800 HPV Test Arlet Pratt DO MICROBIOLOGY Final Resu lt [facility] [address] [place] [address], * ANTI HIV 1/2 (01/02/2020 9:06 AM CDT) Pathologist [facility] HIV-1/HIV-2 ANTIBODY Non-Reacti ve Non-Reacti ve 01/02/2020 6:16 PM CDT [facility] Comment:HIV-1 p24 and HIV-1/ HIV-2 Ab not detected. Blood BLOOD SPECIMEN / Unknown Venipuncture / Unknown 01/02/2020 9:06 AM CDT 01/02/2020 9:08 AM CDT Arlet Pratt DO SEND OUTS Final Resu lt [facility] [address] [place] [address], * ACUTE HEPATITIS PANEL (01/02/2020 9:06 AM CDT) Pathologist [facility] HEPATITIS C ANTIBODY Non-Reactive Non-Reactive 01/02/2020 6:16 PM CDT [facility] Comment:Antibodies to HCV no t detected; does not exclude the possibility of exposure to HCV. IGM ANTI HAV Non-Reactive Non-Reactive 01/02/20 20 6:16 PM CDT [facility] HBSAG Nonreactive Nonreactive 01/02/2020 6:[address] [facility] IGM ANTI HBC Non-Reactive Non-Reactive 01/02/20 20 6:[address] [facility] Blood BLOOD SPECIMEN / Unknown Venipuncture / Unknown 01/02/2020 9:06 AM CDT 01/02/2020 9:08 AM CDT Narrative [facility] - 01/02/2020 6:16 PM CDT Anti-HBc IgM not detected. Does not exclude the possibility of exposure to or infection with HBV. Arlet Pratt DO SEND OUTS Final Resu lt [facility] [address] [place] [address], [place] from Last 3 Months or Most Recently Relevant to Health Maintenance Additional Health Concerns Infection Onset Date Last Indicated MRSA Clearance Comment:Infection Control Note: Hx of MRSA 12/27/2011, surveillance criteria met, no need for further testing or isolation precautions. Do not delete or resolve the Infection Flag. 03/07/2023 03/07/2023 Insurance [facility] [place] Advance Directives * Full Code (Latest Code Status on File) Date Activated Date Inactivated Comments 12/25/2011 9:05 PM 12/28/2011 8:14 PM * Full Code Date Activated Date Inactivated Comments 06/14/2009 2:40 PM 06/17/2009 2:07 PM Care Teams Manager Transportation Relationship Specialty Start Date End Date Arlet Pratt DO [facility] [address] PCP - General Family Practice 05/06/15 Darwin Leung DPM PODIATRY Podiatry 08/02/11
[2024-10-05] MEDS: ONDANSETRON 2 MG/ML inj 4 MG IVP (21:04)
[2024-10-05] MEDS: 0.9 % SODIUM CHLORIDE 1000 ml 1,000 ML IV (21:05)
[2024-10-05] MEDS: KETOROLAC 15 MG/ML inj 30 MG IVP (21:07)
[2024-10-05] MEDS: MORPHINE 4 MG/ML INJ IVP (21:07)
[2024-10-05 21:25] LABS: Basophils Percent Auto 0.4 % (0.0-3.0); Eosinophils Percent Auto 2.7 % (0.0-7.0); Hematocrit 47.7 % (33.0-51.0); Hemoglobin* 15.3 gm/dL (12.0-16.0); Immature Granulocytes Pct Auto 0.4 %; Lymphocytes Percent Auto 12.9 % (20-44); Mean Corpuscular HGB Conc 32 gm/dL (32-36); Mean Corpuscular Hemoglobin 26 pg (26-34); Mean Corpuscular Volume 80 fL (80-100); Monocytes Percent Auto 4.3 % (0.0-11.0); Neutrophils Percent Auto 79.3 % (42.0-72.0); Platelet Count* 283 K/uL (140-440); RDW Coefficient of Variation % 14.5 % (11.5-15.5); Red Blood Count 5.99 m/uL (4.00-5.20)
[2024-10-05 21:28] LABS: Appearance Urine Clear (Clear); Bilirubin Urine Negative (Negative); Blood Urine Negative (Negative); Color Urine Yellow (Yellow); Glucose Urine 2+ (Negative); Ketones Urine Negative (Negative); Leukocyte Esterase Urine Negative (Negative); Nitrite Urine Negative (Negative); Protein Urine Negative (Negative); Specific Gravity Urine 1.015 (1.000-1.030); Urobilinogen Urine 0.2 (0.2-1.0); pH Urine 5.5 (5.0-8.5)
[2024-10-05 21:36] LABS: Slide Review Reflex No
[2024-10-05 21:37] LABS: RBC Urine 0-2 (0-2); WBC Urine 0-2 (0-5)
[2024-10-05 21:41] LABS: Albumin* 4.5 g/dL (3.3-5.0); Chloride* 99 mmol/L (96-114); Sodium* 136 mmol/L (135-149)
[2024-10-05 21:43] LABS: Anion Gap 10 mEq/L (7-15); Blood Urea Nitrogen* 12 mg/dL (5-24); Carbon Dioxide* 27 mmol/L (20-32); Creatinine* 0.7 mg/dL (0.5-1.5); Est. Creatinine Clearance* 107.01; Estimated Glomerular Filt Rate 117 ml/min
[2024-10-05 21:44] LABS: Alanine Aminotransferase* 41 U/L (4-35); Alkaline Phosphatase* 51 U/L (40-150); Aspartate Amino Transferase* 43 U/L (12-35); Bilirubin Direct* 0.3 mg/dL (0.0-0.5); Bilirubin Total* 0.6 mg/dL (0.1-1.5); Calcium* 9.3 mg/dL (8.4-10.6); Glucose* 151 mg/dL (60-115); Total Protein* 7.9 g/dL (6.0-8.3)
[2024-10-05 22:03] LABS: PCR FLU A Negative PCR FLU A (Negative); PCR FLU B Negative PCR FLU B (Negative); SARS PCR* Negative SARS-CoV-2 (Negative)
[2024-10-05 23:15] VITALS: BP 120/78; PULSE 85; RESP 18; O2SAT 98
== END 2024-10-05 23:33 | disposition home or self-care (01) ==
PROVIDERS: Emergency Provider Family Medicine; PCP Family Medicine
DX: R10.9 Unspecified abdominal pain (principal); R19.7 Diarrhea, unspecified
CPT/HCPCS: 36415; 80048; 80076; 81001; 85025; 87631; 96374; 96375; 99283; 99284; J1885; J2270; J2405; J7030

== ENCOUNTER 2025-03-31 20:36 | Emergency (ER) | payer OTHER, SELFPAY ==
--- OUTSIDE RECORDS SUMMARY | 2021-01-16 23:30 | XMS_ITS | Continuity of Care Document ---
Author Organization [facility] Address [address] [address] [place] [address] Phone Care Team Providers Care Program Management Intern Name Role Phone No Information Unavailable Unavailable Allergies, Adverse Reactions, Alerts Substance Reaction Status Criticality CEFPODOXIME PROXETIL Active No Info rmation NSAIDS (Non-Steroidal Anti-Inflammatory Drug) Active No Information Medications Medication Instructions Dosage Effective Dates (start - stop) Status Comments Tylenol 325 mg tablet take 1 tablet by o ral route every 6 hours as needed 325 MG - Active multivitamin capsule take 1 Tablet by Or al route every day - Active omeprazole 10 mg capsule,delayed release take 2 capsule by oral route every day before a meal 20 MG - Active tramadol ER 300 mg capsule 24 hr,extended release take 1 capsule by oral route 3 times every day as needed - Active Zofran ODT 4 mg disintegrating tablet take 1 tablet by oral route every day as needed 4 MG - Active Procedures Procedure Date Offic/outpt E&m [facility] Routine Serum Collection Bld Ct; Hg/pltlt Ct Auto/compl 15 Sed Rate, Erythrocyte; Auto C-reactive Prot Comp Metabolic Panel Lipase Amylase Offic/outpt E&m Estab Mod-hi 2 12 Subsqt Hosp-da E&m Minr Compl 2 Ugi Endo; W/endo Ultrasound Ex 12 Init Hosp-da E&m Mod Severity 2 Subsqt Hosp-da E&m Minr Compl 9 Subsqt Hosp-da E&m Minr Compl 9 Init Inpt Cons New/est Mod-hi 9 Advance Directives Directive Yes / No Effective Date File Name No Information Encounters Encounter Description Practice Location Reason(s) For Visit Diagnoses Date Provider Providers Copied on Encounter [facility], [address] [address], [place], [id number], [place] tel:[phone] No Information No Information Offic/outpt E&m New Mod-hi [facility], [address] [address], [place], [id number], [place] tel:[phone] [facility] GI Symptoms or Concerns (chief complaint) RUQ abdominal painElevated blood-pressur e reading, w/o diagnosis of htnDietary counseling and surveillance 5 No Information Referring Provider: Arlet Pratt DO, [address] [place] [address], [address]. tel:[phone] Offic/outpt E&m Estab Mod-hi 2 [facility], [address] [address], [place], [id number], [place] tel:[phone] [facility] No Information 2 Amna Manrique. [address] [facility] [address], [place], [place], [id number], [place]. tel:[phone] Referring Provider: Ellie Rodriguez, [address] [place] [address], [place], [address]. tel:[phone] Subsqt Hosp-da E&m Minr Compl [facility], [address] [address], [place], [id number], [place] tel:[phone] [facility] No Information 2 No Information Referring Provider: Katherin Guerrero MD, [address] [facility] [address], [place], [address]. tel:[phone] [facility], [address] [address], [place], [id number], [place] tel:[phone] [facility] No Information 201 2 Hernandez Stewart. [address], [id number], [place]. tel:[phone] Referring Provider: Katherin Guerrero MD, [address], [address]. [phone] Init Hosp-da E&m Mod Severity [facility], [address] [address], [place], [place], [id number], [place] tel:[phone] [facility] No Information 2 Lionel Andersen. [address], [id number], [place]. tel:[phone] Referring Provider: Katherin Guerrero MD, [address], [address]. [phone] Subsqt Hosp-da E&m Minr Compl [facility], [address] [address], [place], [place], [id number], [place] tel:[phone] [facility] No Information 9 Jeromy Nice. [address], [id number], [place]. tel:[phone] Referring Provider: Arlet Angel, [address], [address]. tel:[phone] Subsqt Hosp-da E&m Minr Compl [facility], [address] [address], [place], [place], [id number], [place] tel:[phone] [facility] No Information 9 Onelia Abarca. [address], [id number], [place]. tel:[phone] Referring Provider: Livier Reddy, [address], [place], [address]. tel:[phone] Init Inpt Cons New/est Mod-hi [facility], [address] [address], [place], [place], [id number], [place] tel:[phone] [facility] No Information Bishop Becerril. [address] [facility], [place], [place], [id number], [place]. tel:[phone] Referring Provider: Livier Reddy, [address] [place] [address], [place], [address]. tel:[phone] Family History Family Member Type Diagnosis Age At Onset Brother Problem (finding) GERD Father Problem (finding) Alive and well Mother Problem (finding) GERD Mother Problem (finding) asthma Sister Problem (finding) gallbladder disease Brother Problem (finding) asthma Mother Problem (finding) Colon polyps Immunizations Vaccine Date Status Comments Influenza virus vaccine, inj ectable, quadrivalent, split virus, preservative free, 3 years or older Fluarix Quad 1565-0581 administered Source: Other Pro vider Payers Payer name Insurance type Covered libertarian ID Authoriza tion(s) No Information Social History Type Description Quantity Date Captured Comments Sex Female Smoking Status No Information Chief Complaint And Reason For Visit No Information Reason For Referral Reason For Referral No Information Plan Of Treatment Date Type Action Status Goal Lifestyle education regardin g diet completed History Of Present Illness Encounter Date Complaint History Of Prese nt Illness GI Symptoms or Concerns This pat sallie is a 25-year-old female seen today because of a complex history involving chronic abdominal pain. She is accompanied by her mother who is a registered nurse and who provided some of the history. The patient's current problem of right upper quadrant abdominal pain began following a cholecystectomy done for abdominal pain and vomiting on June 03, 2009, in [place], [place]. The surgery apparently went well. Thereafter the vomiting abated, but the patient has continued to have right upper quadrant abdominal pain. Records indicate that she was seen at [facility] on June 14, 2009, by Dr. Alas because of abdominal pain along with elevated transaminases and a serum lipase of 3316. Diagnosis of pancreatitis was made. An MRCP was performed and showed small amounts of fluid and stranding in the mid and upper abdomen bilaterally including about the pancreas, spleen, stomach, and in the gallbladder fossa extending along the medial aspect of the liver Functional Status Date Functional Assessmen t No Information Instructions Date Instruction Additional Infor felipe 1. Laboratory - CBC, CMP, lipase, amylase, and inflammatory markers.2. Abdominal ultrasound.3. Upper endoscopy with biopsies.4. Further comment and recommendations to follow. If a specific diagnosis is not forthcoming after completion of the above studies, consideration will be given for further imaging such as a CT scan. All of this was discussed today in detail with the patient and her mother. Related to RUQ abdominal pain Lifestyle education regarding di et Related to Dietary counseling and surveillance Ultrasound Abdomen Abdominal Pain Related to RUQ a bdominal pain Assessments Type Assessment Date No Information Patient Care Teams Name Effective Dates (start - stop) Status Members No Information
--- OUTSIDE RECORDS SUMMARY | 2021-01-16 23:30 | XMS_ITS | Continuity of Care Document ---
Author Organization [facility] Address [address] [address] [place] [address] Phone Care Team Providers Care Podiatric Aide Name Role Phone No Information Unavailable Unavailable [...] Active Procedures Procedure Date Offic/outpt E&m [facility] Routine Serum Collection Bld Ct; Hg/pltlt Ct [...] Diagnoses Date Provider Providers Copied on Encounter [facility], [address] [address], [place], [id number], [place] tel:[phone] No Information No Information Offic/outpt E&m New Mod-hi [facility], [address] [address], [place], [id number], [place] tel:[phone] [facility] GI Symptoms or Concerns (chief complaint) RUQ abdominal painElevated blood-pressur e reading, w/o diagnosis of htnDietary counseling and surveillance 5 No Information Referring Provider: Arlet Pratt DO, [address] [place] [address], [address]. tel:[phone] Offic/outpt E&m Estab Mod-hi 2 [facility], [address] [address], [place], [id number], [place] tel:[phone] [facility] No Information 2 Amna Manrique. [address] [facility] [address], [place], [place], [id number], [place]. tel:[phone] Referring Provider: Ellie Rodriguez, [address] [place] [address], [place], [address]. tel:[phone] Subsqt Hosp-da E&m Minr Compl [facility], [address] [address], [place], [id number], [place] tel:[phone] [facility] No Information 2 No Information Referring Provider: Katherin Guerrero MD, [address] [facility] [address], [place], [address]. tel:[phone] [facility], [address] [address], [place], [id number], [place] tel:[phone] [facility] No Information 201 2 Hernandez Stewart. [address], [id number], [place]. tel:[phone] Referring Provider: Katherin Guerrero MD, [address], [address]. [phone] Init Hosp-da E&m Mod Severity [facility], [address] [address], [place], [place], [id number], [place] tel:[phone] [facility] No Information 2 Lionel Andersen. [address], [id number], [place]. tel:[phone] Referring Provider: Katherin Guerrero MD, [address], [address]. [phone] Subsqt Hosp-da E&m Minr Compl [facility], [address] [address], [place], [place], [id number], [place] tel:[phone] [facility] No Information 9 Jeromy Nice. [address], [id number], [place]. tel:[phone] Referring Provider: Arlet Angel, [address], [address]. tel:[phone] Subsqt Hosp-da E&m Minr Compl [facility], [address] [address], [place], [id number], [place] tel:[phone] [facility] No Information 9 Onelia Abarca. [address], [id number], [place]. tel:[phone] Referring Provider: Livier Reddy, [address], [place], [address]. tel:[phone] Init Inpt Cons New/est Mod-hi [facility], [address] [address], [place], [place], [id number], [place] tel:[phone] [facility] No Information Bishop Becerril. [address] [facility], [address], [place], [place], [id number], [place]. tel:[phone] Referring Provider: Livier Reddy, [address] [place] [address], [place], [address]. tel:[phone] Family History Family Member Type Diagnosis Age At Onset Brother Problem (finding) GERD Father Problem (finding) Alive and well Mother Problem (finding) GERD Mother Problem (finding) asthma Sister Problem (finding) gallbladder disease Brother Problem (finding) asthma Mother Problem (finding) Colon polyps Immunizations Vaccine Date Status Comments Influenza virus vaccine, inj ectable, quadrivalent, split virus, preservative free, 3 years or older Fluarix Quad 0498-1854 administered Source: Other Pro vider Payers Payer name Insurance type Covered constitution party ID Authoriza tion(s) No Information Social History [...] and vomiting on June 03, 2009, in [place], [place]. The surgery apparently went well. Thereafter the vomiting abated, but the patient has continued to have right upper quadrant abdominal pain. Records indicate that she was seen at [facility] on June 14, 2009, by Dr. Alas [...]
--- OUTSIDE RECORDS SUMMARY | 2025-03-31 20:38 | XMS_ITS | Clinical Summary ---
Author Organization [facility] Address [address] [place] [address] Care Team Providers Care Cloth Winding Supervisor Name Role Phone Darwin Leung DPM Unavailable [phone] Arlet Pratt DO Primary Care Provider [phone] Allergies Active Allergy Reactions Criticality Noted Date Comments Cephalosporins Diarrhea Low 09/29/2020 Bloody diarrhea Nsaids (Non-Steroidal Anti-Inflammatory Drug) Pancreatitis 08/21/2012 Unlisted Allergen (Include Detail In Comments) Pancreatitis High 09/29/2020 Medications multivitamin (MVI) tablet Take 1 tablet by mouth once daily. 0 011 Active acetaminophen (TYLENOL) 325 mg tablet Take 2 tablets by mouth every 4 hours if needed. Max acetaminophen dose: 4000mg in 24 hrs. 0 014 Active omeprazole (PRILOSEC) 20 mg Delayed-Release capsuleIndicatio ns:Gastroesophag eal reflux disease without esophagitis Take 1 capsule by mouth once daily. 90 capsule 1 018 Active Needle, Disp, 30 G (BUCKNER DISP NEEDLES 30GX1/2) 30 gauge x /2 ndleIndications: Controlled type 2 diabetes mellitus without complication, without long-term current use of insulin (HC) As directed. Use as directed with Victoza 30 Each 3 020 Active tolnaftate 1% powder (TINACTIN) 1 % powderIndication s:Tinea pedis of both feet Apply topically to affected area(s) 2 times daily. Shake into sock 1 Bottle 11 021 Active blood-glucose meterIndications :Type 2 diabetes, diet controlled (HC) by Not Applicable route. Dispense meter, test strips, lancets covered by pt ins. NIDDM type II, controlled - Test 1 time/day 1 Device Active diphenhydrAMINE- acetaminophen 25-500 mg (TYLENOL PM) 25-500 mg tablet Daily Act vitaly Contour Next Test Strips strip TEST 1 TIME A DAY Active Microlet Lancet TEST ONCE A DAY Active cyclobenzaprine (FLEXERIL) 10 mg tabletIndication s:Chronic midline low back pain with bilateral sciatica Take 1 Tablet (10 mg) by mouth at bedtime if needed for Muscle Spasm. MAX 10mg dose 30 Tablet 022 Active albuterol HFA (PRO-AIR; VENTOLIN; PROVENTIL) 90 mcg/actuation inhalerIndicatio ns:Shortness of breath Inhale 2 Puffs by mouth 4 times daily if needed for Shortness Of Breath. 1 Each 023 Active SUMAtriptan (IMITREX) 50 mg tabletIndication s:Menstrual migraine without status migrainosus, not intractable TAKE ONE-HALF TO ONE TABLET BY MOUTH AT ONSET OF MIGRAINE. MAY REPEAT IN 2 HOURS IF NEEDED. MAX DOSE 100MG/24 HOURS. 10 Tablet 023 Active miconazole nitrate powder 2 % powderIndication s:Tinea pedis, unspecified laterality Apply topically to affected area(s) two times daily. 85 g 1 023 Active ketoconazole 2% topical (NIZORAL) creamIndications :Yeast dermatitis Apply twice daily until resolved then may use weekly for prevention 120 g 3 023 Active Ajovy Autoinjector 225 mg/1.5 mL atIn INJECT 1 PEN INJECTOR SUBCUTANEOUSLY ONCE A MONTH 024 Active clindamycin phosphate 1% topical 1 % external solutionIndicati ons:Hidradenitis suppurativa Apply topically to affected area(s) two times daily. 60 mL 1 024 Active labetaloL (TRANDATE) 100 mg tabletIndication s:HTN (hypertension) Take 1 Tablet (100 mg) by mouth two times daily. 180 Tablet 3 024 Active FLUoxetine (PROZAC) 40 mg capsuleIndicatio ns:AMARIS (generalized anxiety disorder) Take 1 Capsule (40 mg) by mouth once daily in the morning. 90 Capsule 3 024 Active topiramate 100 mg tablet Take 100 mg by mouth at bedtime. 025 Active fexofenadine 180 mg tabletIndication s:Allergy, initial encounter TAKE ONE TABLET BY MOUTH ONCE DAILY. DO NOT CRUSH OR CHEW 90 Tablet 2 025 Active chlorthalidone (HYGROTON) 25 mg tabletIndication s:Hypertension Take 1 Tablet (25 mg) by mouth once daily. 90 Tablet 3 025 Active famotidine (PEPCID) 40 mg tabletIndication s:Gastric reflux Take 1 Tablet (40 mg) by mouth once daily. 90 Tablet 3 025 Active montelukast (SINGULAIR) 10 mg tabletIndication s:Moderate persistent asthma without complication (HC) Take 1 Tablet (10 mg) by mouth at bedtime. 90 Tablet 3 025 Active potassium chloride (KLOR-CON M20) 20 mEq extended-release tablet (part/cryst)Khushi cations:Hyperten mila,Low blood potassium Take 2 Tablets (40 mEq) by mouth two times daily with meals. 360 Tablet 3 025 Active glipiZIDE extended-release (GLUCOTROL XL) 5 mg Extended-Release tabletIndication s:Uncontrolled type 2 diabetes mellitus with hyperglycemia (HC) Take 1 Tablet (5 mg) by mouth once daily before a meal. 90 Tablet 3 025 Active triamcinolone (ARISTOCORT; KENALOG) 0.1 % creamIndications :Chronic eczema APPLY TO PATCH ON SPENCER TWICE DAILY UNTIL RESOLVED 80 g 025 Active triamcinolone (ARISTOCORT; KENALOG) 0.1 % creamIndications :Chronic eczema Apply to patch on spencer twice daily until resolved. 80 g 025 2024 Discontinued Active Problems Problem Noted Date Diagnosed [...] Overview (12/05/2013): Per MAKEDA Thomas at the [facility] visit from April 2012. Consult for recurrent [...] pills were not actually contributing. Records from [facility] [place] in chart, only 1 visit 05/08/14. Asked for further records but none available. 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 Lyon. 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 See consult from GI Dr. Martinez at the [facility] from May 08, 2012 See details under pancreatitis in problem list. MRSA (methicillin resistant Staphylococcus aureus) infection 07/03/2010 PCOS (polycystic ovarian syndrome) 05/13/2010 Overview (11/28/2013): As of 07/2013: Previously on OCPs but these had to be discontinued because patient was having recurrent pancreatitis after her gallbladder was removed. She saw a ethylbenzene converter operator who told her the control was [...] pain 12/25/201110/30 Overview (12/25/2011): Unclear etiology. Per automatic pinsetter adjuster, at times seems correlated with menstrual cycle, [...] Encounters Date Type Department Care Team Description 03/16/2025 Refill [facility] [address] [place] [address] Arlet Pratt DO Refill Request (Triamcinolone) 02/19/2025 Orders Only [facility] [address] [place] [address] Arlet Pratt DO <No scans attached> 02/15/2025 11:20 AM CDT Office Visit [facility] [address] [place] [address] [address] Arlet Pratt DO Diabetes; Derm Problem (rash on left leg has been there a while ) 02/15/2025 Travel 12/30/2024 Refill [facility] [address] [place] [address] Arlet Pratt DO Refill Request (Fexofenadine) from Last 3 Months Immunizations Immunization Administration Dates Next Due COVID-19 VACCINE SPIKEVAX (M ODERNA 50MCG/0.5ML) 12YO+ PFS 04/23/2024 COVID-19 vaccine (Moderna 100mcg/0.5mL) PF, MDV 08/06/2021,07/30/2020,07/03/2020 Hepatitis B (Adult) 01/05/2021 Human Papilloma Virus Vaccine 01/06/2012, 012,12/14/2007 02/13/2008 INFLUENZA, IIV3 PF (AGE >= 6 MO) 04/23/2024 Influenza, IIV3 (Age >=3 years) 04/28/2012,05/13 Influenza, IIV4 05/16/2023,,05/06/2020,05/04,06/01/2018,03/17/2017,05/14/2016 ,04/15/2015 Pneumococcal Poly,23-Valent (Pneumovax) 01/05/2021 Tdap 12/22/2024,12/27/2020,04/28/2012 Tuberculin (PPD) 09/23/2017,09/09/2017 Family History Medical History [...] is your housing situation today? 1 04/23/2024 Interpersonal Safety Answer Date Record ed Are you being hit, kicked, p ushed or yelled at (see row info)? No 12/22/2024 Interpersonal Safety Abuse 12 - 18 Not on file 12/22/2024 Interpersonal Safety Ambulatory Vulnerability No t on file 12/22/2024 Utilities Answer Date Recorded Do you have trouble paying f or utilities (for example, heat, electricity, water, phone)? 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 Gender Identity Not on file Sexual Orientation Not on file Obstetrics History Para Term AB IAB SAB Ectopic Multiple Livin g Live Births 0 0 0 0 0 0 0 0 0 0 Last Filed Vital Signs Vital Sign Reading Time Taken Comments Blood Pressure 128/84 02/15/2025 11:48 AM CDT Pulse 79 02/15/2025 11:48 AM CDT Temperature 36.7 C (98.1 F) 12/22/2024 6:29 PM CDT Respiratory Rate 18 12/22/2024 6:29 PM CDT Oxygen Saturation 99% 02/15/2025 11: 48 AM CDT Inhaled Oxygen Concentration - - Weight 141.3 kg (311 lb 6.4 oz) 025 11:48 AM CDT Height 170.2 cm (5' 7) 12/22/2024 6:37 PM CDT Body Mass Index 48.77 12/22/2024 6:37 PM CDT Plan of Treatment Health Maintenance Due Date Last Done Comments Hepatitis B series for 19+ (2 of 3 - 19+ 3-dose series) 02/02/2021 01/05/2021 Pneumococcal series for age 6-49 (2 of 2 - PCV) 01/05/2022 01/05/2021 BMI (ht and wt on same day) for age 18+ 03/15/2024 03/15/2023, 07/02/2021, 02/11/2021, Additional history exists Influenza Vaccine (#1) 2025 , 05/16/2023, 04/29/2022, Additional history exists Depression screening for age 12+ 08/02/2025 08/02/2024, 03/15/2023, 10/29/2021, Additional history exists Pap test for age 21-65 03/15/2028 , 03/15/2023, 10/26/2018, Additional history exists Tetanus booster 12/22/2034 12/22/2024, 07/0 08/2020, 04/28/2012 RSV vaccine for adults or (1 - 1-dose 75+ series) 2066 HPV series for age 9-45 Addressed 01/06/20 12, 10/04/2011, 10/04/2011 (Declined), Additional history exists Overridden with the intention of not completing the topic HIV for age 15-65 Completed 01/02/2020, 03/07/2018 Hepatitis C screening for age 18-79 Completed 01/02/2020 COVID-19 vaccine series Completed 04/23/20 24, 08/06/2021, 07/30/2020, Additional history exists Procedures Procedure Name Priority Date/Time Associated Diagnosis Comments COMP METABOLIC PANEL Routine 02/15/2025 11:41 AM CDT Fatty liver Controlled type 2 diabetes mellitus without complication, without long-term current use of insulin (HC) LIPID PANEL W REFLEX MEASURED LDL Routine 02/15/2025 11:41 AM CDT Hyperlipidemia, unspecified hyperlipidemia type HEMOGLOBIN A1C MONITORING (POCT) Routine 02/15/2025 11:41 AM CDT Controlled type 2 diabetes mellitus without complication, without long-term current use of insulin (HC) HPV HIGH RISK Routine 03/15/2023 3:37 PM CDT Cervical cancer screening ANTI HIV 1/2 Routine 01/02/2020 9:06 AM CDT Unprotected sexual intercourse ACUTE HEPATITIS PANEL Routine 01/02/2020 9:06 AM CDT Unprotected sexual intercourse from Last 3 Months or Most Recently Relevant to Health Maintenance Results * (ABNORMAL) LIPID PANEL W REFLEX MEASURED LDL (02/15/2025 11:41 AM CDT) Pathologist [facility] CHOLESTEROL, TOTAL 217(H) <200 mg/dL 02/16/2025 3:45 AM CDT [facility] TRIGLYCERIDES 225(H) <150 mg/dL 02/16/2025 3:45 AM CDT [facility] Comment: If a non-fasting specimen was collected, consider repeat triglyceride testing on a fasting specimen if clinically indicated. Calixto et al. J. of Clin. Lipidol. 2015;9:129-169. HDL CHOLESTEROL 41(L) > OR = 50 mg/dL 02/16/2025 3:45 AM CDT [facility] NON HDL CHOLESTEROL 176(H) <130 mg/dL (calc) 02/16/2025 3:45 AM CDT [facility] Comment: For patients with diabetes plus 1 major ASCVD risk factor, treating to a non-HDL-C goal of <100 mg/dL (LDL-C of <70 mg/dL) is considered a therapeutic option. CHOL/HDLC RATIO 5.3(H) <5.0 (calc) 02/16/2025 3:45 AM CDT [facility] LDL-CHOLESTEROL 140(H) mg/dL (calc) 02/16/2025 3:45 AM CDT [facility] Comment: Reference range: <100 Desirable range <100 mg/dL for primary prevention; <70 mg/dL for patients with CHD or diabetic patients with > or = 2 CHD risk factors. LDL-C is now calculated using the Pam calculation, which is a validated novel method providing better accuracy than the Friedewald equation in the estimation of LDL-C. Jose SS et al. KARIN. 2013;310(13): 0364-5606 (http://education.Accion [place].Joldit.com/faq/UPD238) Blood BLOOD SPECIMEN / Unknown [facility] / Unknown 02/15/2025 11:41 AM CDT 02/15/2025 11:42 AM CDT us Arlet Pratt DO CHEMISTRY Final Resu lt [facility] [address] [address], * (ABNORMAL) POCT Hemoglobin A1C Monitoring (02/15/2025 11:41 AM CDT) POC HEMOGLOBIN A1C 7.7(H) <6.0 % OF TOTAL HGB 02/15/2025 11:54 AM CDT [facility] Comment: Any point of care results exhibiting inconsistency with the patient's clinical status should be repeated using a different testing method. Blood BLOOD SPECIMEN / Unknown [facility] / Unknown 02/15/2025 11:41 AM CDT 02/15/2025 11:42 AM CDT us Arlet Pratt DO CHEMISTRY Final Resu lt [facility] [address] [place] [address], [place] [phone] [facility] [address] [place] [address], [place] [phone] * (ABNORMAL) COMP METABOLIC PANEL (02/15/2025 11:41 AM CDT) SODIUM 138 135 - 146 mmol/L 02/16/2025 3:45 AM CDT [facility] POTASSIUM 3.3(L) 3.5 - 5.3 mmol/L 02/16/2025 3:45 AM CDT [facility] CHLORIDE 97(L) 98 - 110 mmol/L 02/16/2025 3:45 AM CDT [facility] CARBON DIOXIDE 30 20 - 32 mmol/L 02/16/2025 3:45 AM CDT [facility] GLUCOSE 169(H) 65 - 99 mg/dL 02/16/2025 3:45 AM CDT [facility] Comment: Fasting reference interval For someone without known diabetes, a glucose value >125 mg/dL indicates that they may have diabetes and this should be confirmed with a follow-up test. CALCIUM 9.4 8.6 - 10.2 mg/dL 02/16/2025 3:45 AM CDT [facility] CREATININE 0.78 0.50 - 0.97 mg/dL 02/16/2025 3:45 AM CDT [facility] BUN/CREATININE RATIO SEE NOTE: 6 - 22 (calc) 02/16/2025 3:45 AM CDT [facility] Comment: Not Reported: BUN and Creatinine are within reference range. EGFR 103 > OR = 60 mL/min/1. 73m2 02/16/2025 3:45 AM CDT [facility] ALBUMIN 4.2 3.6 - 5.1 g/dL 02/16/2025 3:45 AM CDT [facility] PROTEIN, TOTAL 7.4 6.1 - 8.1 g/dL 02/16/2025 3:45 AM CDT [facility] BILIRUBIN, TOTAL 0.3 0.2 - 1.2 mg/dL 02/16/2025 3:45 AM CDT [facility] ALKALINE PHOSPHATASE 55 31 - 125 U/L 02/16/2025 3:45 AM CDT [facility] ALT 44(H) 6 - 29 U/L 02/16/2025 3:45 AM CDT [facility] AST 53(H) 10 - 30 U/L 02/16/2025 3:45 AM CDT [facility] UREA NITROGEN (BUN) 13 7 - 25 mg/dL 02/16/2025 3:45 AM CDT [facility] GLOBULIN 3.2 1.9 - 3.7 g/dL (calc) 02/16/2025 3:45 AM CDT [facility] ALBUMIN/GLOBULI N RATIO 1.3 1.0 - 2.5 (calc) 02/16/2025 3:45 AM CDT [facility] Blood BLOOD SPECIMEN / Unknown [facility] / Unknown 02/15/2025 11:41 AM CDT 02/15/2025 11:42 AM CDT Arlet Pratt DO CHEMISTRY Final Resu lt [facility] [address] [place] [address], * HPV HIGH RISK (03/15/2023 3:37 PM CDT) TYPE 16 Negative Negative 03/18/2023 6:29 PM CDT [facility] TYPE 18 Negative Negative 03/18/2023 6:29 PM CDT [facility] OTHER HIGH RISK TYPES Negative Negative 03/18/2023 6:29 PM CDT [facility] Other (Cervical) Non-Blood / Unknown 03/15/2023 3:37 PM CDT 03/16/2023 12:00 PM CDT Narrative [facility] - 03/18/2023 6:29 PM CDT HPV types 16, 18, 31, 33, 35, 39, 45, 51, 52, 56, 58, 59, 66 and 68 DNA were undetectable or below the pre-set threshold. Methodology: Cecily Avtar 4800 HPV Test [facility] Jill[facility] Pratt DO MICROBIOLOGY Final Resu lt [facility] [address] [place] [address], [place] * ANTI HIV 1/2 (01/02/2020 9:06 AM CDT) HIV-1/HIV-2 ANTIBODY Non-Reacti ve Non-Reacti ve 01/02/2020 6:16 PM CDT [facility] Comment:HIV-1 p24 and HIV-1/ HIV-2 Ab not detected. Blood BLOOD SPECIMEN / Unknown Venipuncture / Unknown 01/02/2020 9:06 AM CDT 01/02/2020 9:08 AM CDT Arlet Pratt DO SEND OUTS Final Resu lt [facility] [address] [place] [address], [place] * ACUTE HEPATITIS PANEL (01/02/2020 9:06 AM CDT) HEPATITIS C ANTIBODY Non-Reactive Non-Reactive 01/02/2020 6:16 PM CDT [facility] Comment:Antibodies to HCV no t detected; does not exclude the possibility of exposure to HCV. IGM ANTI HAV Non-Reactive Non-Reactive 01/02/20 6:16 PM CDT [facility] HBSAG Nonreactive Nonreactive 01/02/2020 6:16 PM CDT [facility] IGM ANTI HBC Non-Reactive Non-Reactive 01/02/20 20 6:16 PM CDT [facility] Blood BLOOD SPECIMEN / Unknown Venipuncture / Unknown 01/02/2020 9:06 AM CDT 01/02/2020 9:08 AM CDT Narrative [facility] - 01/02/2020 6:16 PM CDT Anti-HBc IgM not detected. Does not exclude the possibility of exposure to or infection with HBV. Arlet Jillian Santa DO SEND OUTS Final Resu lt [facility] [address] [place] [address], [place] from Last 3 Months or Most Recently Relevant to Health Maintenance Additional Health Concerns Infection Onset Date Last Indicated MRSA Clearance Comment:Infection Control Note: Hx of MRSA 12/27/2011, surveillance criteria met, no need for further testing or isolation precautions. Do not delete or resolve the Infection Flag. 03/07/2023 03/07/2023 Insurance [facility] Advance Directives * Full Code (Latest Code Status on File) Date Activated Date Inactivated Comments 12/25/2011 9:05 PM 12/28/2011 8:14 PM * Full Code Date Activated Date Inactivated Comments 06/14/2009 2:40 PM 06/17/2009 2:07 PM Care Teams Cloth Winding Supervisor Relationship Specialty Start Date End Date Arlet Pratt DO [address] [place] [address] PCP - General Family Practice 05/06/15 Darwin Leung DPM PODIATRY Podiatry 08/02/11
--- OUTSIDE RECORDS SUMMARY | 2025-03-31 20:38 | XMS_ITS | Clinical Summary ---
Author Organization [facility] Address [address] , [address] [place] [address] Phone Care Team Providers Care Commission Associate Name Role Phone System Maintenance Unavailable [phone] Conditions or Problems Problem Name Problem Code Onset Date Status Entry Date Provider Comment Standard Description Annotate Risk of sleep apnea 689066644 (SNOMED CT) 07/05 Active 07/05 Sara Huizar PA-C At increased risk of disease Snoring 11422885 (SNOMED CT) 07/05 Active 07/05 Sara Huizar PA-C Snoring Obesity 871188528 (SNOMED CT) 08/17 Active 08/17 Arik Alexander MD Obesity Papilledema 032377046 (SNOMED CT) 08/17 Active 08/17 Arik Alexander MD Optic disc edema New daily persistent headache [id number] 05 (SNOMED CT) 08/17 Active 08/17 Arik Alexander MD New daily persistent headache Migraine, common 39352761 (SNOMED CT) 08/17 Active 08/17 Arik Alexander MD Migraine without aura Medications Medication Instructions Start Date Stop Date Generic Name [facility] Provider SUMATRIPTAN SUCCINATE 100 MG TABS TAKE ONE-HALF TO ONE TABLET BY MOUTH AT ONSET OF MIGRAINE, MAY REPEAT IN 2 HOURS NEEDED MAX DOSE ONE TABLET IN 24HRS DO NOT TAKE MORE THAN 9 TO 10 DAYS PER MONTH 03/07 sumatriptan succinate [id number] Wilmer Lares PA-C SUMATRIPTAN SUCCINATE 100 MG TABS TAKE ONE HALF TO ONE TABLET BY MOUTH AT ONSET OF MIGRAINE, MAY REPEAT IN 2 HOURS NEEDED. MAX DOSE ONE TABLET IN 24HRS. DO NOT TAKE MORE THAN 9 TO 10 DAYS PER MONTH sumatriptan succinate 13640035933 Wilmer MULLINS-Jeannine TOPIRAMATE 100 MG TABS TAKE ONE TABLET BY MOUTH ONCE DAILY AT BEDTIME - PT NEEDS APPT, CALL [phone] 01/28 topiramate [id number] Sara Nydia Cherucheril PA-C TOPIRAMATE 100 MG TABS TAKE ONE TABLET BY MOUTH AT BEDTIME NEED APPOINTMENT CALL [phone] topiramate 27670556066 Sara Nydia Betzaidaucheril PA-C TOPAMAX 100 MG TABS Take 1 tablet by mouth every night at bedtime 12/31 topiramate [id number] Jillian Marquis DNP,ADMINISTRATIVE ASST,PSYCHOLOGIST MILITARY PERSONNEL TOPIRAMATE 100 MG TABS TAKE ONE TABLET BY MOUTH ONCE DAILY AT BEDTIME - PT NEEDS APPT, CALL [phone] 01/28 topiramate 16112142061 Jillian Rodriguez Rechtzigel DNP,ADMINISTRATIVE ASST,PSYCHOLOGIST MILIT[employer] PERSONNEL SUMATRIPTAN SUCCINATE 100 MG TABS TAKE ONE-HALF TO ONE TABLET BY MOUTH AT ONSET OF MIGRAINE. MAY REPEAT IN 2 HOURS IF NEEDED. MAX DOSE 100MG/24 HOURS. No to take more than 9 to 10 days per month 03/02 sumatriptan succinate 35898219190 Sara Nydia Cherucheril PA-C SUMATRIPTAN SUCCINATE 100 MG TABS TAKE ONE-HALF TO ONE TABLET BY MOUTH AT ONSET OF MIGRAINE, MAY REPEAT IN 2 HOURS NEEDED MAX DOSE ONE TABLET IN 24HRS DO NOT TAKE MORE THAN 9 TO 10 DAYS PER MONTH 03/07 sumatriptan succinate 47056147416 Sara Nydia Cherucheril PA-C TOPAMAX 25 MG TABS week 1: take 1 tab q am and 4 tab q pm. week 2: take 2 tab q am and 4 tab q pm. week 3: take 3 tab q am and 4 tab q pm. week 4 onward: take 4 tab twice a day. 12/26 topiramate 98723687774 Sara Huizar PA-C TOPAMAX 100 MG TABS Take 1 tablet by mouth every night at bedtime 12/31 topiramate 56739680077 Sara Huizar PA-C CETIRIZINE HCL 10 MG TABS Take 1 tablet by mouth once a day 09/04 cetirizine 58489503224 Sara Lynneil PA-C FEXOFENADINE HCL 180 MG TABS fexofenadine 65616483187 Sara Lynneil PA-C GLIPIZIDE ER 2.5 MG [id number] TAKE ONE TABLET BY MOUTH EVERY DAY BEFORE A MEAL glipizide 90919331240 Sara MULLINS-C AJOVY 225 MG/1.5ML SOAJ Inject 1 pen injector subcutaneously once a month fremanezumab-vfr [id number] Sara Huizar SUSANNA-C JARDIANCE 10 MG TABS empagliflozin 84514752242 Sara Huizar PA-C TOPAMAX 25 MG TABS 1 tablet by mouth as directed : 25 mg per night for 1 weeks; then increase by 25 mg per night every 1 weeks until maximum 100 mg per night or until pain controlled 03/14 topiramate 31893082880 Sara Huizar PA-C TOPAMAX 25 MG TABS week 1: take 1 tab q am and 4 tab q pm. week 2: take 2 tab q am and 4 tab q pm. week 3: take 3 tab q am and 4 tab q pm. week 4 onward: take 4 tab twice a day. 12/26 topiramate 84271698354 Sara Huizar PA-C ATIVAN 1 MG TABS 1 tablet by mouth as directed : 1 mg 2 hour before MRI. May repeat as needed with 1 mg up to maximum of 3 mg before MRI. No driving or operate heavy machinery for 24 hour after taking this med lorazepam 66905821448 Arik Alexander MD SUMATRIPTAN SUCCINATE 50 MG TABS TAKE ONE-HALF TO ONE TABLET BY MOUTH AT ONSET OF MIGRAINE. MAY REPEAT IN 2 HOURS IF NEEDED. MAX DOSE 100MG/24 HOURS. 9 to 10 days use per month 08/17 sumatriptan succinate 56911081348 Arik Alexander MD SUMATRIPTAN SUCCINATE 100 MG TABS TAKE ONE-HALF TO ONE TABLET BY MOUTH AT ONSET OF MIGRAINE. MAY REPEAT IN 2 HOURS IF NEEDED. MAX DOSE 100MG/24 HOURS. No to take more than 9 to 10 days per month 03/02 sumatriptan succinate 54232103385 Arik Alexander MD SUMATRIPTAN SUCCINATE 50 MG TABS TAKE ONE-HALF TO ONE TABLET BY MOUTH AT ONSET OF MIGRAINE. MAY REPEAT IN 2 HOURS IF NEEDED. MAX DOSE 100MG/24 HOURS. 08/17 sumatriptan succinate 46197376040 Arik Alexander MD TOPAMAX 25 MG TABS 1 tablet by mouth as directed : 25 mg per night for 1 weeks; then increase by 25 mg per night every 1 weeks until maximum 100 mg per night or until pain controlled 03/14 topiramate 77497849989 Arik Alexander MD SUMATRIPTAN SUCCINATE 50 MG TABS TAKE ONE-HALF TO ONE TABLET BY MOUTH AT ONSET OF MIGRAINE. MAY REPEAT IN 2 HOURS IF NEEDED. MAX DOSE 100MG/24 HOURS. 9 to 10 days use per month 08/17 sumatriptan succinate 58891772051 Arik Alexander MD multivitamin Take 1 tablet by mouth once a day MVI Arik Alexander MD TRIAMCINOLONE ACETONIDE 0.5 % OINT Apply to skin twice a day triamcinolone acetonide 09167931178 Arik Alexander MD NORGESTIMATE-ETH ESTRADIOL 0.25-35 MG-MCG TABS Take 1 tablet by mouth once a day 08/17 norgestimate-eth inyl estradiol 86331262842 Arik Alexander MD POTASSIUM CHLORIDE SUKHDEV ER 20 MEQ CR-TABS Take 1 tablet by mouth once a day potassium chloride 30334746524 Arik Alexander MD OMEPRAZOLE 20 MG CPDR Take 1 capsule by mouth once a day omeprazole 79726237270 Arik Alexander MD ALBUTEROL SULFATE HFA 108 (90 Base) MCG/ACT AERS Inhale 1-2 puff by mouth every four hours as needed 08/17 albuterol sulfate 88430660432 Arik Alexander MD ALBUTEROL SULFATE HFA 108 (90 Base) MCG/ACT AERS Inhale 2 puff by mouth four times a day as needed albuterol sulfate 00879641906 Arik Alexander MD FAMOTIDINE 40 MG TABS Take 1 tablet by mouth every night famotidine 87721376975 Arik Alexander MD CYCLOBENZAPRINE HCL 10 MG TABS Take 1 tablet by mouth every night as needed cyclobenzaprine 09871624257 Arik Alexander MD diphenhydrAMINE-a cetaminophen 25-500 mg once a day TYLENOL PM Arik Alexander MD Contour Next Test Strips strip Use once a day Contour Next Test Strips strip Arik Alexander MD ACETAMINOPHEN 325 MG TABS Take 2 tablet by mouth every four hours as needed acetaminophen 75764468393 Arik Alexander MD CETIRIZINE HCL 10 MG TABS Take 1 tablet by mouth once a day 09/04 cetirizine 32036730353 Arik Alexander MD blood-glucose meter by Not Applicable route. Dispense meter, test strips, lancets covered by pt ins. NIDDM type II, controlled - Test 1 time/day blood-glucose meter Arik Alexander MD LABETALOL HCL 100 MG TABS Take 1 tablet by mouth twice a day labetalol 96921330806 Arik Alexander MD Microlet Lancet Use once [...] MAX DOSE 100MG/24 HOURS. 08/17 sumatriptan succinate 36455106155 Arik Alexander MD MONTELUKAST SODIUM 10 MG TABS Take 1 tablet by mouth every night montelukast 34475656915 Arik Alexander MD CHLORTHALIDONE 25 MG TABS Take 1 tablet by mouth once a day chlorthalidone 08787043967 Arik Alexander MD TOLNAFTATE 1 % POWD Apply to skin twice a day tolnaftate 81112740334 Arik Alexander MD ESCITALOPRAM OXALATE 20 MG TABS Take 1 tablet by mouth every night escitalopram oxalate 65892950192 Arik Alexander MD TRIAMCINOLONE ACETONIDE 0.5 % OINT Apply topically to affected area(s) 2 times daily. Not use >14 days in a row 08/17 triamcinolone acetonide 59609907242 QIEUSER QIEUSER TOLNAFTATE 1 % POWD Apply topically to affected area(s) 2 times daily. Shake into sock 08/17 tolnaftate 26597201816 QIEUSER QIEUSER SUMATRIPTAN SUCCINATE 50 MG TABS TAKE ONE-HALF TO ONE TABLET BY MOUTH AT ONSET OF MIGRAINE. MAY REPEAT IN 2 HOURS IF NEEDED. MAX DOSE 100MG/24 HOURS. 08/17 sumatriptan succinate 35780557792 QIEUSER QIEUSER POTASSIUM CHLORIDE SUKHDEV ER 20 MEQ CR-TABS TAKE ONE TABLET BY MOUTH EVERY DAY WITH A MEAL. TAKE INSTEAD OF POWDER POTASSIUM 08/17 potassium chloride 04789483727 QIEUSER QIEUSER OMEPRAZOLE 20 MG CPDR Take 1 capsule by mouth once daily. 01/04 omeprazole 38848927665 QIEUSER QIEUSER NORGESTIMATE-ETH ESTRADIOL 0.25-35 MG-MCG TABS Take 1 Tablet by mouth once daily. 01/04 norgestimate-eth inyl estradiol 44345082024 QIEUSER QIEUSER multivitamin Take 1 tablet by mouth once daily. 08/17 MVI QIEUSER QIEUSER MONTELUKAST SODIUM 10 MG TABS Take 1 Tablet (10 mg) by mouth at bedtime. 08/17 montelukast 71975461587 QIEUSER QIEUSER Microlet Lancet TEST ONCE A DAY 08/17 Microlet Lancet QIEUSER QIEUSER miconazole nitrate powder 2 % powder Apply topically to affected area(s) 2 times daily. 08/17 miconazole nitrate powder 2 % powder QIEUSER QIEUSER LABETALOL HCL 100 MG TABS Take 1 Tablet (100 mg) by mouth in the morning and 1 Tablet (100 mg) in the evening. 08/17 labetalol 27899962273 QIEUSER QIEUSER FAMOTIDINE 40 MG TABS Take 1 Tablet (40 mg) by mouth at bedtime. 08/17 famotidine 07128045267 QIEUSER QIEUSER ESCITALOPRAM OXALATE 20 MG TABS Take 1 Tablet (20 mg) by mouth at bedtime. 08/17 escitalopram oxalate 72804216269 QIEUSER QIEUSER diphenhydrAMINE-a cetaminophen 25-500 mg Daily 08/17 TYLENOL PM QIEUSER QIEUSER CYCLOBENZAPRINE HCL 10 MG TABS Take 1 Tablet (10 mg) by mouth at bedtime if needed for Muscle Spasm. MAX 10mg dose 08/17 cyclobenzaprine 83058677026 QIEUSER QIEUSER Contour Next Test Strips strip TEST 1 TIME A DAY 08/17 Contour Next Test Strips strip QIEUSER QIEUSER CHLORTHALIDONE 25 MG TABS Take 1 Tablet (25 mg) by mouth once daily. 01/04 chlorthalidone 13367366448 QIEUSER QIEUSER CETIRIZINE HCL 10 MG TABS Take 1 Tablet (10 mg) by mouth once daily. 08/17 cetirizine 29395072137 QIEUSER QIEUSER blood-glucose meter by Not Applicable route. Dispense meter, test strips, lancets covered by pt ins. NIDDM type II, controlled - Test 1 time/day 08/17 blood-glucose meter QIEUSER QIEUSER ALBUTEROL SULFATE HFA 108 (90 Base) MCG/ACT AERS Inhale 1-2 Puffs by mouth every 4 hours if needed for Shortness of Breath 1st choice or Wheezing 1st choice. 08/17 albuterol sulfate 03069279846 QIEUSER QIEUSER ALBUTEROL SULFATE HFA 108 (90 Base) MCG/ACT AERS Inhale 2 Puffs by mouth 4 times daily if needed for Shortness Of Breath. 08/17 albuterol sulfate 28473014773 QIEUSER QIEUSER ACETAMINOPHEN 325 MG TABS Take 2 tablets by mouth every 4 hours if needed. Max acetaminophen dose: 4000mg in 24 hrs. 08/17 acetaminophen 69824509448 QIEUSER QIEUSER Medications Administered No information available. [...] (HIE) AUTHVMEMTM Yes Authorizat ion: Authorization for Norevaristo/SCOTT to leave messages, voicemail, send text messages, [...] up Pending order Other Order Pending order Other Order Pending Order exclud ed from report: Pending order Follow up Pending Order exclud ed from report: Pending order Follow up [facility] Pending Order exclud ed from report: Pending order Patient Instruct ions Pending order [...] with N eurologist or [facility] Pending order Home Sleep Study - HST Pending Order exclud ed from report: Pending order Patient Instruct ions Pending order Follow up in cl[facility] or telemedicine Pending order Other Order Pending order Follow up EZEQUIEL af ter testing Pending order Other Order Pending order Patient Instruct ions Pending order MRI-Brain W/O Pending order MRV Pending order Patient Instruct ions Pending order Patient Instruct ions Procedures Code Procedure Name Date Entry Date ORDERS Other Order ORDERS Follow up ORDERS Follow up [facility] ORDERS Patient Instructions ORDERS Patient Instructions ORDERS Patient Instructions ORDERS Follow up [facility] ORDERS Patient Instructions ORDERS Follow up with Neurologist or [facility] ORDERS Home Sleep Study - HST 05/05 ORDERS Patient Instructions ORDERS Other Order ORDERS Follow up [facility] after testing ORDERS Patient Instructions ORDERS Other Order ORDERS Follow up in clinic or telemedicine 09/28 ORDERS MRV [id number] MRI-Brain W/O CPT-74498 MRI Brain W/O [id number] ProHance Gadolinium- based MR Contrast - 20 ml vial CPT-85000 MRV Head W/WO ORDERS Patient Instructions ORDERS Patient Instructions [id number] Documentation of current medicatio ns Vital Signs Date Name Value Unit Description Weight Measured 330 [lb_av] weight E& M Weight Measured 330 [lb_av] weight E& M Heart Rate 68 /min pulse rate Immunizations No information available. Advance Directives No information available.
[2025-03-31 20:42] VITALS: BP 125/83; PULSE 92; RESP 18; TEMP 36.4; O2SAT 97; BMI 50.0
--- NOTE | 2025-03-31 21:00 | CRLHL7_ITS ---
For Patients: As a result of the Century Cures Act, medical imaging exams and procedure reports are released immediately into your electronic medical record. You may view this report before your referring provider. If you have questions, please contact your health care provider. Indication: Lower abdominal pain for a week Technique: CT through the abdomen and pelvis following 150 mL Isovue 370 IV contrast Comparison: CT abdomen and pelvis performed 03/26/2024 Findings: Lower chest: No acute abnormality appreciated. Hepatobiliary: Hepatomegaly. Cholecystectomy. Spleen: Splenomegaly. Pancreas: No acute abnormality appreciated. Adrenal glands: No acute abnormality appreciated. Kidneys: No significant parenchymal abnormality appreciated. No visualized calculi. No hydronephrosis. Bowel: No obstruction. No focal perienteric or pericolonic stranding is appreciated. The appendix is visualized and appears unremarkable. Vascular: No acute abnormality appreciated. Lymph nodes: No gross lymphadenopathy. Peritoneum: No free air. No free fluid. : Bladder wall thickening with mild adjacent stranding. Soft tissues: No acute abnormality appreciated. Bones: No acute fracture. No lytic or blastic lesion. Mild spondylosis. Impression: 1. Bladder wall thickening with mild adjacent stranding concerning for UTI/cystitis. 2. Hepatic steatosis with hepatosplenomegaly. Please note that all CT scans at this facility use dose modulation, iterative reconstruction, and/or weight-based dosing when appropriate to reduce radiation dose to as low as reasonably achievable. Dictated by Antwan Schultz MD @ 03/31/2025 10:13:53 PM (Electronically Signed)
--- NOTE | 2025-03-31 21:01 | ED.ABDPAIN ---
HPI - Abdominal Pain General Chief Complaint: Abdominal Pain Stated Complaint: Side pain Time Seen by Provider: 03/31/25 20:39 History of Present Illness HPI narrative: This 35-year-old female comes in reporting bilateral side pain in her abdomen that has been present over the past week or so. She states that if she remains still the pain is minimal but distinctly worse with movement. She has had some nausea but no vomiting. She does not report any fever, dysuria, or or altered bowel function. Related Data Home Medications ?Medication ?Instructions ?Recorded ?Confirmed chlorthalidone 25 mg tablet 25 mg PO DAILY 05/27/22 10/05/24 escitalopram oxalate 20 mg tablet 20 mg PO HS 05/27/22 10/05/24 famotidine 40 mg tablet 40 mg PO HS 05/27/22 10/05/24 labetalol 100 mg tablet 100 mg PO BID 05/27/22 10/05/24 montelukast 10 mg tablet 10 mg PO HS 05/27/22 10/05/24 potassium chloride 20 mEq 20 meq PO DAILY 05/27/22 10/05/24 tablet,extended release(part/cryst) sumatriptan succinate 50 mg tablet 50 mg PO Q2H 05/27/22 10/05/24 hydrochlorothiazide PO 03/09/23 omeprazole PO 03/09/23 Wegovy 03/26/24 albuterol sulfate 2.5 mg/3 mL 2.5 mg Q4-6H PRN wheezing 03/26/24 (0.083 %) solution for nebulization empagliflozin 25 mg tablet 25 mg PO DAILY 03/26/24 10/05/24 (Jardiance) fexofenadine 180 mg tablet 180 mg PO DAILY 03/26/24 10/05/24 Held on 10/05/24. Instructions: Pt has been out for a month fremanezumab-vfrm 225 mg/1.5 mL mg subcut 03/26/24 subcutaneous auto-injector (Ajovy) glipizide 2.5 mg tablet, extended 2.5 mg PO DAILY 03/26/24 10/05/24 release 24 hr topiramate 100 mg tablet 100 mg PO DAILY 03/26/24 10/05/24 albuterol sulfate 90 mcg/actuation 1 - 2 puff inhalation Q4H PRN 07/10/24 10/05/24 aerosol inhaler (Ventolin HFA) wheezing fluoxetine 40 mg capsule 40 mg PO QAM 07/10/24 10/05/24 sumatriptan succinate 100 mg tablet mg PO PRN 07/10/24 Previous Rx's ?Medication ?Instructions ?Recorded potassium chloride 20 mEq 20 meq PO DAILY #10 tabs 07/10/24 tablet,extended release(part/cryst) (Klor-Con M) Allergies Allergy/AdvReac Type Severity Reaction Status Date / Time NSAIDS (Non-Steroidal Allergy Severe Pancreatiti Verified 03/31/25 21:56 Anti-Inflamma s Cephalosporins Allergy Intermediate Diarrhea Verified 03/31/25 21:56 Review of Systems Status of ROS Reports: 10 or more systems reviewed and unremarkable except as noted in History and below Narrative Constitutional: No fevers, no weight gain or loss. Eyes: No discharge. No vision changes. HENT: No congestion, no sore throat, no ear pain. Cardiovascular: No chest pain, no palpitations. Respiratory: No shortness of breath, no wheezes, no cough. Gastrointestinal: No vomiting, no diarrhea. Abdominal pain as described above Genitourinary: No dysuria, no hematuria. Musculoskeletal: Normal range of motion. Skin: No rashes, no pruritis. Neurological: No dizziness, weakness, sensory change, speech change. Endo/Heme/Allergies: No bruising or bleeding. No polydipsia. Pysch: no suicidality, no anxiety, no insomnia. All other systems reviewed and are negative. 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 - Spasm of sphincter of Oddi (ICD-10) Lumbar radicular pain ?M54.16 - Radiculopathy, lumbar region (ICD-10) Erythema ab igne ?L59.0 - Erythema ab igne [dermatitis ab igne] (ICD-10) Lumbar disc herniation ?M51.26 - Other intervertebral disc displacement, lumbar region (ICD-10) History of pancreatitis ?Z87.19 - Personal history of other diseases of the digestive system (ICD-10) Herniation of intervertebral disc of lumbar region ?M51.26 - Other intervertebral disc displacement, lumbar region (ICD-10) Chronic abdominal pain ?R10.9 - Unspecified abdominal pain (ICD-10) ?G89.29 - Other chronic pain (ICD-10) Oligomenorrhea ?N91.5 - Oligomenorrhea, unspecified (ICD-10) Hypertension ?I10 - Essential (primary) hypertension (ICD-10) Closed fracture of tuft of distal phalanx of finger ?S62.639A - Displaced fracture of distal phalanx of unspecified finger, initial encounter for closed fracture (ICD-10) Type 2 diabetes, diet controlled ?E11.9 - Type 2 diabetes mellitus without complications (ICD-10) Surgical History History of wisdom tooth extraction ?K08.409 - Partial loss of teeth, unspecified cause, unspecified class (ICD-10) History of tonsillectomy ?Z90.89 - Acquired absence of other organs (ICD-10) History of cholecystectomy ?Z90.49 - Acquired absence of other specified parts of digestive tract (ICD-10) Social History Smoking Status: Never smoker Do you use any of these nicotine containing products: None Second hand tobacco smoke exposure: No How often do you have a drink containing alcohol: 2-4 times a month AUDIT-C Alcohol total score: 2 Non-prescribed substance use: denies use service: No Exam Narrative: Exam Narrative: Constitutional: Well-developed, well-nourished, no acute distress. HEENT: Normocephalic, atraumatic. Neck: Normal range of motion. Nontender. Supple. Heart: Regular. No murmurs. Normal rate. Intact distal pulses. Lungs: Clear to auscultation. No chest discomfort. No wheezes, rhonchi, or rales. Abdomen: Normal bowel sounds. Tenderness on the left and the right abdomen but no pain in the mid abdomen. No rebound tenderness. Genitalia: Deferred. Back: No midline tenderness. Normal range of motion. Extremities: Normal range of motion. No injury. Skin: Intact. No rash. Warm. No erythema or pallor. Neurologic: No altered sensation. No weakness. Alert and oriented. Psychiatric: No suicidality. No anxiety or depression. No insomnia. Nursing notes and vitals signs are reviewed. Const: Vital Signs, click to edit/add: Vital Signs - 24 hr 03/31/25 20:42 Temperature 97.6 F Pulse Rate [Pulse Oximeter] 92 Respiratory Rate 18 [facility] 125/83 Pulse Oximetry 97 Oxygen Delivery Me thod Room Air Course Vital Signs Vital signs: Initial Vital Signs Temperature 97.6 F 03/31/25 20:42 Temperature Source Temporal Artery Scan 03/31/25 20:42 Pulse Rate 92 03/31/25 20:42 Pulse Rhythm Regular 03/31/25 20:42 Respiratory Rate 18 03/31/25 20:42 Blood Pressure 125/83 03/31/25 20:42 Blood Pressure Mean 97 03/31/25 20:42 Blood Pressure Position Sitting 03/31/25 20:42 Pulse Oximetry 97 03/31/25 20:42 Oxygen Delivery Method Room Air 03/31/25 20:42 Vital Signs Temperature 97.6 F 03/31/25 20:42 Pulse Rate 92 03/31/25 20:42 Respiratory Rate 18 03/31/25 20:42 Blood Pressure 125/83 03/31/25 20:42 Pulse Oximetry 97 03/31/25 20:42 Oxygen Delivery Method Room Air 03/31/25 20:42 Temperature 97.6 F 03/31/25 20:42 Pulse Rate 92 03/31/25 20:42 Respiratory Rate 18 03/31/25 20:42 Blood Pressure 125/83 03/31/25 20:42 Pulse Oximetry 97 03/31/25 20:42 Oxygen Delivery Method Room Air 03/31/25 20:42 MDM - Abdominal Pain MDM Narrative Medical decision making narrative: This patient comes in reporting pain in her left and right abdomen but not in the center. She arrives with normal vital signs. An IV was established and labs are acquired. She does have an increased white count around 14,000. Urinalysis is not showing any sign of infection but CT imaging does show a thickened bladder which may indicate a cystitis. She does not report any dysuria symptoms. CT imaging otherwise does not show any acute abnormalities. The patient is reassured with these findings. I did provide a prescription for Bactrim seeing her white count is a bit elevated and with the findings on CT scan. Lab Data Labs: Lab Results 03/31/25 03/31/25 Range/Units 20:55 21:15 WBC 14.44 H (4.50-11.00) K/uL RBC 5.25 H (4.00-5.20) m/uL Hgb 14.0 (12.0-16.0) gm/dL Hct 43.0 (33.0-51.0) % MCV 82 (80-100) fL MCH 27 (26-34) pg MCHC 33 (32-36) gm/dL RDW Coeff of Roger 13.5 (11.5-15.5) % Plt Count 296 (140-440) K/uL Neut % (Auto) 62.9 (42.0-72.0) % Lymph % (Auto) 26.7 (20-44) % [place] % (Auto) 5.5 (0.0-11.0) % Eos % (Auto) 4.3 (0.0-7.0) % Baso % (Auto) 0.3 (0.0-3.0) % Neut # (Auto) 9.10 H (1.7-7.0) K/uL Lymph # (Auto) 3.90 H (0.90-2.90) K/uL [place] # (Auto) 0.80 (0.00-0.90) K/UL Eos # (Auto) 0.60 H (0.00-0.50) K/uL Baso # (Auto) 0.00 (0.00-0.30) K/uL Abs Immat Gran (auto) 0.00 (0.00-0.30) K/uL Imm/Tot Granulo (auto) 0.3 % Sodium 137 (135-149) mmol/L Potassium 3.2 L (3.6-5.1) mmol/L Chloride 98 (96-114) mmol/L Carbon Dioxide 29 (20-32) mmol/L Anion Gap 10 (7-15) mEq/L BUN 13 (5-24) mg/dL Creatinine 0.7 (0.5-1.5) mg/dL Estimated Creat Clear 106.01 Estimated GFR 116 ml/min Glucose 152 H (60-115) mg/dL Calcium 9.2 (8.4-10.6) mg/dL Urine Color Yellow (Yellow) Urine Appearance Slightly Cloudy A (Clear) Urine pH 6.0 (5.0-8.5) Ur Specific Weir 1.025 (1.000-1.030) Urine Protein Negative (Negative) Urine Glucose (UA) Negative (Negative) Urine Ketones Negative (Negative) Urine Blood Negative (Negative) Urine Nitrite Negative (Negative) Urine Bilirubin Negative (Negative) Urine Urobilinogen 1.0 (0.2-1.0) Ur Leukocyte Esterase Negative (Negative) Urine RBC 0-2 (0-2) Urine WBC 0-2 (0-5) Ur Squamous Epith Cells Moderate A (None-Few) Urine Bacteria Few A (None) Imaging Data CT scan - abdomen: Radiologist's impression: 1. Bladder wall thickening with mild adjacent stranding concerning for UTI/cystitis. 2. Hepatic steatosis with hepatosplenomegaly. Discharge Plan Discharge Clinical Impression: Abdominal pain Patient Disposition: Home, Self-Care Condition: Stable Additional Instructions: Take medication as prescribed. Drink plenty of fluids. Use [id number] medicines also as needed and directed. Follow up with MD return if worsening. Prescriptions: No Action chlorthalidone 25 mg tablet 25 mg PO DAILY Patient Comments: TAKE ONE TABLET BY MOUTH EVERY DAY escitalopram oxalate 20 mg tablet 20 mg PO HS Patient Comments: TAKE ONE TABLET BY MOUTH AT BEDTIME famotidine 40 mg tablet 40 mg PO HS Patient Comments: TAKE ONE TABLET BY MOUTH AT BEDTIME labetalol 100 mg tablet 100 mg PO BID Patient Comments: TAKE ONE TABLET BY MOUTH TWICE A DAY (MORNING AND EVENING) montelukast 10 mg tablet 10 mg PO HS Patient Comments: TAKE ONE TABLET BY MOUTH AT BEDTIME potassium chloride 20 mEq tablet,ER particles/crystals 20 meq PO DAILY Patient Comments: TAKE ONE TABLET BY MOUTH EVERY DAY WITH A MEAL - TAKE INSTEAD OF POWDER POTASSIUM sumatriptan succinate 50 mg tablet 50 mg PO Q2H Patient Comments: TAKE ONE HALF TO ONE TABLET BY MOUTH AT ONSET OF MIGRAINE. MAY REPEAT IN 2 HOURS IF NEEDED. GIVE AT MINIMUM 2 HOURS APART. MAX DOSE 100MG / hydrochlorothiazide PO omeprazole PO Wegovy albuterol sulfate 2.5 mg /3 mL (0.083 %) solution for nebulization 2.5 mg Q4-6H PRN (Reason: wheezing) fexofenadine 180 mg tablet 180 mg PO DAILY glipizide 2.5 mg tablet extended release 24hr 2.5 mg PO DAILY topiramate 100 mg tablet 100 mg PO DAILY Jardiance 25 mg tablet 25 mg PO DAILY Ajovy Autoinjector 225 mg/1.5 mL auto-injector subcut fluoxetine 40 mg capsule 40 mg PO QAM sumatriptan succinate 100 mg tablet PO PRN albuterol sulfate [Ventolin HFA] 90 mcg/actuation HFA aerosol inhaler 1 - 2 puff INHALATION Q4H PRN (Reason: wheezing) potassium chloride [Klor-Con M20] 20 mEq tablet,ER particles/crystals 20 meq PO DAILY Qty: 10 2RF Follow Up/Referrals: Arlet Pratt DO [Primary Care Provider, Family Practice] Stand Alone Forms: [facility] Info Inst[facility]
[2025-03-31 21:07] LABS: Appearance Urine Slightly Cloudy (Clear)
--- OUTSIDE RECORDS SUMMARY | 2025-03-31 21:08 | XMS_ITS | Clinical Summary ---
Author Organization [facility] Address [address] , [address] [place] [address] Phone Care Team Providers Care Vibrator Equipment Tester Name Role Phone System Maintenance Unavailable [phone] Conditions or Problems Problem Name Problem Code Onset Date Status Entry Date Provider Comment Standard Description Annotate Risk of sleep apnea 461294243 (SNOMED CT) 07/05 Active 07/05 Sara Huizar PA-C At increased risk of disease Snoring 25608148 (SNOMED CT) 07/05 Active 07/05 Sara Huizar PA-C Snoring Obesity 524301001 (SNOMED CT) 08/17 Active 08/17 Arik Alexander MD Obesity Papilledema 447826264 (SNOMED CT) 08/17 Active 08/17 Arik Alexander MD Optic disc edema New daily persistent headache 9983831081958 05 (SNOMED CT) 08/17 Active 08/17 Arik Alexander MD New daily persistent headache Migraine, common 62544228 (SNOMED CT) 08/17 Active 08/17 Arik Alexander MD Migraine without aura Medications Medication Instructions Start Date Stop Date Generic Name [facility] Provider SUMATRIPTAN SUCCINATE 100 MG TABS TAKE ONE-HALF TO ONE TABLET BY MOUTH AT ONSET OF MIGRAINE, MAY REPEAT IN 2 HOURS NEEDED MAX DOSE ONE TABLET IN 24HRS DO NOT TAKE MORE THAN 9 TO 10 DAYS PER MONTH 03/07 sumatriptan succinate [id number] Wilmer Lares PA-C SUMATRIPTAN SUCCINATE 100 MG TABS TAKE ONE HALF TO ONE TABLET BY MOUTH AT ONSET OF MIGRAINE, MAY REPEAT IN 2 HOURS NEEDED. MAX DOSE ONE TABLET IN 24HRS. DO NOT TAKE MORE THAN 9 TO 10 DAYS PER MONTH sumatriptan succinate [id number] Wilmer MULLINS-Jeannine TOPIRAMATE 100 MG TABS TAKE ONE TABLET BY MOUTH ONCE DAILY AT BEDTIME - PT NEEDS APPT, CALL [phone] 01/28 topiramate [id number] Saar Nydia Cherucheril PA-C TOPIRAMATE 100 MG TABS TAKE ONE TABLET BY MOUTH AT BEDTIME NEED APPOINTMENT CALL [phone] topiramate [id number] Sara Nydia Betzaidaucheril PA-C TOPAMAX 100 MG TABS Take 1 tablet by mouth every night at bedtime 12/31 topiramate 86207656107 Jillian Marquis DNP,GLOBAL RISK MANAGEMENT DIRECTOR,SOFTWARE PROJECT ENGINEER TOPIRAMATE 100 MG TABS TAKE ONE TABLET BY MOUTH ONCE DAILY AT BEDTIME - PT NEEDS APPT, CALL [phone] 01/28 topiramate [id number] Jillian Rodriguez Rechtzigel DNP,GLOBAL RISK MANAGEMENT DIRECTOR,SOFTWARE PROJECT ENGINEER SUMATRIPTAN SUCCINATE 100 MG TABS TAKE ONE-HALF TO ONE TABLET BY MOUTH AT ONSET OF MIGRAINE. MAY REPEAT IN 2 HOURS IF NEEDED. MAX DOSE 100MG/24 HOURS. No to take more than 9 to 10 days per month 03/02 sumatriptan succinate [id number] Sara Nydia Cherucheril PA-C SUMATRIPTAN SUCCINATE 100 MG TABS TAKE ONE-HALF TO ONE TABLET BY MOUTH AT ONSET OF MIGRAINE, MAY REPEAT IN 2 HOURS NEEDED MAX DOSE ONE TABLET IN 24HRS DO NOT TAKE MORE THAN 9 TO 10 DAYS PER MONTH 03/07 sumatriptan succinate 03847228125 Sara Nydia Cherucheril PA-C TOPAMAX 25 MG TABS week 1: take 1 tab q am and 4 tab q pm. week 2: take 2 tab q am and 4 tab q pm. week 3: take 3 tab q am and 4 tab q pm. week 4 onward: take 4 tab twice a day. 12/26 topiramate 55939714126 Sara Huizar PA-C TOPAMAX 100 MG TABS Take 1 tablet by mouth every night at bedtime 12/31 topiramate 70925141937 Sara Huizar PA-C CETIRIZINE HCL 10 MG TABS Take 1 tablet by mouth once a day 09/04 cetirizine 27697833361 Sara Lynneil PA-C FEXOFENADINE HCL 180 MG TABS fexofenadine 05164571736 Sara Lynneil PA-C GLIPIZIDE ER 2.5 MG [id number] TAKE ONE TABLET BY MOUTH EVERY DAY BEFORE A MEAL glipizide 17205991125 Sara MULLINS-C AJOVY 225 MG/1.5ML SOAJ Inject 1 pen injector subcutaneously once a month fremanezumab-vfr 62680434075 Sara Huizar SUSANNA-C JARDIANCE 10 MG TABS empagliflozin 47209000164 Sara Huizar PA-C TOPAMAX 25 MG TABS 1 tablet by mouth as directed : 25 mg per night for 1 weeks; then increase by 25 mg per night every 1 weeks until maximum 100 mg per night or until pain controlled 03/14 topiramate 44857610853 Sara Huiazr PA-C TOPAMAX 25 MG TABS week 1: take 1 tab q am and 4 tab q pm. week 2: take 2 tab q am and 4 tab q pm. week 3: take 3 tab q am and 4 tab q pm. week 4 onward: take 4 tab twice a day. 12/26 topiramate 93453533837 Sara Huizar PA-C ATIVAN 1 MG TABS 1 tablet by mouth as directed : 1 mg 2 hour before MRI. May repeat as needed with 1 mg up to maximum of 3 mg before MRI. No driving or operate heavy machinery for 24 hour after taking this med lorazepam 66151585062 Arik Alexander MD SUMATRIPTAN SUCCINATE 50 MG TABS TAKE ONE-HALF TO ONE TABLET BY MOUTH AT ONSET OF MIGRAINE. MAY REPEAT IN 2 HOURS IF NEEDED. MAX DOSE 100MG/24 HOURS. 9 to 10 days use per month 08/17 sumatriptan succinate 09137209437 Arik Alexander MD SUMATRIPTAN SUCCINATE 100 MG TABS TAKE ONE-HALF TO ONE TABLET BY MOUTH AT ONSET OF MIGRAINE. MAY REPEAT IN 2 HOURS IF NEEDED. MAX DOSE 100MG/24 HOURS. No to take more than 9 to 10 days per month 03/02 sumatriptan succinate 83741965065 Arik Alexander MD SUMATRIPTAN SUCCINATE 50 MG TABS TAKE ONE-HALF TO ONE TABLET BY MOUTH AT ONSET OF MIGRAINE. MAY REPEAT IN 2 HOURS IF NEEDED. MAX DOSE 100MG/24 HOURS. 08/17 sumatriptan succinate 59513471082 Arik Alexander MD TOPAMAX 25 MG TABS 1 tablet by mouth as directed : 25 mg per night for 1 weeks; then increase by 25 mg per night every 1 weeks until maximum 100 mg per night or until pain controlled 03/14 topiramate 22717237136 Arik Alexander MD SUMATRIPTAN SUCCINATE 50 MG TABS TAKE ONE-HALF TO ONE TABLET BY MOUTH AT ONSET OF MIGRAINE. MAY REPEAT IN 2 HOURS IF NEEDED. MAX DOSE 100MG/24 HOURS. 9 to 10 days use per month 08/17 sumatriptan succinate 20860132722 Arik Alexander MD multivitamin Take 1 tablet by mouth once a day MVI Arik Alexander MD TRIAMCINOLONE ACETONIDE 0.5 % OINT Apply to skin twice a day triamcinolone acetonide 45365456321 Arik Alexander MD NORGESTIMATE-ETH ESTRADIOL 0.25-35 MG-MCG TABS Take 1 tablet by mouth once a day 08/17 norgestimate-eth inyl estradiol 94585056180 Arik Alexander MD POTASSIUM CHLORIDE SUKHDEV ER 20 MEQ CR-TABS Take 1 tablet by mouth once a day potassium chloride 50115383616 Arik Alexander MD OMEPRAZOLE 20 MG CPDR Take 1 capsule by mouth once a day omeprazole 71386288160 Arik Alexander MD ALBUTEROL SULFATE HFA 108 (90 Base) MCG/ACT AERS Inhale 1-2 puff by mouth every four hours as needed 08/17 albuterol sulfate 41099881837 Arik Alexander MD ALBUTEROL SULFATE HFA 108 (90 Base) MCG/ACT AERS Inhale 2 puff by mouth four times a day as needed albuterol sulfate 25133650973 Arik Alexander MD FAMOTIDINE 40 MG TABS Take 1 tablet by mouth every night famotidine 24692683058 Arik Alexander MD CYCLOBENZAPRINE HCL 10 MG TABS Take 1 tablet by mouth every night as needed cyclobenzaprine 10885242219 Arik Alexander MD diphenhydrAMINE-a cetaminophen 25-500 mg once a day TYLENOL PM Arik Alexander MD Contour Next Test Strips strip Use once a day Contour Next Test Strips strip Arik Alexander MD ACETAMINOPHEN 325 MG TABS Take 2 tablet by mouth every four hours as needed acetaminophen 27338316445 Arik Alexander MD CETIRIZINE HCL 10 MG TABS Take 1 tablet by mouth once a day 09/04 cetirizine 50643141502 Arik Alexander MD blood-glucose meter by Not Applicable route. Dispense meter, test strips, lancets covered by pt ins. NIDDM type II, controlled - Test 1 time/day blood-glucose meter Arik Alexander MD LABETALOL HCL 100 MG TABS Take 1 tablet by mouth twice a day labetalol 71182890619 Arik Alexander MD Microlet Lancet Use once a day Microlet Lancet Arki Alexander MD miconazole nitrate powder 2 % powder Apply to skin twice a day miconazole nitrate powder 2 % powder Arik Alexander MD SUMATRIPTAN SUCCINATE 50 MG TABS TAKE ONE-HALF TO ONE TABLET BY MOUTH AT ONSET OF MIGRAINE. MAY REPEAT IN 2 HOURS IF NEEDED. MAX DOSE 100MG/24 HOURS. 08/17 sumatriptan succinate 65922604306 Arik Alexander MD MONTELUKAST SODIUM 10 MG TABS Take 1 tablet by mouth every night montelukast 98948267399 Arik Alexander MD CHLORTHALIDONE 25 MG TABS Take 1 tablet by mouth once a day chlorthalidone 38112924632 Arik Alexander MD TOLNAFTATE 1 % POWD Apply to skin twice a day tolnaftate 56115681669 Arik Alexander MD ESCITALOPRAM OXALATE 20 MG TABS Take 1 tablet by mouth every night escitalopram oxalate 25821156413 Arik Alexander MD TRIAMCINOLONE ACETONIDE 0.5 % OINT Apply topically to affected area(s) 2 times daily. Not use >14 days in a row 08/17 triamcinolone acetonide 35974230061 QIEUSER QIEUSER TOLNAFTATE 1 % POWD Apply topically to affected area(s) 2 times daily. Shake into sock 08/17 tolnaftate 25507918792 QIEUSER QIEUSER SUMATRIPTAN SUCCINATE 50 MG TABS TAKE ONE-HALF TO ONE TABLET BY MOUTH AT ONSET OF MIGRAINE. MAY REPEAT IN 2 HOURS IF NEEDED. MAX DOSE 100MG/24 HOURS. 08/17 sumatriptan succinate 55390293086 QIEUSER QIEUSER POTASSIUM CHLORIDE SUKHDEV ER 20 MEQ CR-TABS TAKE ONE TABLET BY MOUTH EVERY DAY WITH A MEAL. TAKE INSTEAD OF POWDER POTASSIUM 08/17 potassium chloride 00639524754 QIEUSER QIEUSER OMEPRAZOLE 20 MG CPDR Take 1 capsule by mouth once daily. 01/04 omeprazole 94190725495 QIEUSER QIEUSER NORGESTIMATE-ETH ESTRADIOL 0.25-35 MG-MCG TABS Take 1 Tablet by mouth once daily. 01/04 norgestimate-eth inyl estradiol 30058135988 QIEUSER QIEUSER multivitamin Take 1 tablet by mouth once daily. 08/17 MVI QIEUSER QIEUSER MONTELUKAST SODIUM 10 MG TABS Take 1 Tablet (10 mg) by mouth at bedtime. 08/17 montelukast 57138519344 QIEUSER QIEUSER Microlet Lancet TEST ONCE A DAY 08/17 Microlet Lancet QIEUSER QIEUSER miconazole nitrate powder 2 % powder Apply topically to affected area(s) 2 times daily. 08/17 miconazole nitrate powder 2 % powder QIEUSER QIEUSER LABETALOL HCL 100 MG TABS Take 1 Tablet (100 mg) by mouth in the morning and 1 Tablet (100 mg) in the evening. 08/17 labetalol 42572029612 QIEUSER QIEUSER FAMOTIDINE 40 MG TABS Take 1 Tablet (40 mg) by mouth at bedtime. 08/17 famotidine 03820813023 QIEUSER QIEUSER ESCITALOPRAM OXALATE 20 MG TABS Take 1 Tablet (20 mg) by mouth at bedtime. 08/17 escitalopram oxalate 81486240424 QIEUSER QIEUSER diphenhydrAMINE-a cetaminophen 25-500 mg Daily 08/17 TYLENOL PM QIEUSER QIEUSER CYCLOBENZAPRINE HCL 10 MG TABS Take 1 Tablet (10 mg) by mouth at bedtime if needed for Muscle Spasm. MAX 10mg dose 08/17 cyclobenzaprine 49909117781 QIEUSER QIEUSER Contour Next Test Strips strip TEST 1 TIME A DAY 08/17 Contour Next Test Strips strip QIEUSER QIEUSER CHLORTHALIDONE 25 MG TABS Take 1 Tablet (25 mg) by mouth once daily. 01/04 chlorthalidone 78204013905 QIEUSER QIEUSER CETIRIZINE HCL 10 MG TABS Take 1 Tablet (10 mg) by mouth once daily. 08/17 cetirizine 21197837875 QIEUSER QIEUSER blood-glucose meter by Not Applicable route. Dispense meter, test strips, lancets covered by pt ins. NIDDM type II, controlled - Test 1 time/day 08/17 blood-glucose meter QIEUSER QIEUSER ALBUTEROL SULFATE HFA 108 (90 Base) MCG/ACT AERS Inhale 1-2 Puffs by mouth every 4 hours if needed for Shortness of Breath 1st choice or Wheezing 1st choice. 08/17 albuterol sulfate 21976986929 QIEUSER QIEUSER ALBUTEROL SULFATE HFA 108 (90 Base) MCG/ACT AERS Inhale 2 Puffs by mouth 4 times daily if needed for Shortness Of Breath. 08/17 albuterol sulfate 38155969147 QIEUSER QIEUSER ACETAMINOPHEN 325 MG TABS Take 2 tablets by mouth every 4 hours if needed. Max acetaminophen dose: 4000mg in 24 hrs. 08/17 acetaminophen 62517015970 QIEUSER QIEUSER Medications Administered No information available. [...] in clinic or telemedicine 09/28 ORDERS MRV [id number] MRI-Brain W/O CPT-12273 MRI Brain W/O CPT-D0870X ProHance Gadolinium- based MR Contrast - 20 ml vial CPT-25401 MRV Head W/WO ORDERS Patient Instructions ORDERS Patient Instructions [id number] Documentation of current medicatio ns Vital Signs Date Name Value Unit Description Weight Measured 330 [lb_av] weight E& M Weight Measured 330 [lb_av] weight E& M Heart Rate 68 /min pulse rate Immunizations No information available. Advance Directives No information available.
[2025-03-31 21:21] LABS: Hematocrit* 43.0 % (33.0-51.0); Hemoglobin* 14.0 gm/dL (12.0-16.0); Immature Granulocytes Pct Auto 0.3 %; Mean Corpuscular HGB Conc 33 gm/dL (32-36); Mean Corpuscular Hemoglobin 27 pg (26-34); Mean Corpuscular Volume 82 fL (80-100); RDW Coefficient of Variation % 13.5 % (11.5-15.5); Red Blood Count* 5.25 m/uL (4.00-5.20); White Blood Count* 14.44 K/uL (4.50-11.00)
[2025-03-31 21:24] LABS: Immature Granulocytes Abs Auto 0.00 K/uL (0.00-0.30); Lymphocytes Absolute Auto 3.90 K/uL (0.90-2.90); Slide Review Reflex No
[2025-03-31 21:33] LABS: Chloride* 98 mmol/L (96-114)
[2025-03-31 21:34] LABS: Potassium* 3.2 mmol/L (3.6-5.1); Sodium* 137 mmol/L (135-149)
[2025-03-31 21:37] LABS: Anion Gap 10 mEq/L (7-15); Blood Urea Nitrogen* 13 mg/dL (5-24); Calcium* 9.2 mg/dL (8.4-10.6); Carbon Dioxide* 29 mmol/L (20-32); Creatinine* 0.7 mg/dL (0.5-1.5); Est. Creatinine Clearance* 106.01; Estimated Glomerular Filt Rate 116 ml/min; Glucose* 152 mg/dL (60-115)
[2025-03-31 22:53] VITALS: BP 121/81; PULSE 79; RESP 18
== END 2025-03-31 22:54 | disposition home or self-care (01) ==
PROVIDERS: Emergency Provider Emergency Medicine Emergency Medical Services; PCP Family Medicine
DX: R10.9 Unspecified abdominal pain (principal)
CPT/HCPCS: 36415; 74177; 80048; 81001; 85025; 87086; 99284; Q9967